=== PATIENT | female | born 1975 | race Caucasian/White ===

== ENCOUNTER 2024-01-14 11:06 | Outpatient (CLI) | payer MEDICAID, SELFPAY ==
[2024-01-14 11:53] LABS: Basophils # 0.1 10^3/uL (0.0-0.1); Basophils % 1.2 %; Eosinophils # 0.2 10^3/uL (0.0-0.8); Eosinophils % 4.6 %; Hematocrit 35.5 % (36-47); Lymphocytes % 23.1 %; Mean Corpuscular HGB Conc 32.4 g/dL (30-55); Mean Corpuscular Hemoglobin 29.1 pg (27-33); Mean Corpuscular Volume 89.9 fl (85-98); Mean Platelet Volume 10.1 fL (7.4-10.4); Monocytes # 0.3 10^3/uL (0.2-0.9); Monocytes % 6.6 %; Neutrophils # 2.65 10^3/uL (1.8-7.7); Neutrophils % 64.3 %; Nucleated Red Blood Cells % 0 %; Platelet Count 115 10^3/cmm (157-399); Red Blood Count 3.95 10^6/uL (3.85-5.65); Red Cell Distribution Width 15.3 % (12.1-15.1); White Blood Count 4.12 10^3/uL (3.29-11.43)
[2024-01-14 12:10] LABS: Alanine Aminotransferase 30 U/L (0-33); Albumin Level 4.3 g/dL (3.5-5.2); Alkaline Phosphatase 147 U/L (35-105); Aspartate Amino Transferase 47 U/L (0-32); Blood Urea Nitrogen 15 mg/dL (6-20); Carbon Dioxide 19 mmol/L (22-29); Chloride 106 mmol/L (98-107); Cholesterol 187 mg/dL (0-200); Globulin 3.3 g/dL (1.3-4.6); Glomerular Filtration Rate 89.3 mL/min (90-130); Glucose 97 mg/dL (65-115); HDL Cholesterol 72 mg/dL (60-100); LDL Cholesterol Calculated 80 mg/dL (50-129); LDL HDL Ratio 1.11 RATIO (0.00-3.22); Osmolality Calculated 287 mOsm/kg (285-295); Sodium 138 mmol/L (136-145); Total Bilirubin 1.2 mg/dL (0.15-1.2); Total Protein 7.6 g/dL (6.6-8.7); Triglycerides 176 mg/dL (0-150)
[2024-01-14 12:14] LABS: Creatinine Urine, Random 67 mg/dL (28-217); Estmated Average Glucose 111; Hemoglobin A1C 5.5 % (4.0-6.0); Microalbumin Random Urine 11 ug/dL (0-20)
[2024-01-14 12:33] LABS: Iron 131 ug/dL (37-145); Percent Saturation 35.5 % (20-50); Total Iron Binding Capacity 368 mcg/dl; Unsaturated Iron Binding 237 ug/dL (112-347)
[2024-01-14 12:52] LABS: Microalbum Creatinine Ratio Ur 164 mg/dL (0-20)
== END 2024-01-14 11:07 | disposition home or self-care (01) ==
PROVIDERS: Family Medicine
DX: Z01.89 Encounter for other specified special examinations (principal)
CPT/HCPCS: 36415; 80053; 80061; 82044; 83036; 83540; 83550; 85025

== ENCOUNTER 2024-02-01 15:57 | Outpatient (CLI) | payer MEDICAID, SELFPAY ==
[2024-02-01 16:55] LABS: Basophils % 0.8 %; Eosinophils # 0.1 10^3/uL (0.0-0.8); Eosinophils % 2.6 %; Hematocrit 31.2 % (36-47); Lymphocytes # 1.2 10^3/uL (0.8-4.8); Lymphocytes % 24.2 %; Mean Corpuscular Hemoglobin 29.5 pg (27-33); Mean Corpuscular Volume 89.4 fl (85-98); Mean Platelet Volume 10.3 fL (7.4-10.4); Monocytes # 0.5 10^3/uL (0.2-0.9); Monocytes % 9.4 %; Neutrophils # 3.08 10^3/uL (1.8-7.7); Neutrophils % 62.8 %; Nucleated Red Blood Cells % 0 %; Platelet Count 96 10^3/cmm (157-399); Red Blood Count 3.49 10^6/uL (3.85-5.65); Red Cell Distribution Width 15.6 % (12.1-15.1); White Blood Count 4.91 10^3/uL (3.29-11.43)
[2024-02-01 17:18] LABS: Estmated Average Glucose 111; Hemoglobin A1C 5.5 % (4.0-6.0)
[2024-02-01 17:32] LABS: Alanine Aminotransferase 38 U/L (0-33); Albumin Level 4.1 g/dL (3.5-5.2); Alkaline Phosphatase 167 U/L (35-105); Anion Gap 17.1 (5-19); Aspartate Amino Transferase 69 U/L (0-32); Blood Urea Nitrogen 16 mg/dL (6-20); Calcium 9.3 mg/dL (8.5-10.5); Carbon Dioxide 19 mmol/L (22-29); Chloride 106 mmol/L (98-107); Chol HDL Ratio 2.64 mg/dL (0.0-4.40); Cholesterol 182 mg/dL (0-200); Ferritin 58 ng/mL (15-150); Globulin 2.9 g/dL (1.3-4.6); Glomerular Filtration Rate 89.3 mL/min (90-130); Glucose 96 mg/dL (65-115); HDL Cholesterol 69 mg/dL (60-100); Iron 42 ug/dL (37-145); LDL Cholesterol Calculated 97 mg/dL (50-129); LDL HDL Ratio 1.41 RATIO (0.00-3.22); Osmolality Calculated 287 mOsm/kg (285-295); Percent Saturation 11.2 % (20-50); Potassium 4.1 mmol/L (3.5-5.1); Sodium 138 mmol/L (136-145); Total Bilirubin 0.7 mg/dL (0.15-1.2); Total Iron Binding Capacity 372 mcg/dl; Triglycerides 80 mg/dL (0-150); Unsaturated Iron Binding 330 ug/dL (112-347)
[2024-02-01 17:39] LABS: Folate Level 11.7 ng/mL (4.8-37.3)
[2024-02-01 17:41] LABS: Creatinine Urine, Random 81 mg/dL (28-217); Microalbumin Random Urine 7 ug/dL (0-20)
[2024-02-01 17:42] LABS: Microalbum Creatinine Ratio Ur 86 mg/dL (0-20)
[2024-02-01 19:22] LABS: Vitamin B12 694 pg/mL (232-1245)
== END 2024-02-01 15:58 | disposition home or self-care (01) ==
LOC: LAB 15:59
PROVIDERS: PCP Registered Nurse; Visit Provider Registered Nurse
DX: D50.9 Iron deficiency anemia, unspecified (principal); E78.5 Hyperlipidemia, unspecified; I10 Essential (primary) hypertension; E11.65 Type 2 diabetes mellitus with hyperglycemia
CPT/HCPCS: 36415; 80053; 80061; 82044; 82607; 82728; 82746; 83036; 83540; 83550; 85025

== ENCOUNTER 2024-02-13 19:19 | Emergency (ER) | payer MEDICAID, SELFPAY ==
[2024-02-13] VITALS (11 sets, daily range): BP systolic 110–159; BP diastolic 56–87; PULSE 97–115; RESP 18–24; TEMP 37.1; O2SAT 91–99; BMI 21.9
--- NOTE | 2024-02-13 19:37 | CTR_ITS ---
PROCEDURE INFORMATION: Exam: CT Abdomen And Pelvis With Contrast Exam date and time: 02/13/2024 8:15 PM Age: 48 years old Clinical indication: Abdominal pain; Generalized; Prior surgery; Surgery date: 6+ months; Surgery type: Csection, choley; Additional info: Abd pain TECHNIQUE: Imaging protocol: Computed tomography of the abdomen and pelvis with contrast. Radiation optimization: All CT scans at this facility use at least one of these dose optimization techniques: automated exposure control; mA and/or kV adjustment per patient size (includes targeted exams where dose is matched to clinical indication); or iterative reconstruction. Contrast material: OMNI 350; Contrast volume: 100 ml; Contrast route: INTRAVENOUS (IV); COMPARISON: No relevant prior studies available. RADIATION DOSE METRICS: Total DLP (mGy-cm): 377.73 FINDINGS: Liver: No mass. Gallbladder and biliary ducts: Cholecystectomy with intrahepatic and extrahepatic bile duct dilation. Pancreas: Pancreas is unremarkable. No main duct dilation. Spleen: Splenomegaly measuring up to 16.3 cm. Adrenal glands: No nodules. Kidneys and ureters: Punctate nonobstructing left renal calculus. No hydroureteronephrosis. No mass. Stomach and bowel: Large colonic stool burden suggesting constipation. No bowel obstruction. Appendix: Normal appendix. Intraperitoneal space: Unremarkable. No free air. No significant fluid collection. Vasculature: No aortic aneurysm. Lymph nodes: No enlarged lymph nodes. Urinary bladder: Unremarkable as visualized. Reproductive: Unremarkable as visualized. Bones/joints: No acute fracture. No aggressive osseous lesions. Soft tissues: Unremarkable. CT/CT abdomen pelvis w con* [id number] IMPRESSION: 1. Large colonic stool burden suggesting constipation. 2. Splenomegaly. 3. Punctate nonobstructing left renal calculus.
--- NOTE | 2024-02-13 19:39 | ED_ITS ---
HPI - Abdominal Pain 2 General: Chief Complaint: Abdominal Pain Stated Complaint: Abd Pain Time Seen by Provider: 02/13/24 19:28 Source: patient Mode of arrival: ambulatory Limitations: no limitations History of Present Illness: 40-year-old female has a history of cirr hosis she has had a cholecystectomy in the past. She states that she is supposed to have a hysterectomy last year but never did. She states she has had some vaginal bleeding last 2 days with lower abdominal pain states pain sharp in nature rates it a 5 out of 10 denies any heavy bleeding denies any fevers denies any vomiting or diarrhea. Associated Symptoms: Denies chills, diarrhea, dysuria, fever(s), nausea and vomiting Related Data Previous Rx's Medication Instructions Recorded metoclopramide HCl 10 mg tablet 10 mg PO Q6H PRN nausea and 02/13/24 (Reglan) vomiting #20 tabs polyethylene glycol 3350 17 gram 17 g PO DAILY PRN constipation #14 02/13/24 oral powder packet (Miralax) ea Allergies Allergy/AdvReac Type Severity Reaction Status Date / Time aspirin Allergy ADR-Headach Verified 02/13/24 19:27 e Penicillins Allergy ALGY-Hives Verified 02/13/24 19:27 Review of Systems 2 Const: Denies: fever(s), chills, body aches or change in appetite ENMT: Denies: throat pain or dental pain Card: Denies: chest pain Resp: Denies: dyspnea GI: Reports: abdominal pain; Denies: nausea, vomiting or diarrhea : Denies: dysuria Musc: Denies: neck pain or back pain Skin/Breast: Denies: rash Neuro: Denies: headache(s) Physical Exam 2 Const: COMMON NORMALS: no acute distress, patient oriented x3 and healthy appearing HENMT: COMMON NORMALS: normocephalic and atraumatic HEAD & SCALP: n ormocephalic and atraumatic Eye: COMMON NORMALS: conjunctivae normal CONJUNCTIVA: Yes conjunctivae normal Neck/C-Spine: COMMON NORMALS: full ROM and supple Chest: COMMONS NORMALS: normal inspection of the chest Resp: COMMON NORMALS: normal respiratory effort Cardio: COMMON NORMALS: regular rate, regular rhythm and No murmurs present (Cardio) RATE: regular rate RHYTHM: regular rhythm GI: COMMON NORMALS: Normal to inspection, nondistended, normoactive bowel sounds present, Soft to palpation and no masses PALPATION: Yes Soft to palpation OTHER: lower abd tenderness Extremity: COMMON NORMALS: normal to inspection and full ROM Neuro: COMMON NORMALS: patient oriented x3, moves all extremities and no focal motor deficits Psych: COMMON NORMALS: mental status grossly normal, Normal thought process present and cooperative THOUGHT PROCESS: Normal thought process present Skin: COMMON NORMALS: no rashes or lesions noted and no wounds GENERAL SKIN EXAM: no rashes or lesions noted Course 2 Vital Signs: Vital signs: Vital Signs Temperature 98.7 F 02/13/24 19:22 Pulse Rate 111 H 02/13/24 22:00 Respiratory Rate 20 H 02/13/24 21:46 Blood Pressure 119/65 02/13/24 22:00 Pulse Oximetry 95 02/13/24 22:00 Oxygen Delivery Me thod Room Air 02/13/24 22:00 MDM - Abdominal Pain Medical Decision Making Patient presents for abdominal pain her white count here is normal she did have some dehydration CT shows constipation abdominal exam at discharge benign she is stable for discharge she is follow-up with PCP and return if worsening will prescribe her MiraLAX and Reglan. Medical Records I reviewed the patient's medical records. Lab Data I reviewed the patient's lab results. 02/13/24 19:43 02/13/24 19:43 Labs/Radiology: Radiology Impressions Abdomen/Pelvis CT 02/13/24 19:37 IMPRESSION: 1. Large colonic stool burden suggesting constipation. 2. Splenomegaly. 3. Punctate nonobstructing left renal calculus. Laboratory Results WBC 8.63 10^3/uL (3.29-11.43) 02/13/24 19:43 RBC 4.18 10^6/uL (3.85-5.65) 02/13/24 19:43 Hgb 12.40 g/dL (11.27-16.99) 02/13/24 19:43 Hct 38.4 % (36-47) 02/13/24 19:43 MCV 91.9 fl (85-98) 02/13/24 19:43 MCH 29.7 pg (27-33) 02/13/24 19:43 MCHC 32.3 g/dL (30-55) 02/13/24 19:43 RDW 15.5 % (12.1-15.1) H 02/13/24 19:43 Plt Count 151 10^3/cmm (157-399) L 02/13/24 19:43 MPV 9.7 fL (7.4-10.4) 02/13/24 19:43 Neut % (Auto) 61.1 % 02/13/24 19:43 Lymph % (Auto) 29.7 % 02/13/24 19:43 [place] % (Auto) 5.2 % 02/13/24 19:43 Eos % (Auto) 2.7 % 02/13/24 19:43 Baso % (Auto) 1.0 % 02/13/24 19:43 Neut # (Auto) 5.27 10^3/uL (1.8-7.7) 02/13/24 19:43 Lymph # (Auto) 2.6 10^3/uL (0.8-4.8) 02/13/24 19:43 [place] # (Auto) 0.5 10^3/uL (0.2-0.9) 02/13/24 19:43 Eos # (Auto) 0.2 10^3/uL (0.0-0.8) 02/13/24 19:43 Baso # (Auto) 0.1 10^3/uL (0.0-0.1) 02/13/24 19:43 Nucleated RBC % (auto) 0 % 02/13/24 19:43 Nucleated RBCs # 0.0 /100WBC 02/13/24 19:43 Sodium 140 mmol/L (136-145) 02/13/24 19:43 Potassium 3.8 mmol/L (3.5-5.1) 02/13/24 19:43 Chloride 111 mmol/L (98-107) H 02/13/24 19:43 Carbon Dioxide 13 mmol/L (22-29) L 02/13/24 19:43 Anion Gap 19.8 (5-19) H 02/13/24 19:43 BUN 13 mg/dL (6-20) 02/13/24 19:43 Creatinine 1.0 mg/dL (0.5-0.9) H 02/13/24 19:43 GFR Calculation 59.2 mL/min (90-130) L 02/13/24 19:43 Glucose 103 mg/dL (65-115) 02/13/24 19:43 Calculated Osmolality 290 mOsm/kg (285-295) 02/13/24 19:43 Calcium 9.9 mg/dL (8.5-10.5) 02/13/24 19:43 Total Bilirubin 0.9 mg/dL (0.15-1.2) 02/13/24 19:43 AST 70 U/L (0-32) H 02/13/24 19:43 ALT 37 U/L (0-33) H 02/13/24 19:43 Alkaline Phosphatase 168 U/L (35-105) H 02/13/24 19:43 Total Protein 8.1 g/dL (6.6-8.7) 02/13/24 19:43 Albumin 4.4 g/dL (3.5-5.2) 02/13/24 19:43 Globulin 3.7 g/dL (1.3-4.6) 02/13/24 19:43 Lipase 61 U/L (13-60) H 02/13/24 19:43 Urine Color Yellow (Yellow) 02/13/24 20:15 Urine Appearance Clear (CLEAR) 02/13/24 20:15 Urine pH 6.0 (5-7) 02/13/24 20:15 Ur Specific [place] 1.005 (1.005-1.030) 02/13/24 20:15 Urine Protein 1+ (Negative) A 02/13/24 20:15 Urine Glucose (UA) Negative (Normal) 02/13/24 20:15 Urine Ketones Negative (Negative) 02/13/24 20:15 Urine Blood 3+ (Negative) A 02/13/24 20:15 Urine Nitrate Negative (Negative) 02/13/24 20:15 Urine Bilirubin Negative (Negative) 02/13/24 20:15 Urine Urobilinogen 0.2 mg/dL (Negative) 02/13/24 20:15 Ur Leukocyte Esterase Negative (Negative) 02/13/24 20:15 Urine RBC 21-50 /hpf (0-2) H 02/13/24 20:15 Urine WBC None /hpf (0-5) 02/13/24 20:15 Ur Squamous Epith Cells 0-4 /hpf (0-5) H 02/13/24 20:15 Amorphous Sediment Not Reportable 02/13/24 20:15 Urine Bacteria None /hpf (NONE) 02/13/24 20:15 All radiology interpretation(s) finalized by discharge Discharge Plan Discharge Patient Disposition: Home Clinical Impression: Abdominal pain, Constipation Condition: Stable Prescriptions: New Reglan 10 mg tablet 10 mg PO Q6H PRN (Reason: nausea and vomiting) Qty: 20 0RF Miralax 17 gram powder in packet 17 g PO DAILY PRN (Reason: constipation) Qty: 14 0RF Discharge Orders: Discharge ED (Routine); Ordered 02/13/24 Ordered By: Chata Demarco Referrals: Jose Mejía ENGINE INSPECTOR [Primary Care Provider] - 4-7 days Discharge Diet: Advance as tolerated Discharge Activity: Resume usual activity Patient Instructions: Constipation (ED), Abdominal Pain (ED) Coding Level of Care Code 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
[2024-02-13] MEDS: ondansetron 2 mg/ML SDV 2 mL 4 MG IVP (19:57)
[2024-02-13] MEDS: morphine 4 mg/mL SDV 1 mL IVP (19:57)
[2024-02-13] MEDS: sodium chloride 0.9% 1,000 ML 999 ML IV ×2 (19:58→20:32)
[2024-02-13 20:01] LABS: Basophils # 0.1 10^3/uL (0.0-0.1); Eosinophils # 0.2 10^3/uL (0.0-0.8); Eosinophils % 2.7 %; Hematocrit 38.4 % (36-47); Lymphocytes # 2.6 10^3/uL (0.8-4.8); Lymphocytes % 29.7 %; Mean Corpuscular HGB Conc 32.3 g/dL (30-55); Mean Corpuscular Hemoglobin 29.7 pg (27-33); Mean Corpuscular Volume 91.9 fl (85-98); Mean Platelet Volume 9.7 fL (7.4-10.4); Monocytes # 0.5 10^3/uL (0.2-0.9); Monocytes % 5.2 %; Neutrophils # 5.27 10^3/uL (1.8-7.7); Neutrophils % 61.1 %; Nucleated Red Blood Cells % 0 %; Platelet Count 151 10^3/cmm (157-399); Red Blood Count 4.18 10^6/uL (3.85-5.65); Red Cell Distribution Width 15.5 % (12.1-15.1); White Blood Count 8.63 10^3/uL (3.29-11.43)
[2024-02-13 20:18] LABS: Charge for UA Resulting for Rev
--- NOTE | 2024-02-13 20:19 | PC.NURSE ---
Patient states that she is on her menstrual cycle.
[2024-02-13 20:20] LABS: Alanine Aminotransferase 37 U/L (0-33); Albumin Level 4.4 g/dL (3.5-5.2); Alkaline Phosphatase 168 U/L (35-105); Anion Gap 19.8 (5-19); Aspartate Amino Transferase 70 U/L (0-32); Blood Urea Nitrogen 13 mg/dL (6-20); Calcium 9.9 mg/dL (8.5-10.5); Carbon Dioxide 13 mmol/L (22-29); Chloride 111 mmol/L (98-107); Creatinine Clr Calc Pharmacy 56.2957; Globulin 3.7 g/dL (1.3-4.6); Glomerular Filtration Rate 59.2 mL/min (90-130); Glucose 103 mg/dL (65-115); Lipase 61 U/L (13-60); Osmolality Calculated 290 mOsm/kg (285-295); Potassium 3.8 mmol/L (3.5-5.1); Sodium 140 mmol/L (136-145); Total Bilirubin 0.9 mg/dL (0.15-1.2); Total Protein 8.1 g/dL (6.6-8.7)
[2024-02-13 20:20] LABS: Bilirubin Urine Negative (Negative); Blood Urine 3+ (Negative); Glucose Urine UA Negative (Normal); Ketones Urine Negative (Negative); Leukocyte Esterase Urine Negative (Negative); Nitrate Urine Negative (Negative); Protein Urine 1+ (Negative); Specific Gravity, Urine 1.005 (1.005-1.030); Urine Appearance Clear (CLEAR); Urobilinogen Urine 0.2 mg/dL (Negative)
[2024-02-13] MEDS: iohexol 350 mg/mL 500 mL Btl (per mL) IV (20:30)
[2024-02-13] MEDS: HYDROmorphone 1 mg/mL INJ 1 mL IVP (20:33)
[2024-02-13 20:41] LABS: UA Manual Slide Review YES; Urine Color Yellow (Yellow)
[2024-02-13 20:49] LABS: RBC Urine 21-50 /hpf (0-2)
[2024-02-13 20:50] LABS: Add Urine Culture? Yes; Squamous Epithelial Cell Urine 0-4 /hpf (0-5)
[2024-02-13] MEDS: metoclopramide 5 mg/mL SDV 2 mL IVP (21:02)
[2024-02-13] MEDS: diphenhydrAMINE 50 mg/mL SDV 1mL IVP (21:03)
[2024-02-13] MEDS: lactulose oral liq 20 gm/30 mL UDC 30 GM PO (21:45)
== END 2024-02-13 22:31 | disposition home or self-care (01) ==
PROVIDERS: Emergency Provider Emergency Medicine; PCP Registered Nurse
DX: K59.00 Constipation, unspecified (principal); R10.30 Lower abdominal pain, unspecified
CPT/HCPCS: 36415; 74177; 80053; 81003; 81015; 83690; 85025; 87086; 96361; 96374; 96375; 99285; J1170; J1200; J2270; J2405; J2765; J7030

== ENCOUNTER 2024-02-15 09:45 | Emergency (ER) | payer MEDICAID, SELFPAY ==
[2024-02-15 09:56] VITALS: BP 143/87; PULSE 86; RESP 15; TEMP 36.6; O2SAT 99; BMI 25.6
--- NOTE | 2024-02-15 10:13 | ED_ITS ---
HPI - Abdominal Pain 2 General: Chief Complaint: Abdominal Pain Stated Complaint: upper right side stomach pain Time Seen by Provider: 02/15/24 10:05 Source: patient Mode of arrival: ambulatory Limitations: no limitations History of Present Illness: 48-year-old female history of cirrhosis along with chronic abdominal pain patient was seen here 2 days ago abdominal pain had normal labs and normal CT of her abdomen states she is continue to have pain over her liver that feels like her cirrhosis pain rates the pain a 6 out of 10 currently denies any fevers denies any worsening proving factors. Associated Symptoms: Reports nausea; Denies chills, dysuria, fever(s) and vomiting Related Data Previous Rx's Medication Instructions Recorded metoclopramide HCl 10 mg tablet 10 mg PO Q6H PRN nausea and 02/13/24 (Reglan) vomiting #20 tabs polyethylene glycol 3350 17 gram 17 g PO DAILY PRN constipation #14 02/13/24 oral powder packet (Miralax) ea Allergies Allergy/AdvReac Type Severity Reaction Status Date / Time aspirin Allergy ADR-Headach Verified 02/13/24 19:27 e Penicillins Allergy ALGY-Hives Verified 02/13/24 19:27 Review of Systems 2 Const: Denies: fever(s), chills, body aches or change in appetite ENMT: Denies: throat pain or dental pain Card: Denies: chest pain Resp: Denies: dyspnea GI: Reports: abdominal pain and nausea; Denies: vomiting : Denies: dysuria Musc: Denies: neck pain or back pain Skin/Breast: Denies: rash Neuro: Denies: headache(s) Physical Exam 2 Const: COMMON NORMALS: no acute distress, patient oriented x3 and healthy appearing HENMT: COMMON NORMALS: normocephalic and atraumatic HEAD & SCALP: n ormocephalic and atraumatic Eye: COMMON NORMALS: Equal, round and reactive pupils present and EOMs intact bilaterally PUPIL: Yes Equal, round and reactive pupils present Neck/C-Spine: COMMON NORMALS: full ROM and supple Chest: COMMONS NORMALS: normal inspection of the chest Resp: COMMON NORMALS: normal respiratory effort Cardio: COMMON NORMALS: regular rate, regular rhythm and No murmurs present (Cardio) RATE: regular rate RHYTHM: regular rhythm GI: COMMON NORMALS: Normal to inspection, nondistended, normoactive bowel sounds present, Soft to palpation, non-tender and no masses PALPATION: Yes Soft to palpation Extremity: COMMON NORMALS: normal to inspection and full ROM Neuro: COMMON NORMALS: patient oriented x3, moves all extremities and no focal motor deficits Psych: COMMON NORMALS: mental status grossly normal, Normal thought process present and cooperative THOUGHT PROCESS: Normal thought process present Skin: COMMON NORMALS: no rashes or lesions noted and no wounds GENERAL SKIN EXAM: no rashes or lesions noted Course 2 Vital Signs: Vital signs: Vital Signs Temperature 97.9 F 02/15/24 09:56 Pulse Rate 78 02/15/24 13:42 Respiratory Rate 17 02/15/24 10:37 Blood Pressure 141/82 02/15/24 13:42 Pulse Oximetry 98 02/15/24 13:42 Oxygen Delivery Me thod Room Air 02/15/24 09:56 MDM - Abdominal Pain Medical Decision Making Patient presents with abdominal pain has been chronic in nature she just had a CT scan that was negative blood work here is normal normal white count she is stable for discharge she is follow-up with PCP and return if worsening she understands agrees to plan Medical Records I reviewed the patient's medical records. Lab Data I reviewed the patient's lab results. 02/15/24 10:17 02/15/24 11:09 Labs/Radiology: Laboratory Results WBC 5.66 10^3/uL (3.29-11.43) 02/15/24 10:17 RBC 3.85 10^6/uL (3.85-5.65) 02/15/24 10:17 Hgb 11.20 g/dL (11.27-16.99) L 02/15/24 10:17 Hct 34.5 % (36-47) L 02/15/24 10:17 MCV 89.6 fl (85-98) 02/15/24 10:17 MCH 29.1 pg (27-33) 02/15/24 10:17 MCHC 32.5 g/dL (30-55) 02/15/24 10:17 RDW 15.7 % (12.1-15.1) H 02/15/24 10:17 Plt Count 150 10^3/cmm (157-399) L 02/15/24 10:17 MPV 10.3 fL (7.4-10.4) 02/15/24 10:17 Neut % (Auto) 58.9 % 02/15/24 10:17 Lymph % (Auto) 28.6 % 02/15/24 10:17 [place] % (Auto) 6.7 % 02/15/24 10:17 Eos % (Auto) 4.1 % 02/15/24 10:17 Baso % (Auto) 1.2 % 02/15/24 10:17 Neut # (Auto) 3.33 10^3/uL (1.8-7.7) 02/15/24 10:17 Lymph # (Auto) 1.6 10^3/uL (0.8-4.8) 02/15/24 10:17 [place] # (Auto) 0.4 10^3/uL (0.2-0.9) 02/15/24 10:17 Eos # (Auto) 0.2 10^3/uL (0.0-0.8) 02/15/24 10:17 Baso # (Auto) 0.1 10^3/uL (0.0-0.1) 02/15/24 10:17 Nucleated RBC % (auto) 0 % 02/15/24 10:17 Nucleated RBCs # 0.0 /100WBC 02/15/24 10:17 Sodium 146 mmol/L (136-145) H 02/15/24 11:09 Potassium 4.3 mmol/L (3.5-5.1) 02/15/24 11:09 Chloride 115 mmol/L (98-107) H 02/15/24 11:09 Carbon Dioxide 17 mmol/L (22-29) L 02/15/24 11:09 Anion Gap 18.3 (5-19) 02/15/24 11:09 BUN 14 mg/dL (6-20) 02/15/24 11:09 Creatinine 0.9 mg/dL (0.5-0.9) 02/15/24 11:09 GFR Calculation 66.8 mL/min (90-130) L 02/15/24 11:09 Glucose 105 mg/dL (65-115) 02/15/24 11:09 Calculated Osmolality 303 mOsm/kg (285-295) H 02/15/24 11:09 Calcium 8.9 mg/dL (8.5-10.5) 02/15/24 11:09 Total Bilirubin 0.7 mg/dL (0.15-1.2) 02/15/24 11:09 AST 62 U/L (0-32) H 02/15/24 11:09 ALT 32 U/L (0-33) 02/15/24 11:09 Alkaline Phosphatase 139 U/L (35-105) H 02/15/24 11:09 Total Protein 7.5 g/dL (6.6-8.7) 02/15/24 11:09 Albumin 4.1 g/dL (3.5-5.2) 02/15/24 11:09 Globulin 3.4 g/dL (1.3-4.6) 02/15/24 11:09 Lipase 41 U/L (13-60) 02/15/24 11:09 HCG, Qual Negative (Negative) 02/15/24 10:17 Urine Color Yellow (Yellow) 02/15/24 10:25 Urine Appearance Clear (CLEAR) 02/15/24 10:25 Urine pH 6.0 (5-7) 02/15/24 10:25 Ur Specific [place] 1.004 (1.005-1.030) L 02/15/24 10:25 Urine Protein Negative (Negative) 02/15/24 10:25 Urine Glucose (UA) Trace (Normal) H 02/15/24 10:25 Urine Ketones Negative (Negative) 02/15/24 10:25 Urine Blood 3+ (Negative) A 02/15/24 10:25 Urine Nitrate Negative (Negative) 02/15/24 10:25 Urine Bilirubin Negative (Negative) 02/15/24 10:25 Urine Urobilinogen 0.2 mg/dL (Negative) 02/15/24 10:25 Ur Leukocyte Esterase Trace (Negative) A 02/15/24 10:25 Urine RBC 5-10 /hpf (0-2) H 02/15/24 10:25 Urine WBC 5-10 /hpf (0-5) H 02/15/24 10:25 Ur Squamous Epith Cells None /hpf (0-5) 02/15/24 10:25 Amorphous Sediment Not Reportable 02/15/24 10:25 Urine Bacteria None /hpf (NONE) 02/15/24 10:25 Urine Mucus None /hpf 02/15/24 10:25 Urine Opiates Screen Positive ng/mL (Negative) H 02/15/24 10:25 Ur Barbiturates Screen Negative ng/mL (Negative) 02/15/24 10:25 Ur Phencyclidine Scrn Negative ng/mL (Negative) 02/15/24 10:25 Ur Amphetamines Screen Negative ng/mL (Negative) 02/15/24 10:25 U Benzodiazepines Scrn Negative ng/mL (Negative) 02/15/24 10:25 Urine Cocaine Screen Negative ng/mL (Negative) 02/15/24 10:25 U Marijuana (THC) Screen Positive ng/mL (Negative) H 02/15/24 10:25 Ethyl Alcohol Cancelled 02/15/24 10:17 No radiology studies performed this visit Discharge Plan Discharge Patient Disposition: Home Clinical Impression: Abdominal pain Condition: Stable Prescriptions: No Action Reglan 10 mg tablet 10 mg PO Q6H PRN (Reason: nausea and vomiting) Qty: 20 0RF Miralax 17 gram powder in packet 17 g PO DAILY PRN (Reason: constipation) Qty: 14 0RF Discharge Orders: Discharge ED (Routine); Ordered 02/15/24 Ordered By: Chata Demarco Referrals: Jose Mejía, MANAGER REGIONAL [Primary Care Provider] - 4-7 days Discharge Diet: Advance as tolerated Discharge Activity: Resume usual activity Patient Instructions: Abdominal Pain (ED) Coding Level of Care Code ED Childcare Administrator for Cameron Wood
[2024-02-15 10:27] LABS: Basophils # 0.1 10^3/uL (0.0-0.1); Basophils % 1.2 %; Eosinophils # 0.2 10^3/uL (0.0-0.8); Eosinophils % 4.1 %; Hematocrit 34.5 % (36-47); Lymphocytes # 1.6 10^3/uL (0.8-4.8); Lymphocytes % 28.6 %; Mean Corpuscular HGB Conc 32.5 g/dL (30-55); Mean Corpuscular Hemoglobin 29.1 pg (27-33); Mean Corpuscular Volume 89.6 fl (85-98); Mean Platelet Volume 10.3 fL (7.4-10.4); Monocytes # 0.4 10^3/uL (0.2-0.9); Monocytes % 6.7 %; Neutrophils # 3.33 10^3/uL (1.8-7.7); Neutrophils % 58.9 %; Nucleated Red Blood Cells % 0 %; Platelet Count 150 10^3/cmm (157-399); Red Blood Count 3.85 10^6/uL (3.85-5.65); Red Cell Distribution Width 15.7 % (12.1-15.1); White Blood Count 5.66 10^3/uL (3.29-11.43)
[2024-02-15] MEDS: ondansetron 2 mg/ML SDV 2 mL 4 MG IVP (10:36)
[2024-02-15 10:37] VITALS: RESP 17; O2SAT 95
[2024-02-15] MEDS: HYDROmorphone 1 mg/mL INJ 1 mL IVP (10:37)
[2024-02-15 10:42] LABS: HCG, Serum Qual Negative (Negative)
[2024-02-15] MEDS: diphenhydrAMINE 50 mg/mL SDV 1mL IVP (11:21)
[2024-02-15] MEDS: metoclopramide 5 mg/mL SDV 2 mL 10 MG IVP (11:22)
[2024-02-15 11:32] LABS: Charge for UA Resulting for Rev
[2024-02-15 11:37] LABS: Bilirubin Urine Negative (Negative); Blood Urine 3+ (Negative); Glucose Urine UA Trace (Normal); Ketones Urine Negative (Negative); Leukocyte Esterase Urine Trace (Negative); Nitrate Urine Negative (Negative); Protein Urine Negative (Negative); Specific Gravity, Urine 1.004 (1.005-1.030); Urine Appearance Clear (CLEAR); Urine Color Yellow (Yellow); Urobilinogen Urine 0.2 mg/dL (Negative)
[2024-02-15 11:44] LABS: Amphetamines Screen Urine Negative (Negative); Barbiturates Screen Urine Negative (Negative); Benzodiazepines Screen Urine Negative (Negative); Cocaine Screen Urine Negative (Negative); Opiate Screen Urine Positive (Negative); PCP Screen Urine Negative (Negative); THC Screen Urine Positive (Negative)
[2024-02-15 11:48] LABS: UA Manual Slide Review YES; UA Slide Review UA Slide Review Perf
[2024-02-15 11:50] LABS: Add Urine Culture? No
[2024-02-15 11:58] LABS: Alanine Aminotransferase 32 U/L (0-33); Albumin Level 4.1 g/dL (3.5-5.2); Alkaline Phosphatase 139 U/L (35-105); Anion Gap 18.3 (5-19); Aspartate Amino Transferase 62 U/L (0-32); Blood Urea Nitrogen 14 mg/dL (6-20); Calcium 8.9 mg/dL (8.5-10.5); Carbon Dioxide 17 mmol/L (22-29); Chloride 115 mmol/L (98-107); Globulin 3.4 g/dL (1.3-4.6); Glomerular Filtration Rate 66.8 mL/min (90-130); Glucose 105 mg/dL (65-115); Lipase 41 U/L (13-60); Osmolality Calculated 303 mOsm/kg (285-295); Potassium 4.3 mmol/L (3.5-5.1); Sodium 146 mmol/L (136-145); Total Bilirubin 0.7 mg/dL (0.15-1.2); Total Protein 7.5 g/dL (6.6-8.7)
[2024-02-15] MEDS: sodium chloride 0.9% 1,000 ML 999 ML IV (12:34)
[2024-02-15] MEDS: HYDROcodone-acetaminophen 7.5-325 mg Tablet 1 TAB PO (13:01)
[2024-02-15] MEDS: LORazepam 2 mg/mL INJ 1 mL 1 MG IVP (13:09)
[2024-02-15 13:42] VITALS: BP 141/82; PULSE 78; O2SAT 98
== END 2024-02-15 13:45 | disposition home or self-care (01) ==
PROVIDERS: Emergency Provider Emergency Medicine; PCP Registered Nurse
DX: R10.9 Unspecified abdominal pain (principal)
CPT/HCPCS: 36415; 80053; 80306; 81003; 81015; 83690; 84703; 85025; 96374; 96375; 99284; J1170; J1200; J2060; J2405; J2765; J7030

== ENCOUNTER 2024-04-18 00:06 | Inpatient (IN) | payer MEDICAID, SELFPAY ==
[2024-04-18] VITALS (40 sets, daily range): BP systolic 124–177; BP diastolic 80–141; PULSE 76–135; RESP 9–28; TEMP 36.8; O2SAT 93–99; BMI 27.4
--- NOTE | 2024-04-18 00:14 | XRR_ITS ---
PROCEDURE INFORMATION: Exam: XR Chest Exam date and time: 04/18/2024 12:41 AM Age: 48 years old Clinical indication: Other: Tachycardia TECHNIQUE: Imaging protocol: Radiologic exam of the chest. Views: 1 view. COMPARISON: CT abdomen pelvis w con* [id number] 02/13/2024 8:15 PM FINDINGS: Lungs: Unremarkable. No consolidation. Pleural spaces: Unremarkable. No pleural effusion. No pneumothorax. Heart/Mediastinum: Mild cardiomegaly. Bones/joints: Unremarkable. XR/XR chest 1V portable [id number] IMPRESSION: Mild cardiomegaly, no acute process.
--- NOTE | 2024-04-18 00:16 | W.ED.AMS ---
HPI - Altered Mental Status General: Chief Complaint: Altered Mental Status Stated Complaint: SEIZURE Time Seen by Provider: 04/18/24 00:10 Source: EMS Mode of arrival: EMS History of Present Illness: Patient brought in by EMS from home with complaints of using a bad batch of meth and now having side effects. Patient cannot sit still when answer questions, keeps fidgeting around to the point she almost crawls out of bed. Patient's heart rates about 135 beats a minute, respirations 28 times a minute O2 sats 97% on room air. Related Data Previous Rx's Medication Instructions Recorded metoclopramide HCl 10 mg tablet 10 mg PO Q6H PRN nausea and 02/13/24 (Reglan) vomiting #20 tabs polyethylene glycol 3350 17 gram 17 g PO DAILY PRN constipation #14 02/13/24 oral powder packet (Miralax) ea Allergies Allergy/AdvReac Type Severity Reaction Status Date / Time aspirin Allergy ADR-Headach Verified 04/18/24 00:14 e Penicillins Allergy ALGY-Hives Verified 04/18/24 00:14 Review of Systems General: Reports: ROS unobtainable due to medical condition [facility] Female Reproductive History: Date of last menstrual period: 04/18/24 Physical Exam Const: COMMON NORMALS: no acute distress, average body habitus, healthy appearing, alert and well nourished; limitations (Will not stay still for evaluation) HENMT: COMMON NORMALS: normocephalic, atraumatic, hearing grossly normal bilaterally, external ears normal, Normal external nose present and moist oral mucous membranes HEAD & SCALP: normocephalic and atraumatic NOSE: Normal external nose present EXTERNAL EAR: Yes external ears normal Neck/C-Spine: COMMON NORMALS: no JVD Chest: COMMONS NORMALS: normal inspection of the chest and normal palpation of entire chest wall Resp: COMMON NORMALS: normal respiratory effort, No retractions, No use of accessory muscles and clear to auscultation bilaterally AUSCULTATION: clear to auscultation bilaterally Cardio: COMMON NORMALS: no JVD, regular rhythm, S1 normal heart sound present, S2 normal heart sound present, No gallops present (Cardio), No clicks present (Cardio), No murmurs present (Cardio) and No rub (Cardio); negative for regular rate (Tachycardic) RATE: abnormal rate (Tachycardic) RHYTHM: regular rhythm HEART SOUNDS: S1 normal heart sound present and S2 normal heart sound present GI: COMMON NORMALS: Normal to inspection, nondistended, normoactive bowel sounds present, Soft to palpation, non-tender, No hepatosplenomegaly present and no masses PALPATION: Yes Soft to palpation and Yes No hepatosplenomegaly present Neuro: SENSORIUM/ORIENTATION: Yes alert Course Vital Signs: Vital signs: Vital Signs Temperature 98.2 F 04/18/24 00:07 Pulse Rate 77 04/18/24 03:30 Respiratory Rate 12 04/18/24 03:30 Blood Pressure 135/85 04/18/24 03:30 Pulse Oximetry 99 04/18/24 03:30 Oxygen Delivery Me thod Room Air 04/18/24 00:33 MDM - Altered Mental Status Medical Decision Making Upon arrival patient was highly altered and was twitching and spasming and would not communicate, extensive laboratory and imaging workup was obtained, no real reason was noted for her symptoms, patient was low in potassium at 3.2 magnesium 1.1 negative chest x-ray and head CT, urine drug screen is only positive for THC, was consulted who agreed to place her in the ICU. He wanted us to give her 1500 mg of Keppra in case she was having a seizure and an ABG on her. Medical Records I reviewed the patient's medical records. Lab Data I reviewed the patient's lab results. 04/18/24 01:31 04/18/24 01:31 Radiology Impressions Chest X-Ray 04/18/24 00:14 IMPRESSION: Mild cardiomegaly, no acute process. Head CT 04/18/24 01:43 IMPRESSION: No acute intracranial abnormality. Laboratory Results WBC 5.84 10^3/uL (3.29-11.43) 04/18/24 01:31 RBC 3.61 10^6/uL (3.85-5.65) L 04/18/24 01:31 Hgb 10.90 g/dL (11.27-16.99) L 04/18/24 01:31 Hct 33.5 % (36-47) L 04/18/24 01:31 MCV 92.8 fl (85-98) 04/18/24 01:31 MCH 30.2 pg (27-33) 04/18/24 01:31 MCHC 32.5 g/dL (30-55) 04/18/24 01: RDW 13.8 % (12.1-15.1) 04/18/24 01:31 Plt Count 115 10^3/cmm (157-399) L 04/18/24 01:31 MPV 9.7 fL (7.4-10.4) 04/18/24 01:31 Neut % (Auto) 67.6 % 04/18/24 01:31 Lymph % (Auto) 19.0 % 04/18/24 01:31 Rhea % (Auto) 11.1 % 04/18/24 01:31 Eos % (Auto) 0.9 % 04/18/24 01: Baso % (Auto) 0.9 % 04/18/24 01: Neut # (Auto) 3.95 10^3/uL (1.8-7.7) 04/18/24 01:31 Lymph # (Auto) 1.1 10^3/uL (0.8-4.8) 04/18/24 01:31 Rhea # (Auto) 0.7 10^3/uL (0.2-0.9) 04/18/24 01:31 Eos # (Auto) 0.1 10^3/uL (0.0-0.8) 04/18/24 01:31 Baso # (Auto) 0.1 10^3/uL (0.0-0.1) 04/18/24 01:31 Nucleated RBC % (auto) 0 % 04/18/24 01: Nucleated RBCs # 0.0 /100WBC 04/18/24 01:31 Sodium 139 mmol/L (136-145) 04/18/24 01:31 Potassium 3.2 mmol/L (3.5-5.1) L 04/18/24 01:31 Chloride 109 mmol/L (98-107) H 04/18/24 01:31 Carbon Dioxide 16 mmol/L (22-29) L 04/18/24 01:31 Anion Gap 17.2 (5-19) 04/18/24 01:31 BUN 16 mg/dL (6-20) 04/18/24 01:31 Creatinine 0.9 mg/dL (0.5-0.9) 04/18/24 01:31 GFR Calculation 66.8 mL/min (90-130) L 04/18/24 01:31 Glucose 134 mg/dL (65-115) H 04/18/24 01:31 Calculated Osmolality 291 mOsm/kg (285-295) 04/18/24 01:31 Lactic Acid 1.2 mmol/L (0.5-2.2) 04/18/24 03:26 Calcium 8.9 mg/dL (8.5-10.5) 04/18/24 01:31 Magnesium 1.1 mg/dL (1.7-2.3) L 04/18/24 03:26 Total Bilirubin 1.5 mg/dL (0.15-1.2) H 04/18/24 01:31 AST 54 U/L (0-32) H 04/18/24 01: ALT 42 U/L (0-33) H 04/18/24 01:31 Alkaline Phosphatase 100 U/L (35-105) 04/18/24 01:31 Troponin T Baseline < 6 ng/L (0-10) 04/18/24 01:31 Troponin T 120 Minute 7.01 ng/L (0-10) 04/18/24 03:26 Delta Troponin T 1.22921 ABS# (0-10) 04/18/24 03:26 C-Reactive Protein 3.0 mg/L (0.0-4.9) 04/18/24 03:26 Total Protein 6.3 g/dL (6.6-8.7) L 04/18/24 01:31 Albumin 4.2 g/dL (3.5-5.2) 04/18/24 01:31 Globulin 2.1 g/dL (1.3-4.6) 04/18/24 01:31 Procalcitonin 0.05 ng/mL (0-0.5) 04/18/24 03:26 Prolactin 15.79 ng/mL (4.8-23.3) 04/18/24 03:26 Urine Color Yellow (Yellow) 04/18/24 00:15 Urine Appearance Clear (CLEAR) 04/18/24 00:15 Urine pH 6.0 (5-7) 04/18/24 00:15 Ur Specific [place] 1.016 (1.005-1.030) 04/18/24 00:15 Urine Protein 2+ (Negative) A 04/18/24 00:15 Urine Glucose (UA) Negative (Normal) 04/18/24 00:15 Urine Ketones Negative (Negative) 04/18/24 00:15 Urine Blood 2+ (Negative) A 04/18/24 00:15 Urine Nitrate Negative (Negative) 04/18/24 00:15 Urine Bilirubin Negative (Negative) 04/18/24 00:15 Urine Urobilinogen 2.0 mg/dL (Negative) H 04/18/24 00:15 Ur Leukocyte Esterase Trace (Negative) A 04/18/24 00:15 Urine RBC 0-2 /hpf (0-2) 04/18/24 00:15 Urine WBC 0-5 /hpf (0-5) 04/18/24 00:15 Ur Squamous Epith Cells 0-5 /hpf (0-5) 04/18/24 00:15 Amorphous Sediment Not Reportable 04/18/24 00:15 Urine Bacteria 1+ /hpf (NONE) H 04/18/24 00:15 Hyaline Casts 2.46 /lpf 04/18/24 00:15 Salicylates < 0.3 mg/dL (3-10) L 04/18/24 01:31 Urine Opiates Screen Negative ng/mL (Negative) 04/18/24 00:15 Acetaminophen < 5.0 ug/mL (10-30) L 04/18/24 01:31 Ur Barbiturates Screen Negative ng/mL (Negative) 04/18/24 00:15 Ur Phencyclidine Scrn Negative ng/mL (Negative) 04/18/24 00:15 Ur Amphetamines Screen Negative ng/mL (Negative) 04/18/24 00:15 U Benzodiazepines Scrn Negative ng/mL (Negative) 04/18/24 00:15 Urine Cocaine Screen Negative ng/mL (Negative) 04/18/24 00:15 U Marijuana (THC) Screen Positive ng/mL (Negative) H 04/18/24 00:15 Ethyl Alcohol < 10 mg/dL (0-10) 04/18/24 01:31 All radiology interpretation(s) finalized by discharge Discharge Plan Discharge Patient Disposition: Admitted As Inpatient Clinical Impression: Altered mental status Qualifiers: Altered mental status type: unspecified Qualified Code(s): R41.82 - Altered mental status, unspecified Condition: Stable Coding Level of Care Code ED Brusher for Cameron Wood
[2024-04-18] MEDS: LORazepam 2 mg/mL INJ 1 mL IM (00:21)
[2024-04-18 00:47] LABS: Bilirubin Urine Negative (Negative); Blood Urine 2+ (Negative); Glucose Urine UA Negative (Normal); Ketones Urine Negative (Negative); Leukocyte Esterase Urine Trace (Negative); Nitrate Urine Negative (Negative); Protein Urine 2+ (Negative); Specific Gravity, Urine 1.016 (1.005-1.030); Urine Appearance Clear (CLEAR); Urine Color Yellow (Yellow)
[2024-04-18 00:52] LABS: Add Urine Microscopic? YES; Hyaline Casts Urine 2.46 /lpf; RBC Urine 0-2 /hpf (0-2); Squamous Epithelial Cell Urine 0-5 /hpf (0-5); WBC Urine 0-5 /hpf (0-5)
[2024-04-18 00:54] LABS: Amphetamines Screen Urine Negative (Negative); Barbiturates Screen Urine Negative (Negative); Benzodiazepines Screen Urine Negative (Negative); Cocaine Screen Urine Negative (Negative); Opiate Screen Urine Negative (Negative); PCP Screen Urine Negative (Negative); THC Screen Urine Positive (Negative)
[2024-04-18 00:59] LABS: Bacteria Urine 1+ /hpf; UA Slide Review UA Slide Review Perf
[2024-04-18 01:00] LABS: Add Urine Culture? No
--- NOTE | 2024-04-18 01:24 | ECG_ITS ---
[employer] Test Date: 2024-04-18 Pat Name: Aurora Acevedo Department: Room: Gender: Female Publicity Expert: : 1975 Requested By: Elías Fabian Order Number: [id number] Russ MD: Diana Robert M.D. Measurements Intervals [place] Rate: 89 P: 50 SD: 155 QRS: 16 QRSD: 93 T: 40 QT: 391 QTc: 478 Interpretive Statements SINUS RHYTHM POSSIBLE LEFT ATRIAL ENLARGEMENT [-0.1mV P-WAVE IN V1/V2] No previous ECG available for comparison Electronically Signed On 04-19-2024 21:58:16 CORN HUSKER MACHINE OPERATOR by Diana Robert M.D. [id number]
[2024-04-18 01:35] LABS: Basophils # 0.1 10^3/uL (0.0-0.1); Basophils % 0.9 %; Eosinophils # 0.1 10^3/uL (0.0-0.8); Eosinophils % 0.9 %; Hematocrit 33.5 % (36-47); Lymphocytes # 1.1 10^3/uL (0.8-4.8); Mean Corpuscular HGB Conc 32.5 g/dL (30-55); Mean Corpuscular Hemoglobin 30.2 pg (27-33); Mean Corpuscular Volume 92.8 fl (85-98); Mean Platelet Volume 9.7 fL (7.4-10.4); Monocytes # 0.7 10^3/uL (0.2-0.9); Monocytes % 11.1 %; Neutrophils # 3.95 10^3/uL (1.8-7.7); Neutrophils % 67.6 %; Nucleated Red Blood Cells % 0 %; Platelet Count 115 10^3/cmm (157-399); Red Blood Count 3.61 10^6/uL (3.85-5.65); Red Cell Distribution Width 13.8 % (12.1-15.1); White Blood Count 5.84 10^3/uL (3.29-11.43)
--- NOTE | 2024-04-18 01:43 | CTR_ITS ---
PROCEDURE INFORMATION: Exam: CT Head Without Contrast Exam date and time: 04/18/2024 1:49 AM Age: 48 years old Clinical indication: Speech disturbance; Unspecified; Additional info: Altered mental status TECHNIQUE: Imaging protocol: Computed tomography of the head without contrast. Radiation optimization: All CT scans at this facility use at least one of these dose optimization techniques: automated exposure control; mA and/or kV adjustment per patient size (includes targeted exams where dose is matched to clinical indication); or iterative reconstruction. COMPARISON: No relevant prior studies available. RADIATION DOSE METRICS: Total DLP (mGy-cm): 1091.14 FINDINGS: Brain: Normal. No hemorrhage, mass effect or midline shift. Cerebral ventricles: Ventricles are normal in size and position. Paranasal sinuses: Visualized sinuses are unremarkable. No fluid levels. Mastoid air cells: Visualized mastoid air cells are well aerated. Bones: Unremarkable. No acute fracture. Soft tissues: Unremarkable. CT/CT head wo con* [id number] IMPRESSION: No acute intracranial abnormality.
[2024-04-18 01:54] LABS: Troponin(5th) Baseline < 6 ng/L (0-10)
[2024-04-18 01:59] LABS: Alanine Aminotransferase 42 U/L (0-33); Albumin Level 4.2 g/dL (3.5-5.2); Alkaline Phosphatase 100 U/L (35-105); Aspartate Amino Transferase 54 U/L (0-32); Blood Urea Nitrogen 16 mg/dL (6-20); Calcium 8.9 mg/dL (8.5-10.5); Carbon Dioxide 16 mmol/L (22-29); Chloride 109 mmol/L (98-107); Creatinine Clr Calc Pharmacy 69.1196; Globulin 2.1 g/dL (1.3-4.6); Glomerular Filtration Rate 66.8 mL/min (90-130); Glucose 134 mg/dL (65-115); Osmolality Calculated 291 mOsm/kg (285-295); Sodium 139 mmol/L (136-145); Total Bilirubin 1.5 mg/dL (0.15-1.2); Total Protein 6.3 g/dL (6.6-8.7)
[2024-04-18 02:02] LABS: Acetaminophen < 5.0 ug/mL (10-30); Alcohol Level < 10 mg/dL (0-10); Salicylate < 0.3 mg/dL (3-10)
[2024-04-18 02:03] LABS: Anion Gap 17.2 (5-19); Potassium 3.2 mmol/L (3.5-5.1)
--- NOTE | 2024-04-18 02:14 | ECG_ITS ---
[employer] Test Date: 2024-04-18 Pat Name: Aurora Acevedo Department: Room: Gender: Female Medical Concierge: : 1975 Requested By: Elías Fabian Order Number: [id number] Reading MD: SHIVAM VICTOR Measurements Intervals [place] Rate: 78 P: 59 IN: 143 QRS: 29 QRSD: 94 T: 48 QT: 409 QTc: 469 Interpretive Statements SINUS RHYTHM POSSIBLE LEFT ATRIAL ENLARGEMENT [-0.1mV P-WAVE IN V1/V2] Compared to ECG 04/18/2024 01:24:42 No significant changes Electronically Signed On 04-20-2024 00:35:34 CLAMP JIG ASSEMBLER by SHIVAM VICTOR [id number]
[2024-04-18 03:52] LABS: Lactic Sepsis W/Reflex 1.2 mmol/L (0.5-2.2)
[2024-04-18 03:53] LABS: Troponin 5 2HR 7.01 ng/L (0-10); Troponin 5 2HR Delta 1.01001 ABS# (0-10)
[2024-04-18 04:03] LABS: Procalcitonin 0.05 ng/mL (0-0.5); Prolactin 15.79 ng/mL (4.8-23.3)
[2024-04-18 04:14] LABS: Magnesium 1.1 mg/dL (1.7-2.3)
--- NOTE | 2024-04-18 04:28 | P.HP_ITS ---
Providers/Chief Complaint 2 Primary Care Provider: Jose Mejía NP Chief Complaint: SEIZURE History of Present Illness Aurora Acevedo is a 48 year old female with history of depression, suicidal ideation, drug overdose presented with altered mental status. As per the ER doctor EMS was contacted because patient was confused and family was concerned if she overdosed on methamphetamine. In the ER she was very irritable and agitated with tachycardia tachypnea she had to be given Ativan. Hospital service was consulted after significant workup for her altered mental status. Lab work consistent with hypomagnesemia, normal anion gap acidosis I requested ammonia level, hepatitis panel, her drug screen is unremarkable other than THC. There is persistent hematuria, Casanova catheter placed no significant pyuria, patient is afebrile patient was given Keppra 1500 mg along Ativan in the ER, she has extremity flexion response to painful stimuli, does not have myoclonus on exam, at the time of my evaluation she is on room air, not tachycardic heart rate is around 90, blood pressure improved, she has multiple scratch macias and bruises on her extremities I have tried to get a hold of family, nobody answered, left a voicemail Review of Systems 2 General: Reports: ROS unobtainable due to mental status Medications/Allergies Home Medications Medication Instructions Recorded Confirmed Last Taken Type metoclopramide HCl 10 mg tablet 10 mg PO Q6H PRN nausea and 02/13/24 Unknown Rx (Reglan) vomiting #20 tabs polyethylene glycol 3350 17 gram 17 g PO DAILY PRN constipation #14 02/13/24 Unknown Rx oral powder packet (Miralax) ea Allergies Allergy/AdvReac Type Severity Reaction Status Date / Time aspirin Allergy ADR-Headach Verified 04/18/24 00:14 e Penicillins Allergy ALGY-Hives Verified 04/18/24 00:14 PFSH Acute 2 Female Reproductive History: Date of last menstrual period: 04/18/24 Vitals/I&O/Wt Last Vital Signs Temp 98.2 F 04/18/24 00:07 Pulse 77 04/18/24 03:30 Resp 12 04/18/24 03:30 BP 135/85 04/18/24 03:30 Pulse Ox 99 04/18/24 03:30 O2 Del Method Room Air 04/18/24 00:33 Weight last 48 hrs Weight 68.039 kg Physical Exam 2 Narrative: Patient is laying supine Snoring Hypertensive not tachycardic heart rate around 90s Sinus rhythm Currently on room air Saturating well To painful stimuli patient shows flexion response of upper extremities I do not see any myoclonus Her pupils are pinpoint and not reactive to light She is keeping her wrist and palm tight and flexed bilaterally S1, S2 sinus rhythm Abdomen nondistended Casanova catheter draining concentrated colored urine Data 04/18/24 01:31 04/18/24 01:31 A&P Assessment and plan (1) Altered mental status: Qualifiers: Altered mental status type: unspecified Qualified Code(s): R41.82 - Altered mental status, unspecified (2) Abnormal transaminases: (3) Increased ammonia level: Plan Altered mental status Metabolic encephalopathy Etiology unknown Considering abnormal transaminases I have requested hepatitis panel and ammonia level, ammonia level came back high, will request rifaximin and lactulose Casanova catheter placed, urine showing hematuria without significant signs of UTI She is afebrile She was given loading dose of Keppra, and Narcan, she did not respond significantly She was heavily sedated in the ER with Ativan CT head unremarkable, chest x-ray not showing any consolidation Please note recently patient was evaluated for abdominal pain, CT abdomen pelvis showed large colonic stool burden and splenomegaly with nonobstructing left renal calculus that would explain her persistent hematuria Left a voicemail to her family Advance diet once she is more awake and alert DVT prophylaxis added Keep her on CIWA protocol Review of records revealed patient has tendency for suicidal attempts with drug overdose, drug screen negative Monitor closely in the ICU, in case she starts vomiting all threshold will stay low to intubate her for airway protection Attestations 2 Medical Necessity Statement*: More than 2 midnights anticipated Diagnoses Altered mental status R41.82 Altered mental status type: unspecified Abnormal transaminases R74.8 Increased ammonia level R79.89
[2024-04-18] MEDS: levETIRAcetam 1,500 MG/100 ML PREMIX 400 MG IV (04:46)
[2024-04-18 05:03] LABS: ABG PCO2 29.2 mmHg (35-45); ABG PH Result 7.41 (7.35-7.45); Alveolar-Arterial Oxygen Gradi 1.3 mmHg (5-10); Arterial Blood Gas Hematocrit 32.2 % (37-47); Base Excess ABG -5.4 mmol/L (-2.0-2.0); Blood Gas Allen Test Pos; Blood Gas Sample Type Arterial; Carboxyhemoglobin 0.9 %THgb (0.4-20.1); HCO3 ABG 18.3 mmol/L (22-26); HGB O2 Sat 97.4 % (95-100); Ionized Calcium Level - ABG 1.2 mmol/L (1.1-1.4); Methemoglobin 0.4 % (0.4-1.5); Oxygen Saturation ABG 98.7; Potassium Level - ABG 3.3 mmol/L (3.5-5.0); Total Hemoglobin 10.5 g/dL (12-16)
[2024-04-18 05:04] LABS: Blood Gas Operator Identificat 600455; Blood Gas Sample Site Radial, left; PO2 FiO2 Ratio Arterial Blood 480
[2024-04-18 05:05] LABS: Ammonia 63 umol/L (11-51)
[2024-04-18] MEDS: magnesium sulfate premix 2 GM/50 ML PIGGYBACK IV (05:10)
[2024-04-18] MEDS: naloxone 0.4 mg/ml SDV IVP (05:38)
--- NOTE | 2024-04-18 06:06 | ECG_ITS ---
[employer] Test Date: 2024-04-18 Pat Name: Aurora Acevedo Department: Room: [facility] Gender: Female Chair Finisher: : 1975 Requested By: Elías Fabian Order Number: [id number] Reading MD: SHIVAM VICTOR Measurements Intervals [place] Rate: 86 P: 52 HI: 155 QRS: 13 QRSD: 94 T: 47 QT: 381 QTc: 458 Interpretive Statements SINUS RHYTHM POSSIBLE LEFT ATRIAL ENLARGEMENT [-0.1mV P-WAVE IN V1/V2] Compared to ECG 04/18/2024 02:41:27 No significant changes Electronically Signed On 04-20-2024 00:35:22 MODEL MAKER APPRENTICE by SHIVAM VICTOR [id number]
[2024-04-18 06:32] LABS: Glucose Point of Care 126 mg/dL (70-110)
[2024-04-18] MEDS: sodium bicarbonate 150 MEQ in dextrose 5% 1,000 ML 100 MEQ IV (06:35)
[2024-04-18 08:00] LABS: Troponin 5 6HR Delta 0.00001 ng/L (0-12)
--- NOTE | 2024-04-18 08:00 | PC.NURSE ---
CIWA : Pt not able to answer or respond to all questions, nurse exercised nurse judgment on majority of questions.
[2024-04-18 08:21] LABS: Hepatitis A Antibody IgM Non-Reactive (Nonreactive); Hepatitis B Core AB, Total Non-Reactive (Nonreactive); Hepatitis B Surface AB < 3.5 (11.5-1000); Hepatitis B Surface Antigen Non-Reactive (Nonreactive); Hepatitis C Virus Antibody Non-Reactive (Nonreactive)
--- NOTE | 2024-04-18 09:00 | US_ITS ---
WS: [id number] ULTRASOUND ABDOMEN LIMITED CLINICAL INFORMATION: hepatobiliary FINDINGS: Technically difficult study Liver Size: Cirrhotic Craniocaudal length: 15.9 cm. Echogenicity: Coarse Surface nodularity: Cirrhotic Mass (size and location): None. Bile ducts Intrahepatic ducts: Normal. Common bile duct diameter: 0.6 cm. Gallbladder Cholecystectomy Pancreas Normal as visualized. Right kidney: Normal. Hydronephrosis: None. Size: 8.6 cm x 4.9 cm x 4.6 cm. Abdominal aorta and IVC Visualized portions are normal. Ascites: None. US/US abdomen limited [id number] IMPRESSION: Technically difficult study 1. Cirrhotic liver. 2. Prior cholecystectomy. 3. No hydronephrosis in the RIGHT kidney.
[2024-04-18] MEDS: lactulose oral liq 20 gm/30 mL UDC 30 GM PR (09:08)
--- NOTE | 2024-04-18 09:22 | PC.PHAR ---
Pt unable to verify medications. Phoned [facility] and verified all medications with Prosper, who gave last fill dates and days supply.
[2024-04-18 09:37] LABS: LAB Peripheral Smear Sent for Review
[2024-04-18 11:41] LABS: Alanine Aminotransferase 37 U/L (0-33); Albumin Level 3.9 g/dL (3.5-5.2); Alkaline Phosphatase 98 U/L (35-105); Anion Gap 16.3 (5-19); Aspartate Amino Transferase 60 U/L (0-32); Blood Urea Nitrogen 12 mg/dL (6-20); Calcium 8.4 mg/dL (8.5-10.5); Carbon Dioxide 21 mmol/L (22-29); Chloride 108 mmol/L (98-107); Creatinine Clr Calc Pharmacy 92.7901; Glomerular Filtration Rate 106.7 mL/min (90-130); Glucose 137 mg/dL (65-115); Osmolality Calculated 296 mOsm/kg (285-295); Potassium 3.3 mmol/L (3.5-5.1); Sodium 142 mmol/L (136-145); Total Bilirubin 1.2 mg/dL (0.15-1.2); Total Protein 6.9 g/dL (6.6-8.7)
[2024-04-18 11:42] LABS: Magnesium 2.1 mg/dL (1.7-2.3)
--- NOTE | 2024-04-18 11:58 | CT_ITS ---
WS: [id number] CT ABDOMEN PELVIS TECHNIQUE: Contrast-enhanced CT of the abdomen and pelvis with coronal and sagittal reformatted image s. CLINICAL INFORMATION: abdo pain, encephalopathy COMPARISON: None. DLP: 446.[address] scans at [facility] use at least one of these dose optimization techniques: automated e xposure control; mA and/or kV adjustment per patient size (includes targeted exams where dose is matc hed to clinical indication); or iterative reconstruction. FINDINGS: Cirrhotic liver with splenomegaly and upper abdominal varices. Portal vein and splenic vein appear pa tent. Normal pancreas. Normal caliber abdominal aorta. Celiac and SMA are patent. Adrenal glands are normal. No hydronephrosis in either kidney. Diffuse dilatation of the colon extending to the rectum w ith air-fluid levels most compatible with adynamic ileus. Normal small bowel. Normal lumbar spine. An teverted uterus. Prior cholecystectomy. Casanova catheter in the bladder. Lung bases are well aerated. L EFT ovarian cyst measuring 2.9 x 2.5 cm Normal air-filled appendix CT/CT abdomen pelvis w con* [id number] IMPRESSION: 1. Cirrhotic liver with splenomegaly and evidence of portal venous hypertensio n. Varices in the upper abdomen. 2. Moderate diffuse distention of the colon extending to the rectum with a few air-fluid levels most compatible with adynamic ileus. Normal small bowel. 3. Casanova catheter in the bladder. 4. LEFT ovarian cyst measuring 2.9 x 2.5 cm 5. Prior cholecystectomy.
[2024-04-18] MEDS: iohexol 350 mg/mL 500 mL Btl (per mL) IV (13:01)
[2024-04-18] MEDS: lactulose oral liq 20 gm/30 mL UDC 30 GM PO ×2 (14:29→21:22)
--- NOTE | 2024-04-18 14:52 | CTR_ITS ---
PROCEDURE INFORMATION: Exam: CT Abdomen And Pelvis Without Contrast Exam date and time: 04/18/2024 3:54 PM Age: 48 years old Clinical indication: Abdominal pain; Prior surgery; Surgery date: 6+ months; Surgery type: Gb, ; Additional info: Rectal contrast TECHNIQUE: Imaging protocol: Computed tomography of the abdomen and pelvis without contrast. Radiation optimization: All CT scans at this facility use at least one of these dose optimization techniques: automated exposure control; mA and/or kV adjustment per patient size (includes targeted exams where dose is matched to clinical indication); or iterative reconstruction. Other contrast: Rectal, OMNI 350, 50; COMPARISON: CT abdomen pelvis w con* [id number] 04/18/2024 12:52 PM RADIATION DOSE METRICS: Total DLP (mGy-cm): 420.65 FINDINGS: Liver: Normal. No mass. Gallbladder and biliary ducts: Cholecystectomy. No ductal dilation. Pancreas: Normal. No ductal dilation. Spleen: Splenomegaly measuring 16 cm in length. Adrenal glands: Normal. No mass. Kidneys and ureters: Normal. No hydronephrosis. Stomach and bowel: Rectal tube in place with contrast noted throughout the colon. Several fluid-filled loops of small bowel noted which are not distended. Metallic clip noted within the stomach. Appendix: No evidence of appendicitis. Intraperitoneal space: Unremarkable. No free air. No significant fluid collection. Vasculature: Unremarkable. No abdominal aortic aneurysm. Lymph nodes: Unremarkable. No enlarged lymph nodes. Urinary bladder: Casanova catheter noted within a decompressed bladder. Reproductive: Unremarkable as visualized. Bones/joints: No acute fracture. Soft tissues: Unremarkable. CT/CT abdomen pelvis con [id number] IMPRESSION: 1. Rectal contrast extends throughout the colon, no obstruction. No perforation. 2. Splenomegaly.
--- NOTE | 2024-04-18 15:03 | PM.CONSULT ---
Providers/Reason For Consult Consulting Physician/Specialty*: Dr. Gates general surgery Reason for Consult*: Ileus Attending Physician: Sagar Sinclair Primary Care Provider: Jose Mejía NP History of Present Illness History of Present Illness Aurora Acevedo is a 48 year old female admitted with encephalopathy. Patient has a history of cirrhosis and is not well-controlled. Patient has also been seen for chronic abdominal pain in the past. She also has a history of drug use. Hospitalist consulted surgery to rule out [place]'s/bowel obstruction. Patient has been taking lactulose intermittently. She has been having bowel function. No vomiting. LFTs at baseline. UA relatively clean. Medications/Allergies Home Medications Medication Instructions Recorded Confirmed Last Taken Type metoclopramide HCl 10 mg tablet 10 mg PO Q6H PRN nausea and 02/13/24 04/18/24 Unknown Rx (Reglan) vomiting #20 tabs polyethylene glycol 3350 17 gram 17 g PO DAILY PRN constipation #14 02/13/24 04/18/24 Unknown Rx oral powder packet (Miralax) ea amlodipine 5 mg tablet 5 mg PO DAILY 04/18/24 04/18/24 Unknown History azelastine 137 mcg (0.1 %) nasal 2 spray intranasal BID 04/18/24 04/18/24 Unknown History spray budesonide-formoterol HFA 80 2 puff inhalation BID 04/18/24 04/18/24 Unknown History mcg-4.5 mcg/actuation aerosol inhaler (Symbicort) clindamycin phosphate 1 % topical 1 applic topical BID 04/18/24 04/18/24 Unknown History gel dapagliflozin propanediol 5 mg 5 mg PO DAILY 04/18/24 04/18/24 Unknown History tablet (Farxiga) ergocalciferol (vitamin D2) 1,250 1,250 mcg PO Q7D 04/18/24 04/18/24 Unknown History mcg (50,000 unit) capsule (Vitamin D2) ferrous sulfate 325 mg (65 mg 325 mg PO DAILY 04/18/24 04/18/24 Unknown History iron) tablet lactulose 10 gram/15 mL (15 mL) 30 ml PO BID 04/18/24 04/18/24 Unknown History oral solution loratadine 10 mg tablet (Claritin) 10 mg PO DAILY 04/18/24 04/18/24 Unknown History metformin 500 mg tablet,extended 500 mg PO DAILY 04/18/24 04/18/24 Unknown History release 24 hr omeprazole 20 mg capsule,delayed 20 mg PO DAILY 04/18/24 04/18/24 Unknown History release Allergies Allergy/AdvReac Type Severity Reaction Status Date / Time aspirin Allergy ADR-Headach Verified 04/18/24 00:14 e Penicillins Allergy ALGY-Hives Verified 04/18/24 00:14 Current Medications Generic Name Dose Route Start Last Admin Trade Name Kuldip PRN Reason Stop Dose Admin Folic Acid 1 mg 04/18/24 09:00 04/18/24 11:50 Folic Acid 1 Mg Tablet PO Not Given DAILY ALPHONSO Sodium Bicarbonate 150 meq/ 1,150 mls @ 100 mls/hr 04/18/24 05:32 04/18/24 06:35 Dextrose IV 100 mls/hr .[id number] ALPHONSO Administration Lactulose 30 gm 04/18/24 09:00 04/18/24 14:29 Lactulose Oral Liq 20 Gm/30 Ml Udc PO 30 gm TID ALPHONSO Administration Multivitamins Therapeutic 1 tab 04/18/24 09:00 04/18/24 11:51 Multivitamin Therapeutic Tablet PO Not Given DAILY ALPHONSO Rifaximin 600 mg 04/18/24 09:00 04/18/24 11:51 Rifaximin 200 Mg Tablet PO Not Given BID ALPHONSO PFSH Acute Female Reproductive History: Date of last menstrual period: 04/18/24 Vitals/I&O/Wt Last Vital Signs Temp 98.2 F 04/18/24 00:07 Pulse 115 H 04/18/24 09:25 Resp 16 04/18/24 09:25 BP 161/108 04/18/24 05:45 Pulse Ox 99 04/18/24 09:25 O2 Del Method Room Air 04/18/24 09:25 04/18/24 04/18/24 04/18/24 06:59 14:59 22:59 Intake Total 150 / 150 30 / 30 Balance 150 / 150 30 / 30 Weight last 48 hrs Weight 116 lb 13.52 oz Weight 116 lb 13.52 oz Weight 150 lb Physical Exam Narrative: Chest: Unlabored breathing room air. No lymphadenopathy. Heart: HR 115. Regular rhythm. Abdomen: Soft, nontender, nondistended. No masses or lymphadenopathy. Urinary Catheter Management: Casanova: Cath Placed During This Visit: yes Urinary Catheter Date of Insertion: 04/18/24 Urinary Catheter Time of Insertion: 05:41 Data 04/18/24 01:31 04/18/24 11:02 A&P Assessment and plan (1) Ileus: Plan 48-year-old female whom surgery got consulted to rule out [place]'s/bowel obstruction. Reviewed CT scan images and I agree with radiology read. No evidence of bowel obstruction. Findings most consistent with diffuse ileus. Clinical picture does not match [place]'s. No role for neostigmine. It is reasonable to obtain a CT scan with AR contrast to rule out a rectal or colonic obstruction. Patient should establish care with a cpr instructor. Coding Level of Care Code 49113 Diagnoses Ileus K56.7 Time Spent (min) 30
[2024-04-18] MEDS: morphine 4 mg/mL SDV 1 mL 2 MG IVP ×2 (15:05→19:20)
[2024-04-18] MEDS: lidocaine 1% 5 ML in potassium chloride premix 100 ML 52.5 ML IV (15:07)
[2024-04-18] MEDS: iohexol 350 mg/mL 500 mL Btl (per mL) PO (16:07)
[2024-04-18] MEDS: lanolin oint 7 gm 1 APPLIC TOPICAL (16:35)
--- NOTE | 2024-04-18 17:00 | PC.NURSE ---
Shift summary: Pt rested in bed through the shift. Offer to get out of be and walk in the afternoon was met with resistance. Pt complaining of abd off and on this afternoon. It kelle. worsened shortly after she tried eating evening meal. Her pupils were not consistent through the day very constricted or dilated up to a 6. She kept her body very tense, and her right arm curled into itself not wanting to move it and yelling out when it was moved with Bp cuff adjustments. She would at times keep her feet extended out so tightly her calves would be off the bed. SHe had a US of her liver, gallbladder area and 2 CTs of her abdomen, one without contract , one with rectal contrast. VSS . Bicarb gtt discontinued this evening. At beginning of shift she was lethargic, unable to anwer questions clearing or without falling back to sleep. At end of shift she was alert, answering questions, reasoning well and her speech was much clearer. She has had good urine output, 850 ml. She is menstruating at this time.
--- NOTE | 2024-04-18 17:01 | P.PN_ITS ---
Subjective 2 Subjective: She is sleeping, but later in the visit wakes up to voice. Appears anxious, tense. Denies any headache, denies any chest pain or pressure, is complaining of abdominal pain. Some pain in both upper extremities. Vitals/I&O/Wt Last Vital Signs Temp 98.2 F 04/18/24 00:07 Pulse 115 H 04/18/24 09:25 Resp 23 H 04/18/24 15:05 BP 161/108 04/18/24 05:45 Pulse Ox 96 04/18/24 15:05 O2 Del Method Room Air 04/18/24 09:25 04/18/24 04/18/24 04/18/24 06:59 14:59 22:59 Intake Total 150 / 150 30 / 30 Balance 150 / 150 30 / 30 Weight last 48 hrs Weight 53 kg Weight 53 kg Weight 68.039 kg Physical Exam 2 Const: GENERAL APPEARANCE: cooperative OTHER: Wakes up to voice. Anxious, tense. HENMT: COMMON NORMALS: oropharynx normal Neck/C-Spine: COMMON NORMALS: no JVD Resp: COMMON NORMALS: normal respiratory effort and clear to auscultation bilaterally AUSCULTATION: clear to auscultation bilaterally Cardio: COMMON NORMALS: no JVD, regular rhythm, S1 normal heart sound present, S2 normal heart sound present and No murmurs present (Cardio) RHYTHM: regular rhythm HEART SOUNDS: S1 normal heart sound present and S2 normal heart sound present GI: COMMON NORMALS: Normal to inspection, nondistended, normoactive bowel sounds present and Soft to palpation PALPATION: Yes Soft to palpation and Yes Tenderness to palpation present (GI) Extremity: COMMON NORMALS: no joint enlargement and no pedal edema Neuro: COMMON NORMALS: moves all extremities Skin: COMMON NORMALS: no rashes or lesions noted GENERAL SKIN EXAM: no rashes or lesions noted Urinary Catheter Management: Casanova: Cath Placed During This Visit: yes Urinary Catheter Date of Insertion: 04/18/24 Urinary Catheter Time of Insertion: 05:41 Data 04/18/24 01:31 04/18/24 11:02 A&P Assessment and plan (1) Altered mental status: Qualifiers: Altered mental status type: unspecified Qualified Code(s): R41.82 - Altered mental status, unspecified (2) Abnormal transaminases: (3) Increased ammonia level: Plan Altered mental status Metabolic encephalopathy With some mild asterixis. She wakes up, is anxious, tense. But is more responsive, does appear to answer questions appropriately, does not answer all questions. Denies headache, chest pain pressure, does have some abdominal pain. Some pain in both arms. Reviewed vitals, CBC, ABG, CMP, magnesium, repeat chemistry requested. Reviewed UA, UDS, tick panel requested. Prescription with her she has what he describes as stage IV cirrhosis. Per history obtained from her she does usually take her lactulose. Discussed ammonia level is elevated. She has not had any tick bites. There are a few medications that she takes including medications for her diabetes. She does appear to take Reglan as needed for intermittent vomiting. She smokes marijuana, her gets it at the dispensary from a known source. No alcohol intake, no other recreational drug use. Discussed elevation of T. bili, transaminitis, transaminitis is chronic. T. bili elevation is new. Obtained abdominal ultrasound, status post cholecystectomy. Noted liver cirrhosis, no other concerning findings. As she has been still having abdominal pain, with tachycardia, obtain CT abdomen pelvis. Noted colonic distention suggestive of ileus. She and her state that she has possibly had a colonoscopy but it has been a long time ago. Discussed with surgery, appreciate consultation regarding possible [place] syndrome. As per discussion requested CT with rectal contrast to exclude obstruction. Reviewed, no obstruction noted. Reviewed surgery consultation note, no indication for neostigmine, not [place] for surgical assessment, suspected ileus. Will downgrade diet for now to clear liquid as tolerating. Stop bicarbonate drip. Continue gentle IV hydration with LR. Monitor for risk of fluid overload with cirrhosis. Metabolic encephalopathy secondary to decompensated liver cirrhosis, possible medication toxicity, possibly from Reglan. Hold off any potential contributing medications. Continue lactulose. Also severe hypomagnesemia, recheck magnesium is doing better. Recheck in the morning. Hepatitis panel was negative. CT head unremarkable, chest x-ray not showing any consolidation Please note recently patient was evaluated for abdominal pain, CT abdomen pelvis showed large colonic stool burden and splenomegaly with nonobstructing left renal calculus that would explain her persistent hematuria DVT prophylaxis added Keep her on CIWA protocol Review of records revealed patient has tendency for suicidal attempts with drug overdose, drug screen negative Monitor closely in the ICU, in case she starts vomiting all threshold will stay low to intubate her for airway protection Attestations 2 Medical Necessity Statement*: Continue admission for assessment and management of acute encephalopathy, decompensated liver cirrhosis. and High MDM includes amount and/or complexity of data reviewed/ordered [ resulted lab(s)/test(s), ordered lab(s)/test(s), independent historian and other healthcare professional discussion] and described risk of complication, morbidity or mortality of management as documented Diagnoses Altered mental status R41.82 Altered mental status type: unspecified Abnormal transaminases R74.8 Increased ammonia level R79.89
[2024-04-18] MEDS: rifaximin 200 mg Tablet 600 MG PO (17:39)
--- NOTE | 2024-04-18 21:06 | PC.NURSE ---
Contacted Dr. Baird in reference to existing transfer orders for this patient. Dr. Baird confirmed that this patient can be transferred.
[2024-04-18] MEDS: HYDROmorphone 1 mg/mL INJ 1 mL 0.2 MG IVP (21:32)
[2024-04-19] VITALS (24 sets, daily range): BP systolic 129–178; BP diastolic 84–108; PULSE 87–115; RESP 8–19; TEMP 36.8–37.5; O2SAT 93–97; BMI 22.1
[2024-04-19] MEDS: morphine 4 mg/mL SDV 1 mL 2 MG IVP ×2 (00:06→11:27)
--- NOTE | 2024-04-19 03:42 | PC.NURSE ---
Report called to L[facility] on [facility].
[2024-04-19 08:13] LABS: Basophils # 0.1 10^3/uL (0.0-0.1); Eosinophils # 0.1 10^3/uL (0.0-0.8); Eosinophils % 1.7 %; Hematocrit 32.3 % (36-47); Lymphocytes # 1.2 10^3/uL (0.8-4.8); Lymphocytes % 16.3 %; Mean Corpuscular HGB Conc 32.2 g/dL (30-55); Mean Corpuscular Hemoglobin 29.7 pg (27-33); Mean Corpuscular Volume 92.3 fl (85-98); Mean Platelet Volume 9.9 fL (7.4-10.4); Monocytes # 0.7 10^3/uL (0.2-0.9); Monocytes % 9.2 %; Neutrophils # 5.04 10^3/uL (1.8-7.7); Neutrophils % 71.4 %; Nucleated Red Blood Cells % 0 %; Platelet Count 124 10^3/cmm (157-399); Red Cell Distribution Width 13.9 % (12.1-15.1); White Blood Count 7.06 10^3/uL (3.29-11.43)
[2024-04-19 08:40] LABS: Anion Gap 17.5 (5-19); Blood Urea Nitrogen 12 mg/dL (6-20); Calcium 8.4 mg/dL (8.5-10.5); Carbon Dioxide 20 mmol/L (22-29); Chloride 106 mmol/L (98-107); Creatinine Clr Calc Pharmacy 70.6162; Glomerular Filtration Rate 76.6 mL/min (90-130); Glucose 108 mg/dL (65-115); Magnesium 1.8 mg/dL (1.7-2.3); Osmolality Calculated 290 mOsm/kg (285-295); Potassium 3.5 mmol/L (3.5-5.1); Sodium 140 mmol/L (136-145)
[2024-04-19] MEDS: lactulose oral liq 20 gm/30 mL UDC 30 GM PO ×3 (09:37→21:56)
[2024-04-19] MEDS: rifaximin 200 mg Tablet 600 MG PO ×2 (09:39→17:30)
[2024-04-19] MEDS: multivitamin therapeutic Tablet 1 TAB PO (09:40)
[2024-04-19] MEDS: folic acid 1 mg Tablet PO (09:41)
[2024-04-19] MEDS: thiamine 100 mg Tablet PO (09:41)
--- NOTE | 2024-04-19 10:05 | PC.CHAP ---
Pastoral Care Encounter/Spiritual Assessment Type of Contact [] Declined allergist/md visit [] Patient/Family/Request visit [] Outpatient visit [] Follow-up visit [] Physician referral [] Code/Alert [x] Routine visit [] Staff referral [] Actively dying [] Patient sleeping [] Family support [] [] Out of room [] Palliative care [] [] Receiving care in room [] Pre-surgical visit [] Trauma [] Long length of stay [] ICU visit [] Other: Relational/Emotional Strength [x] Patient feels connected with others/family/visitors/staff [] Distress [] Loneliness/isolation [] Abandonment Spirituality of Patient [x] Person of Maria E [] Attends Taoist of their Maria E [x] Believes in Prayer [] Reads Bible or Gnosticist materials [] There are Spiritual issues to be addressed Elevator Service Mechanic Interventions [x] Prayer [x] Active listening [] Non-anxious presence [x] Spiritual/emotional support [] Crisis/trauma care [] Spiritual counseling [] Bereavement support [] Provided bereavement packet [] Provided Bible/devotional materials [] Provided toy/stuffed animal, coloring book to patient or family member [] Provided Communion [] Anointing/[place] [] Salvation [x] Completed spiritual assessment [] Other: Impact on Illness or Injury [] Angry [] Fearful [] Anxious [] Often cries [] Exhaustion [] Unable to work [] Unable to attend synagogue [] Unable to walk/stand [] Unable to read [] Unable to drive [] Unable to eat/drink [] Unable to sleep [] Unable to be with family [] Patient intubated [] Other: Summary Time spent with patient 5 min
[2024-04-19] MEDS: ondansetron 2 mg/ML SDV 2 mL 4 MG IVP (11:26)
--- NOTE | 2024-04-19 11:41 | P.PN_ITS ---
Subjective 2 Subjective: She is having abdominal pain. Also having some numbness in her right foot. Vitals/I&O/Wt Last Vital Signs Temp 99.5 F 04/19/24 11:00 Pulse 93 04/19/24 11:00 Resp 18 04/19/24 11:27 BP 178/97 04/19/24 11:00 Pulse Ox 96 04/19/24 11:00 O2 Del Method Room Air 04/19/24 11:00 04/18/24 04/19/24 04/19/24 22:59 06:59 14:59 Intake Total 1455 / 1485 Output Total 850 / 850 150 / 1000 Balance 605 / 635 -150 / 485 Weight last 48 hrs Weight 54.885 kg Weight 53 kg Weight 53 kg Weight 68.039 kg Physical Exam 2 Const: GENERAL APPEARANCE: cooperative OTHER: Wakes up to voice. Anxious, tense. HENMT: COMMON NORMALS: oropharynx normal Neck/C-Spine: COMMON NORMALS: no JVD Resp: COMMON NORMALS: normal respiratory effort and clear to auscultation bilaterally AUSCULTATION: clear to auscultation bilaterally Cardio: COMMON NORMALS: no JVD, regular rhythm, S1 normal heart sound present, S2 normal heart sound present and No murmurs present (Cardio) RHYTHM: regular rhythm HEART SOUNDS: S1 normal heart sound present and S2 normal heart sound present GI: COMMON NORMALS: Soft to palpation PALPATION: Yes Soft to palpation and Yes Tenderness to palpation present (GI) OTHER: Sluggish bowel sounds Extremity: COMMON NORMALS: no joint enlargement and no pedal edema Neuro: COMMON NORMALS: moves all extremities Skin: COMMON NORMALS: no rashes or lesions noted GENERAL SKIN EXAM: no rashes or lesions noted Urinary Catheter Management: Casanova: Cath Placed During This Visit: yes Reason for Continuing Indwelling Catheter: Other Urinary Catheter Date of Insertion: 04/18/24 Urinary Catheter Time of Insertion: 05:41 Data 04/19/24 07:43 04/19/24 07:43 A&P Assessment and plan (1) Altered mental status: Qualifiers: Altered mental status type: unspecified Qualified Code(s): R41.82 - Altered mental status, unspecified (2) Abnormal transaminases: (3) Increased ammonia level: Plan Altered mental status Metabolic encephalopathy: Continue to improve. Multifactorial encephalopathy. Replace additional magnesium. Continue lactulose, has had difficulty with bowel movements due to ileus. She is having abdominal pain. Discussed with her nursing staff limit opiates as possible. She is receiving IV morphine. Will discontinue. Requesting for her to ambulate with assistance, maintain fall precautions. She does report some numbness in the right foot, will ask PT for assessment, cane versus walker if needed. Acetaminophen, gentle massage, heating pad, ambulation for abdominal discomfort. Limit/avoid opiates as much as possible to avoid further worsening ileus. Reviewed vitals, CBC, BMP, magnesium. Discussed with nursing. Discussed with caseworker intake. T. bili has normalized. Will recheck CMP. Follow-up tick panel. She states has not missed lactulose for her cirrhosis at home. Discussed ammonia level is elevated. She has not had any tick bites. There are a few medications that she takes including medications for her diabetes. She does appear to take Reglan as needed for intermittent vomiting. She smokes marijuana, her gets it at the dispensary from a known source. No alcohol intake, no other recreational drug use. Ileus: Clear liquid diet as tolerating. Ambulate. Discussed with her nursing, avoid opiates if at all possible. Receiving IV morphine, stopped. Hypomagnesemia: Additional replacement requested. Repeat level. Peripheral neuropathy: Reports numbness in the right foot. Foot is perfused, warm, without any cyanosis, mottling. Warm to touch. Palpable strong DP pulse. She reports some history of neuropathy in her fingertips previously with history of alcohol use disorder. She no longer drinks. Continue to avoid alcohol. Will check B12. Fall precautions. Up with assistance. PT assessment to see if she needs cane or walker. Metabolic encephalopathy secondary to decompensated liver cirrhosis, possible medication toxicity, possibly from Reglan. Hold off any potential contributing medications. Continue lactulose. Also severe hypomagnesemia, recheck magnesium is doing better. Recheck in the morning. Hepatitis panel was negative. CT head unremarkable, chest x-ray not showing any consolidation Please note recently patient was evaluated for abdominal pain, CT abdomen pelvis showed large colonic stool burden and splenomegaly with nonobstructing left renal calculus that would explain her persistent hematuria DVT prophylaxis added Keep her on CIWA protocol Review of records revealed patient has tendency for suicidal attempts with drug overdose, drug screen negative Monitor closely in the ICU, in case she starts vomiting all threshold will stay low to intubate her for airway protection Attestations 2 Medical Necessity Statement*: Continue admission for assessment and management of decompensated liver cirrhosis in the setting of ileus, acute encephalopathy. and High MDM includes amount and/or complexity of data reviewed/ordered [ resulted lab(s)/test(s), ordered lab(s)/test(s) and other healthcare professional discussion] and described risk of complication, morbidity or mortality of management as documented Diagnoses Altered mental status R41.82 Altered mental status type: unspecified Abnormal transaminases R74.8 Increased ammonia level R79.89
[2024-04-19] MEDS: magnesium sulfate premix 2 GM/50 ML PIGGYBACK IV (12:16)
[2024-04-19 12:41] LABS: Lyme AB Screen <0.90 index
[2024-04-19 12:55] LABS: Vitamin B12 1444 pg/mL (232-1245)
[2024-04-19] MEDS: HYDROcodone-acetaminophen 5-325 mg Tablet 0.5 TAB PO (15:31)
--- NOTE | 2024-04-19 16:31 | PC.NURSE ---
pt care nurse notified of elevated BP
[2024-04-20] VITALS (8 sets, daily range): BP systolic 121–159; BP diastolic 71–88; PULSE 72–92; RESP 16–18; TEMP 36.5–37.1; O2SAT 95–99
[2024-04-20] MEDS: ondansetron 2 mg/ML SDV 2 mL 4 MG IVP ×2 (01:30→18:48)
[2024-04-20] MEDS: HYDROcodone-acetaminophen 5-325 mg Tablet 0.5 TAB PO (01:39)
[2024-04-20] MEDS: diphenhydrAMINE 25 mg Capsule PO ×3 (02:11→22:40)
[2024-04-20 05:24] LABS: Basophils # 0.1 10^3/uL (0.0-0.1); Basophils % 1.1 %; Eosinophils # 0.3 10^3/uL (0.0-0.8); Eosinophils % 4.7 %; Hematocrit 31.3 % (36-47); Lymphocytes # 1.5 10^3/uL (0.8-4.8); Lymphocytes % 20.4 %; Mean Corpuscular HGB Conc 32.9 g/dL (30-55); Mean Corpuscular Hemoglobin 30.6 pg (27-33); Mean Corpuscular Volume 92.9 fl (85-98); Monocytes # 0.7 10^3/uL (0.2-0.9); Monocytes % 9.1 %; Neutrophils # 4.65 10^3/uL (1.8-7.7); Neutrophils % 64.4 %; Nucleated Red Blood Cells % 0 %; Platelet Count 100 10^3/cmm (157-399); Red Blood Count 3.37 10^6/uL (3.85-5.65); Red Cell Distribution Width 13.5 % (12.1-15.1); White Blood Count 7.22 10^3/uL (3.29-11.43)
[2024-04-20 05:51] LABS: Alanine Aminotransferase 31 U/L (0-33); Albumin Level 3.5 g/dL (3.5-5.2); Alkaline Phosphatase 93 U/L (35-105); Anion Gap 14.3 (5-19); Aspartate Amino Transferase 49 U/L (0-32); Blood Urea Nitrogen 12 mg/dL (6-20); Carbon Dioxide 22 mmol/L (22-29); Chloride 104 mmol/L (98-107); Creatinine Clr Calc Pharmacy 82.6748; Globulin 2.9 g/dL (1.3-4.6); Glomerular Filtration Rate 89.3 mL/min (90-130); Glucose 92 mg/dL (65-115); Osmolality Calculated 283 mOsm/kg (285-295); Potassium 3.3 mmol/L (3.5-5.1); Sodium 137 mmol/L (136-145); Total Bilirubin 1.5 mg/dL (0.15-1.2); Total Protein 6.4 g/dL (6.6-8.7)
[2024-04-20] MEDS: acetaminophen 325 mg Tablet 650 MG PO (09:18)
[2024-04-20] MEDS: thiamine 100 mg Tablet PO (09:18)
[2024-04-20] MEDS: folic acid 1 mg Tablet PO (09:19)
[2024-04-20] MEDS: rifaximin 200 mg Tablet 600 MG PO ×2 (09:19→17:34)
[2024-04-20] MEDS: multivitamin therapeutic Tablet 1 TAB PO (09:19)
[2024-04-20] MEDS: lactulose oral liq 20 gm/30 mL UDC 30 GM PO ×3 (09:19→21:28)
--- NOTE | 2024-04-20 10:48 | P.PN_ITS ---
Subjective 2 Subjective: Still having abdominal pain. Some relief after having bowel movement today. Vitals/I&O/Wt Last Vital Signs Temp 98.8 F 04/20/24 07:30 Pulse 78 04/20/24 07:30 Resp 16 04/20/24 07:30 BP 121/76 04/20/24 07:30 Pulse Ox 95 04/20/24 07:30 O2 Del Method Room Air 04/20/24 07:30 04/19/24 04/20/24 04/20/24 22:59 06:59 14:59 Intake Total 500 / 790 350 / 1140 Output Total 400 / 400 Balance 100 / 390 350 / 740 Weight last 48 hrs Weight 58.06 kg Weight 54.885 kg Physical Exam 2 Const: COMMON NORMALS: alert GENERAL APPEARANCE: cooperative HENMT: COMMON NORMALS: oropharynx normal Neck/C-Spine: COMMON NORMALS: no JVD Resp: COMMON NORMALS: normal respiratory effort and clear to auscultation bilaterally AUSCULTATION: clear to auscultation bilaterally Cardio: COMMON NORMALS: no JVD, regular rhythm, S1 normal heart sound present, S2 normal heart sound present and No murmurs present (Cardio) RHYTHM: regular rhythm HEART SOUNDS: S1 normal heart sound present and S2 normal heart sound present GI: COMMON NORMALS: Soft to palpation PALPATION: Yes Soft to palpation and Yes Tenderness to palpation present (GI) Extremity: COMMON NORMALS: no joint enlargement and no pedal edema Neuro: COMMON NORMALS: moves all extremities SENSORIUM/ORIENTATION: Yes alert Skin: COMMON NORMALS: no rashes or lesions noted GENERAL SKIN EXAM: no rashes or lesions noted OTHER: Multiple small excoriations on her skin from intermittently scratching different areas. Urinary Catheter Management: Casanova: Cath Placed During This Visit: yes, but has since been removed by the nurse Reason for Continuing Indwelling Catheter: Decision to DC Catheter Urinary Catheter Date of Insertion: 04/18/24 Urinary Catheter Time of Insertion: 05:41 Date Urinary Catheter Removed: 04/19/24 Time Urinary Catheter Discontinued: 21:45 Data 04/20/24 05:15 04/20/24 05:15 A&P Assessment and plan (1) Altered mental status: Qualifiers: Altered mental status type: unspecified Qualified Code(s): R41.82 - Altered mental status, unspecified (2) Abnormal transaminases: (3) Increased ammonia level: Plan Ileus: Still having abdominal pain, had an episode of vomiting last night. Today he did have a bowel movement. Encouraged her to ambulate further. Clear liquids for now, if ambulating, no further vomiting, continues to improve, trial of soft diet for lunch. Bowel movement was loose. Requested C. difficile. Discussed with returned case inspector, possible discharge tomorrow if resolving ileus, tolerating trial of oral diet, no further complications. Hypokalemia: Potassium reviewed, 3.3, magnesium reviewed normal today. Replace potassium. Check chemistry. Hypomagnesemia: Repeat level. Peripheral neuropathy: B12 reviewed, not low as 1444. Reported numbness in the right foot. Foot is perfused, warm, without any cyanosis, mottling. Warm to touch. Palpable strong DP pulse. She reports some history of neuropathy in her fingertips previously with history of alcohol use disorder. She no longer drinks. Continue to avoid alcohol. Fall precautions. Up with assistance. PT assessment to see if she needs cane or walker. Itching: Has some mild to moderate intermittent/chronic diffuse pruritus reported due to her liver cirrhosis. Received a dose of Benadryl last night which helped her quite a bit, did not affect mental status. Discussed with the risk of mental status change with Benadryl, she understands, would like to have it as needed a few times a day. Monitor for any mental status changes. Altered mental status: Resolved. Metabolic encephalopathy: Resolved. Multifactorial encephalopathy. Possible dystonic reaction secondary to Reglan. Replace additional magnesium. Continue lactulose, has had difficulty with bowel movements due to ileus. Ileus possibly after passing a kidney stone. She is having abdominal pain. Check lipase. Discussed with her nursing staff limit opiates as possible. She is receiving IV morphine. Will discontinue. Requesting for her to ambulate with assistance, maintain fall precautions. She does report some numbness in the right foot, will ask PT for assessment, cane versus walker if needed. Acetaminophen, gentle massage, heating pad, ambulation for abdominal discomfort. Limit/avoid opiates as much as possible to avoid further worsening ileus. Reviewed vitals, CBC, BMP, magnesium. Discussed with nursing. Discussed with returned case inspector. T. bili has normalized. Will recheck CMP. Follow-up tick panel. She states has not missed lactulose for her cirrhosis at home. Discussed ammonia level is elevated. She has not had any tick bites. There are a few medications that she takes including medications for her diabetes. She does appear to take Reglan as needed for intermittent vomiting. She smokes marijuana, her gets it at the dispensary from a known source. No alcohol intake, no other recreational drug use. Metabolic encephalopathy secondary to decompensated liver cirrhosis, possible medication toxicity, possibly from Reglan. Hold off any potential contributing medications. Continue lactulose. Also severe hypomagnesemia, recheck magnesium is doing better. Hepatitis panel was negative. CT head unremarkable, chest x-ray not showing any consolidation Please note recently patient was evaluated for abdominal pain, CT abdomen pelvis showed large colonic stool burden and splenomegaly with nonobstructing left renal calculus that would explain her persistent hematuria DVT prophylaxis added Keep her on CIWA protocol Review of records revealed patient has tendency for suicidal attempts with drug overdose, drug screen negative Attestations 2 Medical Necessity Statement*: Continue admission for assessment and management of ileus. and High MDM includes amount and/or complexity of data reviewed/ordered [ resulted lab(s)/test(s), ordered lab(s)/test(s) and other healthcare professional discussion] as documented Diagnoses Altered mental status R41.82 Altered mental status type: unspecified Abnormal transaminases R74.8 Increased ammonia level R79.89
[2024-04-20] MEDS: potassium chloride ER 20 mEq Tablet 40 MEQ PO (11:45)
[2024-04-20 11:50] LABS: Lipase 20 U/L (13-60)
[2024-04-20 13:48] LABS: C.Diff PCR (Lab) NEGATIVE (Negative)
[2024-04-21 03:53] VITALS: BP 125/69; PULSE 83; RESP 19; TEMP 36.7; O2SAT 97
[2024-04-21 05:46] LABS: Basophils # 0.1 10^3/uL (0.0-0.1); Basophils % 1.4 %; Eosinophils # 0.3 10^3/uL (0.0-0.8); Eosinophils % 5.1 %; Hematocrit 31.1 % (36-47); Lymphocytes % 17.7 %; Mean Corpuscular HGB Conc 32.5 g/dL (30-55); Mean Corpuscular Hemoglobin 30.1 pg (27-33); Mean Corpuscular Volume 92.6 fl (85-98); Mean Platelet Volume 10.7 fL (7.4-10.4); Monocytes # 0.6 10^3/uL (0.2-0.9); Monocytes % 9.5 %; Neutrophils # 3.88 10^3/uL (1.8-7.7); Neutrophils % 66.1 %; Nucleated Red Blood Cells % 0 %; Platelet Count 104 10^3/cmm (157-399); Red Blood Count 3.36 10^6/uL (3.85-5.65); Red Cell Distribution Width 13.3 % (12.1-15.1); White Blood Count 5.87 10^3/uL (3.29-11.43)
[2024-04-21 05:53] VITALS: PULSE 80
[2024-04-21] MEDS: HYDROcodone-acetaminophen 5-325 mg Tablet 0.5 TAB PO (06:02)
[2024-04-21 06:07] LABS: Alanine Aminotransferase 28 U/L (0-33); Albumin Level 3.7 g/dL (3.5-5.2); Alkaline Phosphatase 107 U/L (35-105); Aspartate Amino Transferase 42 U/L (0-32); Blood Urea Nitrogen 9 mg/dL (6-20); Calcium 8.5 mg/dL (8.5-10.5); Carbon Dioxide 21 mmol/L (22-29); Chloride 103 mmol/L (98-107); Creatinine Clr Calc Pharmacy 81.1263; Globulin 2.7 g/dL (1.3-4.6); Glomerular Filtration Rate 89.3 mL/min (90-130); Glucose 109 mg/dL (65-115); Magnesium 1.6 mg/dL (1.7-2.3); Osmolality Calculated 273 mOsm/kg (285-295); Sodium 132 mmol/L (136-145); Total Protein 6.4 g/dL (6.6-8.7)
[2024-04-21 07:52] VITALS: BP 151/88; PULSE 77; RESP 16; TEMP 36.6; O2SAT 100
[2024-04-21] MEDS: lactulose oral liq 20 gm/30 mL UDC 30 GM PO (08:37)
[2024-04-21] MEDS: multivitamin therapeutic Tablet 1 TAB PO (08:38)
[2024-04-21] MEDS: thiamine 100 mg Tablet PO (08:38)
[2024-04-21] MEDS: folic acid 1 mg Tablet PO (08:38)
[2024-04-21] MEDS: rifaximin 200 mg Tablet 600 MG PO (08:38)
[2024-04-21 09:00] VITALS: PULSE 82; RESP 18; O2SAT 99
[2024-04-21 11:01] VITALS: BP 140/80; PULSE 84; O2SAT 98
--- NOTE | 2024-04-21 11:02 | PM.DCS ---
Discharge Providers Date of Admission: 04/18/24 05:23 Date of Discharge: April 21, 2024 Attending Provider at Admission: Jeancarlos Baird MD Attending Provider at Discharge: Sagar Sinclair Primary Care Provider: Jose Mejía NP Diagnoses at Discharge Discharge Diagnosis (1) Altered mental status: Status: Acute Qualifiers: Altered mental status type: unspecified Qualified Code(s): R41.82 - Altered mental status, unspecified (2) Abnormal transaminases: Status: Acute (3) Increased ammonia level: Status: Acute Reason for Visit Reason for Visit: SEIZURE Hospital Course Hospital Course Pleasant 48-year-old lady with liver cirrhosis, history of alcohol use disorder but currently abstinent, was brought in due to altered mental status, when she started to have some tensing of her arm muscles bilaterally, and then became tense all over her body, close unresponsive. There was some note about amphetamine initially, her arm patient and family stated that she never used any amphetamine, and that this was wrongly stated by EMS provider. On presentation found with hyperammonemia with liver cirrhosis decompensation. She has not missed her lactulose, however, later identified to also have colonic ileus and did not have bowel movements for several days. She initially received Keppra and Ativan in ER. Was noted to have mild transaminitis, decreased platelets, tick panel was sent, although she and her later reported were pretty sure she did not have any tick bites and these parameters would fit with history of cirrhosis. She remained afebrile. She was found to have hypomagnesemia for which she received multiple replacements, and potassium was supplemented as well. Her medications were initially held, and it is recommended she discontinue Reglan as per discussion with her due to concern for possible dystonic reaction as upon waking up she still had some mild muscular rigidity. She received lactulose enema, subsequently lactulose transition to oral once she was alert enough to tolerate oral diet. Rigidity has resolved. Ileus gradually resolved, she was seen by surgery, no obstruction was found, she was not found to have Mikala's. She is tolerating oral diet. She remains awake and alert with resolution of encephalopathy. She is having bowel movements. She has an appointment to follow-up with hepatology in July, but will call the clinic to see if she can get in sooner. She also requests for referral to gynecology to discuss hysterectomy. She is trying to establish with a primary care provider locally as it has been difficult for her to commute to [place]. Physical Exam Const: COMMON NORMALS: alert GENERAL APPEARANCE: cooperative HENMT: COMMON NORMALS: oropharynx normal Neck/C-Spine: COMMON NORMALS: no JVD Resp: COMMON NORMALS: normal respiratory effort and clear to auscultation bilaterally AUSCULTATION: clear to auscultation bilaterally Cardio: COMMON NORMALS: no JVD, regular rhythm, S1 normal heart sound present, S2 normal heart sound present and No murmurs present (Cardio) RHYTHM: regular rhythm HEART SOUNDS: S1 normal heart sound present and S2 normal heart sound present GI: COMMON NORMALS: Normal to inspection, nondistended, normoactive bowel sounds present and Soft to palpation PALPATION: Yes Soft to palpation and Yes Tenderness to palpation present (GI) Extremity: COMMON NORMALS: no joint enlargement and no pedal edema Neuro: COMMON NORMALS: moves all extremities SENSORIUM/ORIENTATION: Yes alert Skin: COMMON NORMALS: no rashes or lesions noted GENERAL SKIN EXAM: no rashes or lesions noted OTHER: Multiple small excoriations on her skin from intermittently scratching different areas. Urinary Catheter Management: Casanova: Cath Placed During This Visit: yes, but has since been removed by the nurse Reason for Continuing Indwelling Catheter: Decision to DC Catheter Urinary Catheter Date of Insertion: 04/18/24 Urinary Catheter Time of Insertion: 05:41 Date Urinary Catheter Removed: 04/19/24 Time Urinary Catheter Discontinued: 21:45 Discharge Data Studies Completed and Pending Completed Studies During Hospitalization Category Date Time Status CT abdomen pelvis w con* [id number] Routine Cat Scan 04/18/24 11:[address] abdomen pelvis wo con [id number] Routine Cat Scan 04/18/24 14:[address] head wo con* [id number] Stat Cat Scan 04/18/24 01:43 Completed XR chest 1V portable [id number] Stat Exams 04/18/24 00:14 Completed US abdomen limited [id number] Routine Ultrasound 04/18/24 09:00 Completed Pending at discharge Category Date Time Status Complete Blood Count w/Auto AM LABS Lab 04/22/24 04:00 Ordered Comprehensive Metabolic Panel AM LABS Lab 04/22/24 04:00 Ordered Magnesium AM LABS Lab 04/22/24 04:00 Ordered Tick Panel Routine Lab 04/18/24 11:02 Results Radiology Impressions Chest X-Ray 04/18/24 00:14 IMPRESSION: Mild cardiomegaly, no acute process. Head CT 04/18/24 01:43 IMPRESSION: No acute intracranial abnormality. Abdomen Ultrasound 04/18/24 09:00 IMPRESSION: Technically difficult study 1. Cirrhotic liver. 2. Prior cholecystectomy. 3. No hydronephrosis in the RIGHT kidney. Abdomen/Pelvis CT 04/18/24 14:52 IMPRESSION: 1. Rectal contrast extends throughout the colon, no obstruction. No perforation. 2. Splenomegaly. Laboratory Results WBC 5.87 10^3/uL (3.29-11.43) 04/21/24 05:35 RBC 3.36 10^6/uL (3.85-5.65) L 04/21/24 05:35 Hgb 10.10 g/dL (11.27-16.99) L 04/21/24 05:35 Hct 31.1 % (36-47) L 04/21/24 05:35 MCV 92.6 fl (85-98) 04/21/24 05:35 MCH 30.1 pg (27-33) 04/21/24 05:35 MCHC 32.5 g/dL (30-55) 04/21/24 05:35 RDW 13.3 % (12.1-15.1) 04/21/24 05:35 Plt Count 104 10^3/cmm (157-399) L 04/21/24 05:35 MPV 10.7 fL (7.4-10.4) H 04/21/24 05:35 Neut % (Auto) 66.1 % 04/21/24 05:35 Lymph % (Auto) 17.7 % 04/21/24 05:35 Kimball % (Auto) 9.5 % 04/21/24 05:35 Eos % (Auto) 5.1 % 04/21/24 05:35 Baso % (Auto) 1.4 % 04/21/24 05:35 Neut # (Auto) 3.88 10^3/uL (1.8-7.7) 04/21/24 05:35 Lymph # (Auto) 1.0 10^3/uL (0.8-4.8) 04/21/24 05:35 Kimball # (Auto) 0.6 10^3/uL (0.2-0.9) 04/21/24 05:35 Eos # (Auto) 0.3 10^3/uL (0.0-0.8) 04/21/24 05:35 Baso # (Auto) 0.1 10^3/uL (0.0-0.1) 04/21/24 05:35 Nucleated RBC % (auto) 0 % 04/21/24 05:35 Nucleated RBCs # 0.0 /100WBC 04/21/24 05:35 Peripher Smr Path Cons Sent for review 04/18/24 01:31 Specimen Type Arterial 04/18/24 04:58 Sample Site Radial, left 04/18/24 04:58 ABG pH 7.41 (7.35-7.45) 04/18/24 04:58 ABG pCO2 29.2 mmHg (35-45) L 04/18/24 04:58 ABG pO2 101.0 mmHg (80.0-100.0) H 04/18/24 04:58 ABG PO2/FiO2 Ratio 480 04/18/24 04:58 ABG HCO3 18.3 mmol/L (22-26) L 04/18/24 04:58 ABG O2 Saturation 98.7 04/18/24 04:58 ABG Base Excess -5.4 mmol/L (-2.0-2.0) L 04/18/24 04:58 Liban Test Pos 04/18/24 04:58 A-a O2 Gradient 1.3 mmHg (5-10) L 04/18/24 04:58 Hematocrit 32.2 % (37-47) L 04/18/24 04:58 Hgb O2 Saturation 97.4 % (95-100) 04/18/24 04:58 Carboxyhemoglobin 0.9 %THgb (0.4-20.1) 04/18/24 04:58 Methemoglobin 0.4 % (0.4-1.5) 04/18/24 04:58 Total Hemoglobin 10.5 g/dL (12-16) L 04/18/24 04:58 Sodium 143.0 mmol/L (131-143) 04/18/24 04:58 Potassium 3.3 mmol/L (3.5-5.0) L 04/18/24 04:58 Glucose 108.0 mg/dL (70-115) 04/18/24 04:58 Ionized Calcium 1.2 mmol/L (1.1-1.4) 04/18/24 04:58 O2 Delivery Device None 04/18/24 04:58 FiO2 21.0 % 04/18/24 04:58 Equipment [id number] ID [id number] 04/18/24 04:58 Sodium 132 mmol/L (136-145) L 04/21/24 05:35 Potassium 4.0 mmol/L (3.5-5.1) 04/21/24 05:35 Chloride 103 mmol/L (98-107) 04/21/24 05:35 Carbon Dioxide 21 mmol/L (22-29) L 04/21/24 05:35 Anion Gap 12.0 (5-19) 04/21/24 05:35 BUN 9 mg/dL (6-20) 04/21/24 05:35 Creatinine 0.7 mg/dL (0.5-0.9) 04/21/24 05:35 GFR Calculation 89.3 mL/min (90-130) L 04/21/24 05:35 Glucose 109 mg/dL (65-115) 04/21/24 05:35 POC Glucose 126 mg/dL (70-110) H 04/18/24 06:30 Calculated Osmolality 273 mOsm/kg (285-295) L 04/21/24 05:35 Lactic Acid 1.2 mmol/L (0.5-2.2) 04/18/24 03:26 Calcium 8.5 mg/dL (8.5-10.5) 04/21/24 05:35 Magnesium 1.6 mg/dL (1.7-2.3) L 04/21/24 05:35 Total Bilirubin 1.0 mg/dL (0.15-1.2) 04/21/24 05:35 AST 42 U/L (0-32) H 04/21/24 05:35 ALT 28 U/L (0-33) 04/21/24 05:35 Alkaline Phosphatase 107 U/L (35-105) H 04/21/24 05:35 Ammonia 63 umol/L (11-51) H 04/18/24 04:44 Troponin T Baseline < 6 ng/L (0-10) 04/18/24 01:31 Troponin T 120 Minute 7.01 ng/L (0-10) 04/18/24 03:26 Delta Troponin T 1.45020 ABS# (0-10) 04/18/24 03:26 Troponin T Hi Sens 6Hr 6.00 ng/L (0-10) 04/18/24 07:20 Troponin T Hi Sens 6Hr Delta 0.84207 ng/L (0-12) 04/18/24 07:20 C-Reactive Protein 3.0 mg/L (0.0-4.9) 04/18/24 03:26 Total Protein 6.4 g/dL (6.6-8.7) L 04/21/24 05:35 Albumin 3.7 g/dL (3.5-5.2) 04/21/24 05:35 Globulin 2.7 g/dL (1.3-4.6) 04/21/24 05:35 Lipase 20 U/L (13-60) 04/20/24 11:18 Vitamin B12 1444 pg/mL (232-1245) H 04/19/24 07:43 Procalcitonin 0.05 ng/mL (0-0.5) 04/18/24 03:26 Prolactin 15.79 ng/mL (4.8-23.3) 04/18/24 03:26 Urine Color Yellow (Yellow) 04/18/24 00:15 Urine Appearance Clear (CLEAR) 04/18/24 00:15 Urine pH 6.0 (5-7) 04/18/24 00:15 Ur Specific [place] 1.016 (1.005-1.030) 04/18/24 00:15 Urine Protein 2+ (Negative) A 04/18/24 00:15 Urine Glucose (UA) Negative (Normal) 04/18/24 00:15 Urine Ketones Negative (Negative) 04/18/24 00:15 Urine Blood 2+ (Negative) A 04/18/24 00:15 Urine Nitrate Negative (Negative) 04/18/24 00:15 Urine Bilirubin Negative (Negative) 04/18/24 00:15 Urine Urobilinogen 2.0 mg/dL (Negative) H 04/18/24 00:15 Ur Leukocyte Esterase Trace (Negative) A 04/18/24 00:15 Urine RBC 0-2 /hpf (0-2) 04/18/24 00:15 Urine WBC 0-5 /hpf (0-5) 04/18/24 00:15 Ur Squamous Epith Cells 0-5 /hpf (0-5) 04/18/24 00:15 Amorphous Sediment Not Reportable 04/18/24 00:15 Urine Bacteria 1+ /hpf (NONE) H 04/18/24 00:15 Hyaline Casts 2.46 /lpf 04/18/24 00:15 Salicylates < 0.3 mg/dL (3-10) L 04/18/24 01:31 Urine Opiates Screen Negative ng/mL (Negative) 04/18/24 00:15 Acetaminophen < 5.0 ug/mL (10-30) L 04/18/24 01:31 Ur Barbiturates Screen Negative ng/mL (Negative) 04/18/24 00:15 Ur Phencyclidine Scrn Negative ng/mL (Negative) 04/18/24 00:15 Ur Amphetamines Screen Negative ng/mL (Negative) 04/18/24 00:15 U Benzodiazepines Scrn Negative ng/mL (Negative) 04/18/24 00:15 Urine Cocaine Screen Negative ng/mL (Negative) 04/18/24 00:15 U Marijuana (THC) Screen Positive ng/mL (Negative) H 04/18/24 00:15 Ethyl Alcohol < 10 mg/dL (0-10) 04/18/24 01:31 Lyme Ab (Western Blot) <0.90 index 04/18/24 11:02 C. difficile (PCR) Negative (Negative) 04/20/24 12:53 Hepatitis A IgM Ab Non-reactive (Nonreactive) 04/18/24 07:20 Hep Bs Antigen Non-reactive (Nonreactive) 04/18/24 07:20 Hep Bs Antibody < 3.5 (11.5-1000) L 04/18/24 07:20 Hep B Core Total Ab Non-reactive (Nonreactive) 04/18/24 07:20 Hepatitis C Antibody Non-reactive (Nonreactive) 04/18/24 07:20 Vitals Last Vital Signs Temp 98 F 04/21/24 07:52 Pulse 84 04/21/24 11:01 Resp 18 04/21/24 09:00 BP 140/80 04/21/24 11:01 Pulse Ox 98 04/21/24 11:01 O2 Del Method Room Air 04/21/24 09:00 Discharge Plan Discharge Patient Disposition: Home Condition: Stable Prescriptions: New magnesium L-threonate 48 mg magnesium (667 mg) capsule 48 mg PO DAILY Qty: 90 0RF Continued amlodipine 5 mg Tablet 5 mg PO DAILY clindamycin phosphate 1 % Gel 1 applic TOPICAL BID ferrous sulfate 325 mg (65 mg iron) Tablet 325 mg PO DAILY omeprazole 20 mg Capsule,Delayed Release(Dr/Ec) 20 mg PO DAILY ergocalciferol (vitamin D2) [Vitamin D2] 1,250 mcg (50,000 unit) Capsule 1,250 mcg PO Q7D azelastine 137 mcg (0.1 %) [place],Non-Aerosol 2 spray INTRANASAL BID Rx Instructions: administer into each nostril metformin 500 mg Tablet Extended Release 24 Hr 500 mg PO DAILY loratadine [Claritin] 10 mg Tablet 10 mg PO DAILY budesonide-formoterol [Symbicort] 80-4.5 mcg/actuation Hfa Aerosol Inhaler 2 puff INHALATION BID lactulose 10 gram/15 mL (15 mL) Solution 30 ml PO BID dapagliflozin propanediol [Farxiga] 5 mg Tablet 5 mg PO DAILY vitamin B complex Tablet 1 tab PO DAILY diphenhydramine HCl 25 mg Tablet 25 mg PO PRN PRN (Reason: unknown) dchoodm-rzzufnqmksssl-xmqnljrz 250-250-65 mg Tablet 1 tab PO Q6H PRN (Reason: unknown) docusate sodium 100 mg Capsule 100 mg PO BID PRN (Reason: constipaion) loperamide 2 mg Tablet 2 mg PO PRN PRN (Reason: Diarrhea) Rx Instructions: administer after each loose stool until symptoms controlled; do not exceed 8 mg per 24 hrs polyethylene glycol 3350 [Miralax] 17 gram powder in packet 17 g PO DAILY PRN (Reason: constipation) Qty: 14 0RF Discontinued metoclopramide HCl [Reglan] 10 mg tablet 10 mg PO Q6H PRN (Reason: nausea and vomiting) Qty: 20 0RF Discharge Orders: Discharge Order (Routine); Ordered 04/21/24 Ordered By: Sagar Sinclair Referrals: Salbador Sy MD [Physician] - (sent referral We have notified your physician's clinic of the need for a follow-up appointment to be scheduled. If you have not heard from them within the next 2 business days, please call them directly. ) Maia De Oliveira, [employer] ENGINEER [Nurse Practitioner] - 05/15/24 1:15 pm (also needs referral with client technical professional) Discharge Diet: GI Soft Discharge Activity: Increase activity as tolerated Patient Instructions: Magnesium (By mouth), Cirrhosis of the Liver (DC), Potassium Content of Foods List (GEN), Altered Mental Status (ED), Ileus (DC), Opioid Safety Activity Restrictions/Additional Instructions: Continue lactulose, multiple doses a day until you reach 2-3 soft bowel movements in a day, each day. Hold off any further lactulose after that until the next day. Follow-up with your primary doctor for reassessment after decompensated liver cirrhosis. Please have your primary doctor refer you also to follow-up with hepatology. It is very important to keep ammonia level down to prevent further episodes of confusion. Additionally, continue magnesium supplementation as your magnesium was very low on presentation. Have your primary provider reassess your magnesium. Low magnesium may contribute to muscle cramping. Similarly you needed potassium supplementation during hospitalization, please include potassium rich foods in your diet. Have your primary doctor follow-up your potassium level. Please also discontinue metoclopramide (Reglan) as it may have caused a dystonic reaction leading to the muscles tightening and cramping. Seek medical attention in case of any worsening or new concerning symptoms. Discharge Attestations Time Spent in Discharge Care*: greater than 30 min Quality Metrics Clinical Quality Measures [ No reported AMI, CVA or VTE this stay] Coding Level of Care Code 90042 Diagnoses Altered mental status R41.82 Altered mental status type: unspecified Abnormal transaminases R74.8 Increased ammonia level R79.89
[2024-04-21 17:15] LABS: RMSF IGG NOT DETECTED; RMSF IGM NOT DETECTED
[2024-04-23 22:50] LABS: E. Chaffeensis AB IGG <1:64; E. Chaffeensis AB IGM <1:20
== END 2024-04-21 11:04 | disposition home or self-care (01) | DRG 432 ==
LOC: ER 04:29 → ICU 05:24 → MEDSURG 04-19 03:51
PROVIDERS: Admitting Provider Internal Medicine; Emergency Provider Emergency Medicine; PCP Registered Nurse; Visit Provider Internal Medicine
DX: K74.60 Unspecified cirrhosis of liver (principal); G92.8 Other toxic encephalopathy; G93.41 Metabolic encephalopathy; K56.7 Ileus, unspecified; R31.9 Hematuria, unspecified; E11.42 Type 2 diabetes mellitus with diabetic polyneuropathy; L29.9 Pruritus, unspecified; T45.0X5A Adverse effect of antiallergic and antiemetic drugs, initial encounter; Z79.84 Long term (current) use of oral hypoglycemic drugs
CPT/HCPCS: 36415; 36416; 51702; 70450; 71045; 74176; 74177; 76705; 80048; 80051; 80053; 80306; 80307; 80503; 81001; 82140; 82330; 82607; 82805; 82962; 83605; 83690; 83735; 84145; 84146; 84484; 85025; 86140; 86618; 86666; 86705; 86706; 86709; 86757; 86803; 87340; 87493; 93005; 96365; 96367; 96372; 96375; 97116; 97161; 99285; J1171; J1953; J2060; J2270; J2310; J2405; J3411; J3475; J3480; J7070

== ENCOUNTER 2024-05-03 14:57 | Inpatient (IN) | payer MEDICAID, SELFPAY ==
[2024-05-03] VITALS (16 sets, daily range): BP systolic 141–210; BP diastolic 88–138; PULSE 83–133; RESP 10–27; TEMP 36.7–37.1; O2SAT 97–100; BMI 21.0
--- NOTE | 2024-05-03 15:11 | XR_ITS ---
WS: [id number] Exam: XR chest 1V portable [id number] Date/Time of Exam: 05/03/2024 3:11 PM Reason For Exam: sob Exam: XR chest 1V portable [id number] Date/Time of Exam: 05/03/2024 3:11 PM Reason For Exam: sob Comparison 04/18/2024. Lungs are clear and fully expanded. Normal cardiomediastinal silhouette and regional bony elements. N o pleural effusion. Ovoid opaque density superimposes the RIGHT lung apex. Significance of this is un determined. XR/XR chest 1V portable [id number] IMPRESSION: 1. No acute cardiopulmonary finding.
--- NOTE | 2024-05-03 15:12 | ECG_ITS ---
[facility] Date: 2024-05-03 Pat Name: Aurora Acevedo Department: Room: 260 Gender: Female Manager Of Business: : 1975 Requested By: Tonya Bernabe Order Number: [id number] Solano MD: Yan Brown M.D. Measurements Intervals Mobile Rate: 120 P: 67 HI: 154 QRS: 5 QRSD: 89 T: 58 QT: 326 QTc: 462 Interpretive Statements SINUS TACHYCARDIA Compared to ECG 04/18/2024 06:06:30 Sinus rhythm no longer present Electronically Signed On 05-05-2024 10:28:51 RUBBER PROCESS HAND by Yan Brown M.D. [email or web address]
--- NOTE | 2024-05-03 15:25 | XR_ITS ---
WS: [id number] Exam: XR abdomen 1V* [id number] Date/Time of Exam: 05/03/2024 3:29 PM Reason For Exam: abd pain Comparison 05/21/2013. Marked constipation. No bowel obstruction or free air. No obvious organ enlargement. Surgical clips i n the RIGHT and LEFT upper abdomen. Bony structures are intact. XR/XR abdomen 1V* [id number] IMPRESSION: 1. Constipation. No acute abdominal process.
--- NOTE | 2024-05-03 15:27 | ED_ITS ---
HPI - Altered Mental Status 2 General: Chief Complaint: Altered Mental Status Stated Complaint: sob, abd pain, Time Seen by Provider: 05/03/24 15:23 History of Present Illness: 48-year-old female with a history of cir rhosis who presents emergency room with agitation altered mental status. A man in the room says that she has been taking her lactulose and even took other medications and has not had good bowel movement since she went back home. She was admitted recently with hepatic encephalopathy. Currently she is very agitated and does not answer questions appropriately. She is often yelling. No focal motor deficits. No slurred speech. No facial droop. She appears to just be encephalopathic. Related Data Home Medications Medication Instructions Recorded Confirmed amlodipine 5 mg tablet 5 mg PO DAILY 04/18/24 05/03/24 ytzauin-uvfburyggmevx-dsismrny 250 1 tab PO Q6H PRN unknown 04/18/24 05/03/24 mg-250 mg-65 mg tablet azelastine 137 mcg (0.1 %) nasal 2 spray intranasal BID 04/18/24 05/03/24 spray budesonide-formoterol HFA 80 2 puff inhalation BID 04/18/24 05/03/24 mcg-4.5 mcg/actuation aerosol inhaler (Symbicort) clindamycin phosphate 1 % topical 1 applic topical BID 04/18/24 05/03/24 gel dapagliflozin propanediol 5 mg 5 mg PO DAILY 04/18/24 05/03/24 tablet (Farxiga) diphenhydramine HCl 25 mg tablet 25 mg PO PRN PRN unknown 04/18/24 05/03/24 docusate sodium 100 mg capsule 100 mg PO BID PRN constipaion 04/18/24 05/03/24 ergocalciferol (vitamin D2) 1,250 1,250 mcg PO Q7D 04/18/24 05/03/24 mcg (50,000 unit) capsule (Vitamin D2) ferrous sulfate 325 mg (65 mg 325 mg PO DAILY 04/18/24 05/03/24 iron) tablet lactulose 10 gram/15 mL (15 mL) 30 ml PO BID 04/18/24 05/03/24 oral solution loperamide 2 mg tablet 2 mg PO PRN PRN Diarrhea 04/18/24 05/03/24 loratadine 10 mg tablet (Claritin) 10 mg PO DAILY 04/18/24 05/03/24 metformin 500 mg tablet,extended 500 mg PO DAILY 04/18/24 05/03/24 release 24 hr omeprazole 20 mg capsule,delayed 20 mg PO DAILY 04/18/24 05/03/24 release vitamin B complex 1 tab PO DAILY 04/18/24 05/03/24 Previous Rx's Medication Instructions Recorded polyethylene glycol 3350 17 gram 17 g PO DAILY PRN constipation #14 02/13/24 oral powder packet (Miralax) ea magnesium L-threonate 48 mg 48 mg PO DAILY #90 caps 04/21/24 magnesium (667 mg) capsule Allergies Allergy/AdvReac Type Severity Reaction Status Date / Time aspirin Allergy ADR-Headach Verified 05/03/24 15:23 e Penicillins Allergy ALGY-Hives Verified 05/03/24 15:23 Review of Systems 2 General: Reports: ROS unobtainable due to medical condition and ROS unobtainable due to mental status Physical Exam 2 Narrative: General: Alert. no acute distress Skin: Warm, dry Head: Normocephalic, atraumatic. Neck: Supple, trachea midline. Eye: Extraocular movements are intact. Ears, nose, mouth and throat: Oral mucosa moist. Cardiovascular: Regular rate and rhythm, Normal peripheral perfusion. Respiratory: Lungs are clear to auscultation, respirations are non-labored, breath sounds are equal, Symmetrical chest wall expansion. Gastrointestinal: Soft, Nontender, Non distended, Normal bowel sounds. Musculoskeletal: Normal ROM, no deformity. Neurological: Not Alert and oriented to person, place, time, and situation, No focal neurological deficit observed. Psychiatric: confused, agitated. Course 2 Vital Signs: Vital signs: Vital Signs Temperature 98.0 F 05/03/24 14:59 Pulse Rate 107 H 05/03/24 16:33 Respiratory Rate 16 05/03/24 16:33 Blood Pressure 163/98 05/03/24 16:33 Pulse Oximetry 100 05/03/24 16:33 Oxygen Delivery Me thod Room Air 05/03/24 16:33 MDM - Altered Mental Status Medical Decision Making Medical decision making: Differential diagnosis including but not limited to and based on the above HPI, review of systems and physical exam: In this patient with altered mental status: Stroke. Hypoglycemia. Metabolic encephalopathy. Infections such as pneumonia, urinary tract infection, Covid-19, Influenza. Electrolyte abnormalities such as hypernatremia. Renal failure / uremia. Hepatic encephalopathy. Hypoxemia. Hypercapnic respiratory failure. Psychosis. Drug or alcohol intoxication. Medication overdose. Orders placed to evaluate differential diagnosis based on the above differential, HPI and physical exam EKG: Time 1312. Rate 120. Sinus tachycardia, No ST-T changes, no ectopy, normal MA & QRS intervals, This was reviewed and interpreted by myself the ER physician at 1515. Lab Review: Laboratory results were reviewed and interpreted by myself the emergency room physician. No leukocytosis. No anemia. No renal failure. Mild elevation in her bilirubin. Ammonia is elevated at around 60. This was what she was at previously and apparently she improved with treatment with lactulose and admission about 10 days ago. chest x-ray: No acute process. No obvious infiltrates. No pneumothorax. No cardiomegaly. This was reviewed and interpreted by myself the emergency room physician Abdomen x-ray: Constipation. Nonspecific bowel gas pattern. No evidence of free air or obstruction. This was reviewed and interpreted by myself the emergency room physician. I also reviewed the radiology report. I reviewed the patient's medical record. Reexamination: Patient remains fairly agitated. She has been given some Haldol. We are ordering Ativan at this time. Consultation: I spoke with Dr. Merrill who is on-call for the hospitalist service and who agrees to admission to the ICU. Assessment and plan: Hepatic encephalopathy Constipation ?IM Haldol, IM Ativan, patient did not tolerate p.o. lactulose so rectal has been ordered -I discussed the patient with the hospitalist on-call who is admitting the patient. - Discussed findings and plan with patient. Answered any questions. - All laboratory values were reviewed and interpreted personally by myself, the ER physician - All imaging was reviewed and interpreted personally by myself, the ER physician. - Evaluation and treatment of this problem were appropriate in the emergency setting Lab Data 05/03/24 15:21 05/03/24 15:21 Radiology Impressions Chest X-Ray 05/03/24 15:11 IMPRESSION: 1. No acute cardiopulmonary finding. Abdomen X-Ray 05/03/24 15:25 IMPRESSION: 1. Constipation. No acute abdominal process. Laboratory Results WBC 5.89 10^3/uL (3.29-11.43) 05/03/24 15:21 RBC 3.94 10^6/uL (3.85-5.65) 05/03/24 15:21 Hgb 11.80 g/dL (11.27-16.99) 05/03/24 15:21 Hct 36.2 % (36-47) 05/03/24 15:21 MCV 91.9 fl (85-98) 05/03/24 15:21 MCH 29.9 pg (27-33) 05/03/24 15:21 MCHC 32.6 g/dL (30-55) 05/03/24 15:21 RDW 12.7 % (12.1-15.1) 05/03/24 15:21 Plt Count 92 10^3/cmm (157-399) L 05/03/24 15:21 MPV 10.3 fL (7.4-10.4) 05/03/24 15:21 Neut % (Auto) 74.2 % 05/03/24 15:21 Lymph % (Auto) 16.6 % 05/03/24 15:21 [place] % (Auto) 6.1 % 05/03/24 15:21 Eos % (Auto) 1.7 % 05/03/24 15:21 Baso % (Auto) 1.2 % 05/03/24 15: Neut # (Auto) 4.37 10^3/uL (1.8-7.7) 05/03/24 15:21 Lymph # (Auto) 1.0 10^3/uL (0.8-4.8) 05/03/24 15:21 [place] # (Auto) 0.4 10^3/uL (0.2-0.9) 05/03/24 15:21 Eos # (Auto) 0.1 10^3/uL (0.0-0.8) 05/03/24 15:21 Baso # (Auto) 0.1 10^3/uL (0.0-0.1) 05/03/24 15:21 Nucleated RBC % (auto) 0 % 05/03/24 15:21 Nucleated RBCs # 0.0 /100WBC 05/03/24 15:21 Sodium 138 mmol/L (136-145) 05/03/24 15:21 Potassium 3.7 mmol/L (3.5-5.1) 05/03/24 15:21 Chloride 105 mmol/L (98-107) 05/03/24 15:21 Carbon Dioxide 20 mmol/L (22-29) L 05/03/24 15:21 Anion Gap 16.7 (5-19) 05/03/24 15:21 BUN 9 mg/dL (6-20) 05/03/24 15:21 Creatinine 0.6 mg/dL (0.5-0.9) 05/03/24 15:21 GFR Calculation 106.7 mL/min (90-130) 05/03/24 15:21 Glucose 264 mg/dL (65-115) H 05/03/24 15:21 Calculated Osmolality 294 mOsm/kg (285-295) 05/03/24 15:21 Calcium 9.3 mg/dL (8.5-10.5) 05/03/24 15:21 Total Bilirubin 1.3 mg/dL (0.15-1.2) H 05/03/24 15:21 AST 58 U/L (0-32) H 05/03/24 15:21 ALT 36 U/L (0-33) H 05/03/24 15:21 Alkaline Phosphatase 142 U/L (35-105) H 05/03/24 15:21 Ammonia 59 umol/L (11-51) H 05/03/24 15:28 NT-Pro-B Natriuret Pep 64 pg/mL (0-125) 05/03/24 15:21 Total Protein 7.7 g/dL (6.6-8.7) 05/03/24 15:21 Albumin 4.0 g/dL (3.5-5.2) 05/03/24 15:21 Globulin 3.7 g/dL (1.3-4.6) 05/03/24 15:21 Lipase 29 U/L (13-60) 05/03/24 15:21 All radiology interpretation(s) finalized by discharge Discharge Plan Discharge Condition: Stable Prescriptions: No Action amlodipine 5 mg Tablet 5 mg PO DAILY clindamycin phosphate 1 % Gel 1 applic TOPICAL BID ferrous sulfate 325 mg (65 mg iron) Tablet 325 mg PO DAILY omeprazole 20 mg Capsule,Delayed Release(Dr/Ec) 20 mg PO DAILY ergocalciferol (vitamin D2) [Vitamin D2] 1,250 mcg (50,000 unit) Capsule 1,250 mcg PO Q7D azelastine 137 mcg (0.1 %) [place],Non-Aerosol 2 spray INTRANASAL BID Rx Instructions: administer into each nostril metformin 500 mg Tablet Extended Release 24 Hr 500 mg PO DAILY loratadine [Claritin] 10 mg Tablet 10 mg PO DAILY budesonide-formoterol [Symbicort] 80-4.5 mcg/actuation Hfa Aerosol Inhaler 2 puff INHALATION BID lactulose 10 gram/15 mL (15 mL) Solution 30 ml PO BID dapagliflozin propanediol [Farxiga] 5 mg Tablet 5 mg PO DAILY vitamin B complex Tablet 1 tab PO DAILY diphenhydramine HCl 25 mg Tablet 25 mg PO PRN PRN (Reason: unknown) nfpeldc-kgmiwdloxhohv-sjjvfrzg 250-250-65 mg Tablet 1 tab PO Q6H PRN (Reason: unknown) docusate sodium 100 mg Capsule 100 mg PO BID PRN (Reason: constipaion) loperamide 2 mg Tablet 2 mg PO PRN PRN (Reason: Diarrhea) Rx Instructions: administer after each loose stool until symptoms controlled; do not exceed 8 mg per 24 hrs magnesium L-threonate 48 mg magnesium (667 mg) capsule 48 mg PO DAILY Qty: 90 0RF polyethylene glycol 3350 [Miralax] 17 gram powder in packet 17 g PO DAILY PRN (Reason: constipation) Qty: 14 0RF Referrals: Jose Mejía, [employer] [Primary Care Provider] - Patient Instructions: Altered Mental Status (ED) Coding Level of Care Code ED Rn Progressive Care for [facility]
[2024-05-03 15:29] LABS: Basophils # 0.1 10^3/uL (0.0-0.1); Basophils % 1.2 %; Eosinophils # 0.1 10^3/uL (0.0-0.8); Eosinophils % 1.7 %; Hematocrit 36.2 % (36-47); Lymphocytes % 16.6 %; Mean Corpuscular HGB Conc 32.6 g/dL (30-55); Mean Corpuscular Hemoglobin 29.9 pg (27-33); Mean Corpuscular Volume 91.9 fl (85-98); Mean Platelet Volume 10.3 fL (7.4-10.4); Monocytes # 0.4 10^3/uL (0.2-0.9); Monocytes % 6.1 %; Neutrophils # 4.37 10^3/uL (1.8-7.7); Neutrophils % 74.2 %; Nucleated Red Blood Cells % 0 %; Platelet Count 92 10^3/cmm (157-399); Red Blood Count 3.94 10^6/uL (3.85-5.65); Red Cell Distribution Width 12.7 % (12.1-15.1); White Blood Count 5.89 10^3/uL (3.29-11.43)
--- NOTE | 2024-05-03 15:49 | PC.PHAR ---
patients was in the room, she wasn't able to verify anything he said that everything is the same from when she was in ICU 2 weeks ago
[2024-05-03 15:53] LABS: Ammonia 59 umol/L (11-51)
[2024-05-03] MEDS: lactulose oral liq 20 gm/30 mL UDC 30 GM PO (15:56)
[2024-05-03 15:58] LABS: Alanine Aminotransferase 36 U/L (0-33); Alkaline Phosphatase 142 U/L (35-105); Blood Urea Nitrogen 9 mg/dL (6-20); Calcium 9.3 mg/dL (8.5-10.5); Carbon Dioxide 20 mmol/L (22-29); Chloride 105 mmol/L (98-107); Globulin 3.7 g/dL (1.3-4.6); Glomerular Filtration Rate 106.7 mL/min (90-130); Glucose 264 mg/dL (65-115); Lipase 29 U/L (13-60); NT Pro B Type Natriuretic Pept 64 pg/mL (0-125); Osmolality Calculated 294 mOsm/kg (285-295); Sodium 138 mmol/L (136-145); Total Bilirubin 1.3 mg/dL (0.15-1.2); Total Protein 7.7 g/dL (6.6-8.7)
[2024-05-03 16:03] LABS: Anion Gap 16.7 (5-19); Aspartate Amino Transferase 58 U/L (0-32); Potassium 3.7 mmol/L (3.5-5.1)
[2024-05-03] MEDS: haloperidol inj 5 mg/mL INJ 1 mL 10 MG IM (16:30)
[2024-05-03] MEDS: LORazepam 2 mg/mL INJ 1 mL IM (17:12)
--- NOTE | 2024-05-03 17:28 | P.HP_ITS ---
Providers/Chief Complaint 2 Admitting Physician: Natasha Merrill MD Primary Care Provider: Jose Mejía NP Chief Complaint: sob, abd pain, History of Present Illness Aurora Acevedo is a 48 year old female with past medical history of depression, liver cirrhosis, was brought in by for altered mental status. As per the she was recently admitted on 04/18 for similar complaints and was discharged home on 04/21. She did not have a bowel movement since 1 week even though she was taking lactulose 70 ml 3 times a day. Also she has been compliant with her lactulose. As per the discharge summary she was discharged on 30 mL p.o. lactulose twice daily. Today he found her to be more altered, agitated and hence brought to ER. He states that she never had an history of drug overdose and last time she was here was for similar reason. 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 There is no history of fever, cough, chest pain, dizziness, nausea/vomiting, diarrhea or urinary complaints. In the ER her ammonia level was found to be 59, rest of the labs were acceptable Review of Systems 2 General: Reports: ROS unobtainable due to mental status Medications/Allergies Home Medications Medication Instructions Recorded Confirmed Last Taken Type polyethylene glycol 3350 17 gram 17 g PO DAILY PRN constipation #14 02/13/24 05/03/24 Unknown Rx oral powder packet (Miralax) ea amlodipine 5 mg tablet 5 mg PO DAILY 04/18/24 05/03/24 Unknown History wgtlzrr-vicyoqyshuuoe-kgozqjxw 250 1 tab PO Q6H PRN unknown 04/18/24 05/03/24 Unknown History mg-250 mg-65 mg tablet azelastine 137 mcg (0.1 %) nasal 2 spray intranasal BID 04/18/24 05/03/24 Unknown History spray budesonide-formoterol HFA 80 2 puff inhalation BID 04/18/24 05/03/24 Unknown History mcg-4.5 mcg/actuation aerosol inhaler (Symbicort) clindamycin phosphate 1 % topical 1 applic topical BID 04/18/24 05/03/24 Unknown History gel dapagliflozin propanediol 5 mg 5 mg PO DAILY 04/18/24 05/03/24 Unknown History tablet (Farxiga) diphenhydramine HCl 25 mg tablet 25 mg PO PRN PRN unknown 04/18/24 05/03/24 Unknown History docusate sodium 100 mg capsule 100 mg PO BID PRN constipaion 04/18/24 05/03/24 Unknown History ergocalciferol (vitamin D2) 1,250 1,250 mcg PO Q7D 04/18/24 05/03/24 Unknown History mcg (50,000 unit) capsule (Vitamin D2) ferrous sulfate 325 mg (65 mg 325 mg PO DAILY 04/18/24 05/03/24 Unknown History iron) tablet lactulose 10 gram/15 mL (15 mL) 30 ml PO BID 04/18/24 05/03/24 Unknown History oral solution loperamide 2 mg tablet 2 mg PO PRN PRN Diarrhea 04/18/24 05/03/24 Unknown History loratadine 10 mg tablet (Claritin) 10 mg PO DAILY 04/18/24 05/03/24 Unknown History metformin 500 mg tablet,extended 500 mg PO DAILY 04/18/24 05/03/24 Unknown History release 24 hr omeprazole 20 mg capsule,delayed 20 mg PO DAILY 04/18/24 05/03/24 Unknown History release vitamin B complex 1 tab PO DAILY 04/18/24 05/03/24 Unknown History magnesium L-threonate 48 mg 48 mg PO DAILY #90 caps 04/21/24 05/03/24 Unknown Rx magnesium (667 mg) capsule Allergies Allergy/AdvReac Type Severity Reaction Status Date / Time aspirin Allergy ADR-Headach Verified 05/03/24 15:23 e Penicillins Allergy ALGY-Hives Verified 05/03/24 15:23 Vitals/I&O/Wt Last Vital Signs Temp 98.0 F 05/03/24 14:59 Pulse 107 H 05/03/24 16:33 Resp 16 05/03/24 16:33 BP 163/98 05/03/24 16:33 Pulse Ox 100 05/03/24 16:33 O2 Del Method Room Air 05/03/24 16:33 Weight last 48 hrs Weight 52.163 kg Physical Exam 2 Narrative: She is awake but agitated and not comprehensive Chest clear to auscultation bilaterally Cardiovascular normal heart sounds Abdomen soft nontender nondistended normal bowel sounds Extremities no edema noted bilateral lower extremity Data 05/03/24 15:21 05/03/24 15:21 A&P Assessment and plan (1) Hepatic encephalopathy: (2) Altered mental status: Qualifiers: Altered mental status type: unspecified Qualified Code(s): R41.82 - Altered mental status, unspecified (3) Constipation: (4) Increased ammonia level: Plan Aurora Acevedo is a 48 year old female with past medical history of depression, liver cirrhosis, was brought in by for altered mental status, found to have been constipated since 1 week and ammonia 59 likely secondary to hepatic encephalopathy Hepatic encephalopathy- Admit to ICU Will do enema x 1 IV Ativan 2 mg every 4 hours as needed for agitation Will keep n.p.o. for now We will do p.o. lactulose 45 mL every 2 hours, until defecation achieved and then every 6 hours adjusted to 2-3 stools per day po miralax 17g daily po colace 100mg bid Will resume [employer] ST[employer]ER medications once more alert and awake. DVT prophylaxis with subcutaneous heparin GI prophylaxis with IV Pepcid 20 mg twice daily CODE STATUS discussed with , she is full code for now. Attestations 2 Medical Necessity Statement*: She needs continued hospitalization not crossing 2 midnights for management of hepatic encephalopathy and constipation with adjustment of lactulose dosing and laxatives Time Spent in Patient Care: 40 minutes Coding Level of Care Code Acute Code for [facility] Diagnoses Hepatic encephalopathy K76.82 Altered mental status R41.82 Altered mental status type: unspecified Constipation K59.00 Increased ammonia level R79.89 Time Spent (min) 40
[2024-05-03] MEDS: enoxaparin 40 mg/0.4 mL Syringe SUBCUT (18:52)
[2024-05-03] MEDS: famotidine 20 mg/2 mL INJ IVP (18:52)
[2024-05-03] MEDS: LORazepam 2 mg/mL INJ 1 mL IVP (20:08)
[2024-05-04] VITALS (37 sets, daily range): BP systolic 128–179; BP diastolic 78–114; PULSE 75–132; RESP 7–31; TEMP 36.6–36.8; O2SAT 95–100
[2024-05-04 04:53] LABS: Basophils # 0.1 10^3/uL (0.0-0.1); Basophils % 1.5 %; Eosinophils # 0.4 10^3/uL (0.0-0.8); Eosinophils % 7.4 %; Lymphocytes # 1.1 10^3/uL (0.8-4.8); Lymphocytes % 19.7 %; Mean Corpuscular Hemoglobin 29.6 pg (27-33); Mean Corpuscular Volume 98.5 fl (85-98); Mean Platelet Volume 10.3 fL (7.4-10.4); Monocytes # 0.6 10^3/uL (0.2-0.9); Monocytes % 11.3 %; Neutrophils # 3.23 10^3/uL (1.8-7.7); Neutrophils % 59.9 %; Nucleated Red Blood Cells % 0 %; Platelet Count 98 10^3/cmm (157-399); Red Blood Count 4.06 10^6/uL (3.85-5.65); Red Cell Distribution Width 12.7 % (12.1-15.1); White Blood Count 5.39 10^3/uL (3.29-11.43)
[2024-05-04] MEDS: famotidine 20 mg/2 mL INJ IVP ×2 (05:18→16:59)
[2024-05-04 08:01] LABS: Alanine Aminotransferase 35 U/L (0-33); Alkaline Phosphatase 112 U/L (35-105); Anion Gap 18.4 (5-19); Aspartate Amino Transferase 63 U/L (0-32); Blood Urea Nitrogen 12 mg/dL (6-20); Calcium 9.1 mg/dL (8.5-10.5); Carbon Dioxide 20 mmol/L (22-29); Chloride 111 mmol/L (98-107); Creatinine Clr Calc Pharmacy 90.5418; Glomerular Filtration Rate 106.7 mL/min (90-130); Glucose 133 mg/dL (65-115); Magnesium 1.9 mg/dL (1.7-2.3); Osmolality Calculated 304 mOsm/kg (285-295); Potassium 3.4 mmol/L (3.5-5.1); Sodium 146 mmol/L (136-145); Total Bilirubin 1.3 mg/dL (0.15-1.2)
[2024-05-04] MEDS: Fleet Enema 133 mL Enema PR (10:09)
[2024-05-04] MEDS: blistex lip oint 7 gm Tube 1 APPLIC TOPICAL (10:46)
--- NOTE | 2024-05-04 13:09 | PC.NURSE ---
BP 178/109, Dr. Merrill approved starting home linsinopril
[2024-05-04] MEDS: amlodipine 5 mg Tablet PO (13:23)
--- NOTE | 2024-05-04 14:41 | P.PN_ITS ---
Subjective 2 Subjective: Seen her at bedside this morning. No acute overnight events noted. As per the bedside nurse she had a very small bowel movement but is more alert and awake this morning and able to answer questions appropriately. Medications: Reviewed: Yes Vitals/I&O/Wt Last Vital Signs Temp 98.2 F 05/04/24 04:00 Pulse 122 H 05/04/24 13:00 Resp 19 H 05/04/24 13:00 BP 162/108 05/04/24 13:00 Pulse Ox 95 05/04/24 13:00 O2 Del Method Room Air 05/04/24 07:45 Weight last 48 hrs Weight 49.895 kg Weight 52.163 kg Physical Exam 2 Narrative: She is awake and alert, oriented x 2 Chest clear to auscultation bilaterally Cardiovascular normal heart sounds Abdomen soft nontender nondistended normal bowel sounds Extremities no edema noted bilateral lower extremity Data 05/04/24 03:42 05/04/24 07:18 A&P Assessment and plan (1) Hepatic encephalopathy: (2) Altered mental status: Qualifiers: Altered mental status type: unspecified Qualified Code(s): R41.82 - Altered mental status, unspecified (3) Constipation: (4) Increased ammonia level: Plan Aurora Acevedo is a 48 year old female with past medical history of depression, liver cirrhosis, was brought in by for altered mental status, found to have been constipated since 1 week and ammonia 59 likely secondary to hepatic encephalopathy Hepatic encephalopathy- Admit to ICU Will do enema x 1 IV Ativan 2 mg every 4 hours as needed for agitation Will keep n.p.o. for now We will do p.o. lactulose 45 mL every 2 hours, until defecation achieved and then every 6 hours adjusted to 2-3 stools per day po miralax 17g daily po colace 100mg bid Will resume [employer] medications once more alert and awake. DVT prophylaxis with subcutaneous heparin GI prophylaxis with IV Pepcid 20 mg twice daily CODE STATUS discussed with , she is full code for now. 05/04/24 Received Fleet enema this morning. Did not had any bowel movement but she has been more alert and awake since morning. Spoke to her at bedside, explained and counseled about plan of care. Will continue p.o. lactulose, Colace and MiraLAX Transferred to medical surgical floor for further management. Attestations 2 Medical Necessity Statement*: She needs continued hospitalization not crossing 2 midnights for management of hepatic encephalopathy and constipation with adjustment of lactulose dosing and laxatives Time Spent in Patient Care: 15 minutes Coding Level of Care Code Acute Code for [facility] Diagnoses Hepatic encephalopathy K76.82 Altered mental status R41.82 Altered mental status type: unspecified Constipation K59.00 Increased ammonia level R79.89 Time Spent (min) 15
--- NOTE | 2024-05-04 15:17 | ECG_ITS ---
[facility] Test Date: 2024-05-04 Pat Name: Aurora Acevedo Department: Room: ICU11 Gender: Female Loss Mitigation Specialist: : 1975 Requested By: Natasha Merrill Order Number: [id number] Russ MD: Yan Brown M.D. Measurements Intervals Patrick Rate: 128 P: 61 OR: 140 QRS: 21 QRSD: 89 T: 52 QT: 323 QTc: 472 Interpretive Statements SINUS TACHYCARDIA MODERATE ST DEPRESSION [0.05+ mV ST DEPRESSION] Compared to ECG 05/03/2024 15:12:46 ST (T wave) deviation now present Electronically Signed On 05-05-2024 10:34:27 [facility] by Yan Brown M.D. [id number]
--- NOTE | 2024-05-04 15:23 | PC.NURSE ---
HR 130s sinus, Dr. Merrill gave order per MAR
[2024-05-04] MEDS: labetalol 200 mg Tablet 100 MG PO (15:33)
[2024-05-04] MEDS: rifaximin 200 mg Tablet 600 MG PO (16:59)
[2024-05-04] MEDS: enoxaparin 40 mg/0.4 mL Syringe SUBCUT (16:59)
[2024-05-04] MEDS: docusate sodium 100 mg Capsule PO (17:00)
--- NOTE | 2024-05-04 17:19 | PC.NURSE ---
no void this shift, bladder scan showed 270 ml, Dr. Merrill advised to encourage po fluids
--- NOTE | 2024-05-04 17:47 | PC.NURSE ---
Addendum entered by Kirsten Brandon LPN 05/04/24 18:08: This nurse assumed care of pt at 1800. Original Note: This nurse took report from CULLEN Echeverria in ICU at 1747.
[2024-05-05] VITALS (10 sets, daily range): BP systolic 131–157; BP diastolic 72–91; PULSE 66–95; RESP 16–18; TEMP 36.7–36.9; O2SAT 92–98
[2024-05-05 05:42] LABS: Anion Gap 16.3 (5-19); Blood Urea Nitrogen 18 mg/dL (6-20); Carbon Dioxide 23 mmol/L (22-29); Chloride 106 mmol/L (98-107); Creatinine Clr Calc Pharmacy 77.6073; Glomerular Filtration Rate 89.3 mL/min (90-130); Glucose 137 mg/dL (65-115); Osmolality Calculated 298 mOsm/kg (285-295); Potassium 3.3 mmol/L (3.5-5.1); Sodium 142 mmol/L (136-145)
[2024-05-05] MEDS: famotidine 20 mg/2 mL INJ IVP ×2 (06:13→18:38)
[2024-05-05] MEDS: labetalol 200 mg Tablet 100 MG PO ×2 (09:38→18:36)
[2024-05-05] MEDS: amlodipine 5 mg Tablet PO (09:38)
[2024-05-05] MEDS: polyethylene glycol 3350 Pkt 17 gm PO (09:38)
[2024-05-05] MEDS: potassium chloride ER 20 mEq Tablet 40 MEQ PO ×2 (09:38→12:45)
[2024-05-05] MEDS: metformin XR 500 MG Tablet PO (09:38)
[2024-05-05] MEDS: docusate sodium 100 mg Capsule PO ×2 (09:38→18:36)
[2024-05-05] MEDS: rifaximin 200 mg Tablet 600 MG PO ×2 (09:39→18:37)
[2024-05-05] MEDS: saline nasal spray 44mL Btl 1 SPRAY NASAL (12:40)
[2024-05-05] MEDS: lactulose oral liq 20 gm/30 mL UDC 30 GM PO ×2 (12:42→19:44)
[2024-05-05] MEDS: diphenhydrAMINE 50 mg Capsule PO (12:57)
--- NOTE | 2024-05-05 13:24 | P.PN_ITS ---
Subjective 2 Subjective: No acute overnight events noted. Seen her at bedside this morning, she looks more alert and awake and was able to provide history. She is still worried about her bowel movement and urination. Medications: Reviewed: Yes Vitals/I&O/Wt Last Vital Signs Temp 98.1 F 05/05/24 12:00 Pulse 84 05/05/24 12:00 Resp 16 05/05/24 12:00 BP 151/90 05/05/24 12:00 Pulse Ox 95 05/05/24 12:00 O2 Del Method Room Air 05/05/24 12:00 05/04/24 05/05/24 05/05/24 22:59 06:59 14:59 Intake Total 200 / 200 480 / 480 Output Total 400 / 400 Balance -200 / -200 480 / 480 Weight last 48 hrs Weight 49.895 kg Weight 49.895 kg Weight 52.163 kg Physical Exam 2 Narrative: She is awake and alert, oriented x 3 Chest clear to auscultation bilaterally Cardiovascular normal heart sounds Abdomen soft nontender nondistended normal bowel sounds Extremities no edema noted bilateral lower extremity Data 05/04/24 03:42 05/05/24 04:09 A&P Assessment and plan (1) Hepatic encephalopathy: (2) Altered mental status: Qualifiers: Altered mental status type: unspecified Qualified Code(s): R41.82 - Altered mental status, unspecified (3) Constipation: (4) Increased ammonia level: Plan Aurora Acevedo is a 48 year old female with past medical history of depression, liver cirrhosis, was brought in by for altered mental status, found to have been constipated since 1 week and ammonia 59 likely secondary to hepatic encephalopathy Hepatic encephalopathy- Admit to ICU Will do enema x 1 IV Ativan 2 mg every 4 hours as needed for agitation Will keep n.p.o. for now We will do p.o. 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 DVT prophylaxis with subcutaneous heparin GI prophylaxis with IV Pepcid 20 mg twice daily CODE STATUS discussed with , she is full code for now. 05/04/24 Received Fleet enema this morning. Did not had any bowel movement but she has been more alert and awake since morning. Spoke to her at bedside, explained and counseled about plan of care. Will continue p.o. lactulose, Colace and MiraLAX Transferred to medical surgical floor for further management. 05/05/24 She had a bowel movement yesterday. She has been more alert and awake since this morning. Had some issues with urinary retention, likely secondary to decreased p.o. intake for the last 2 days. Recommended and encouraged to increase p.o. fluid intake, will start diet Continue to monitor for today Anticipating discharge in a.m. Attestations 2 Medical Necessity Statement*: Anticipating discharge in a.m. Time Spent in Patient Care: 15 minutes Coding Level of Care Code Acute Code for [facility] Fwd Diagnoses Hepatic encephalopathy K76.82 Altered mental status R41.82 Altered mental status type: unspecified Constipation K59.00 Increased ammonia level R79.89 Time Spent (min) 15
[2024-05-05] MEDS: enoxaparin 40 mg/0.4 mL Syringe SUBCUT (18:36)
[2024-05-05] MEDS: oxyCODONE-APAP 5-325 mg Tablet 1 TAB PO (19:38)
[2024-05-06] VITALS (14 sets, daily range): BP systolic 126–158; BP diastolic 76–89; PULSE 69–92; RESP 14–18; TEMP 36.4–37.1; O2SAT 95–99
[2024-05-06] MEDS: HYDROmorphone 1 mg/mL INJ 1 mL 0.4 MG IVP (01:31)
[2024-05-06 04:30] LABS: Anion Gap 16.4 (5-19); Blood Urea Nitrogen 19 mg/dL (6-20); Calcium 10.2 mg/dL (8.5-10.5); Carbon Dioxide 21 mmol/L (22-29); Chloride 109 mmol/L (98-107); Creatinine Clr Calc Pharmacy 54.3251; Glomerular Filtration Rate 59.2 mL/min (90-130); Glucose 185 mg/dL (65-115); Osmolality Calculated 301 mOsm/kg (285-295); Potassium 4.4 mmol/L (3.5-5.1); Sodium 142 mmol/L (136-145)
[2024-05-06] MEDS: ketorolac 30 mg/mL INJ 15 MG IVP (05:13)
[2024-05-06] MEDS: famotidine 20 mg/2 mL INJ IVP ×2 (05:14→17:29)
[2024-05-06] MEDS: docusate sodium 100 mg Capsule PO ×2 (08:25→17:29)
[2024-05-06] MEDS: amlodipine 5 mg Tablet PO (08:25)
[2024-05-06] MEDS: labetalol 200 mg Tablet 100 MG PO ×2 (08:25→17:29)
[2024-05-06] MEDS: polyethylene glycol 3350 Pkt 17 gm PO (08:25)
[2024-05-06] MEDS: metformin XR 500 MG Tablet PO (08:25)
[2024-05-06] MEDS: rifaximin 200 mg Tablet 600 MG PO (08:25)
[2024-05-06] MEDS: lactulose oral liq 20 gm/30 mL UDC 30 GM PO ×3 (08:29→23:09)
[2024-05-06] MEDS: HYDROmorphone 1 mg/mL INJ 1 mL 0.3 MG IVP (10:19)
--- NOTE | 2024-05-06 10:43 | P.PN_ITS ---
Subjective 2 Subjective: Seen her at bedside this morning. Complaining of severe diffuse abdominal pain, 10/10 in intensity, crampy, no nausea/vomiting and was able to eat small amount of breakfast. She had similar pain yesterday and was given Percocet with relief. She still continues to complain of constipation Medications: Reviewed: Yes Vitals/I&O/Wt Last Vital Signs Temp 98.8 F 05/06/24 07:43 Pulse 69 05/06/24 09:11 Resp 18 05/06/24 10:19 BP 158/89 05/06/24 07:43 Pulse Ox 97 05/06/24 10:19 O2 Del Method Room Air 05/06/24 09:11 05/05/24 05/06/24 05/06/24 22:59 06:59 14:59 Intake Total 240 / 720 480 / 1200 240 / 240 Output Total 300 / 300 400 / 700 Balance -60 / 420 80 / 500 240 / 240 Weight last 48 hrs Weight 50.122 kg Weight 49.895 kg Physical Exam 2 Narrative: She is awake and alert, oriented x 3 Chest clear to auscultation bilaterally Cardiovascular normal heart sounds Abdomen firm, distended diffusely, generalized tenderness, resonant percussion, decreased bowel sounds Extremities no edema noted bilateral lower extremity Data 05/04/24 03:42 05/06/24 03:48 A&P Assessment and plan (1) Hepatic encephalopathy: (2) Altered mental status: Qualifiers: Altered mental status type: unspecified Qualified Code(s): R41.82 - Altered mental status, unspecified (3) Constipation: (4) Increased ammonia level: Plan Aurora Acevedo is a 48 year old female with past medical history of depression, liver cirrhosis, was brought in by for altered mental status, found to have been constipated since 1 week and ammonia 59 likely secondary to hepatic encephalopathy Hepatic encephalopathy- Admit to ICU Will do enema x 1 IV Ativan 2 mg every 4 hours as needed for agitation Will keep n.p.o. for now We will do p.o. 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 DVT prophylaxis with subcutaneous heparin GI prophylaxis with IV Pepcid 20 mg twice daily CODE STATUS discussed with , she is full code for now. 05/04/24 Received Fleet enema this morning. Did not had any bowel movement but she has been more alert and awake since morning. Spoke to her at bedside, explained and counseled about plan of care. Will continue p.o. lactulose, Colace and MiraLAX Transferred to medical surgical floor for further management. 05/05/24 She had a bowel movement yesterday. She has been more alert and awake since this morning. Had some issues with urinary retention, likely secondary to decreased p.o. intake for the last 2 days. Recommended and encouraged to increase p.o. fluid intake, will start diet Continue to monitor for today Anticipating discharge in a.m. 05/06/24 Hepatic encephalopathy resolved. Abdominal pain likely secondary to gaseous distention. Will rule out small bowel obstruction Was started on p.o. rifaximin twice daily 2 days ago, will hold for now Check USG abdomen pelvis stat IV Dilaudid 0.3 mg x 1 dose now If small bowel obstruction ruled out, will do simethicone for gaseous distention. Continue p.o. lactulose senna and MiraLAX. Will monitor for now. Attestations 2 Medical Necessity Statement*: She needs continued hospitalization for management of abdominal pain and distention with USG abdomen, laxatives and pain medication Time Spent in Patient Care: 20 minutes Coding Level of Care Code Acute Code for Chg Fwd Diagnoses Hepatic encephalopathy K76.82 Altered mental status R41.82 Altered mental status type: unspecified Constipation K59.00 Increased ammonia level R79.89 Time Spent (min) 20
--- NOTE | 2024-05-06 10:59 | CTR_ITS ---
PROCEDURE INFORMATION: Exam: CT Abdomen And Pelvis Without And With Contrast Exam date and time: 05/06/2024 11:28 AM Age: 48 years old Clinical indication: Abdominal pain; Periumbilical; Additional info: Rule out sbo TECHNIQUE: Imaging protocol: Computed tomography of the abdomen and pelvis without and with contrast. Axial, coronal and sagittal reformatted images were created and reviewed. Radiation optimization: All CT scans at this facility use at least one of these dose optimization techniques: automated exposure control; mA and/or kV adjustment per patient size (includes targeted exams where dose is matched to clinical indication); or iterative reconstruction. Contrast material: OMNIPAQUE 350; Contrast volume: 100 ml; Contrast route: INTRAVENOUS (IV); COMPARISON: CT abdomen pelvis wo con [id number] 04/18/2024 3:54 PM RADIATION DOSE METRICS: Total DLP (mGy-cm): 893.8 FINDINGS: Liver: Unremarkable. Gallbladder and biliary ducts: Status post cholecystectomy. Mild central biliary ductal dilatation, likely postsurgical. Pancreas: Mild, diffuse pancreatic atrophy. Spleen: Mild splenomegaly. Adrenal glands: Normal. No mass. Kidneys and ureters: Nonobstructing left renal calculus. No hydronephrosis. Stomach and bowel: Large amount of gas and stool in the colon. No definite bowel wall thickening. No obstruction. No pneumatosis. Appendix: Normal. Intraperitoneal space: No free fluid. No organized fluid collection. No free air. Vasculature: Unremarkable. No aneurysm. Lymph nodes: No pathologically enlarged lymph nodes. Urinary bladder: Unremarkable as visualized. Reproductive: Unremarkable. Bones/joints: No acute osseous abnormality. Soft tissues: Unremarkable. CT/CT abdomen pelvis wo/w [id number] IMPRESSION: 1. Large amount of gas and stool in the colon. No obstruction. 2. Additional findings, as above.
[2024-05-06] MEDS: alum-mag-hydroxide-sime 30 mL UDC 15 ML PO ×2 (11:11→17:30)
[2024-05-06] MEDS: iohexol 350 mg/mL 500 mL Btl (per mL) IV (11:38)
[2024-05-06] MEDS: magnesium citrate Btl 296 mL PO (13:39)
[2024-05-06] MEDS: enoxaparin 40 mg/0.4 mL Syringe SUBCUT (17:29)
[2024-05-06] MEDS: LORazepam 2 mg/mL INJ 1 mL IVP (23:37)
[2024-05-07] VITALS (8 sets, daily range): BP systolic 129–137; BP diastolic 63–84; PULSE 84–99; RESP 14–18; TEMP 36.7–36.8; O2SAT 97–100
[2024-05-07 04:58] LABS: Basophils # 0.1 10^3/uL (0.0-0.1); Basophils % 1.5 %; Eosinophils # 0.4 10^3/uL (0.0-0.8); Eosinophils % 9.9 %; Hematocrit 31.1 % (36-47); Lymphocytes # 0.9 10^3/uL (0.8-4.8); Lymphocytes % 23.2 %; Mean Corpuscular HGB Conc 30.5 g/dL (30-55); Mean Corpuscular Hemoglobin 29.6 pg (27-33); Mean Corpuscular Volume 96.9 fl (85-98); Mean Platelet Volume 10.1 fL (7.4-10.4); Monocytes # 0.3 10^3/uL (0.2-0.9); Monocytes % 8.1 %; Neutrophils # 2.31 10^3/uL (1.8-7.7); Neutrophils % 57.1 %; Nucleated Red Blood Cells % 0 %; Platelet Count 76 10^3/cmm (157-399); Red Blood Count 3.21 10^6/uL (3.85-5.65); Red Cell Distribution Width 12.9 % (12.1-15.1); White Blood Count 4.05 10^3/uL (3.29-11.43)
[2024-05-07 05:14] LABS: Anion Gap 14.4 (5-19); Blood Urea Nitrogen 18 mg/dL (6-20); Carbon Dioxide 22 mmol/L (22-29); Chloride 105 mmol/L (98-107); Creatinine Clr Calc Pharmacy 60.4708; Glomerular Filtration Rate 66.8 mL/min (90-130); Glucose 113 mg/dL (65-115); Osmolality Calculated 287 mOsm/kg (285-295); Potassium 4.4 mmol/L (3.5-5.1); Sodium 137 mmol/L (136-145)
[2024-05-07] MEDS: famotidine 20 mg/2 mL INJ IVP ×2 (06:30→18:09)
[2024-05-07] MEDS: polyethylene glycol 3350 Pkt 17 gm PO (08:28)
[2024-05-07] MEDS: metformin XR 500 MG Tablet PO (08:28)
[2024-05-07] MEDS: amlodipine 5 mg Tablet PO (08:28)
[2024-05-07] MEDS: docusate sodium 100 mg Capsule PO ×2 (08:29→18:05)
[2024-05-07] MEDS: labetalol 200 mg Tablet 100 MG PO ×2 (08:29→18:05)
[2024-05-07] MEDS: LORazepam 2 mg/mL INJ 1 mL IVP ×2 (08:34→15:35)
[2024-05-07] MEDS: mineral oil ENEMA 133 mL PR (11:39)
[2024-05-07] MEDS: peg /e-lyte soln 4,000 mL Btl 1500 ML PO (11:40)
--- NOTE | 2024-05-07 14:06 | P.PN_ITS ---
Subjective 2 Subjective: No acute overnight events noted. Seen her at bedside this morning, still complained of constipation and having a very small bowel movement yesterday after magnesium citrate. Medications: Reviewed: Yes Vitals/I&O/Wt Last Vital Signs Temp 98.0 F 05/07/24 12:10 Pulse 84 05/07/24 12:10 Resp 16 05/07/24 12:10 BP 136/81 05/07/24 12:10 Pulse Ox 100 05/07/24 12:10 O2 Del Method Room Air 05/07/24 12:10 05/06/24 05/07/24 05/07/24 22:59 06:59 14:59 Intake Total 120 / 480 620 / 1100 120 / 120 Output Total 500 / 500 Balance 120 / 480 120 / 600 120 / 120 Weight last 48 hrs Weight 50.576 kg Weight 50.122 kg Physical Exam 2 Narrative: She is awake and alert, oriented x 3 Chest clear to auscultation bilaterally Cardiovascular normal heart sounds Abdomen firm, distended diffusely, generalized tenderness, resonant percussion, decreased bowel sounds, findings improved as compared to yesterday Extremities no edema noted bilateral lower extremity Data 05/07/24 04:43 05/07/24 04:43 A&P Assessment and plan (1) Hepatic encephalopathy: (2) Altered mental status: Qualifiers: Altered mental status type: unspecified Qualified Code(s): R41.82 - Altered mental status, unspecified (3) Constipation: (4) Increased ammonia level: Plan Aurora Acevedo is a 48 year old female with past medical history of depression, liver cirrhosis, was brought in by for altered mental status, found to have been constipated since 1 week and ammonia 59 likely secondary to hepatic encephalopathy Hepatic encephalopathy- Admit to ICU Will do enema x 1 IV Ativan 2 mg every 4 hours as needed for agitation Will keep n.p.o. for now We will do p.o. 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 DVT prophylaxis with subcutaneous heparin GI prophylaxis with IV Pepcid 20 mg twice daily CODE STATUS discussed with , she is full code for now. 05/04/24 Received Fleet enema this morning. Did not had any bowel movement but she has been more alert and awake since morning. Spoke to her at bedside, explained and counseled about plan of care. Will continue p.o. lactulose, Colace and MiraLAX Transferred to medical surgical floor for further management. 05/05/24 She had a bowel movement yesterday. She has been more alert and awake since this morning. Had some issues with urinary retention, likely secondary to decreased p.o. intake for the last 2 days. Recommended and encouraged to increase p.o. fluid intake, will start diet Continue to monitor for today Anticipating discharge in a.m. 05/06/24 Hepatic encephalopathy resolved. Abdominal pain likely secondary to gaseous distention. Will rule out small bowel obstruction Was started on p.o. rifaximin twice daily 2 days ago, will hold for now Check USG abdomen pelvis stat IV Dilaudid 0.3 mg x 1 dose now If small bowel obstruction ruled out, will do simethicone for gaseous distention. Continue p.o. lactulose senna and MiraLAX. Will monitor for now. 05/07/24 Abdominal pain very slightly better as compared to yesterday. CT abdomen pelvis with contrast was negative for small bowel obstruction or any acute pathology, showed a lot of gas and stools. Will do GoLytely 1.5 L and Fleet enema today. Monitor for bowel movement and abdominal exam. Attestations 2 Medical Necessity Statement*: She needs continued hospitalization for management of abdominal pain and distention with , laxatives and pain medication Time Spent in Patient Care: 15 minutes Coding Level of Care Code Acute Code for [facility] Fwd Diagnoses Hepatic encephalopathy K76.82 Altered mental status R41.82 Altered mental status type: unspecified Constipation K59.00 Increased ammonia level R79.89 Time Spent (min) 15
[2024-05-07] MEDS: pneumococcal (23 valent) SDV 0.5 mL IM (15:22)
[2024-05-07] MEDS: alum-mag-hydroxide-sime 30 mL UDC 15 ML PO (15:26)
[2024-05-07] MEDS: enoxaparin 40 mg/0.4 mL Syringe SUBCUT (18:05)
[2024-05-08] VITALS (7 sets, daily range): BP systolic 142–156; BP diastolic 83–98; PULSE 88–107; RESP 16–20; TEMP 36.4–36.7; O2SAT 97–100
--- NOTE | 2024-05-08 00:05 | PC.NURSE ---
at shift change pt awake, alert to self, and confused. Pt. talking fast and moving fast. Pt behaviour similar to manic behavior. pt gait also unsteady, pt able to catch and right self. this nurse escorted pt back to room and spoke slowly to pt about staying in her own room, safety due to pt having difficulty walking without occasionally weaving. pt apologizing and jumps from one topic to another. close monitoring of pt at this time.
[2024-05-08] MEDS: lactulose oral liq 20 gm/30 mL UDC 30 GM PO (02:54)
--- NOTE | 2024-05-08 03:24 | PC.NURSE ---
pt had to be redirected back to her room 6 times in the last hour, pt turned call light on while nurse in the room with pt, when asked what she needed pt stated Oh I am just changing the channel, they want to watch something else when asked who they are pt looked around in room then stated I guess I am just hearing it .
[2024-05-08] MEDS: famotidine 20 mg/2 mL INJ IVP (05:31)
[2024-05-08 06:44] LABS: Anion Gap 16.4 (5-19); Blood Urea Nitrogen 13 mg/dL (6-20); Calcium 10.5 mg/dL (8.5-10.5); Carbon Dioxide 21 mmol/L (22-29); Chloride 107 mmol/L (98-107); Creatinine Clr Calc Pharmacy 68.2762; Glomerular Filtration Rate 76.6 mL/min (90-130); Glucose 146 mg/dL (65-115); Osmolality Calculated 293 mOsm/kg (285-295); Potassium 4.4 mmol/L (3.5-5.1); Sodium 140 mmol/L (136-145)
[2024-05-08] MEDS: amlodipine 5 mg Tablet PO (08:47)
[2024-05-08] MEDS: metformin XR 500 MG Tablet PO (08:47)
[2024-05-08] MEDS: polyethylene glycol 3350 Pkt 17 gm PO (08:47)
[2024-05-08] MEDS: docusate sodium 100 mg Capsule PO (08:47)
[2024-05-08] MEDS: hyDRALAzine 25 mg Tablet PO (08:51)
--- NOTE | 2024-05-08 11:14 | PM.DCS ---
Discharge Providers Date of Admission: 05/03/24 17:02 Date of Discharge: May 08, 2024 Attending Provider at Admission: Natasha Merrill MD Attending Provider at Discharge: Natasha Merrill MD Primary Care Provider: Jose Mejía NP Diagnoses at Discharge Discharge Diagnosis (1) Hepatic encephalopathy: Status: Acute (2) Altered mental status: Status: Acute Qualifiers: Altered mental status type: unspecified Qualified Code(s): R41.82 - Altered mental status, unspecified (3) Constipation: Status: Acute (4) Increased ammonia level: Status: Acute Reason for Visit Reason for Visit: sob, abd pain, Brief History: Aurora Acevedo is a 48 year old female with past medical history of depression, liver cirrhosis, was brought in by for altered mental status. As per the she was recently admitted on 04/18 for similar complaints and was discharged home on 04/21. She did not have a bowel movement since 1 week even though she was taking lactulose 70 ml 3 times a day. Also she has been compliant with her lactulose. As per the discharge summary she was discharged on 30 mL p.o. lactulose twice daily. Today he found her to be more altered, agitated and hence brought to ER. He states that she never had an history of drug overdose and last time she was here was for similar reason. 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 There is no history of fever, cough, chest pain, dizziness, nausea/vomiting, diarrhea or urinary complaints. In the ER her ammonia level was found to be 59, rest of the labs were acceptable Hospital Course Hospital Course Assessment and plan (1) Hepatic encephalopathy: (2) Altered mental status: Qualifiers: Altered mental status type: unspecified Qualified Code(s): R41.82 - Altered mental status, unspecified (3) Constipation: (4) Increased ammonia level: Plan Aurora Acevedo is a 48 year old female with past medical history of depression, liver cirrhosis, was brought in by for altered mental status, found to have been constipated since 1 week and ammonia 59 likely secondary to hepatic encephalopathy Hepatic encephalopathy- Admit to ICU Will do enema x 1 IV Ativan 2 mg every 4 hours as needed for agitation Will keep n.p.o. for now We will do p.o. 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 DVT prophylaxis with subcutaneous heparin GI prophylaxis with IV Pepcid 20 mg twice daily CODE STATUS discussed with , she is full code for now. 05/04/24 Received Fleet enema this morning. Did not had any bowel movement but she has been more alert and awake since morning. Spoke to her at bedside, explained and counseled about plan of care. Will continue p.o. lactulose, Colace and MiraLAX Transferred to medical surgical floor for further management. 05/05/24 She had a bowel movement yesterday. She has been more alert and awake since this morning. Had some issues with urinary retention, likely secondary to decreased p.o. intake for the last 2 days. Recommended and encouraged to increase p.o. fluid intake, will start diet Continue to monitor for today Anticipating discharge in a.m. 05/06/24 Hepatic encephalopathy resolved. Abdominal pain likely secondary to gaseous distention. Will rule out small bowel obstruction Was started on p.o. rifaximin twice daily 2 days ago, will hold for now Check USG abdomen pelvis stat IV Dilaudid 0.3 mg x 1 dose now If small bowel obstruction ruled out, will do simethicone for gaseous distention. Continue p.o. lactulose senna and MiraLAX. Will monitor for now. 05/07/24 Abdominal pain very slightly better as compared to yesterday. CT abdomen pelvis with contrast was negative for small bowel obstruction or any acute pathology, showed a lot of gas and stools. Will do GoLytely 1.5 L and Fleet enema today. Monitor for bowel movement and abdominal exam. 05/08/24 She is doing better, abdominal pain reduced, was able to have bowel movement. She is alert and awake, hemodynamically stable. Will discharge her home to be followed up by PCP as outpatient. Physical Exam Narrative: She is awake and alert, oriented x 3 Chest clear to auscultation bilaterally Cardiovascular normal heart sounds Abdomen firm, distended diffusely, generalized tenderness, resonant percussion, decreased bowel sounds, findings improved as compared to yesterday Extremities no edema noted bilateral lower extremity Discharge Data Studies Completed and Pending Completed Studies During Hospitalization Category Date Time Status CT abdomen pelvis wo/w [id number] Stat Cat Scan 05/06/24 10:59 Completed XR abdomen 1V* [id number] Stat Exams 05/03/24 15:25 Completed XR chest 1V portable [id number] Stat Exams 05/03/24 15:11 Completed Radiology Impressions Chest X-Ray 05/03/24 15:11 IMPRESSION: 1. No acute cardiopulmonary finding. Abdomen X-Ray 05/03/24 15:25 IMPRESSION: 1. Constipation. No acute abdominal process. Abdomen/Pelvis CT 05/06/24 10:59 IMPRESSION: 1. Large amount of gas and stool in the colon. No obstruction. 2. Additional findings, as above. Laboratory Results WBC 4.05 10^3/uL (3.29-11.43) 05/07/24 04:43 RBC 3.21 10^6/uL (3.85-5.65) L 05/07/24 04:43 Hgb 9.50 g/dL (11.27-16.99) L 05/07/24 04:43 Hct 31.1 % (36-47) L 05/07/24 04:43 MCV 96.9 fl (85-98) 05/07/24 04:43 MCH 29.6 pg (27-33) 05/07/24 04:43 MCHC 30.5 g/dL (30-55) 05/07/24 04:43 RDW 12.9 % (12.1-15.1) 05/07/24 04:43 Plt Count 76 10^3/cmm (157-399) L 05/07/24 04:43 MPV 10.1 fL (7.4-10.4) 05/07/24 04:43 Neut % (Auto) 57.1 % 05/07/24 04:43 Lymph % (Auto) 23.2 % 05/07/24 04:43 Stevens % (Auto) 8.1 % 05/07/24 04:43 Eos % (Auto) 9.9 % 05/07/24 04:43 Baso % (Auto) 1.5 % 05/07/24 04:43 Neut # (Auto) 2.31 10^3/uL (1.8-7.7) 05/07/24 04:43 Lymph # (Auto) 0.9 10^3/uL (0.8-4.8) 05/07/24 04:43 Stevens # (Auto) 0.3 10^3/uL (0.2-0.9) 05/07/24 04:43 Eos # (Auto) 0.4 10^3/uL (0.0-0.8) 05/07/24 04:43 Baso # (Auto) 0.1 10^3/uL (0.0-0.1) 05/07/24 04:43 Nucleated RBC % (auto) 0 % 05/07/24 04:43 Nucleated RBCs # 0.0 /100WBC 05/07/24 04:43 Sodium 140 mmol/L (136-145) 05/08/24 06:03 Potassium 4.4 mmol/L (3.5-5.1) 05/08/24 06:03 Chloride 107 mmol/L (98-107) 05/08/24 06:03 Carbon Dioxide 21 mmol/L (22-29) L 05/08/24 06:03 Anion Gap 16.4 (5-19) 05/08/24 06:03 BUN 13 mg/dL (6-20) 05/08/24 06:03 Creatinine 0.8 mg/dL (0.5-0.9) 05/08/24 06:03 GFR Calculation 76.6 mL/min (90-130) L 05/08/24 06:03 Glucose 146 mg/dL (65-115) H 05/08/24 06:03 Calculated Osmolality 293 mOsm/kg (285-295) 05/08/24 06:03 Calcium 10.5 mg/dL (8.5-10.5) 05/08/24 06:03 Magnesium 1.9 mg/dL (1.7-2.3) 05/04/24 07:18 Total Bilirubin 1.3 mg/dL (0.15-1.2) H 05/04/24 07:18 AST 63 U/L (0-32) H 05/04/24 07:18 ALT 35 U/L (0-33) H 05/04/24 07:18 Alkaline Phosphatase 112 U/L (35-105) H 05/04/24 07:18 Ammonia 59 umol/L (11-51) H 05/03/24 15:28 NT-Pro-B Natriuret Pep 64 pg/mL (0-125) 05/03/24 15:21 Total Protein 7.0 g/dL (6.6-8.7) 05/04/24 07:18 Albumin 4.0 g/dL (3.5-5.2) 05/04/24 07:18 Globulin 3.0 g/dL (1.3-4.6) 05/04/24 07:18 Lipase 29 U/L (13-60) 05/03/24 15:21 Vitals Last Vital Signs Temp 98.1 F 05/08/24 07:41 Pulse 107 H 05/08/24 10:39 Resp 16 05/08/24 10:39 BP 156/88 05/08/24 07:41 Pulse Ox 100 05/08/24 10:39 O2 Del Method Room Air 05/08/24 10:39 Discharge Plan Discharge Patient Disposition: Home Condition: Stable Prescriptions: New polyethylene glycol 3350 17 gram Powder In Packet 17 g PO DAILY 30 Days Qty: 400 0RF hydralazine 25 mg Tablet 25 mg PO BID 15 Days Qty: 30 0RF docusate sodium 100 mg Capsule 100 mg PO BID 30 Days Qty: 60 0RF alum-mag hydroxide-simeth [Mag-Al Plus] 200-200-20 mg/5 mL Suspension 15 ml PO Q4H PRN (Reason: Indigestion) 7 Days Qty: 100 0RF lactulose 20 gram/30 mL Solution 60 g PO BID 30 Days Qty: 5400 0RF magnesium hydroxide [Milk of Magnesia] 400 mg/5 mL suspension 10 ml PO DAILY PRN (Reason: constipation) Qty: 355 0RF oxycodone-acetaminophen [Percocet] 5-325 mg tablet 1 tab PO BID PRN (Reason: pain) Qty: 10 0RF Continued amlodipine 5 mg Tablet 5 mg PO DAILY clindamycin phosphate 1 % Gel 1 applic TOPICAL BID ferrous sulfate 325 mg (65 mg iron) Tablet 325 mg PO DAILY omeprazole 20 mg Capsule,Delayed Release(Dr/Ec) 20 mg PO DAILY ergocalciferol (vitamin D2) [Vitamin D2] 1,250 mcg (50,000 unit) Capsule 1,250 mcg PO Q7D azelastine 137 mcg (0.1 %) Ada,Non-Aerosol 2 spray INTRANASAL BID Rx Instructions: administer into each nostril metformin 500 mg Tablet Extended Release 24 Hr 500 mg PO DAILY loratadine [Claritin] 10 mg Tablet 10 mg PO DAILY budesonide-formoterol [Symbicort] 80-4.5 mcg/actuation Hfa Aerosol Inhaler 2 puff INHALATION BID dapagliflozin propanediol [Farxiga] 5 mg Tablet 5 mg PO DAILY vitamin B complex Tablet 1 tab PO DAILY diphenhydramine HCl 25 mg Tablet 25 mg PO PRN PRN (Reason: unknown) [id number]-[id number] 250-250-65 mg Tablet 1 tab PO Q6H PRN (Reason: unknown) loperamide 2 mg Tablet 2 mg PO PRN PRN (Reason: Diarrhea) Rx Instructions: administer after each loose stool until symptoms controlled; do not exceed 8 mg per 24 hrs magnesium L-threonate 48 mg magnesium (667 mg) capsule 48 mg PO DAILY Qty: 90 0RF Discontinued lactulose 10 gram/15 mL (15 mL) Solution 30 ml PO BID docusate sodium 100 mg Capsule 100 mg PO BID PRN (Reason: constipaion) polyethylene glycol 3350 [Miralax] 17 gram powder in packet 17 g PO DAILY PRN (Reason: constipation) Qty: 14 0RF Discharge Orders: Discharge Order (Routine); Ordered 05/08/24 Ordered By: Natasha Merrill Referrals: Jose Mejía NP [Primary Care Provider] - Discharge Diet: Diabetic Discharge Activity: Increase activity as tolerated Patient Instructions: Altered Mental Status (ED), Opioid Safety Discharge Attestations Time Spent in Discharge Care*: less than 30 min Quality Metrics Clinical Quality Measures [ No reported AMI, CVA or VTE this stay] Coding Level of Care Code Acute Code for Chg Fwd Diagnoses Hepatic encephalopathy K76.82 Altered mental status R41.82 Altered mental status type: unspecified Constipation K59.00 Increased ammonia level R79.89 Time Spent (min) 25
== END 2024-05-08 12:40 | disposition home or self-care (01) | DRG 443 ==
LOC: ER 16:03 → MEDSURG 17:03 → ICU 18:04 → MEDSURG 05-04 18:02
PROVIDERS: Emergency Medicine; Admitting Provider Internal Medicine; Emergency Provider Emergency Medicine; PCP Registered Nurse; Visit Provider Internal Medicine
DX: K76.82 Hepatic encephalopathy (principal); K74.60 Unspecified cirrhosis of liver; Z79.82 Long term (current) use of aspirin; Z79.84 Long term (current) use of oral hypoglycemic drugs; Z88.6 Allergy status to analgesic agent; Z88.0 Allergy status to penicillin; K59.00 Constipation, unspecified; F32.A Depression, unspecified
CPT/HCPCS: 36415; 71045; 74018; 74178; 80048; 80053; 82140; 83690; 83735; 83880; 85025; 90471; 90732; 93005; 94664; 96372; 99285; J1171; J1630; J1650; J1885; J2060; J3490; Q0163

== ENCOUNTER 2024-05-16 10:16 | Outpatient (CLI) | payer MEDICAID, SELFPAY ==
--- NOTE | 2024-05-16 10:18 | XR_ITS ---
WS: [id number] XR KUB [id number] REASON FOR EXAM: constipation FINDINGS: No free air or retroperitoneal air. Significant volume of retained stool in the right, transverse, and left colon. No significant retaine d fecal material in the rectal vault. No significant small bowel distention. XR/XR KUB [id number] IMPRESSION: Significant volume of stool retention as above.
[2024-05-16 11:09] LABS: Basophils % 0.8 %; Eosinophils # 0.4 10^3/uL (0.0-0.8); Eosinophils % 7.3 %; Hematocrit 32.6 % (36-47); Lymphocytes % 21.7 %; Mean Corpuscular HGB Conc 32.2 g/dL (30-55); Mean Corpuscular Hemoglobin 29.4 pg (27-33); Mean Corpuscular Volume 91.3 fl (85-98); Mean Platelet Volume 9.8 fL (7.4-10.4); Monocytes # 0.4 10^3/uL (0.2-0.9); Monocytes % 8.3 %; Neutrophils # 2.96 10^3/uL (1.8-7.7); Neutrophils % 61.7 %; Nucleated Red Blood Cells % 0 %; Platelet Count 107 10^3/cmm (157-399); Red Blood Count 3.57 10^6/uL (3.85-5.65)
[2024-05-16 11:42] LABS: Alanine Aminotransferase 26 U/L (0-33); Albumin Level 4.1 g/dL (3.5-5.2); Alkaline Phosphatase 136 U/L (35-105); Anion Gap 14.9 (5-19); Aspartate Amino Transferase 43 U/L (0-32); Blood Urea Nitrogen 10 mg/dL (6-20); Calcium 9.3 mg/dL (8.5-10.5); Carbon Dioxide 23 mmol/L (22-29); Chloride 105 mmol/L (98-107); Globulin 2.9 g/dL (1.3-4.6); Glomerular Filtration Rate 106.7 mL/min (90-130); Glucose 86 mg/dL (65-115); Lipase 17 U/L (13-60); Magnesium 1.8 mg/dL (1.7-2.3); Osmolality Calculated 286 mOsm/kg (285-295); Potassium 3.9 mmol/L (3.5-5.1); Sodium 139 mmol/L (136-145); Total Bilirubin 0.9 mg/dL (0.15-1.2)
== END 2024-05-16 10:17 | disposition home or self-care (01) ==
LOC: LAB 10:17
DX: K59.00 Constipation, unspecified (principal); K70.30 Alcoholic cirrhosis of liver without ascites
CPT/HCPCS: 36415; 74018; 80053; 83690; 83735; 85025

== ENCOUNTER 2024-05-30 10:21 | Outpatient (CLI) | payer MEDICAID, SELFPAY ==
--- NOTE | 2024-05-30 10:28 | XRR_ITS ---
PROCEDURE INFORMATION: Exam: XR Left Hand Exam date and time: 05/30/2024 10:57 AM Age: 48 years old Clinical indication: Pain; Hand; Left; Additional info: Thumb pain TECHNIQUE: Imaging protocol: Radiologic exam of the left hand. Views: 3 or more views. COMPARISON: No relevant prior studies available. FINDINGS: Bones/joints: No acute fracture. No dislocation. Soft tissues: The soft tissues are unremarkable. XR/XR hand LT min 3V* [id number] IMPRESSION: No acute fracture or dislocation.
[2024-05-30 11:15] LABS: Estmated Average Glucose 103; Hemoglobin A1C 5.2 % (4.0-6.0)
[2024-05-30 11:20] LABS: Ammonia 86 umol/L (11-51)
[2024-05-30 11:21] LABS: INR 1.17 (0.8-1.2)
== END 2024-05-30 10:22 | disposition home or self-care (01) ==
LOC: LAB 10:22
DX: M79.643 Pain in unspecified hand (principal); K70.30 Alcoholic cirrhosis of liver without ascites
CPT/HCPCS: 36415; 73130; 82140; 83036; 85610

== ENCOUNTER → 2024-06-04 16:10 | Outpatient (BNVA) | payer MEDICAID, SELFPAY | PROVIDERS: Visit Provider Nurse Practitioner Women's Health | DX: Z12.4 Encounter for screening for malignant neoplasm of cervix (principal); N92.6 Irregular menstruation, unspecified | CPT/HCPCS: 87624 ==

== ENCOUNTER 2024-06-16 17:56 | Inpatient (IN) | payer MEDICAID, SELFPAY ==
[2024-06-16] VITALS (21 sets, daily range): BP systolic 173–210; BP diastolic 104–137; PULSE 60–87; RESP 14–20; TEMP 35.8; O2SAT 98–100
--- NOTE | 2024-06-16 17:59 | XRR_ITS ---
PROCEDURE INFORMATION: Exam: XR Chest Exam date and time: 06/16/2024 6:13 PM Age: 48 years old Clinical indication: Device placement; Ett placement (vent status); Patient HX: AMS; Ett/og placement TECHNIQUE: Imaging protocol: Radiologic exam of the chest. Views: 1 view. COMPARISON: CR XR chest 1V portable [id number] 05/03/2024 3:17 PM FINDINGS: Tubes, catheters and devices: Endotracheal tube overlies the trachea with the tip 5.0 cm above the katerina in satisfactory position. Esophageal catheter in the stomach Lungs: Unremarkable. No consolidation. Pleural spaces: Unremarkable. No pleural effusion. No pneumothorax. Heart/Mediastinum: Unremarkable. No cardiomegaly. Bones/joints: Unremarkable. XR/XR chest 1V portable [id number] IMPRESSION: 1. Endotracheal tube 5 cm above the katerina. 2. No acute process in the chest
--- NOTE | 2024-06-16 18:00 | ECG_ITS ---
[facility] Date: 2024-[facility]-16 Pat Name: Aurora Acevedo Department: Room: Gender: Female Member Of [employer]: : 1975 Requested By: Tonya Bernabe Order Number: [id number] Russ MD: Diana Robert M.D. Measurements Intervals [place] Rate: 62 P: 74 OK: 163 QRS: 56 QRSD: 93 T: 70 QT: 447 QTc: 454 Interpretive Statements SINUS RHYTHM POSSIBLE LEFT ATRIAL ENLARGEMENT [-0.1mV P-WAVE IN V1/V2] Compared to ECG 05/04/2024 15:17:13 Sinus tachycardia no longer present ST (T wave) deviation no longer present Electronically Signed On 06-16-2024 21:27:30 SECURITY BUSINESS ANALYST by Diana Robret M.D. [email or web address]
[2024-06-16 18:03] LABS: ABG PCO2 50.6 mmHg (35-45); ABG PH Result 7.28 (7.35-7.45); Alveolar-Arterial Oxygen Gradi 43.7 mmHg (5-10); Arterial Blood Gas Hematocrit 42.7 % (37-47); Base Excess ABG -3.4 mmol/L (-2.0-2.0); Blood Gas Allen Test Pos; Blood Gas Operator Identificat WALCI; Blood Gas Sample Site Brachial, right; Blood Gas Sample Type Arterial; Carboxyhemoglobin 0.8 %THgb (0.4-20.1); HCO3 ABG 23.9 mmol/L (22-26); HGB O2 Sat 98.5 % (95-100); Ionized Calcium Level - ABG 1.3 mmol/L (1.1-1.4); Methemoglobin 0.9 % (0.4-1.5); Oxygen Device VENT; Oxygen Saturation ABG > 99.1; PO2 FiO2 Ratio Arterial Blood 313; Potassium Level - ABG 3.7 mmol/L (3.5-5.0); Total Hemoglobin 13.9 g/dL (12-16)
[2024-06-16 18:17] LABS: Basophils # 0.1 10^3/uL (0.0-0.1); Basophils % 1.1 %; Eosinophils # 0.2 10^3/uL (0.0-0.8); Eosinophils % 4.1 %; Hematocrit 42.2 % (36-47); Lymphocytes # 1.1 10^3/uL (0.8-4.8); Mean Corpuscular HGB Conc 32.2 g/dL (30-55); Mean Corpuscular Volume 86.8 fl (85-98); Mean Platelet Volume 9.8 fL (7.4-10.4); Monocytes # 0.4 10^3/uL (0.2-0.9); Monocytes % 7.6 %; Neutrophils # 3.72 10^3/uL (1.8-7.7); Neutrophils % 66.8 %; Nucleated Red Blood Cells % 0 %; Platelet Count 152 10^3/cmm (157-399); Red Blood Count 4.86 10^6/uL (3.85-5.65); Red Cell Distribution Width 12.7 % (12.1-15.1); White Blood Count 5.56 10^3/uL (3.29-11.43)
--- NOTE | 2024-06-16 18:20 | CTR_ITS ---
PROCEDURE INFORMATION: Exam: CT Head Without Contrast Exam date and time: 06/16/2024 7:11 PM Age: 48 years old Clinical indication: Altered mental status/memory loss; Patient HX: EMS arrival for AMS. Required intubation on route to er. ; Additional info: Encephalopathy, altered mental status TECHNIQUE: Imaging protocol: Computed tomography of the head without contrast. Radiation optimization: All CT scans at this facility use at least one of these dose optimization techniques: automated exposure control; mA and/or kV adjustment per patient size (includes targeted exams where dose is matched to clinical indication); or iterative reconstruction. COMPARISON: CT head wo con* [id number] 04/18/2024 1:49 AM RADIATION DOSE METRICS: Total DLP (mGy-cm): 1034.54 FINDINGS: Brain: Normal. No hemorrhage, mass effect or midline shift. Cerebral ventricles: Ventricles are normal in size and position. Paranasal sinuses: Visualized sinuses are unremarkable. No fluid levels. Mastoid air cells: Visualized mastoid air cells are well aerated. Bones: Unremarkable. No acute fracture. Soft tissues: Unremarkable. CT/CT head wo con* [id number] IMPRESSION: No acute intracranial abnormality.
--- NOTE | 2024-06-16 18:25 | PC.RESP ---
pt arrived intubated by ems. 7.0 ett, 21 @ lip. tube tamer changed once placed on ventilator
--- NOTE | 2024-06-16 18:27 | ED_ITS ---
HPI - Altered Mental Status 2 General: Chief Complaint: Altered Mental Status Stated Complaint: ams Time Seen by Provider: 06/16/24 17:57 History of Present Illness: 48-year-old female with a history of cir rhosis and hypertension who presents the emergency room by ambulance intubated. Apparently she went from unresponsive to agitated and her lungs sounded coarse so she was intubated. EMS reports that family said that she has not been drinking any alcohol and not doing any drugs. No other information obtained at this time. Related Data Home Medications Medication Instructions Recorded Confirmed ahkqxdq-azxymwuczuxxa-bbqgesuv 250 1 tab PO Q6H PRN unknown 04/18/24 06/04/24 mg-250 mg-65 mg tablet azelastine 137 mcg (0.1 %) nasal 2 spray intranasal BID 04/18/24 06/04/24 spray budesonide-formoterol HFA 80 2 puff inhalation BID 04/18/24 06/04/24 mcg-4.5 mcg/actuation aerosol inhaler (Symbicort) clindamycin phosphate 1 % topical 1 applic topical BID 04/18/24 06/04/24 gel dapagliflozin propanediol 5 mg 5 mg PO DAILY 04/18/24 06/04/24 tablet (Farxiga) ergocalciferol (vitamin D2) 1,250 1,250 mcg PO Q7D 04/18/24 06/04/24 mcg (50,000 unit) capsule (Vitamin D2) loratadine 10 mg tablet (Claritin) 10 mg PO DAILY 04/18/24 06/04/24 omeprazole 20 mg capsule,delayed 20 mg PO DAILY 04/18/24 06/04/24 release vitamin B complex 1 tab PO DAILY 04/18/24 06/04/24 clindamycin phosphate 1 % topical 1 applic topical DAILY 05/15/24 06/04/24 solution Previous Rx's Medication Instructions Recorded magnesium L-threonate 48 mg 48 mg PO DAILY #90 caps 04/21/24 magnesium (667 mg) capsule magnesium hydroxide 400 mg/5 mL 10 ml PO DAILY PRN constipation 05/08/24 oral suspension (Milk of Magnesia) #355 mL hydroxyzine HCl 25 mg tablet 25 mg PO BID PRN itching #60 tabs 05/15/24 albuterol sulfate 90 mcg/actuation 2 puff inhalation Q6H PRN 05/29/24 aerosol inhaler shortness of breath or wheezing #6.7 grams lactulose 20 gram/30 mL oral 45 ml PO QID constipation #5,400 mL 05/29/24 solution nadolol 80 mg tablet 80 mg PO DAILY #30 tabs 05/29/24 Allergies Allergy/AdvReac Type Severity Reaction Status Date / Time aspirin Allergy ADR-Headach Verified 06/04/24 11:03 e Penicillins Allergy ALGY-Hives Verified 06/04/24 11:03 Review of Systems 2 General: Reports: ROS unobtainable due to endotracheal tube PFSH ED 2 PFSH: Medical History Hypertension Hospital discharge follow-up Alcoholic cirrhosis Family History Mother Hypertension Denies family history of Colon cancer Ovarian cancer Diabetes Heart disease Breast cancer Uterine cancer Thyroid disease Stroke Social History Smoking and tobacco/nicotine status: current every day tobacco/nicotine user Physical Exam 2 Narrative: General: unresponsive, intubated. Skin: Warm, dry Head: Normocephalic, atraumatic. Neck: Supple, trachea midline. Eye: pupils pinpoint, sluggish, equal Ears, nose, mouth and throat: ETT in place. Cardiovascular: Regular rate and rhythm, Normal peripheral perfusion. Respiratory: coarse, mechanically ventilated, breath sounds are equal, Symmetrical chest wall expansion. Gastrointestinal: Soft, Non distended, Normal bowel sounds. Musculoskeletal: no deformity. Neurological: unable to assess. Psychiatric: unable to assess Course 2 Vital Signs: Vital signs: Vital Signs Temperature 96.4 F L 06/16/24 17:58 Pulse Rate 79 06/16/24 19:40 Respiratory Rate 20 H 06/16/24 19:40 Blood Pressure 173/106 06/16/24 19:40 Pulse Oximetry 98 06/16/24 19:40 Oxygen Delivery Me thod Mechanical Ventil ation 06/16/24 19:40 Fraction of Inspir ed Oxygen 45 06/16/24 19:00 MDM - Altered Mental Status Medical Decision Making Medical decision making: Differential diagnosis including but not limited to and based on the above HPI, review of systems and physical exam: In this patient with altered mental status: Stroke. Hypoglycemia. Metabolic encephalopathy. Infections such as pneumonia, urinary tract infection, Covid-19, Influenza. Electrolyte abnormalities such as hypernatremia. Renal failure / uremia. Hepatic encephalopathy. Hypoxemia. Hypercapnic respiratory failure. Psychosis. Drug or alcohol intoxication. Medication overdose. Orders placed to evaluate differential diagnosis based on the above differential, HPI and physical exam Chest x-ray: ET tube in place. A little bit high so advanced 1.5 cm. NG tube in place. No infiltrate. No pneumothorax. This was reviewed and interpreted by myself the emergency room physician. I also reviewed the radiology report. CT head: No acute intracranial process. no intracranial hemorrhage, no evidence of infarct. no evidence of acute fracture.This was reviewed and interpreted by myself the ER physician. EKG: Time 1822. Rate 62. Normal sinus rhythm, No ST-T changes, no ectopy, normal CT & QRS intervals, This was reviewed and interpreted by myself the ER physician at 1825. Lab Review: Laboratory results were reviewed and interpreted by myself the emergency room physician. No leukocytosis. No anemia. No renal failure. Platelets are little low at 152. Liver enzymes are slightly elevated. Troponin is negative. Ammonia is elevated at 100. Urinalysis shows significant urinary tract infection. Flu, COVID and RSV are negative. I reviewed the patient's medical record. Reexamination: Patient is stable on a vent. Blood pressure is coming down with propofol. Consultation: I spoke with Dr. Baird who is on-call for the hospitalist service who agrees to admission. Assessment and plan: Hepatic encephalopathy Urinary tract infection Respiratory failure Hypertension ?Propofol for sedation. Lactulose and NG tube. IV cefepime for urinary tract infection. -I discussed the patient with the hospitalist on-call who is admitting the patient. - Discussed findings and plan with patient. Answered any questions. - All laboratory values were reviewed and interpreted personally by myself, the ER physician - All imaging was reviewed and interpreted personally by myself, the ER physician. - Evaluation and treatment of this problem were appropriate in the emergency setting Critical care -I spent a total of >35 minutes of critical care time managing the patient, independent of any other practitioner. -The time involved in the performance of separately reportable procedures was not counted towards critical care time. Lab Data 06/16/24 18:06 06/16/24 18:06 Laboratory Results WBC 5.56 10^3/uL (3.29-11.43) 06/16/24 18:06 RBC 4.86 10^6/uL (3.85-5.65) 06/16/24 18:06 Hgb 13.60 g/dL (11.27-16.99) 06/16/24 18:06 Hct 42.2 % (36-47) 06/16/24 18:06 MCV 86.8 fl (85-98) 06/16/24 18:06 MCH 28.0 pg (27-33) 06/16/24 18:06 MCHC 32.2 g/dL (30-55) 06/16/24 18:06 RDW 12.7 % (12.1-15.1) 06/16/24 18:06 Plt Count 152 10^3/cmm (157-399) L 06/16/24 18:06 MPV 9.8 fL (7.4-10.4) 06/16/24 18:06 Neut % (Auto) 66.8 % 06/16/24 18:06 Lymph % (Auto) 20.0 % 06/16/24 18:06 [place] % (Auto) 7.6 % 06/16/24 18:06 Eos % (Auto) 4.1 % 06/16/24 18:06 Baso % (Auto) 1.1 % 06/16/24 18:06 Neut # (Auto) 3.72 10^3/uL (1.8-7.7) 06/16/24 18:06 Lymph # (Auto) 1.1 10^3/uL (0.8-4.8) 06/16/24 18:06 [place] # (Auto) 0.4 10^3/uL (0.2-0.9) 06/16/24 18:06 Eos # (Auto) 0.2 10^3/uL (0.0-0.8) 06/16/24 18:06 Baso # (Auto) 0.1 10^3/uL (0.0-0.1) 06/16/24 18:06 Nucleated RBC % (auto) 0 % 06/16/24 18:06 Nucleated RBCs # 0.0 /100WBC 06/16/24 18:06 PT 14.20 SECONDS (12.1-14.9) 06/16/24 18:06 INR 1.02 (0.8-1.2) 06/16/24 18:06 APTT 35.6 SECONDS (23.9-36.7) 06/16/24 18:06 Specimen Type Arterial 06/16/24 17:52 Sample Site Brachial, right 06/16/24 17:52 ABG pH 7.28 (7.35-7.45) L 06/16/24 17:52 ABG pCO2 50.6 mmHg (35-45) H 06/16/24 17:52 ABG pO2 313.0 mmHg (80.0-100.0) H 06/16/24 17:52 ABG PO2/FiO2 Ratio 313 06/16/24 17:52 ABG HCO3 23.9 mmol/L (22-26) 06/16/24 17:52 ABG O2 Saturation > 99.1 06/16/24 17:52 ABG Base Excess -3.4 mmol/L (-2.0-2.0) L 06/16/24 17:52 [place] Test Pos 06/16/24 17:52 A-a O2 Gradient 43.7 mmHg (5-10) H 06/16/24 17:52 Hematocrit 42.7 % (37-47) 06/16/24 17:52 Hgb O2 Saturation 98.5 % (95-100) 06/16/24 17:52 Carboxyhemoglobin 0.8 %THgb (0.4-20.1) 06/16/24 17:52 Methemoglobin 0.9 % (0.4-1.5) 06/16/24 17:52 Total Hemoglobin 13.9 g/dL (12-16) 06/16/24 17:52 Sodium 147.0 mmol/L (131-143) H 06/16/24 17:52 Potassium 3.7 mmol/L (3.5-5.0) 06/16/24 17:52 Glucose 121.0 mg/dL (70-115) H 06/16/24 17:52 Ionized Calcium 1.3 mmol/L (1.1-1.4) 06/16/24 17:52 O2 Delivery Device Vent 06/16/24 17:52 FiO2 100.0 % 06/16/24 17:52 Tidal Volume 0.30 06/16/24 17:52 Underwater Hunter Trapper ID [place] 06/16/24 17:52 Sodium 141 mmol/L (136-145) 06/16/24 18:06 Potassium 3.8 mmol/L (3.5-5.1) 06/16/24 18:06 Chloride 106 mmol/L (98-107) 06/16/24 18:06 Carbon Dioxide 22 mmol/L (22-29) 06/16/24 18:06 Anion Gap 16.8 (5-19) 06/16/24 18:06 BUN 17 mg/dL (6-20) 06/16/24 18:06 Creatinine 0.6 mg/dL (0.5-0.9) 06/16/24 18:06 GFR Calculation 106.7 mL/min (90-130) 06/16/24 18:06 Glucose 119 mg/dL (65-115) H 06/16/24 18:06 Calculated Osmolality 295 mOsm/kg (285-295) 06/16/24 18:06 Lactic Acid 1.5 mmol/L (0.5-2.2) 06/16/24 18:06 Calcium 10.1 mg/dL (8.5-10.5) 06/16/24 18:06 Total Bilirubin 1.2 mg/dL (0.15-1.2) 06/16/24 18:06 AST 58 U/L (0-32) H 06/16/24 18:06 ALT 35 U/L (0-33) H 06/16/24 18:06 Alkaline Phosphatase 125 U/L (35-105) H 06/16/24 18:06 Ammonia 100 umol/L (11-51) H 06/16/24 18:06 Troponin T Baseline < 6 ng/L (0-10) 06/16/24 18:06 NT-Pro-B Natriuret Pep 282 pg/mL (0-125) H 06/16/24 18:06 Total Protein 8.4 g/dL (6.6-8.7) 06/16/24 18:06 Albumin 4.7 g/dL (3.5-5.2) 06/16/24 18:06 Globulin 3.7 g/dL (1.3-4.6) 06/16/24 18:06 Procalcitonin 0.07 ng/mL (0-0.5) 06/16/24 18:06 Urine Color Yellow (Yellow) 06/16/24 18:30 Urine Appearance Cloudy (CLEAR) A 06/16/24 18:30 Urine pH 6.5 (5-7) 06/16/24 18:30 Ur Specific [place] 1.011 (1.005-1.030) 06/16/24 18:30 Urine Protein 2+ (Negative) A 06/16/24 18: Urine Glucose (UA) 2+ (Normal) H 06/16/24 18:30 Urine Ketones Trace (Negative) 06/16/24 18:30 Urine Blood Non-haemolysed trace (Negative) 06/16/24 18: Urine Nitrate Negative (Negative) 06/16/24 18: Urine Bilirubin Negative (Negative) 06/16/24 18: Urine Urobilinogen 1.0 mg/dL (Negative) 06/16/24 18:30 Ur Leukocyte Esterase 1+ (Negative) A 06/16/24 18:30 Urine RBC 3-5 /hpf (0-2) 06/16/24 18:30 Urine WBC >100 /hpf (0-5) H 06/16/24 18:30 Ur Squamous Epith Cells 0-5 /hpf (0-5) 06/16/24 18: Amorphous Sediment Not Reportable 06/16/24 18:30 Urine Bacteria Exceeds /hpf (NONE) 06/16/24 18:30 Hyaline Casts 2.05 /lpf 06/16/24 18:30 Salicylates < 0.3 mg/dL (3-10) L 06/16/24 18:06 Urine Opiates Screen Negative ng/mL (Negative) 06/16/24 18:30 Acetaminophen < 5.0 ug/mL (10-30) L 06/16/24 18:06 Ur Barbiturates Screen Negative ng/mL (Negative) 06/16/24 18:30 Ur Phencyclidine Scrn Negative ng/mL (Negative) 06/16/24 18:30 Ur Amphetamines Screen Negative ng/mL (Negative) 06/16/24 18:30 U Benzodiazepines Scrn Negative ng/mL (Negative) 06/16/24 18:30 Urine Cocaine Screen Negative ng/mL (Negative) 06/16/24 18:30 U Marijuana (THC) Screen Positive ng/mL (Negative) H 06/16/24 18:30 Ethyl Alcohol < 10 mg/dL (0-10) 06/16/24 18:06 Coronavirus (PCR) Negative (Negative) 06/16/24 18:30 Influenza A (PCR) Negative (Negative) 06/16/24 18:30 Influenza Type B (PCR) Negative (Negative) 06/16/24 18:30 RSV (PCR) Negative (Negative) 06/16/24 18:30 All radiology interpretation(s) finalized by discharge Discharge Plan Discharge Patient Disposition: Admitted As Inpatient Clinical Impression: Hepatic encephalopathy, Cirrhosis, Urinary tract infection, Respiratory failure Condition: Stable Coding Level of Care Code ED Medical Photographer for Cameron [employer]
[2024-06-16] MEDS: propofol 1,000 MG/100 ML INJ 1.44 MG IV (18:30)
[2024-06-16 18:31] LABS: INR 1.02 (0.8-1.2)
[2024-06-16 18:32] LABS: Partial Thromboplastin Time 35.6 SECONDS (23.9-36.7)
[2024-06-16 18:36] LABS: Troponin(5th) Baseline < 6 ng/L (0-10)
[2024-06-16 18:37] LABS: Ammonia 100 umol/L (11-51); Lactic Sepsis W/Reflex 1.5 mmol/L (0.5-2.2)
[2024-06-16 18:48] LABS: Bilirubin Urine Negative (Negative); Blood Urine Non-haemolysed trace (Negative); Glucose Urine UA 2+ (Normal); Ketones Urine Trace (Negative); Leukocyte Esterase Urine 1+ (Negative); Nitrate Urine Negative (Negative); Protein Urine 2+ (Negative); Specific Gravity, Urine 1.011 (1.005-1.030); Urine Appearance Cloudy (CLEAR); Urine Color Yellow (Yellow); pH Urine 6.5 (5-7)
[2024-06-16 18:53] LABS: Bacteria Urine EXCEEDS /hpf; Hyaline Casts Urine 2.05 /lpf; Squamous Epithelial Cell Urine 0-5 /hpf (0-5); WBC Urine >100 /hpf (0-5)
[2024-06-16 18:55] LABS: Amphetamines Screen Urine Negative (Negative); Barbiturates Screen Urine Negative (Negative); Benzodiazepines Screen Urine Negative (Negative); Cocaine Screen Urine Negative (Negative); Opiate Screen Urine Negative (Negative); PCP Screen Urine Negative (Negative); THC Screen Urine Positive (Negative)
[2024-06-16 18:55] LABS: NT Pro B Type Natriuretic Pept 282 pg/mL (0-125); Procalcitonin 0.07 ng/mL (0-0.5)
--- NOTE | 2024-06-16 18:59 | PC.RESP ---
ett advanced from 21cm @ lip to 23cm@ lip per verbal order from dr. nick
[2024-06-16 19:06] LABS: Alanine Aminotransferase 35 U/L (0-33); Albumin Level 4.7 g/dL (3.5-5.2); Alkaline Phosphatase 125 U/L (35-105); Anion Gap 16.8 (5-19); Aspartate Amino Transferase 58 U/L (0-32); Blood Urea Nitrogen 17 mg/dL (6-20); Calcium 10.1 mg/dL (8.5-10.5); Carbon Dioxide 22 mmol/L (22-29); Chloride 106 mmol/L (98-107); Creatinine Clr Calc Pharmacy 89.2284; Globulin 3.7 g/dL (1.3-4.6); Glomerular Filtration Rate 106.7 mL/min (90-130); Glucose 119 mg/dL (65-115); Osmolality Calculated 295 mOsm/kg (285-295); Potassium 3.8 mmol/L (3.5-5.1); Sodium 141 mmol/L (136-145); Total Bilirubin 1.2 mg/dL (0.15-1.2); Total Protein 8.4 g/dL (6.6-8.7)
[2024-06-16 19:10] LABS: Acetaminophen < 5.0 ug/mL (10-30); Alcohol Level < 10 mg/dL (0-10); Salicylate < 0.3 mg/dL (3-10)
--- NOTE | 2024-06-16 19:22 | P.HP_ITS ---
Providers/Chief Complaint 2 Primary Care Provider: Maia De Oliveira NP Chief Complaint: ams History of Present Illness Aurora Acevedo is a 48 year old female with history of alcohol induced liver cirrhosis, severe constipation, called 911 today because she was very confused, EMS intubated her on initial evaluation, as per the who is at the bedside patient has had no bowel movement since last 3 weeks. She has been taking lactulose and stool softeners without much success. Patient is not drinking alcohol as per the . No recent fever, chest pain. Chest pain is stating that patient has had multiple episode of emesis few days ago. At the time of my evaluation patient is trying to bite the endotracheal tube, hypertensive, CBC unremarkable, thrombocytopenia, BMP unremarkable, abnormal transaminases noted ammonia level is 100, she has been given rectal lactulose UA is showing UTI Drug screen positive for marijuana Head CT unremarkable Review of Systems 2 General: Reports: ROS unobtainable due to medical condition Medications/Allergies Home Medications Medication Instructions Recorded Confirmed Last Taken Type ggetovi-riornydlvzfiv-necvosgj 250 1 tab PO Q6H PRN unknown 04/18/24 06/04/24 Unknown History mg-250 mg-65 mg tablet azelastine 137 mcg (0.1 %) nasal 2 spray intranasal BID 04/18/24 06/04/24 Unknown History spray budesonide-formoterol HFA 80 2 puff inhalation BID 04/18/24 06/04/24 Unknown History mcg-4.5 mcg/actuation aerosol inhaler (Symbicort) clindamycin phosphate 1 % topical 1 applic topical BID 04/18/24 06/04/24 Unknown History gel dapagliflozin propanediol 5 mg 5 mg PO DAILY 04/18/24 06/04/24 Unknown History tablet (Farxiga) ergocalciferol (vitamin D2) 1,250 1,250 mcg PO Q7D 04/18/24 06/04/24 Unknown History mcg (50,000 unit) capsule (Vitamin D2) loratadine 10 mg tablet (Claritin) 10 mg PO DAILY 04/18/24 06/04/24 Unknown History omeprazole 20 mg capsule,delayed 20 mg PO DAILY 04/18/24 06/04/24 Unknown History release vitamin B complex 1 tab PO DAILY 04/18/24 06/04/24 Unknown History magnesium L-threonate 48 mg 48 mg PO DAILY #90 caps 04/21/24 06/04/24 Unknown Rx magnesium (667 mg) capsule magnesium hydroxide 400 mg/5 mL 10 ml PO DAILY PRN constipation 05/08/24 06/04/24 Unknown Rx oral suspension (Milk of Magnesia) #355 mL clindamycin phosphate 1 % topical 1 applic topical DAILY 05/15/24 06/04/24 Unknown History solution hydroxyzine HCl 25 mg tablet 25 mg PO BID PRN itching #60 tabs 05/15/24 06/04/24 Unknown Rx albuterol sulfate 90 mcg/actuation 2 puff inhalation Q6H PRN 05/29/24 06/04/24 Unknown Rx aerosol inhaler shortness of breath or wheezing #6.7 grams lactulose 20 gram/30 mL oral 45 ml PO QID constipation #5,400 mL 05/29/24 06/04/24 Unknown Rx solution nadolol 80 mg tablet 80 mg PO DAILY #30 tabs 05/29/24 06/04/24 Unknown Rx Allergies Allergy/AdvReac Type Severity Reaction Status Date / Time aspirin Allergy ADR-Headach Verified 06/04/24 11:03 e Penicillins Allergy ALGY-Hives Verified 06/04/24 11:03 PFSH Acute 2 PFSH: Medical History Hypertension Hospital discharge follow-up Alcoholic cirrhosis Family History Mother Hypertension Denies family history of Colon cancer Ovarian cancer Diabetes Heart disease Breast cancer Uterine cancer Thyroid disease Stroke Social History Smoking and tobacco/nicotine status: current every day tobacco/nicotine user Vitals/I&O/Wt Last Vital Signs Temp 96.4 F L 06/16/24 17:58 Pulse 87 06/16/24 18:50 Resp 14 06/16/24 19:00 BP 191/131 06/16/24 18:50 Pulse Ox 99 06/16/24 18:50 FiO2 45 06/16/24 19:00 06/16/24 06/16/24 06/16/24 06:59 14:59 22:59 Intake Total 0.697 / 0.697 Balance 0.697 / 0.697 Weight last 48 hrs Weight 48.081 kg Physical Exam 2 Narrative: Patient is intubated and sedated Currently on propofol Hypertensive Abdomen nondistended patient is trying to bite the tube Multiple scratches and laceration all over extremities Neuroexam limited Abdomen nondistended FiO2 25% PEEP [address] S1, S2 Bilateral assisted breath sounds Urinary Catheter Management: Casanova: Cath Placed During This Visit: yes Urinary Catheter Date of Insertion: 06/16/24 Urinary Catheter Time of Insertion: 18:30 Data 06/16/24 18:06 06/16/24 18:06 Micro: Microbiology 06/16/24 18:33 Gram Stain - Final Sputum - Endotracheal Tube Aspirate 06/16/24 18:08 Blood Culture - Preliminary Blood SPECIMEN COLLECTED 06/16/24 18:06 Blood Culture - Preliminary Blood SPECIMEN COLLECTED A&P Assessment and plan (1) Alcoholic cirrhosis: (2) Abnormal transaminases: (3) Hypertension: (4) Cirrhosis: (5) Ileus: (6) Urinary tract infection: (7) Respiratory failure: (8) Hepatic encephalopathy: (9) Airway compromise: Plan Respiratory failure require mechanical ventilation Patient was intubated for airway protection She was intubated at the field by the EMS We can start weaning trial in the morning and wean off propofol This is secondary to hepatic encephalopathy CT head unremarkable Hepatic encephalopathy with UTI Continue patient on ceftriaxone Hepatic encephalopathy related to constipation Ileus? NG tube in place draining bile Will give rectal lactulose and rifaximin Patient has positive marijuana on drug screen N.p.o. NG tube in place Casanova catheter in place Weaning trial in the morning Hypertensive: Currently on propofol monitor closely for now Accu-Cheks every 4 hours, patient is diabetic Attestations 2 Medical Necessity Statement*: More than 2 midnights anticipated for management evaluation of hepatic encephalopathy Coding Level of Care Code Critical Care >/= 30 minutes Critical care time (in minutes): 45 The high probability of a clinically significant, sudden or life threatening deterioration, as referenced in this documentation, required my full and direct attention, intervention and personal management. The critical care time shown is in addition to time spent performing any reported separately billable procedures and includes the following: [x] Data and vital sign review and interpretation [x ] Patient assessment, examination and intervention [x] Medication orders and management [x] Patient/Family updates as able [x] Care Coordination and Documentation. Diagnoses Alcoholic cirrhosis K70.30 Abnormal transaminases R74.8 Hypertension I10 Cirrhosis K74.60 Ileus K56.7 Urinary tract infection N39.0 Respiratory failure J96.90 Hepatic encephalopathy K76.82 Airway compromise J98.8
[2024-06-16] MEDS: cefepime 2,000 mg SDV 2000 MG IVP (19:36)
[2024-06-16 19:39] LABS: Covid PCR NEGATIVE (Negative); Influenza A NEGATIVE (Negative); Influenza B NEGATIVE (Negative); Respiratory Syncytial Virus Ce NEGATIVE (Negative)
[2024-06-16 20:43] LABS: Troponin 5 2HR Delta 0.00001 ABS# (0-10)
--- NOTE | 2024-06-16 21:31 | PC.NURSE ---
Patient received from ER on 70 of propofol.
[2024-06-16] MEDS: propofol 1,000 MG/100 ML INJ 21.64 MG IV (23:01)
[2024-06-16 23:16] LABS: Glucose Point of Care 121 mg/dL (70-110)
[2024-06-16] MEDS: heparin 5,000 unit/mL INJ 1 mL 5000 UNIT SUBCUT (23:24)
[2024-06-16] MEDS: lactulose oral liq 20 gm/30 mL UDC 200 GM PR (23:28)
[2024-06-16] MEDS: dextrose 5%-sod chloride 0.9% 1,000 ML 30 ML IV (23:29)
[2024-06-17] VITALS (136 sets, daily range): BP systolic 91–189; BP diastolic 59–110; PULSE 66–111; RESP 14; TEMP 36.8–37.4; O2SAT 93–100
--- NOTE | 2024-06-17 00:10 | ECG_ITS ---
[employer] Test Date: 2024-06-17 Pat Name: Aurora Acevedo Department: Room: [facility] Gender: Female Sample Examiner: : 1975 Requested By: Tonya Bernabe Order Number: [id number] Solano MD: Diana Robert M.D. Measurements Intervals [place] Rate: 85 P: 86 PA: 175 QRS: 42 QRSD: 92 T: 65 QT: 401 QTc: 478 Interpretive Statements SINUS RHYTHM POSSIBLE LEFT ATRIAL ENLARGEMENT [-0.1mV P-WAVE IN V1/V2] Compared to ECG 06/16/2024 18:22:48 No significant changes Electronically Signed On 06-17-2024 13:34:28 DOCUMENTATION LIAISON by Diana Robert M.D. [email or web address]
[2024-06-17 00:52] LABS: Basophils # 0.1 10^3/uL (0.0-0.1); Basophils % 0.7 %; Eosinophils # 0.1 10^3/uL (0.0-0.8); Eosinophils % 1.3 %; Hematocrit 42.5 % (36-47); Lymphocytes # 1.5 10^3/uL (0.8-4.8); Lymphocytes % 20.4 %; Mean Corpuscular HGB Conc 33.2 g/dL (30-55); Mean Corpuscular Hemoglobin 28.7 pg (27-33); Mean Corpuscular Volume 86.4 fl (85-98); Monocytes # 0.5 10^3/uL (0.2-0.9); Monocytes % 7.1 %; Neutrophils # 5.26 10^3/uL (1.8-7.7); Neutrophils % 70.2 %; Nucleated Red Blood Cells % 0 %; Platelet Count 150 10^3/cmm (157-399); Red Blood Count 4.92 10^6/uL (3.85-5.65); Red Cell Distribution Width 12.7 % (12.1-15.1); White Blood Count 7.49 10^3/uL (3.29-11.43)
[2024-06-17 01:00] LABS: Troponin 5 6HR Delta 0.00001 ng/L (0-12)
[2024-06-17 01:14] LABS: Alanine Aminotransferase 32 U/L (0-33); Albumin Level 4.4 g/dL (3.5-5.2); Alkaline Phosphatase 123 U/L (35-105); Aspartate Amino Transferase 54 U/L (0-32); Blood Urea Nitrogen 18 mg/dL (6-20); Calcium 9.9 mg/dL (8.5-10.5); Carbon Dioxide 22 mmol/L (22-29); Chloride 95 mmol/L (98-107); Globulin 3.2 g/dL (1.3-4.6); Glomerular Filtration Rate 106.7 mL/min (90-130); Glucose 125 mg/dL (65-115); Magnesium 1.9 mg/dL (1.7-2.3); Osmolality Calculated 295 mOsm/kg (285-295); Phosphorus 2.2 mg/dL (2.5-4.5); Sodium 141 mmol/L (136-145); Total Bilirubin 1.3 mg/dL (0.15-1.2); Total Protein 7.6 g/dL (6.6-8.7)
[2024-06-17] MEDS: propofol 1,000 MG/100 ML INJ 23.08 MG IV ×3 (02:47→10:44)
[2024-06-17 04:04] LABS: ABG PCO2 32.2 mmHg (35-45); ABG PH Result 7.45 (7.35-7.45); Base Excess ABG -0.7 mmol/L (-2.0-2.0); Blood Gas Allen Test Pos; Blood Gas Sample Site Brachial, left; Blood Gas Sample Type Arterial; HCO3 ABG 22.5 mmol/L (22-26); Oxygen Device VENT; PO2 FiO2 Ratio Arterial Blood 306
[2024-06-17] MEDS: hyDRALAzine 20 mg/mL INJ 1 mL 5 MG IVP (04:16)
[2024-06-17 05:13] LABS: Glucose Point of Care 140 mg/dL (70-110)
[2024-06-17 05:50] LABS: Glucose Point of Care 127 mg/dL (70-110)
[2024-06-17] MEDS: lactulose oral liq 20 gm/30 mL UDC 200 GM PR ×2 (06:36→13:33)
[2024-06-17] MEDS: nicardipine 20 MG/200 ML PREMIX 50 MG IV ×4 (08:09→20:44)
--- NOTE | 2024-06-17 08:44 | PC.PHAR ---
Pt is intubated and unable to verify medications. Med rec completed with current med list, last fill dates and days supply with [facility].
[2024-06-17] MEDS: cefTRIAXone 2,000 MG in sodium chloride 0.9% (plus) 50 ML 100 MG IV (08:45)
[2024-06-17] MEDS: rifaximin 200 mg Tablet 600 MG PO (08:57)
[2024-06-17] MEDS: pantoprazole 40 mg SDV IVP ×2 (08:57→17:01)
[2024-06-17] MEDS: heparin 5,000 unit/mL INJ 1 mL 5000 UNIT SUBCUT ×2 (08:59→20:32)
[2024-06-17 10:04] LABS: Glucose Point of Care 147 mg/dL (70-110)
[2024-06-17] MEDS: propofol 1,000 MG/100 ML INJ 17.31 MG IV (15:46)
--- NOTE | 2024-06-17 20:37 | P.PN_ITS ---
Subjective 2 Subjective: She is intubated, sedated, does not appear in distress. Vitals/I&O/Wt Last Vital Signs Temp 99.2 F 06/17/24 16:00 Pulse 103 H 06/17/24 20:15 Resp 14 06/17/24 20:21 BP 121/74 06/17/24 20:15 Pulse Ox 96 06/17/24 20:21 O2 Del Method Mechanical Ventilation 06/17/24 10:36 FiO2 45 06/17/24 20:21 06/17/24 06/17/24 06/17/24 06:59 14:59 22:59 Intake Total 202.916 / 237.244 393.939 / 393.939 365.441 / 759.380 Output Total 450 / 450 600 / 600 Balance -247.084 / -212.756 393.939 / 393.939 -234.559 / 159.380 Weight last 48 hrs Weight 52 kg Weight 52 kg Weight 48.081 kg Physical Exam 2 Const: GENERAL APPEARANCE: patient mechanically ventilated HENMT: COMMON NORMALS: oropharynx normal Neck/C-Spine: COMMON NORMALS: no JVD Resp: COMMON NORMALS: normal respiratory effort and clear to auscultation bilaterally AUSCULTATION: clear to auscultation bilaterally Cardio: COMMON NORMALS: no JVD, regular rhythm, S1 normal heart sound present, S2 normal heart sound present and No murmurs present (Cardio) RHYTHM: regular rhythm HEART SOUNDS: S1 normal heart sound present and S2 normal heart sound present GI: COMMON NORMALS: Normal to inspection, nondistended, normoactive bowel sounds present, Soft to palpation and non-tender PALPATION: Yes Soft to palpation Extremity: COMMON NORMALS: no joint enlargement and no pedal edema Skin: COMMON NORMALS: no rashes or lesions noted GENERAL SKIN EXAM: no rashes or lesions noted Urinary Catheter Management: Casanova: Cath Placed During This Visit: yes Reason for Continuing Indwelling Catheter: Accurate Measurement of Urinary Output in Critically Ill Patients Urinary Catheter Date of Insertion: 06/16/24 Urinary Catheter Time of Insertion: 18:30 Data 06/17/24 00:36 06/17/24 00:36 Micro: Microbiology 06/16/24 18:08 Blood Culture - Preliminary Blood NEGATIVE TO DATE 06/16/24 18:06 Blood Culture - Preliminary Blood Escherichia coli 06/16/24 18:33 Gram Stain - Final Sputum - Endotracheal Tube Aspirate A&P Assessment and plan (1) Alcoholic cirrhosis: (2) Abnormal transaminases: (3) Hypertension: (4) Cirrhosis: (5) Ileus: (6) Urinary tract infection: (7) Respiratory failure: (8) Hepatic encephalopathy: (9) Airway compromise: Plan Respiratory failure require mechanical ventilation With severe hepatic encephalopathy. Has received lactulose enemas, has had 2 bowel movement so far. Resume lactulose via OG. Target at least 3 daily bowel movements. Reassess ammonia. Wean down sedation, reassess mental status, breathing trial in the morning. Hepatic encephalopathy with UTI Continue patient on ceftriaxone Hepatic encephalopathy related to constipation CT head unremarkable Question of ileus mentioned initially, but bowel sounds appear present, has had 2 bowel movements. Trial of lactulose by OG. NG tube in place draining bile Continue rifaximin Patient has positive marijuana on drug screen N.p.o. Casanova catheter in place Weaning trial in the morning Hypertensive: Improved. Currently on propofol monitor closely for now Accu-Cheks every 4 hours, patient is diabetic Attestations 2 Medical Necessity Statement*: Continue management of severe hepatic encephalopathy with respiratory failure. Coding Level of Care Code Critical Care >/= 30 minutes Critical care time (in minutes): 35 The high probability of a clinically significant, sudden or life threatening deterioration, as referenced in this documentation, required my full and direct attention, intervention and personal management. The critical care time shown is in addition to time spent performing any reported separately billable procedures and includes the following: [x] Data and vital sign review and interpretation [x ] Patient assessment, examination and intervention [x] Medication orders and management [x] Patient/Family updates as able [x] Care Coordination and Documentation. Diagnoses Alcoholic cirrhosis K70.30 Abnormal transaminases R74.8 Hypertension I10 Cirrhosis K74.60 Ileus K56.7 Urinary tract infection N39.0 Respiratory failure J96.90 Hepatic encephalopathy K76.82 Airway compromise J98.8
--- NOTE | 2024-06-17 20:44 | XRR_ITS ---
PROCEDURE INFORMATION: Exam: XR Abdomen Exam date and time: 06/17/2024 9:23 PM Age: 48 years old Clinical indication: Bloating; Patient HX: Abd distention. Patient intubated. ; Additional info: Assess for any obstruction TECHNIQUE: Imaging protocol: Radiologic exam of the abdomen. Views: 2 Views. Upright and supine views. COMPARISON: CR XR KUB [id number] 05/16/2024 10:29 AM FINDINGS: Tubes, catheters and devices: Endotracheal tube tip in place 3.7 cm above the katerina. Enteric tube tip below diaphragm over the gastric bubble. Gastrointestinal tract: Normal. No bowel dilation. Intraperitoneal space: Normal. No free air. Bones/joints: Unremarkable for age. XR/XR acute abdomen series [id number] IMPRESSION: 1. Endotracheal tube tip in place 3.7 cm above the katerina. 2. Enteric tube tip below diaphragm over the gastric bubble.
[2024-06-17 20:54] LABS: Glucose Point of Care 178 mg/dL (70-110)
[2024-06-17] MEDS: propofol 1,000 MG/100 ML INJ 15.87 MG IV (21:58)
[2024-06-17] MEDS: lactulose oral liq 20 gm/30 mL UDC 30 GM OG-TUBE (21:59)
[2024-06-18] VITALS (101 sets, daily range): BP systolic 75–154; BP diastolic 49–114; PULSE 64–112; RESP 14–21; TEMP 36.6–36.9; O2SAT 88–100
[2024-06-18 01:58] LABS: Glucose Point of Care 149 mg/dL (70-110)
[2024-06-18] MEDS: lactulose oral liq 20 gm/30 mL UDC 30 GM OG-TUBE ×3 (02:43→15:10)
[2024-06-18] MEDS: nicardipine 20 MG/200 ML PREMIX 30 MG IV (02:57)
[2024-06-18] MEDS: fentaNYL 1,000 MCG/100 ML BAG 2.5 MCG IV (04:01)
--- NOTE | 2024-06-18 04:09 | PC.NURSE ---
This nurse observed what appeared to be seizure-like activity in the patient. On examination, pupils appeared to be unequal and one was non-reactive. Feet pointed inward, hands gripped in a decorticate type of posture. This nurse called Dr. Baird and reported the noted symptoms. This nurse received orders to stop propofol cold turkey and start a fentanyl drip in its place.
[2024-06-18 04:17] LABS: Basophils # 0.2 10^3/uL (0.0-0.1); Basophils % 0.6 %; Eosinophils # 0.1 10^3/uL (0.0-0.8); Eosinophils % 0.3 %; Hematocrit 49.1 % (36-47); Lymphocytes # 1.5 10^3/uL (0.8-4.8); Lymphocytes % 5.7 %; Mean Corpuscular HGB Conc 32.2 g/dL (30-55); Mean Corpuscular Hemoglobin 28.4 pg (27-33); Mean Corpuscular Volume 88.3 fl (85-98); Mean Platelet Volume 9.8 fL (7.4-10.4); Monocytes # 2.8 10^3/uL (0.2-0.9); Monocytes % 10.7 %; Neutrophils # 21.75 10^3/uL (1.8-7.7); Neutrophils % 81.6 %; Nucleated Red Blood Cells % 0 %; Platelet Count 237 10^3/cmm (157-399); Red Blood Count 5.56 10^6/uL (3.85-5.65); Red Cell Distribution Width 13.3 % (12.1-15.1)
[2024-06-18 04:34] LABS: Alanine Aminotransferase 34 U/L (0-33); Albumin Level 4.4 g/dL (3.5-5.2); Alkaline Phosphatase 148 U/L (35-105); Aspartate Amino Transferase 51 U/L (0-32); Blood Urea Nitrogen 21 mg/dL (6-20); Calcium 10.7 mg/dL (8.5-10.5); Carbon Dioxide 18 mmol/L (22-29); Chloride 116 mmol/L (98-107); Creatinine Clr Calc Pharmacy 27.6198; Globulin 4.3 g/dL (1.3-4.6); Glomerular Filtration Rate 26.6 mL/min (90-130); Glucose 170 mg/dL (65-115); Osmolality Calculated 321 mOsm/kg (285-295); Total Bilirubin 1.5 mg/dL (0.15-1.2); Total Protein 8.7 g/dL (6.6-8.7)
[2024-06-18 04:35] LABS: Ammonia 49 umol/L (11-51)
[2024-06-18] MEDS: LORazepam 2 mg/mL INJ 1 mL IVP (04:49)
--- NOTE | 2024-06-18 04:59 | W.PM.EVENTAC ---
Event Note Event Note: Patient is showing posturing, rigidity, urine color has turned green, concern for propofol syndrome Propofol has been turned off right away Checking triglyceride, lactic acid, potassium Added bicarb drip Patient given 1 dose of Ativan Sedative changed to fentanyl
[2024-06-18 05:20] LABS: White Blood Count 26.63 10^3/uL (3.29-11.43)
[2024-06-18] MEDS: sodium bicarbonate 150 MEQ in dextrose 5% 1,000 ML 75 MEQ IV (05:21)
[2024-06-18] MEDS: sodium bicarbonate 8.4% 1 mEq/mL 50mL Syr 150 MEQ (05:23)
[2024-06-18 05:33] LABS: Sodium 152 mmol/L (136-145)
[2024-06-18 05:50] LABS: Creatine Phosphokinase 134 U/L (26-192); Triglycerides 127 mg/dL (0-150)
[2024-06-18 06:31] LABS: Lactate (Lactic Acid level) 2.8 mmol/L (0.5-2.2)
[2024-06-18] MEDS: pantoprazole 40 mg SDV IVP ×2 (08:16→17:45)
[2024-06-18] MEDS: rifaximin 200 mg Tablet 600 MG PO ×2 (08:16→18:23)
[2024-06-18] MEDS: heparin 5,000 unit/mL INJ 1 mL 5000 UNIT SUBCUT (08:17)
[2024-06-18] MEDS: cefTRIAXone 2,000 MG in sodium chloride 0.9% (plus) 50 ML 100 MG IV (08:19)
[2024-06-18] MEDS: LORazepam 2 mg/mL INJ 1 mL 4 MG IVP (10:23)
[2024-06-18] MEDS: midazolam hcl 100 MG/100 ML BAG IV (10:23)
--- NOTE | 2024-06-18 10:34 | CT_ITS ---
WS: [id number] CT HEAD NONCONTRAST HISTORY: ams, possible seizure TECHNIQUE: Contiguous axial imaging performed through the brain. Bone and soft tissue windows. Sagitt al and coronal reformats reviewed. All CT scans at [facility] use at least one of these dose optimization techniques: automated exposure control; mA and/or kV adjustment per patient size (includ es targeted exams where dose is matched to clinical indication); or iterative reconstruction. DLP: 947.84 mGy.cm COMPARISON: 06/16/2024 No acute intracranial hemorrhage, midline shift or mass effect. Mild atrophy and mild low-attenuation in the white matter from small vessel disease. No new area of s ulcal effacement or edema. Ventricles: Normal size with no hydrocephalus. No inferior displacement of the cerebellar tonsils. Paranasal sinuses: As visualized are clear. Mastoid air cells: Well pneumatized. Calvarium and scalp: Skull is intact with no soft tissue edema or swelling. CT/CT head wo con* [id number] IMPRESSION: 1. No acute intracranial hemorrhage or edema. 2. Mild cerebral atrophy and small vessel disease. No change since 06/16/2024.
--- NOTE | 2024-06-18 10:36 | CT_ITS ---
WS: [id number] CT CHEST, ABDOMEN AND PELVIS NONCONTRAST HISTORY: intubated, lucero, liver dysfunction TECHNIQUE: Contiguous 5 mm axial imaging performed through the chest, abdomen and pelvis without IV c ontrast, oral contrast has no been provided. Coronal and sagittal reformats chest. Coronal and sagitt al reformats through the abdomen and pelvis. All CT scans at [facility] use at least one of t hese dose optimization techniques: automated exposure control; mA and/or kV adjustment per patient si ze (includes targeted exams where dose is matched to clinical indication); or iterative reconstructio n. CONTRAST: None DLP: 486.90 mGy.cm COMPARISON: 05/06/[address]: Lungs are well-aerated. No pneumonia. Normal vasculature. No pericardial or pleural effusio ns. Heart is normal size. Normal size aorta and pulmonary artery. No mediastinal or hilar adenopathy on this unenhanced exam. Endotracheal tube terminates just above the katerina. There is also a nasogastric tube which terminates at the katerina. Abdomen CT: Liver is top normal size. Diffuse hepatic steatosis. Prior cholecystectomy. Common bile d uct is dilated to 1.5 cm. No obstructing radiopaque stone is identified. Similar dilatation of the co mmon bile duct on several of the recent CT evaluations. Common bile duct dilatation does not appear to be acute. Normal size spleen. As visualized the pancre as is negative. The pancreatic head is poorly visualized. No adrenal mass. No renal obstruction. Nono bstructing calcification mid LEFT kidney. Normal abdominal aorta. Radiopaque foreign body noted withi n the stomach. This foreign body has been present on prior CT exams. Linear radiopaque foreign body m easuring 2.1 cm in length has been present since 02/13/2024. Stomach is not distended. Mild fluid distention of small bowel and colon. No obstructive pattern. Pelvic CT: Anteverted uterus. Casanova catheter in a nondistended bladder. High density material and flu id in the rectum may be related to a suppository or treatment for constipation. CT/[place] [id number] IMPRESSION: 1. Nasogastric tube is been retracted and terminates near the katerina. Nasogast kevin tube needs to be readjusted before further usage. 2. Endotracheal tube in good position. 3. No pneumonia. 4. Hepatic steatosis. 5. No renal obstruction. 6. No adenopathy or ascites. 7. Diffuse fluid distention through the small bowel and colon without an obstr uctive pattern. Probably an ileus. 8. Linear foreign body measuring 2.1 cm in length within the stomach has been present since 02/13/2024. Uncertain etiology. 9. Dilated common bile duct status post cholecystectomy, long-term stability.
--- NOTE | 2024-06-18 10:55 | PHA.VACGOAL ---
Vancomycin Goal - Goal Vancomycin Goal:: 15-20 mg/L Vancomycin Indication:: Other - Therapy Day of therpy:: Day []of [] . Actual body weight (kg): 114 lb - Data Labs: WBC 26.63 10^3/uL (3.29-11.43) H 06/18/24 03:55 RBC 5.56 10^6/uL (3.85-5.65) 06/18/24 03:55 Hgb 15.80 g/dL (11.27-16.99) 06/18/24 03:55 Hct 49.1 % (36-47) H 06/18/24 03:55 MCV 88.3 fl (85-98) 06/18/24 03:55 MCH 28.4 pg (27-33) 06/18/24 03:55 MCHC 32.2 g/dL (30-55) 06/18/24 03:55 RDW 13.3 % (12.1-15.1) 06/18/24 03:55 Sodium 152 mmol/L (136-145) H 06/18/24 03:55 Potassium 4.0 mmol/L (3.5-5.1) 06/18/24 03:55 Chloride 116 mmol/L (98-107) H 06/18/24 03:55 Carbon Dioxide 18 mmol/L (22-29) L 06/18/24 03:55 Anion Gap 22.0 (5-19) H 06/18/24 03:55 BUN 21 mg/dL (6-20) H 06/18/24 03:55 Creatinine 2.0 mg/dL (0.5-0.9) H 06/18/24 03:55 GFR Calculation 26.6 mL/min (90-130) L 06/18/24 03:55 Treatment plan:: new consult Regimen:: 1500 MG LOADING DOSE 750 MG Q24H MONITOR DAILY
[2024-06-18 10:57] LABS: ABG PCO2 37.6 mmHg (35-45); Alveolar-Arterial Oxygen Gradi 19.8 mmHg (5-10); Arterial Blood Gas Hematocrit 40.9 % (37-47); Base Excess ABG -1.4 mmol/L (-2.0-2.0); Blood Gas Operator Identificat GD; Blood Gas Sample Site Brachial, left; Blood Gas Sample Type Arterial; Carboxyhemoglobin 0.7 %THgb (0.4-20.1); HCO3 ABG 23.1 mmol/L (22-26); HGB O2 Sat 97.3 % (95-100); Ionized Calcium Level - ABG 1.3 mmol/L (1.1-1.4); Methemoglobin 1.2 % (0.4-1.5); Oxygen Device VENT; Oxygen Saturation ABG 99.2; PO2 FiO2 Ratio Arterial Blood 273; Total Hemoglobin 13.3 g/dL (12-16)
[2024-06-18] MEDS: levETIRAcetam 1,000 MG/100 ML PREMIX 400 MG IV ×2 (12:06→22:08)
[2024-06-18] MEDS: vancomycin 1,500 MG/300 ML PIGGYBACK 200 MG IV (12:06)
[2024-06-18] MEDS: meropenem 1,000 mg SDV 1000 MG IVP ×2 (12:07→22:22)
[2024-06-18] MEDS: dextrose 5%-sod chloride 0.45% 1,000 ML 75 ML IV (12:07)
[2024-06-18 12:48] LABS: Prolactin 25.48 ng/mL (4.8-23.3)
[2024-06-18] MEDS: fentaNYL 1,000 MCG/100 ML BAG 7.5 MCG IV ×2 (12:55→23:37)
--- NOTE | 2024-06-18 14:30 | XR_ITS ---
WS: [id number] PORTABLE CHEST HISTORY: NG re position COMPARISON: 06/17/2024, CT 06/18/2024 Nasogastric tube has been repositioned and response to the findings on the chest CT report of 5. Tip now terminates in the stomach. Reidentified is the foreign body in the stomach that has been previously described. Endotracheal tube in good position. Lungs are clear and well expanded. No pleural effusion or pneumothorax. Cardiac size: Normal. Mediastinum/Aorta: Normal mediastinum. No osseous abnormality seen. Prior cholecystectomy. XR/XR chest 1V portable [id number] IMPRESSION: 1. Reposition nasogastric tube in good position. Tip is now within the expecte d location of the stomach. 2. Endotracheal tube in good position.
[2024-06-18] MEDS: ipratropium-albuterol 3 mL Neb INHALATION ×2 (14:58→20:55)
[2024-06-18] MEDS: dexmedeTOMIDine 0.9 % NaCL 400 MCG/100 ML PREMIX IV (15:05)
--- NOTE | 2024-06-18 15:10 | PC.NURSE ---
Repositioned NG tube after CT. Xray confirmed placement.
--- NOTE | 2024-06-18 16:11 | PM.PN ---
Subjective Subjective: Hospital course, labs appreciated. Seen with at bedside. Overnight there was a concern for seizure-like activity with possible posturing. Found to have green urine after which propofol was discontinued. Examination patient is currently on fentanyl at 75 with bicarb drip running at 75 cc/h. Mechanical ventilator settings appreciated to be at FiO2 45%, tidal volume of 400 with PEEP of 5. Vitals/I&O/Wt Last Vital Signs Temp 98.5 F 06/18/24 08:00 Pulse 100 06/18/24 14:50 Resp 21 H 06/18/24 15:08 BP 108/67 06/18/24 14:30 Pulse Ox 94 06/18/24 15:08 O2 Del Method Mechanical Ventilation 06/18/24 14:50 FiO2 35 06/18/24 15:08 06/18/24 06/18/24 06/18/24 06:59 14:59 22:59 Intake Total 346.867 / 2062.278 619.367 / 619.367 300.645 / 920.012 Output Total 600 / 1700 Balance -253.133 / 362.278 619.367 / 619.367 300.645 / 920.012 Weight last 48 hrs Weight 51.71 kg Weight 52 kg Weight 52 kg Weight 48.081 kg Physical Exam Narrative: General: Intubated, sedated, no posturing or response to painful stimulus. Does have stacking on mechanical ventilator. HEENT: PERRLA, pupils bilaterally equal and reactive Chest: Bilateral bronchial breath sounds all over lung jones with occasional rhonchi CVS: S1-S2 regular, no murmurs, no tachycardia, no gallops, no rubs Abdomen: Soft, nontender, no organomegaly, bowel sounds present Neuro: Intubated, sedated, pupils bilaterally fixed, pinpoint Urinary Catheter Management: Casanova: Cath Placed During This Visit: yes Reason for Continuing Indwelling Catheter: Accurate Measurement of Urinary Output in Critically Ill Patients Urinary Catheter Date of Insertion: 06/16/24 Urinary Catheter Time of Insertion: 18:30 Data 06/18/24 03:55 06/18/24 03:55 Micro: Microbiology 06/18/24 11:47 Blood Culture - Preliminary Blood SPECIMEN COLLECTED 06/18/24 11:45 Blood Culture - Preliminary Blood SPECIMEN COLLECTED 06/16/24 18:33 Gram Stain - Final Sputum - Endotracheal Tube Aspirate Sputum Culture - Preliminary 06/16/24 22:15 Urine Culture - Preliminary Urine Catheterized 06/16/24 18:08 Blood Culture - Preliminary Blood NEGATIVE TO DATE 06/16/24 18:06 Blood Culture - Preliminary Blood Escherichia coli A&P Assessment and plan (1) Hepatic encephalopathy: (2) Respiratory failure: (3) E coli bacteremia: (4) Airway compromise: (5) Acute kidney injury: (6) Transaminitis: (7) Leukocytosis: (8) Witnessed seizure-like activity: (9) Hyperbilirubinemia: (10) Hypertension: (11) Urinary tract infection: (12) Ileus: (13) Alcoholic cirrhosis: Plan Respiratory failure most likely in setting of hepatic encephalopathy. Cannot rule out in setting of seizure disorder. As per nursing staff patient overnight had witnessed seizure-like activity with concerns of possible posturing. Oxygen supplementation keeping saturation over 90%. Check ABG. Concerns for possible propofol syndrome. Patient having green urine with acute kidney injury. Though CPK levels within normal limits, no metabolic acidosis, fever. Hold off on propofol. Continue with fentanyl. Start on Versed. Patient is sedated. Can add Precedex. Ativan as needed for seizure-like activity. Check CT chest without contrast. Pulmicort twice daily, DuoNeb every 6 hour. Patient on minimal ventilator setting. Hold off on steroids for now. Follow-up sputum culture. Seizure-like activity: No past history of seizure disorder. With concerns of possible posturing. CT head appreciated on admission for not show overall prolonged hypoxia prior to intubation. Repeat CT head, request EEG, check prolactin. Will consult neurology. If mentations remain poor will plan for possible lumbar puncture. MRI cannot be done as patient is mechanically ventilated. Versed and Ativan as above. Load with Keppra 1 g followed by Keppra every 12 hourly. Will plan for Keppra levels for the next 48 hours. E. coli bacteremia/leukocytosis: Unknown cause. Patient did have E. coli bacteremia on admission though was on treatment. Repeat blood culture, check MRSA swab, repeat urinalysis. For now we will broaden the coverage to IV meropenem and vancomycin. If MRSA swab is negative can discontinue vancomycin. Check C. difficile. Will plan for IV antibiotics for at least 2 weeks after negative blood cultures for E. coli bacteremia. Follow-up sensitivities. Acute kidney injury: Medical reconciliation done for nephrotoxic drugs. Check urine lites, urine creatinine, urine eosinophils. Monitor urine output. Start on D5 half NS at 75 cc/h. Hold off on bicarb drip for now. Patient developing hypernatremia. No concerns for metabolic acidosis for now. Getting ABG as above. Monitor electrolytes. Transaminitis with hyperbilirubinemia: Slight worsening. History of alcohol liver cirrhosis. Hepatitis panel negative recently. Monitor daily. CT abdomen pelvis without contrast to rule out obstructive nephropathy, gallbladder pathology. Patient's care discussed in detail with at bedside. Anesthesia: Fentanyl, Versed. If needed Precedex. Hold off on propofol. Glycemic control: Every 4 hour. Hypoglycemia protocol. No history of diabetes. Nutrition: N.p.o. CODE STATUS: Full code PUD prophylaxis: Protonix DVT prophylaxis: Heparin 5000 every 12 hourly. Discharge planning: Home with caregiver with home health versus SNF depending on clinical development going forward. Continue with care at ICU. This documentation was created by [employer] butter grader software. Every effort was made to ensure accuracy of butter grader. Any obvious errors or omissions should be clarified with the author of the document. Attestations Medical Necessity Statement*: Requires further hospitalization for management of respiratory failure in setting of hepatic encephalopathy, seizure-like activity, leukocytosis with E. coli bacteremia in setting of UTI, developing acute kidney injury with worsening transaminitis with concerns for propofol syndrome Critical Care Time: The high probability of a clinically significant, sudden or life threatening deterioration of the patient's [cardiac, pulmonary, neurological, renal] system(s) required my full and direct attention, intervention and personal management. The critical care time is as shown. This time is in addition to time spent performing any reported procedures but includes the following: [x] Data and vital sign review and interpretation [x] Patient assessment, examination and intervention [x] Documentation [x] Medication orders and management Critical Care Time (min): 80 Coding Level of Care Code Critical Care >/= 30 minutes Critical care time (in minutes): 80 The high probability of a clinically significant, sudden or life threatening deterioration, as referenced in this documentation, required my full and direct attention, intervention and personal management. The critical care time shown is in addition to time spent performing any reported separately billable procedures and includes the following: [x] Data and vital sign review and interpretation [x] Patient assessment, examination and intervention [x] Medication orders and management [x] Patient/Family updates as able [x] Care Coordination and Documentation. Other Coding Information This patient has a high probability of clinically significant, sudden or life threatening deterioration of the patient's (neurological/pulmonary/cardiac/renal/ID/endocrine) systems required my full, direct attention, the highest level of physician preparedness for urgent intervention and personal management. I managed/supervised life or organ supporting interventions that required frequent physician assessment. I devoted my full attention in the ICU to the direct care of this patient for the period of time indicated above. Time I spent with family or surrogate(s) is included only if the patient was incapable of providing necessary information or participating in decision making. This time includes the following services provided: Telemetry review Mechanical Ventilation Hemodynamic interpretation, assessment and management Review and interpretation of CXR Review and interpretation of lab values Review and interpretation of microbiologic data and culture results Review of medications and administration Review and interpretation of Nutrition requirements and management Discussion of management with other consultants and services Clinical update to family members Diagnoses Hepatic encephalopathy K76.82 Respiratory failure J96.90 E coli bacteremia R78.81; B96.20 Airway compromise J98.8 Acute kidney injury N17.9 Transaminitis R74.01 Leukocytosis D72.829 Witnessed seizure-like activity R56.9 Hyperbilirubinemia E80.6 Hypertension I10 Urinary tract infection N39.0 Ileus K56.7 Alcoholic cirrhosis K70.30
[2024-06-18 16:33] LABS: Blood Urea Nitrogen 23 mg/dL (6-20); Carbon Dioxide 21 mmol/L (22-29); Chloride 116 mmol/L (98-107); Creatinine Clr Calc Pharmacy 30.6187; Glucose 121 mg/dL (65-115); Osmolality Calculated 317 mOsm/kg (285-295); Sodium 151 mmol/L (136-145)
[2024-06-18 16:51] LABS: Adenovirus Not Detected (NOT DETECT); Chlamydia Pneumoniae Not Detected (NOT DETECT); Coronavirus 229E,HKU1,NL63,OC4 Not Detected (NOT DETECT); Human Metapneumovirus Not Detected (NOT DETECT); Human Rhinovirus/Enterovirus Not Detected (NOT DETECT); Influenza A Not Detected (NOT DETECT); Influenza A H1 Not Detected (NOT DETECT); Influenza A H1-2009 Not Detected (NOT DETECT); Influenza A H3 Not Detected (NOT DETECT); Influenza B Not Detected (NOT DETECT); Mycoplasma Pneumoniae Not Detected (NOT DETECT); Parainfluenza Virus Type 1 Not Detected (NOT DETECT); Parainfluenza Virus Type 2 Not Detected (NOT DETECT); Parainfluenza Virus Type 3 Not Detected (NOT DETECT); Parainfluenza Virus Type 4 Not Detected (NOT DETECT); Respiratory Syncytial Virus A Not Detected (NOT DETECT); Respiratory Syncytial Virus B Not Detected (NOT DETECT); SARS-COV-2 Not Detected (NOT DETECT)
[2024-06-18] MEDS: potassium chloride premix 100 ML 25 MEQ IV ×2 (17:09→20:59)
[2024-06-18] MEDS: norepinephrine 4 MG/250 ML BAG 7.5 MG IV (17:47)
[2024-06-18 17:50] LABS: C.Diff PCR (Lab) NEGATIVE (Negative)
[2024-06-18 18:05] LABS: Glucose Point of Care 89 mg/dL (70-110)
[2024-06-18 18:28] LABS: MRSA PCR OZH (swab) NOT DETECTED (Not Detecte)
[2024-06-18 18:30] LABS: Bilirubin Urine Negative (Negative); Blood Urine Negative (Negative); Glucose Urine UA Negative (Normal); Ketones Urine Trace (Negative); Leukocyte Esterase Urine Negative (Negative); Nitrate Urine Negative (Negative); Protein Urine Trace (Negative); Urine Appearance Clear (CLEAR); Urine Color Yellow (Yellow); pH Urine 5.5 (5-7)
[2024-06-18 18:35] LABS: Add Urine Microscopic? YES; Bacteria Urine None Seen /hpf; Hyaline Casts Urine 21.08 /lpf; Squamous Epithelial Cell Urine 0-5 /hpf (0-5); WBC Urine 0-5 /hpf (0-5)
[2024-06-18 18:41] LABS: Specific Gravity, Urine 1.031 (1.005-1.030); UA Slide Review UA Slide Review Perf
[2024-06-18 18:43] LABS: Add Urine Culture? No; Potassium, Radom Urine 67 mmol/L; Urine Creatinine 133 mg/dL (28-217); Urine Random Sodium 60 mmol/L
[2024-06-18 19:03] LABS: Eosinophil Urine No Eosinophils Seen
[2024-06-18 19:08] LABS: Urine Random Chloride < 10 mmol/L
[2024-06-18] MEDS: dextrose 5%-sod chloride 0.45% 1,000 ML 125 ML IV (21:56)
[2024-06-19] VITALS (99 sets, daily range): BP systolic 92–155; BP diastolic 60–103; PULSE 55–100; RESP 14–22; TEMP 36.7–37.1; O2SAT 92–100
[2024-06-19] MEDS: midazolam hcl 100 MG/100 ML BAG 6 MG IV (00:05)
[2024-06-19] MEDS: norepinephrine 4 MG/250 ML BAG 30 MG IV ×2 (00:45→08:54)
[2024-06-19] MEDS: ipratropium-albuterol 3 mL Neb INHALATION ×4 (02:30→20:34)
[2024-06-19 04:54] LABS: Basophils # 0.2 10^3/uL (0.0-0.1); Basophils % 1.6 %; Eosinophils # 0.8 10^3/uL (0.0-0.8); Eosinophils % 6.5 %; Hematocrit 45.6 % (36-47); Lymphocytes # 2.8 10^3/uL (0.8-4.8); Lymphocytes % 24.5 %; Mean Corpuscular HGB Conc 28.3 g/dL (30-55); Mean Corpuscular Hemoglobin 28.5 pg (27-33); Mean Corpuscular Volume 100.9 fl (85-98); Mean Platelet Volume 11.1 fL (7.4-10.4); Monocytes # 1.1 10^3/uL (0.2-0.9); Monocytes % 9.4 %; Neutrophils # 6.69 10^3/uL (1.8-7.7); Neutrophils % 57.7 %; Nucleated Red Blood Cells % 0 %; Platelet Count 162 10^3/cmm (157-399); Red Blood Count 4.52 10^6/uL (3.85-5.65); Red Cell Distribution Width 13.9 % (12.1-15.1); White Blood Count 11.61 10^3/uL (3.29-11.43)
[2024-06-19 05:22] LABS: ABG PCO2 36.9 mmHg (35-45); ABG PH Result 7.35 (7.35-7.45); Alveolar-Arterial Oxygen Gradi 15.8 mmHg (5-10); Arterial Blood Gas Hematocrit 36.8 % (37-47); Base Excess ABG -4.5 mmol/L (-2.0-2.0); Blood Gas Operator Identificat SAM; Blood Gas Sample Site Brachial, right; Blood Gas Sample Type Arterial; Carboxyhemoglobin 1.6 %THgb (0.4-20.1); HCO3 ABG 20.5 mmol/L (22-26); HGB O2 Sat 94.5 % (95-100); Ionized Calcium Level - ABG 1.2 mmol/L (1.1-1.4); Methemoglobin 0.8 % (0.4-1.5); Oxygen Device VENT; Oxygen Saturation ABG 96.8; PO2 ABG 85.4 mmHg (80.0-100.0); PO2 FiO2 Ratio Arterial Blood 244; Potassium Level - ABG 3.2 mmol/L (3.5-5.0)
[2024-06-19] MEDS: chlorhexidine gluconate 4% Btl 118 mL 1 APPLIC TOPICAL (05:31)
--- NOTE | 2024-06-19 06:00 | XRR_ITS ---
PROCEDURE INFORMATION: Exam: XR Chest Exam date and time: 06/19/2024 7:14 AM Age: 48 years old Clinical indication: Device placement; Ett placement (vent status); Additional info: Intubated TECHNIQUE: Imaging protocol: Radiologic exam of the chest. Views: 1 view. COMPARISON: CR XR chest 1V portable [id number] 06/18/2024 2:36 PM FINDINGS: Tubes, catheters and devices: There is an ET tube unchanged 4-5 cm above the katerina in satisfactory position. There is an NG tube positioned within the gastric fundus unchanged. Lungs: Unremarkable. No consolidation. Pleural spaces: Unremarkable. No pleural effusion. No pneumothorax. Heart/Mediastinum: Unremarkable. No cardiomegaly. Bones/joints: No acute bony abnormalities detected. XR/XR chest 1V portable [id number] IMPRESSION: ET and NG tubes unchanged in satisfactory position.
[2024-06-19] MEDS: dextrose 5%-sod chloride 0.45% 1,000 ML 125 ML IV ×2 (06:34→14:14)
--- NOTE | 2024-06-19 08:15 | P.CONIM_ITS ---
Providers/Reason For Consult 2 Consulting Physician/Specialty*: Walt Encarnacion MD neurology and epilepsy Reason for Consult*: Posturing episodes assess for seizures Attending Physician: Dagoberto Rebollar MD Primary Care Provider: Maia De Oliveira NP History of Present Illness History of Present Illness Aurora Acevedo is a 48 year old female with a reported history of alcohol induced liver cirrhosis, severe constipation.according to the records the patient's called 911 on 06/17/2024 because she was very confused, EMS intubated her on initial evaluation, as per the the patient was reported to not experience any bowel movements for the past 3 weeks. The patient was reported to have taken lactulose and stool softeners without much success. Patient was reported not to be drinking alcohol as per the . No recent fever, chest pain. The patient was reported to have experienced multiple episode of emesis a few days prior to admission. CBC unremarkabl except for thrombocytopenia, BMP unremarkable, abnormal transaminases noted ammonia level is 100. The patient was given rectal lactulose. On 06/18/2024 the patient was reported to have posturing when stimulated or with turning of the patient per nurses report. As a result noncontrast head CT was performed on 06/18/2023 and reported to revealed no acute findings. Since there was concerns for possible seizures neurology consult was obtained. Drug allergies: Aspirin which resulted in headaches Penicillins which resulted in hives Home medications: Albuterol sulfate 90 mcg per accusation 2 puffs every 6 hours as needed for shortness of breath Azelastine 2 sprays intranasally twice a day Symbicort 2 puffs twice daily Farxiga 5 mg p.o. daily Vitamin D 2 50,000 international units p.o. every week Hydroxyzine 25 mg p.o. twice daily as needed for itch Lactulose 20 g per 30 mL oral solution 45 mg p.o. 4 times daily for constipation Claritin 10 mg p.o. daily Magnesium 48 mg p.o. daily Nadolol 80 mg p.o. daily Omeprazole 20 mg p.o. daily Vitamin B complex 1 p.o. daily Past medical history: Alcoholic cirrhosis: Abnormal transaminases: Hypertension: Cirrhosis: Ileus: Urinary tract infection: Respiratory failure: Hepatic encephalopathy Habits: Patient reported to smoke Family history: Remarkable for mother with hypertension Review of Systems 2 General: Reports: ROS unobtainable due to endotracheal tube and ROS unobtainable due to medical condition Medications/Allergies Home Medications Medication Instructions Recorded Confirmed Last Taken Type yyegsrc-hyrrskfsrctxz-lgmperwm 250 1 tab PO Q6H PRN unknown 04/18/24 06/17/24 Unknown History mg-250 mg-65 mg tablet (Excedrin Extra Strength) azelastine 137 mcg (0.1 %) nasal 2 spray intranasal BID 04/18/24 06/17/24 Unknown History spray budesonide-formoterol HFA 80 2 puff inhalation BID 04/18/24 06/17/24 Unknown History mcg-4.5 mcg/actuation aerosol inhaler (Symbicort) clindamycin phosphate 1 % topical 1 applic topical BID 04/18/24 06/17/24 Unknown History gel dapagliflozin propanediol 5 mg 5 mg PO DAILY 04/18/24 06/17/24 Unknown History tablet (Farxiga) ergocalciferol (vitamin D2) 1,250 1,250 mcg PO Q7D 04/18/24 06/17/24 Unknown History mcg (50,000 unit) capsule (Vitamin D2) loratadine 10 mg tablet (Claritin) 10 mg PO DAILY 04/18/24 06/17/24 Unknown History omeprazole 20 mg capsule,delayed 20 mg PO DAILY 04/18/24 06/17/24 Unknown History release vitamin B complex 1 tab PO DAILY 04/18/24 06/17/24 Unknown History magnesium L-threonate 48 mg 48 mg PO DAILY #90 caps 04/21/24 06/17/24 Unknown Rx magnesium (667 mg) capsule magnesium hydroxide 400 mg/5 mL 10 ml PO DAILY PRN constipation 05/08/24 06/17/24 Unknown Rx oral suspension (Milk of Magnesia) #355 mL clindamycin phosphate 1 % topical 1 applic topical DAILY 05/15/24 06/17/24 Unknown History solution hydroxyzine HCl 25 mg tablet 25 mg PO BID PRN itching #60 tabs 05/15/24 06/17/24 Unknown Rx albuterol sulfate 90 mcg/actuation 2 puff inhalation Q6H PRN 05/29/24 06/17/24 Unknown Rx aerosol inhaler shortness of breath or wheezing #6.7 grams lactulose 20 gram/30 mL oral 45 ml PO QID constipation #5,400 mL 05/29/24 06/17/24 Unknown Rx solution nadolol 80 mg tablet 80 mg PO DAILY #30 tabs 05/29/24 06/17/24 Unknown Rx Allergies Allergy/AdvReac Type Severity Reaction Status Date / Time aspirin Allergy ADR-Headach Verified 06/04/24 11:03 e Penicillins Allergy ALGY-Hives Verified 06/04/24 11:03 Current Medications Generic Name Dose Route Start Last Admin Trade Name Freq PRN Reason Stop Dose Admin Albuterol/Ipratropium 3 ml 06/18/24 15:00 06/19/24 07:44 Ipratropium-Albuterol 3 Ml Neb INHALATION 3 ml Q6H.RESP ALPHONSO Administration Chlorhexidine Gluconate 1 applic 06/19/24 04:31 06/19/24 05:31 Chlorhexidine Gluconate 4% Btl 118 Ml TOPICAL 1 applic DAILY PRN Administration For vented patient Fentanyl 1,000 mcg in 100 mls @ 0 mls/hr 06/18/24 04:00 06/19/24 04:23 Sublimaze IV 50 mcg/hr .Q0M ALPHONSO 5 mls/hr Titration Protocol Per Protocol Midazolam HCl 100 mg in 100 mls @ 0 mls/hr 06/18/24 10:00 06/19/24 04:23 Versed IV 3 mg/hr .Q0M ALPHONSO 3 mls/hr Titration Protocol Per Protocol Dextrose/Sodium Chloride 1,000 mls @ 125 mls/hr 06/18/24 10:45 06/19/24 06:34 Dextrose 5%-Sod Chloride 0.45% IV 125 mls/hr .Q8H ALPHONSO Administration Levetiracetam 1,000 mg in 100 mls @ 400 mls/hr 06/18/24 22:00 06/18/24 22:23 Keppra IV Infused Q12H ALPHONSO Infusion Dexmedetomidine/Sodium Chloride 400 mcg in 100 mls @ 0 mls/hr 06/18/24 14:45 06/19/24 04:23 Precedex IV 0.1 mcg/kg/hr .Q0M ALPHONSO 1.29 mls/hr Titration Protocol Per Protocol Norepinephrine Bitartrate 4 mg in 250 mls @ 0 mls/hr 06/18/24 17:45 06/19/24 00:45 Levophed IV 8 mcg/min .Q0M ALPHONSO 30 mls/hr Administration Protocol Per Protocol Meropenem 1,000 mg 06/18/24 11:00 06/18/24 22:22 Meropenem 1,000 Mg Sdv IVP 1,000 mg Q12H ALPHONSO Administration Protocol Pantoprazole Sodium 40 mg 06/17/24 09:00 06/18/24 17:45 Pantoprazole 40 Mg Sdv IVP 40 mg BID ALPHONSO Administration Rifaximin 600 mg 06/17/24 09:00 06/18/24 18:23 Rifaximin 200 Mg Tablet PO 600 mg BID ALPHONSO Administration PFSH Acute 2 PFSH: Medical History Hypertension Hospital discharge follow-up Alcoholic cirrhosis Family History Mother Hypertension Denies family history of Colon cancer Ovarian cancer Diabetes Heart disease Breast cancer Uterine cancer Thyroid disease Stroke Social History Smoking and tobacco/nicotine status: current every day tobacco/nicotine user Vitals/I&O/Wt Last Vital Signs Temp 98.5 F 06/18/24 08:00 Pulse 60 06/19/24 07:45 Resp 22 H 06/19/24 07:47 BP 131/78 06/19/24 07:00 Pulse Ox 95 06/19/24 07:47 O2 Del Method Mechanical Ventilation 06/19/24 07:45 FiO2 35 06/19/24 07:47 06/18/24 06/19/24 06/19/24 22:59 06:59 14:59 Intake Total 1653.291 / 2272.658 1378.594 / 3651.252 Output Total 200 / 200 1000 / 1200 Balance 1453.291 / 2072.658 378.594 / 2451.252 Weight last 48 hrs Weight 114 lb Weight 114 lb Physical Exam 2 Narrative: Blood pressure 131/78 heart rate 60 respiration 22 temperature 98.5 ?F O2 saturation 95% on mechanical ventilation The patient is sedated and intubated. Pupils 3 mm round reactive light and accommodation. There was no obvious facial weakness. Throat could not be assessed secondary to endotracheal tube. Motor testing revealed some tremors in the upper extremities during passive range of motion and extension of the patient's hand fingers and wrist. Tremors noted in both upper extremities. No posturing episodes were observed during this neurological evaluation. Deep tendon reflex revealed plantar responses bilaterally. There was no clonus. Sensory examination revealed no movement to painful stimuli on her nailbeds of the fingers or toes bilaterally. Throat: Patient has endotracheal tube. Lungs revealed no obvious wheezing. Heart regular rhythm and rate. Extremities were negative for cyanosis. Urinary Catheter Management: Casanova: Cath Placed During This Visit: yes Reason for Continuing Indwelling Catheter: Accurate Measurement of Urinary Output in Critically Ill Patients Urinary Catheter Date of Insertion: 06/16/24 Urinary Catheter Time of Insertion: 18:30 Data 06/19/24 04:05 06/19/24 07:52 Micro: Microbiology 06/18/24 14:05 Bacterial Antigens - Final Urine Kidney 06/18/24 11:47 Blood Culture - Preliminary Blood SPECIMEN COLLECTED 06/18/24 11:45 Blood Culture - Preliminary Blood SPECIMEN COLLECTED 06/16/24 18:33 Gram Stain - Final Sputum - Endotracheal Tube Aspirate Sputum Culture - Preliminary 06/16/24 22:15 Urine Culture - Preliminary Urine Catheterized A&P Assessment and plan (1) Hepatic encephalopathy: Impression: 1. Hepatic encephalopathy 2. Episodic posturing episodes witnessed by nurse and concerns for possible seizures 3. History of alcohol cirrhosis with elevated ammonia level Plan: 1. Agree with obtaining bedside EEG to assess for subclinical seizure activity 2. Recommend starting thiamine 100 mg IV every 12 hours 3. Recommend obtaining lab for TSH, free T3 and free T4 if not recently performed (2) Witnessed seizure-like activity: Consult Attestations 2 Medical Necessity Statement: The patient was evaluated by neurology for altered mental status and reported posturing episodes to assess for subclinical seizure activity Coding Level of Care Code 29647 Diagnoses Hepatic encephalopathy K76.82 Witnessed seizure-like activity R56.9
[2024-06-19 08:22] LABS: Alanine Aminotransferase 20 U/L (0-33); Albumin Level 2.8 g/dL (3.5-5.2); Alkaline Phosphatase 79 U/L (35-105); Anion Gap 14.8 (5-19); Aspartate Amino Transferase 30 U/L (0-32); Blood Urea Nitrogen 13 mg/dL (6-20); Calcium 6.7 mg/dL (8.5-10.5); Carbon Dioxide 16 mmol/L (22-29); Chloride 109 mmol/L (98-107); Creatine Phosphokinase 61 U/L (26-192); Creatinine Clr Calc Pharmacy 78.7337; Globulin 2.4 g/dL (1.3-4.6); Glomerular Filtration Rate 89.3 mL/min (90-130); Magnesium 1.3 mg/dL (1.7-2.3); Sodium 137 mmol/L (136-145); Total Bilirubin 0.7 mg/dL (0.15-1.2); Total Protein 5.2 g/dL (6.6-8.7)
[2024-06-19 08:30] LABS: Osmolality Calculated 336 mOsm/kg (285-295)
[2024-06-19 08:40] LABS: Glucose 1039 mg/dL (65-115); Potassium 2.8 mmol/L (3.5-5.1)
--- NOTE | 2024-06-19 08:47 | XR_ITS ---
WS: [id number] CHEST XRAY TECHNIQUE: Portable chest. CLINICAL INFORMATION: post PICC insertion COMPARISON: None. FINDINGS: RIGHT PICC line in good position distal SVC. No pneumothorax. Endotracheal tube with tip above the katerina. Enteric tube with tip below the diaphragm. XR/XR chest 1V portable [id number] IMPRESSION: RIGHT PICC line tip in the distal SVC. No pneumothorax.
[2024-06-19 09:57] LABS: Alanine Aminotransferase 25 U/L (0-33); Albumin Level 3.4 g/dL (3.5-5.2); Alkaline Phosphatase 98 U/L (35-105); Anion Gap 12.8 (5-19); Aspartate Amino Transferase 38 U/L (0-32); Blood Urea Nitrogen 15 mg/dL (6-20); Calcium 8.3 mg/dL (8.5-10.5); Carbon Dioxide 22 mmol/L (22-29); Chloride 118 mmol/L (98-107); Globulin 2.9 g/dL (1.3-4.6); Glomerular Filtration Rate 76.6 mL/min (90-130); Glucose 150 mg/dL (65-115); Magnesium 1.6 mg/dL (1.7-2.3); Osmolality Calculated 312 mOsm/kg (285-295); Potassium 3.8 mmol/L (3.5-5.1); Sodium 149 mmol/L (136-145); Total Bilirubin 0.9 mg/dL (0.15-1.2); Total Protein 6.3 g/dL (6.6-8.7)
--- NOTE | 2024-06-19 10:02 | PICC.NOTE ---
Triple lumen PICC placed to right basilic vein. Referred to vascular access nurse for PICC placement due to use of vasopressors and multiple IV gtts. Pt intubated and sedated. Risks and benefits discussed and informed consent obtained from pt spouse, En, via phone. Right arm assessed with right basilic vein measuring 3.9 mm, straight, and apparent best choice for placement. Using sterile technique and MST, right baslic vein accessed x 1 stick. Mid-arm circumference measured 10 cm from right AC 20 cm. Trimmed cath 36 cm with 1 cm external length noted. CXR shows tip to appear to be in distal SVC. Awaiting radiologist to read. Line secured with stat-lock. Insertion site covered with Secureport IV and TSM. Report given to bedside nurse, CULLEN Carvalho.
[2024-06-19] MEDS: pantoprazole 40 mg SDV IVP ×2 (10:04→17:23)
[2024-06-19] MEDS: rifaximin 200 mg Tablet 600 MG PO ×2 (10:08→17:22)
[2024-06-19] MEDS: LORazepam 2 mg/mL INJ 1 mL IVP ×2 (10:15→20:03)
[2024-06-19] MEDS: levETIRAcetam 1,000 MG/100 ML PREMIX 400 MG IV (10:18)
[2024-06-19] MEDS: VANCOMYCIN ADD-Vantage 750 MG in 0.9% NaCl ADD-Vantage 250 ML 250 MG IV (10:23)
[2024-06-19] MEDS: meropenem 1,000 mg SDV 1000 MG IVP ×2 (10:29→18:01)
[2024-06-19] MEDS: lidocaine 1% 5 ML in potassium chloride premix 100 ML 26.25 ML IV (10:44)
[2024-06-19] MEDS: lactulose oral liq 20 gm/30 mL UDC PO ×2 (10:46→22:22)
[2024-06-19] MEDS: magnesium sulfate premix 2 GM/50 ML PIGGYBACK IV (10:50)
[2024-06-19] MEDS: LORazepam 2 mg/mL INJ 1 mL 4 MG IVP (11:25)
[2024-06-19 11:26] LABS: Glucose Point of Care 127 mg/dL (70-110)
[2024-06-19 11:26] LABS: Glucose Point of Care 163 mg/dL (70-110)
[2024-06-19 11:27] LABS: Glucose Point of Care 140 mg/dL (70-110)
[2024-06-19 11:45] LABS: Glucose Point of Care 170 mg/dL (70-110)
[2024-06-19 11:45] LABS: Glucose Point of Care 180 mg/dL (70-110)
[2024-06-19 11:45] LABS: Glucose Point of Care 173 mg/dL (70-110)
[2024-06-19 12:15] LABS: Glucose Point of Care 101 mg/dL (70-110)
--- NOTE | 2024-06-19 14:06 | PM.ACPR ---
Documented by User: Maribel Tatum 06/19/24 14:09 EEG Routine Details of Procedure EEG 64476- coma or sleep only: 62660 (portable EEG per Dr Walt Encarnacion) Documented by User: Walt Encarnacion MD 06/20/24 20:53 EEG Routine Details of Procedure Details/Comments: EEG TEMPLATE: This is a 19 channel routine video surface EEG recording utilizing the [employer] software with surface and EKG electrodes. The procedure was performed utilizing the international 10-20 system. Patient name: Aurora Acevedo Date of : 1975 Patient age [age] years old Identification number: [id number] Referring Physician: Dagoberto Rebollar MD EEG#: EEG Start time: 14: 33: 40 EEG End time: 14:54:25 Duration of study: 20 minutes Date of study: 06/19/2024 Reason for study: Involuntary movements and tremors assess for subclinical seizure activity and a rare evaluate for status epilepsy Skull defects: None Condition of recording: The patient was reported to be sedated on the ventilator although sedation was discontinued prior to the EEG study Cooperation: Patient on mechanical ventilator Activation procedures: Tactile stimulation Medications: IV fentanyl, IV Versed, IV Keppra, IV Ativan Background activity: Background activity during the recording consisted of 4 to 5 Hz generalized theta slowing associated with generalized delta slowing. Interictal activity: None Ictal activity: None Impression: This is a abnormal 20-minute portable surface EEG recording secondary to generalized 4 to 5 Hz theta slowing associated with generalized delta slowing seen throughout the recording. Note: No subclinical seizure activity was seen. Clinical correlation: The generalized slowing of the background rhythm is consistent with a diffuse encephalopathic process, nonspecific with regards to etiology. Physician name/Signature: Walt Encarnacion MD golf tournament consultant/Signature: Maribel Chapman EEG T.
--- NOTE | 2024-06-19 14:18 | P.PN_ITS ---
Subjective 2 Subjective: Overnight her sedation was likely weaned down. In morning she was on fentanyl 75, Versed of 3, Precedex 0.1. Patient has been on Levophed of 3. Urine output is improving. She was found to have jittery movements of right arm. She was given 2 of Ativan after which she continued to have the jittery movements. Henceforth her Versed was increased and she was given 4 mg of IV Ativan. Have remained afebrile. Urine output of around 1200 cc in last 24 hours. Hemodynamically stable. Currently on ventilator setting of 35% FiO2, tidal volume of 400, PEEP of 5. Vitals/I&O/Wt Last Vital Signs Temp 98.7 F 06/19/24 11:21 Pulse 87 06/19/24 14:00 Resp 16 06/19/24 13:19 BP 114/68 06/19/24 13:45 Pulse Ox 100 06/19/24 13:45 O2 Del Method Mechanical Ventilation 06/19/24 13:17 FiO2 30 06/19/24 13:19 06/18/24 06/19/24 06/19/24 22:59 06:59 14:59 Intake Total 1653.291 / 2272.658 1378.594 / 3651.252 1784.683 / 1784.683 Output Total 200 / 200 1000 / 1200 300 / 300 Balance 1453.291 / 2072.658 378.594 / 2451.252 1484.683 / 1484.683 Weight last 48 hrs Weight 51.71 kg Weight 51.71 kg Physical Exam 2 Narrative: General: Intubated, sedated, no posturing or response to painful stimulus. Does have stacking on mechanical ventilator. Found to have jittery movements of right arm HEENT: PERRLA, pupils bilaterally equal and reactive Chest: Bilateral bronchial breath sounds all over lung jones with occasional rhonchi CVS: S1-S2 regular, no murmurs, no tachycardia, no gallops, no rubs Abdomen: Soft, nontender, no organomegaly, bowel sounds present Neuro: Intubated, sedated, pupils bilaterally reactive today. Urinary Catheter Management: Casanova: Cath Placed During This Visit: yes Reason for Continuing Indwelling Catheter: Accurate Measurement of Urinary Output in Critically Ill Patients Urinary Catheter Date of Insertion: 06/16/24 Urinary Catheter Time of Insertion: 18:30 Data 06/19/24 04:05 06/19/24 09:31 Micro: Microbiology 06/18/24 11:47 Blood Culture - Preliminary Blood NEGATIVE TO DATE 06/18/24 11:45 Blood Culture - Preliminary Blood NEGATIVE TO DATE 06/16/24 18:33 Gram Stain - Final Sputum - Endotracheal Tube Aspirate Sputum Culture - Final 06/16/24 22:15 Urine Culture - Final Urine Catheterized 06/16/24 18:06 Blood Culture - Preliminary Blood Escherichia coli 06/18/24 14:05 Bacterial Antigens - Final Urine Kidney A&P Assessment and plan (1) Hepatic encephalopathy: (2) Respiratory failure: (3) E coli bacteremia: (4) Airway compromise: (5) Acute kidney injury: (6) Transaminitis: (7) Leukocytosis: (8) Witnessed seizure-like activity: (9) Hyperbilirubinemia: (10) Hypertension: (11) Urinary tract infection: (12) Ileus: (13) Alcoholic cirrhosis: Plan Respiratory failure most likely in setting of hepatic encephalopathy. Cannot rule out in setting of seizure disorder. As per nursing staff patient overnight had witnessed seizure-like activity with concerns of possible posturing. Oxygen supplementation keeping saturation over 90%. Appreciate ABG. Currently on minimal ventilator settings. Plan to keep intubated given concerns for seizures. Concerns for possible propofol syndrome. Patient having green urine with acute kidney injury. Though CPK levels within normal limits, no metabolic acidosis, fever. Continue with Versed, fentanyl, Precedex. Wean Versed accordingly. Ativan as needed for possible seizure-like activity. Appreciate CT chest without contrast. No concerns for pneumonia. Pulmicort twice daily, DuoNeb every 6 hour. Patient on minimal ventilator setting. Hold off on steroids for now. Follow-up sputum culture. Septic shock: Source: UTI End organ damage: Acute infectious encephalopathy, acute kidney injury, seizure- like activity, respiratory failure Lactic acid Elevated. Patient did received full IV fluid bolus. Continue with D5 NS at 125 cc/h. Monitor blood pressures. Keep mean artery pressure 65 mmHg. Wean Levophed accordingly. Follow-up blood culture, urine culture, MRSA swab. De-escalate antibiotics as per culture results. Seizure-like activity: No past history of seizure disorder. With concerns of possible posturing. Appreciate neurology recommendations. Plan for EEG today. Prolactin elevated. Appreciate repeat CT head. Keppra to be changed to 500 mg every 6 hour as per neurology recommendations. Further treatment as per EEG results. Ativan as needed. E. coli bacteremia/leukocytosis: Unknown cause. Patient did have E. coli bacteremia on admission though was on treatment. MRSA swab negative, follow-up repeat blood cultures. Appreciate repeat urinalysis. Continue with IV meropenem for now. Hold off on vancomycin. C. difficile negative. Leukocytosis resolving today. Will plan for IV antibiotics for at least 2 weeks after negative blood cultures for E. coli bacteremia. Follow-up sensitivities. Acute kidney injury: Medical reconciliation done for nephrotoxic drugs. Improving. Creatinine down to 0.8. Appreciate urine lites, urine creatinine, urine eosinophils. Monitor urine output. Increasing. Continue with D5 half NS at 125 cc/h. Repeat BMP in afternoon. Monitor electrolytes. Hypernatremia: Resolving. Continue to monitor. Start on free water flush 250 cc every 6 hour. IV fluid as above. Repeat BMP in afternoon. Transaminitis with hyperbilirubinemia: Resolved. History of alcohol liver cirrhosis. Hepatitis panel negative recently. Monitor daily. CT abdomen pelvis without contrast to rule out obstructive nephropathy, gallbladder pathology. Patient's care discussed in detail with at bedside. Anesthesia: Fentanyl, Versed. Precedex. Hold off on propofol. Glycemic control: Every 4 hour. Hypoglycemia protocol. No history of diabetes. Nutrition: N.p.o. CODE STATUS: Full code PUD prophylaxis: Protonix DVT prophylaxis: Heparin 5000 every 12 hourly. Discharge planning: Home with caregiver with home health versus SNF depending on clinical development going forward. Continue with care at ICU. This documentation was created by [employer] rotary rock drilling machine operator software. Every effort was made to ensure accuracy of rotary rock drilling machine operator. Any obvious errors or omissions should be clarified with the author of the document. Attestations 2 Medical Necessity Statement*: Requires further hospitalization for management of septic shock with respiratory failure in setting of hepatic encephalopathy, seizure-like activity, E. coli bacteremia in setting of UTI, hypernatremia, acute kidney injury as patient is ventilator dependent Critical Care Time: The high probability of a clinically significant, sudden or life threatening deterioration of the patient's [ cardiac, renal, neurological, GI, pulmonary] s ystem(s) required my full and direct attention, intervention and personal management. The critical care time is as shown. This time is in addition to time spent performing any reported procedures but includes the following: [x] Data and vital sign review and interpretation [x] Patient assessment, examination and intervention [x] Documentation [x] Medication orders and management Critical Care Time (min): 90 Coding Level of Care Code Critical Care >/= 30 minutes Critical care time (in minutes): 90 The high probability of a clinically significant, sudden or life threatening deterioration, as referenced in this documentation, required my full and direct attention, intervention and personal management. The critical care time shown is in addition to time spent performing any reported separately billable procedures and includes the following: [x] Data and vital sign review and interpretation [x ] Patient assessment, examination and intervention [x] Medication orders and management [x] Patient/Family updates as able [x] Care Coordination and Documentation. Other Coding Information This patient has a high probability of clinically significant, sudden or life threatening deterioration of the patient's (neurological/pulmonary/cardiac/renal/ID/endocrine) systems required my full, direct attention, the highest level of physician preparedness for urgent intervention and personal management. I managed/supervised life or organ supporting interventions that required frequent physician assessment. I devoted my full attention in the ICU to the direct care of this patient for the period of time indicated above. Time I spent with family or surrogate(s) is included only if the patient was incapable of providing necessary information or participating in decision making. This time includes the following services provided: Telemetry review Mechanical Ventilation Hemodynamic interpretation, assessment and management Review and interpretation of CXR Review and interpretation of lab values Review and interpretation of microbiologic data and culture results Review of medications and administration Review and interpretation of Nutrition requirements and management Discussion of management with other consultants and services Clinical update to family members Diagnoses Hepatic encephalopathy K76.82 Respiratory failure J96.90 E coli bacteremia R78.81; B96.20 Airway compromise J98.8 Acute kidney injury N17.9 Transaminitis R74.01 Leukocytosis D72.829 Witnessed seizure-like activity R56.9 Hyperbilirubinemia E80.6 Hypertension I10 Urinary tract infection N39.0 Ileus K56.7 Alcoholic cirrhosis K70.30
[2024-06-19] MEDS: levETIRAcetam 500 MG/100 ML PREMIX 400 MG IV ×2 (15:17→19:50)
--- NOTE | 2024-06-19 15:17 | USCV_ITS ---
Aurora Acevedo Age: 48 Gender: F : 1975 Exam Date: 06/19/2024 20:10 Ordering Phys: Dagoberto Rebollar MD Technologist: JAMARI [place]am [place] [facility] [place]: ETOH cirrhosis, shock, confusion. Patient is unresponsive, on ventilator in ICU-3 BP: 105 / 68 HR: 95 Rhythm: Sinus Technical Quality: Adequate MEASUREMENTS (Male / Female) Normal Values 2D ECHO LV Diastolic Diameter PLAX 3.6 cm 4.2 - 5.9 / 3.9 - 5.3 cm IVS Diastolic Thickness 1.7 cm 0.6 - 1.0 / 0.6 - 0.9 cm IVS Systolic Thickness 2.4 cm LVPW Diastolic Thickness 2.0 cm 0.6 - 1.0 / 0.6 - 0.9 cm LVPW Systolic Thickness 1.9 cm LVOT Diameter 1.5 cm LV Ejection Fraction 2D Teich 60.1 % LV Ejection Fraction MOD 4C 53.5 % LV Ejection Fraction MOD 2C 72.1 % LV Ejection Fraction 2C AL 73.9 % LA Diameter 2.9 cm Aorta at Sinotubular Diameter 2.9 cm IVC Diameter 1.9 cm M-MODE LA Ao Ratio MM 1.3 AV Cusp Separation MM 1.8 cm DOPPLER AV Peak Velocity 133.0 cm/s LVOT Peak Velocity 113.0 cm/s AV Area Cont Eq vti 1.4 cm squared AV Area Cont Eq pk 1.6 cm squared MV Peak Velocity 126.0 cm/s MV Area PHT 7.2 cm squared Mitral E to A Ratio 0.8 TV Peak E Velocity 84.0 cm/s PV Peak Velocity 113.0 cm/s FINDINGS Left Ventricle Normal LV size and ejection fraction of 60%. Moderate calcific left trickle hypertrophy.no regional wall motion abnormalities. Grade I/IV diastolic dysfunction (abnormal relaxation filling pattern), normal to mildly elevated filling pressures. Right Ventricle The right ventricle is normal in size and function. Right Atrium The right atrium is normal in size. 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 Aortic Valve No gross abnormalities noted . Tricuspid Valve no gross abnormalities noted Pulmonic Valve Pulmonic valve not well visualized. Pericardium No pericardial mass. Aorta Normal aortic annulus size. IVC Normal inferior vena cava. CONCLUSIONS Normal LV size and ejection fraction of 60%. Moderate calcific left trickle hypertrophy.no regional wall motion abnormalities. Grade I/IV diastolic dysfunction (abnormal relaxation filling pattern), normal to mildly elevated filling pressures. 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 Trace mitral valve regurgitation. There is no pericardial effusion. There are no intracardiac masses. No similar previous studies are available for comparison Dr Diana Robert MD FACC (Electronically Signed) Final Date: 19 June 2024 20:51 S
[2024-06-19] MEDS: fentaNYL 1,000 MCG/100 ML BAG 5 MCG IV (15:24)
[2024-06-19 16:42] LABS: Anion Gap 8.9 (5-19); Blood Urea Nitrogen 14 mg/dL (6-20); Calcium 8.2 mg/dL (8.5-10.5); Carbon Dioxide 20 mmol/L (22-29); Chloride 123 mmol/L (98-107); Creatinine Clr Calc Pharmacy 78.7337; Glomerular Filtration Rate 89.3 mL/min (90-130); Glucose 69 mg/dL (65-115); Osmolality Calculated 305 mOsm/kg (285-295); Potassium 3.9 mmol/L (3.5-5.1); Sodium 148 mmol/L (136-145)
[2024-06-19] MEDS: dexmedeTOMIDine 0.9 % NaCL 400 MCG/100 ML PREMIX IV (17:26)
[2024-06-19 17:41] LABS: Glucose Point of Care 81 mg/dL (70-110)
[2024-06-19] MEDS: midazolam hcl 100 MG/100 ML BAG IV (20:07)
[2024-06-19 22:19] LABS: Glucose Point of Care 107 mg/dL (70-110)
[2024-06-19 23:19] LABS: Campylobacter Group NOT DETECTED (NOT DETECTED); Norovirus GI/GII NOT DETECTED (NOT DETECTED); Rotavirus A NOT DETECTED (NOT DETECTED); Shiga Toxin 1 NOT DETECTED (NOT DETECTED); Shigella Species NOT DETECTED (NOT DETECTED); Vibrio Group NOT DETECTED (NOT DETECTED); Yersinia Enterocolotica NOT DETECTED (NOT DETECTED)
[2024-06-20] VITALS (86 sets, daily range): BP systolic 110–190; BP diastolic 69–112; PULSE 64–137; RESP 16–23; TEMP 37.7–38.3; O2SAT 95–100
[2024-06-20] MEDS: dextrose 5%-sod chloride 0.45% 1,000 ML 125 ML IV (00:21)
[2024-06-20 01:27] LABS: Glucose Point of Care 104 mg/dL (70-110)
[2024-06-20] MEDS: ipratropium-albuterol 3 mL Neb INHALATION ×4 (02:13→20:48)
[2024-06-20] MEDS: meropenem 1,000 mg SDV 1000 MG IVP ×3 (02:28→18:04)
[2024-06-20] MEDS: levETIRAcetam 500 MG/100 ML PREMIX 400 MG IV ×2 (02:30→08:24)
[2024-06-20] MEDS: LORazepam 2 mg/mL INJ 1 mL IVP (03:02)
[2024-06-20] MEDS: hyDRALAzine 20 mg/mL INJ 1 mL 10 MG IVP ×2 (03:19→16:30)
[2024-06-20] MEDS: LORazepam 2 mg/mL INJ 1 mL 4 MG IVP (04:00)
[2024-06-20 04:18] LABS: Glucose Point of Care 111 mg/dL (70-110)
[2024-06-20 04:59] LABS: ABG PCO2 29.3 mmHg (35-45); ABG PH Result 7.41 (7.35-7.45); Alveolar-Arterial Oxygen Gradi 10.7 mmHg (5-10); Arterial Blood Gas Hematocrit 32.1 % (37-47); Base Excess ABG -5.3 mmol/L (-2.0-2.0); Blood Gas Allen Test Pos; Blood Gas Operator Identificat SAM; Blood Gas Sample Site Radial, right; Blood Gas Sample Type Arterial; HCO3 ABG 18.4 mmol/L (22-26); HGB O2 Sat 96.4 % (95-100); Ionized Calcium Level - ABG 1.2 mmol/L (1.1-1.4); Methemoglobin 1.1 % (0.4-1.5); Oxygen Device VENT; Oxygen Saturation ABG 98.4; PO2 ABG 96.7 mmHg (80.0-100.0); PO2 FiO2 Ratio Arterial Blood 322; Potassium Level - ABG 3.7 mmol/L (3.5-5.0); Total Hemoglobin 10.5 g/dL (12-16)
[2024-06-20 05:12] LABS: Basophils # 0.1 10^3/uL (0.0-0.1); Basophils % 1.3 %; Eosinophils # 0.4 10^3/uL (0.0-0.8); Eosinophils % 7.9 %; Hematocrit 32.4 % (36-47); Lymphocytes # 1.6 10^3/uL (0.8-4.8); Lymphocytes % 29.8 %; Mean Corpuscular HGB Conc 31.2 g/dL (30-55); Mean Corpuscular Hemoglobin 27.9 pg (27-33); Mean Corpuscular Volume 89.5 fl (85-98); Mean Platelet Volume 10.1 fL (7.4-10.4); Monocytes # 0.5 10^3/uL (0.2-0.9); Neutrophils % 51.6 %; Nucleated Red Blood Cells % 0 %; Platelet Count 98 10^3/cmm (157-399); Red Blood Count 3.62 10^6/uL (3.85-5.65); Red Cell Distribution Width 14.1 % (12.1-15.1); White Blood Count 5.43 10^3/uL (3.29-11.43)
[2024-06-20 05:36] LABS: Alanine Aminotransferase 25 U/L (0-33); Alkaline Phosphatase 93 U/L (35-105); Aspartate Amino Transferase 43 U/L (0-32); Blood Urea Nitrogen 13 mg/dL (6-20); Calcium 8.2 mg/dL (8.5-10.5); Carbon Dioxide 18 mmol/L (22-29); Chloride 115 mmol/L (98-107); Creatinine Clr Calc Pharmacy 78.7337; Globulin 2.6 g/dL (1.3-4.6); Glomerular Filtration Rate 89.3 mL/min (90-130); Glucose 128 mg/dL (65-115); Osmolality Calculated 298 mOsm/kg (285-295); Sodium 143 mmol/L (136-145); Total Bilirubin 0.8 mg/dL (0.15-1.2); Total Protein 5.6 g/dL (6.6-8.7)
[2024-06-20 05:41] LABS: Magnesium 1.7 mg/dL (1.7-2.3)
--- NOTE | 2024-06-20 06:00 | XRR_ITS ---
PROCEDURE INFORMATION: Exam: XR Chest Exam date and time: 06/20/2024 5:48 AM Age: 48 years old Clinical indication: Other: Intubated TECHNIQUE: Imaging protocol: Radiologic exam of the chest. Views: 1 view. COMPARISON: CR XR chest 1V portable [id number] 06/19/2024 9:16 AM FINDINGS: Lungs: Unremarkable. No consolidation. Pleural spaces: Unremarkable. No pleural effusion. No pneumothorax. Heart/Mediastinum: Unremarkable. No cardiomegaly. Bones/joints: Unremarkable. Other findings: Stable life-support lines. XR/XR chest 1V portable [id number] IMPRESSION: No acute findings.
[2024-06-20 06:04] LABS: Free T4 Free Thyroxine 1.01 ng/dL (0.82-1.77); T3 Free 3.8 PG/ML (2.0-4.4); Thyroid Stimulating Hormone 1.75 uIU/mL (0.27-4.20)
[2024-06-20 06:32] LABS: Glucose Point of Care 98 mg/dL (70-110)
[2024-06-20] MEDS: pantoprazole 40 mg SDV IVP ×2 (08:28→17:01)
[2024-06-20] MEDS: rifaximin 200 mg Tablet 600 MG PO ×2 (08:31→18:05)
[2024-06-20] MEDS: FUROsemide 10 mg/mL SDV 4mL 40 MG IVP (10:20)
[2024-06-20] MEDS: magnesium sulfate premix 1 GM/100 ML PIGGYBACK IV (10:20)
[2024-06-20] MEDS: lacosamide 100 MG in sodium chloride 0.9% 50 ML 120 MG IV (10:23)
[2024-06-20] MEDS: lactulose oral liq 20 gm/30 mL UDC PO ×2 (10:33→21:52)
[2024-06-20 10:34] LABS: Appearance CSF CLEAR (CLEAR); Color CSF COLORLESS (COLORLESS); Cyto Order Verification No Order; Pathology Referral Yes
[2024-06-20 10:38] LABS: CSF Mononuclear # 0.004 10^3/uL (50-90); Mononuclear WBC CSF % 100 % (50-90); Polynuclear WBC CSF % 0 % (0-10); Red Blood Cell CSF 0 10^3/uL (0-0); White Blood Cell CSF 4 /uL (0-5)
[2024-06-20] MEDS: fentaNYL 1,000 MCG/100 ML BAG 5 MCG IV (10:41)
[2024-06-20 10:52] LABS: Glucose CSF 69 mg/dL (40-70); Total Protein CSF 59 mg/dL (15-45)
[2024-06-20 11:11] LABS: CSF Specific Gravity 1.006
--- NOTE | 2024-06-20 11:17 | P.PCN_ITS ---
Documented by User: Maribel Tatum 06/20/24 11:20 Procedure/Consent Procedure Narrative: Overnight her sedation was likely weaned down. In morning she was on fentanyl 75, Versed of 3, Precedex 0.1 EEG Routine Details of Procedure Details/Comments: Seizure-like activity: No past history of seizure disorder. With concerns of possible posturing. Appreciate neurology recommendations. Plan for EEG today. Prolactin elevated. Appreciate repeat CT head. Keppra to be changed to 500 mg every 6 hour as per neurology recommendations. Further treatment as per EEG results. Ativan as needed. EEG [id number]- coma or sleep only: [id number] Documented by User: Walt Encarnacion MD 06/20/24 20:59 EEG Routine Details of Procedure Details/Comments: Seizure-like activity: No past history of seizure disorder. With concerns of possible posturing. Appreciate neurology recommendations. Plan for EEG today. Prolactin elevated. Appreciate repeat CT head. Keppra to be changed to 500 mg every 6 hour as per neurology recommendations. Further treatment as per EEG results. Ativan as needed. EEG TEMPLATE: This is a 19 channel routine video surface EEG recording utilizing the [email or web address] software with surface and EKG electrodes. The procedure was performed utilizing the international 10-20 system. Patient name: Aurora Acevedo Date of : 1975 Patient age [age] years old Identification number: [id number] Referring Physician: Dagoberto Rebollar MD EEG#: EEG Start time: 12:42:03 EEG End time: 14:45:05 Duration of study: 123 minutes Date of study: 06/20/2024 Reason for study: Involuntary tremors and decreased level consciousness and reported flutters. Portable EEG recording was performed to assess for subclinical status epilepticus and to assist in determining if anticonvulsant medications can be withdrawn on patient with history of hepatic encephalopathy, liver cirrhosis intubated with decreased level consciousness Skull defects: None Condition of recording: The patient was reported to be sedated but sedation was weaned during the recording Cooperation: Patient sedated Activation procedures: Tactile stimulation Medications: IV fentanyl, IV Versed, IV Ativan, IV Keppra, IV Vimpat Background activity: Background activity during the recording consisted of 4 to 5 Hz generalized low voltage theta slowing associated with generalized delta slowing. Interictal activity: None Ictal activity: None Impression: This is an annormal 123-minute portable surface EEG recording secondary to generalized 4 to 5 Hz theta slowing associated with generalized delta slowing seen throughout the recording. Note: No subclinical seizure activity was seen or observed during this 120-minute portable surface EEG recording. Clinical correlation: The generalized slowing of the background rhythm is consistent with a diffuse encephalopathic process nonspecific with regards to etiology but less likely related to hepatic encephalopathy. Physician name/Signature: Walt Encarnacion MD cutting machine tender helper/Signature: Maribel Jenkins
[2024-06-20] MEDS: dextrose 5%-sod chloride 0.45% 1,000 ML 50 ML IV (13:02)
--- NOTE | 2024-06-20 14:44 | PM.PN ---
Subjective Subjective: At around 3 AM it seems patient had tremors of the right side of her body for which Versed was increased to 6, she was given 4 of IV Ativan. Today morning patient is fairly sedated. When seen earlier in the morning on fentanyl 75, Versed of 6, Precedex. Ventilator setting of FiO2 of 30% with tidal volume 400 PEEP of 5. ABG appreciated. Ventilator seen again during the day with sedation off for EEG patient was able to open her eyes and seem to be recognizing her caregiver at bedside. Drowsy. Not following directions. Has been tachycardic with heart rate going up to 120s with elevated blood pressure, Tmax 100.8 Fahrenheit earlier today morning. Vitals/I&O/Wt Last Vital Signs Temp 100 F H 06/20/24 14:13 Pulse 126 H 06/20/24 14:00 Resp 23 H 06/20/24 13:15 BP 162/100 06/20/24 14:00 Pulse Ox 99 06/20/24 14:00 O2 Del Method Mechanical Ventilation 06/20/24 13:14 FiO2 30 06/20/24 13:15 06/19/24 06/20/24 06/20/24 22:59 06:59 14:59 Intake Total 1290.305 / 3179.988 1315.635 / 4495.623 1109.317 / 1109.317 Output Total 750 / 1050 Balance 1290.305 / 2879.988 565.635 / 3445.623 1109.317 / 1109.317 Weight last 48 hrs Weight 51.71 kg Weight 51.71 kg Physical Exam Narrative: General: Intubated, sedated, no posturing or response to painful stimulus. Does have stacking on mechanical ventilator but decreasing than yesterday. HEENT: PERRLA, pupils bilaterally equal and reactive Chest: Bilateral bronchial breath sounds all over lung jones with occasional rhonchi CVS: S1-S2 regular, no murmurs, no tachycardia, no gallops, no rubs Abdomen: Soft, nontender, no organomegaly, bowel sounds present Neuro: Intubated, sedated, pupils bilaterally reactive today. Urinary Catheter Management: Casanova: Cath Placed During This Visit: yes Reason for Continuing Indwelling Catheter: Accurate Measurement of Urinary Output in Critically Ill Patients Urinary Catheter Date of Insertion: 01/04/25 Urinary Catheter Time of Insertion: 18:30 Data 06/20/24 04:17 06/20/24 04:17 Micro: Microbiology 06/20/24 09:39 Gram Stain - Final Cerebrospinal Fluid 06/18/24 11:47 Blood Culture - Preliminary Blood NEGATIVE TO DATE 06/18/24 11:45 Blood Culture - Preliminary Blood NEGATIVE TO DATE 06/16/24 18:33 Gram Stain - Final Sputum - Endotracheal Tube Aspirate Sputum Culture - Final 06/16/24 22:15 Urine Culture - Final Urine Catheterized A&P Assessment and plan (1) Hepatic encephalopathy: (2) Respiratory failure: (3) E coli bacteremia: (4) Airway compromise: (5) Acute kidney injury: (6) Transaminitis: (7) Leukocytosis: (8) Witnessed seizure-like activity: (9) Hyperbilirubinemia: (10) Hypertension: (11) Urinary tract infection: (12) Ileus: (13) Alcoholic cirrhosis: Plan Tremors/seizure-like activity: No past history of seizure disorder. With concerns of possible posturing. Appreciate neurology recommendations. EEG done on 06/19 negative for seizure-like activity. Overnight patient again had tremors for which she was given IV Ativan. Care discussed in detail with neurology. Had a repeat EEG on and off sedation with no concerns for seizures. Sedation plan for EEG today. Prolactin elevated. Possible tremors or seizure-like activity could be in setting of adverse reaction to propofol and fentanyl in setting of liver dysfunction with concerns for serotonin like syndrome. Discontinue fentanyl. Discontinue Keppra and Vimpat. Will check Keppra levels 2. As seizures have been ruled out can plan to extubate in next 24 hours once patient wakes up appropriately. Plan for lumbar puncture. Will follow-up CSF studies. Respiratory failure most likely in setting of hepatic encephalopathy: Cannot rule out in setting of seizure like activity. As per nursing staff patient overnight had witnessed seizure-like activity with concerns of possible posturing. Oxygen supplementation keeping saturation over 90%. Appreciate ABG. Currently on minimal ventilator settings. Plan to keep intubated for next 24 hours while sedation is weaned off. Concerns for possible propofol syndrome versus adverse reaction to propofol and fentanyl in setting of liver dysfunction. Patient having green urine with acute kidney injury. Though CPK levels within normal limits, no metabolic acidosis, fever. Discontinue fentanyl. For now keep patient off sedation. Once patient gets awake again following direction, will plan to transition to Versed and Precedex. Plan to extubate once patient is able to follow directions within appropriate RSBI. Ativan as needed for possible seizure-like activity. Appreciate CT chest without contrast. No concerns for pneumonia. With possible of extubation in the next 24 hours we will plan for IV Lasix 40 mg one-time. Pulmicort twice daily, DuoNeb every 6 hour. Patient on minimal ventilator setting. Hold off on steroids for now. Follow-up sputum culture. Septic shock: Source: UTI End organ damage: Acute infectious encephalopathy, acute kidney injury, seizure-like activity, respiratory failure Lactic acid Elevated. Patient did received full IV fluid bolus. Decrease D5 NS at 50 cc/h. Monitor blood pressures. Keep mean artery pressure 65 mmHg. Levophed has been weaned off. Follow-up blood culture, urine culture, MRSA swab. De-escalate antibiotics as per culture results. E. coli bacteremia/leukocytosis: Unknown cause. Patient did have E. coli bacteremia on admission though was on treatment. MRSA swab negative, follow-up repeat blood cultures so far negative. Appreciate repeat urinalysis. Continue with IV meropenem for now. Hold off on vancomycin as MRSA swab negative. C. difficile negative. Leukocytosis resolved. Will plan for IV antibiotics for at least 2 weeks after negative blood cultures for E. coli bacteremia. Follow-up sensitivities. Patient had febrile episode overnight. Antibiotics to be continued as above. Check respiratory viral panel. Fevers could be noninfectious in nature. Cannot rule out possible serotonin like syndrome specially with tachycardia, elevated blood pressures, tremor-like activity now when seizures have been ruled out with repeated EEG. Lumbar puncture as above. Acute kidney injury: Resolved. Medical reconciliation done for nephrotoxic drugs. Appreciate urine lites, urine creatinine, urine eosinophils. Urine output improved after Lasix. Continue with free water flushes. Changed to every 8 hours. Change D5 half NS at 50 cc/h Repeat BMP in afternoon. Monitor electrolytes. Hypernatremia: Resolved. Change free water flush 250 cc every 8 hour. IV fluid as above. Repeat BMP in afternoon. Hypertension: Blood pressure is elevated today. IV metoprolol 5 mg one-time further every 4 hours as needed for heart rate of more than 100 bpm. IV hydralazine 10 mg every 4 hours as needed for systolic of more than 160 mmHg. Transaminitis with hyperbilirubinemia: Resolved. History of alcohol liver cirrhosis. Hepatitis panel negative recently. Monitor daily. CT abdomen pelvis without contrast to rule out obstructive nephropathy, gallbladder pathology. Patient's care discussed in detail with at bedside. Anesthesia: Versed. Precedex. Hold off on propofol and fentanyl. Glycemic control: Every 4 hour. Hypoglycemia protocol. No history of diabetes. Nutrition: N.p.o. CODE STATUS: Full code PUD prophylaxis: Protonix DVT prophylaxis: Heparin 5000 every 12 hourly. Discharge planning: Home with caregiver with home health versus SNF depending on clinical development going forward. Continue with care at ICU. This documentation was created by [employer] die repairer forging software. Every effort was made to ensure accuracy of die repairer forging. Any obvious errors or omissions should be clarified with the author of the document. Attestations Medical Necessity Statement*: Requires further hospitalization for management of respiratory failure in setting of encephalopathy with concerns for hepatic encephalopathy, tremors in setting of possible serotonin syndrome as seizure disorder is ruled out, E. coli bacteremia Critical Care Time: The high probability of a clinically significant, sudden or life threatening deterioration of the patient's [cardiac, renal, pulmonary, neurological] system(s) required my full and direct attention, intervention and personal management. The critical care time is as shown. This time is in addition to time spent performing any reported procedures but includes the following: [x] Data and vital sign review and interpretation [x] Patient assessment, examination and intervention [x] Documentation [x] Medication orders and management Critical Care Time (min): 90 Coding Level of Care Code Critical Care >/= 30 minutes Critical care time (in minutes): 80 The high probability of a clinically significant, sudden or life threatening deterioration, as referenced in this documentation, required my full and direct attention, intervention and personal management. The critical care time shown is in addition to time spent performing any reported separately billable procedures and includes the following: [x] Data and vital sign review and interpretation [x] Patient assessment, examination and intervention [x] Medication orders and management [x] Patient/Family updates as able [x] Care Coordination and Documentation. Other Coding Information This patient has a high probability of clinically significant, sudden or life threatening deterioration of the patient's (neurological/pulmonary/cardiac/renal/ID/endocrine) systems required my full, direct attention, the highest level of physician preparedness for urgent intervention and personal management. I managed/supervised life or organ supporting interventions that required frequent physician assessment. I devoted my full attention in the ICU to the direct care of this patient for the period of time indicated above. Time I spent with family or surrogate(s) is included only if the patient was incapable of providing necessary information or participating in decision making. This time includes the following services provided: Telemetry review Mechanical Ventilation Hemodynamic interpretation, assessment and management Review and interpretation of CXR Review and interpretation of lab values Review and interpretation of microbiologic data and culture results Review of medications and administration Review and interpretation of Nutrition requirements and management Discussion of management with other consultants and services Clinical update to family members Diagnoses Hepatic encephalopathy K76.82 Respiratory failure J96.90 E coli bacteremia R78.81; B96.20 Airway compromise J98.8 Acute kidney injury N17.9 Transaminitis R74.01 Leukocytosis D72.829 Witnessed seizure-like activity R56.9 Hyperbilirubinemia E80.6 Hypertension I10 Urinary tract infection N39.0 Ileus K56.7 Alcoholic cirrhosis K70.30
[2024-06-20 15:09] LABS: Glucose Point of Care 104 mg/dL (70-110)
[2024-06-20 15:11] LABS: Adenovirus Not Detected (NOT DETECT); Chlamydia Pneumoniae Not Detected (NOT DETECT); Coronavirus 229E,HKU1,NL63,OC4 Not Detected (NOT DETECT); Human Metapneumovirus Not Detected (NOT DETECT); Human Rhinovirus/Enterovirus Not Detected (NOT DETECT); Influenza A Not Detected (NOT DETECT); Influenza A H1 Not Detected (NOT DETECT); Influenza A H1-2009 Not Detected (NOT DETECT); Influenza A H3 Not Detected (NOT DETECT); Influenza B Not Detected (NOT DETECT); Mycoplasma Pneumoniae Not Detected (NOT DETECT); Parainfluenza Virus Type 1 Not Detected (NOT DETECT); Parainfluenza Virus Type 2 Not Detected (NOT DETECT); Parainfluenza Virus Type 3 Not Detected (NOT DETECT); Parainfluenza Virus Type 4 Not Detected (NOT DETECT); Respiratory Syncytial Virus A Not Detected (NOT DETECT); Respiratory Syncytial Virus B Not Detected (NOT DETECT); SARS-COV-2 Not Detected (NOT DETECT)
[2024-06-20] MEDS: metoprolol tartrate 1 mg/1 mL SDV 5 mL 5 MG IVP (15:13)
--- NOTE | 2024-06-20 15:17 | FL_ITS ---
WS: [id number] LUMBAR PUNCTURE CLINICAL INFORMATION: seizure like activity, septic shock TECHNIQUE: The patient was positioned prone and respiratory therapist was present for airway manageme nt. Informed consent: Consent was obtained by attending physician from family prior to procedure. Timeout : A timeout was performed to confirm correct patient, procedure, and site. Patient was prepped and draped in the usual sterile fashion. Lidocaine 1% was used for local anesthes ia. Utilizing fluoroscopic guidance, a 3.5 inch 22-gauge spinal needle was advanced into the subarach noid space at L3-L4 via right oblique sublaminar approach. Free flow of clear CSF was obtained. 13 cc of clear CSF was collected and sent the lab for further analysis. FLUOROSCOPIC TIME: 0min [id number] # of spot films: 1 FL/FL guided lumbarpunc dx* [id number] IMPRESSION: Fluoroscopically guided lumbar puncture. No immediate complications
[2024-06-20 16:19] LABS: Anion Gap 15.7 (5-19); Blood Urea Nitrogen 12 mg/dL (6-20); Calcium 8.5 mg/dL (8.5-10.5); Carbon Dioxide 19 mmol/L (22-29); Chloride 110 mmol/L (98-107); Creatinine Clr Calc Pharmacy 78.7337; Glomerular Filtration Rate 89.3 mL/min (90-130); Glucose 119 mg/dL (65-115); Osmolality Calculated 293 mOsm/kg (285-295); Potassium 3.7 mmol/L (3.5-5.1); Sodium 141 mmol/L (136-145)
[2024-06-20] MEDS: labetalol 5 mg/mL SDV 20mL 10 MG IVP (16:54)
[2024-06-20] MEDS: acetaminophen 500 mg Tablet PO (16:59)
--- NOTE | 2024-06-20 20:37 | P.PN_ITS ---
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 The patient was reported to have taken lactulose and stool softeners without much success. Patient was reported not to be drinking alcohol as per the . No recent fever, chest pain. The patient was reported to have experienced multiple episode of emesis a few days prior to admission. CBC unremarkabl except for thrombocytopenia, BMP unremarkable, abnormal transaminases noted ammonia level is 100. The patient was given rectal lactulose. On 06/18/2024 the patient was reported to have posturing when stimulated or with turning of the patient per nurses report. As a result noncontrast head CT was performed on 06/18/2023 and reported to revealed no acute findings. Since there was concerns for possible seizures neurology consult was obtained. On 06/19/2024 the patient underwent bedside EEG study which revealed generalized slowing. The patient was recorded for 20 minutes. No seizure activity was seen. Finding was consistent with a diffuse encephalopathic process. On 06/20/2024 I was contacted by the attending physician who informed me patient was witnessed to have some fluttering and involuntary movements and therefore repeat EEG was requested by the hospitalist. Bedside EEG was repeated while the patient was being weaned off sedation and the patient was recorded for approximately 2 hours of sedation. The EEG recording revealed generalized 4 to 6 Hz theta slowing associated with some generalized delta slowing. No subclinical seizure activity or subclinical status epilepticus was observed. The generalized slowing of the background rhythm was consistent with diffuse encephalopathic process. I recommended discontinuing IV Keppra, IV Vimpat, and fentanyl IV since fentanyl can be associated with tremors and seizures. The hospitalist stated that he will plan to attempt weaning the patient off of the ventilator over the next 24 hours. I also had a long discussion with the patient's who was at bedside regarding the patient's history. The patient's informed me that the patient had been experiencing constipation with no bowel movements for greater than 2 months. The also stated the patient has a history of alcoholic cirrhosis and history of alcohol use. But no alcohol in 8 months. Drug allergies: Aspirin which resulted in headaches Penicillins which resulted in hives Home medications: Albuterol sulfate 90 mcg per accusation 2 puffs every 6 hours as needed for shortness of breath Azelastine 2 sprays intranasally twice a day Symbicort 2 puffs twice daily Farxiga 5 mg p.o. daily Vitamin D 2 50,000 international units p.o. every week Hydroxyzine 25 mg p.o. twice daily as needed for itch Lactulose 20 g per 30 mL oral solution 45 mg p.o. 4 times daily for constipation Claritin 10 mg p.o. daily Magnesium 48 mg p.o. daily Nadolol 80 mg p.o. daily Omeprazole 20 mg p.o. daily Vitamin B complex 1 p.o. daily Past medical history: Alcoholic cirrhosis: Abnormal transaminases: Hypertension: Cirrhosis: Ileus: Urinary tract infection: Respiratory failure: Hepatic encephalopathy Habits: Patient reported to smoke Family history: Remarkable for mother with hypertension Review of Systems General: Reports: ROS unobt ainable due to end otracheal tube and ROS unobtainable due to medical con dition Vitals/I&O/Wt Last Vital Signs Temp 99.9 F H 06/20/24 19:12 Pulse 107 H 06/20/24 17:00 Resp 19 H 06/20/24 17:26 BP 155/77 06/20/24 17:00 Pulse Ox 97 06/20/24 17:26 O2 Del Method Mechanical Ventilation 06/20/24 13:14 FiO2 30 06/20/24 19:14 06/20/24 06/20/24 06/20/24 06:59 14:59 22:59 Intake Total 1315.635 / 4495.623 1109.317 / 1109.317 311.890 / 1421.207 Output Total 750 / 1050 2300 / 2300 Balance 565.635 / 3445.623 1109.317 / 1109.317 -1988.110 / -878.793 Weight last 48 hrs Weight 114 lb Weight 114 lb Physical Exam 2 Narrative: Blood pressure 155/77 heart rate 107 respirations 19 temperature 99.9 ?F O2 saturation 97% on mechanical ventilator The patient is sedated and intubated. Pupils 3 mm round reactive light and accommodation. There was no obvious facial weakness. Throat could not be assessed secondary to endotracheal tube. Motor testing revealed some intermittent tremors in the upper extremities during passive range of motion and extension of the patient's hand fingers and wrist and a few minutes following discontinuation of IV sedation with Versed and fentanyl. Tremors noted in both upper extremities. The tremors later resolved. No posturing episodes were observed during this neurological evaluation. Deep tendon reflex revealed plantar responses bilaterally. There was no clonus. Sensory examination revealed no movement to painful stimuli on her nailbeds of the fingers or toes bilaterally. Throat: Patient has endotracheal tube. Lungs revealed no obvious wheezing. Heart regular rhythm and rate. Extremities were negative for cyanosis. Urinary Catheter Management: Casanova: Cath Placed During This Visit: yes Reason for Continuing Indwelling Catheter: Accurate Measurement of Urinary Output in Critically Ill Patients Urinary Catheter Date of Insertion: 06/16/24 Urinary Catheter Time of Insertion: 18:30 Data 06/20/24 04:17 06/20/24 15:28 Micro: Microbiology 06/20/24 09:39 Gram Stain - Final Cerebrospinal Fluid A&P Assessment and plan (1) Hepatic encephalopathy: Impression: 1. Hepatic encephalopathy 2. Episodic posturing episodes witnessed by nurse and concerns for possible seizures, portable bedside EEG recordings x 2 were negative for any seizure activity but consistent with metabolic encephalopathy 3. History of alcohol cirrhosis with elevated ammonia level Plan: 1. Continue thiamine 100 mg IV every 12 hours 2. Agree with discontinuing IV Keppra, IV Vimpat 3. Recommend discontinuing fentanyl since this medication can be associated with tremors as well as seizures 4. Agree with attempting to wean patient off of Versed head and mechanical ventilation/intubation Attestations 2 Medical Necessity Statement*: The patient was evaluated by neurology for metabolic encephalopathy and to assess for subclinical status epilepticus Coding Level of Care Code 33979 Diagnoses Hepatic encephalopathy K76.82
[2024-06-20 21:07] LABS: Glucose Point of Care 128 mg/dL (70-110)
[2024-06-21] VITALS (60 sets, daily range): BP systolic 91–184; BP diastolic 24–118; PULSE 69–129; RESP 13–26; TEMP 36.7–37.6; O2SAT 91–100
--- NOTE | 2024-06-21 00:04 | PC.NURSE ---
Addendum entered by Martha Velasquez RN 06/21/24 00:06: Witnessed waste with CULLEN Brito. Original Note: Wasted Meds: Fentanyl 100ml and Versed 33ml removed from pt room and wasted w/ CULLEN Thomas.
[2024-06-21] MEDS: meropenem 1,000 mg SDV 1000 MG IVP ×3 (02:28→20:02)
[2024-06-21] MEDS: ipratropium-albuterol 3 mL Neb INHALATION ×4 (02:28→19:46)
[2024-06-21 02:37] LABS: Glucose Point of Care 125 mg/dL (70-110)
[2024-06-21] MEDS: dexmedeTOMIDine 0.9 % NaCL 400 MCG/100 ML PREMIX 7.76 MCG IV (04:47)
[2024-06-21 05:24] LABS: Basophils % 0.9 %; Eosinophils # 0.3 10^3/uL (0.0-0.8); Hematocrit 29.6 % (36-47); Lymphocytes # 1.1 10^3/uL (0.8-4.8); Lymphocytes % 24.8 %; Mean Corpuscular HGB Conc 31.4 g/dL (30-55); Mean Corpuscular Hemoglobin 28.4 pg (27-33); Mean Corpuscular Volume 90.5 fl (85-98); Mean Platelet Volume 10.3 fL (7.4-10.4); Monocytes # 0.5 10^3/uL (0.2-0.9); Monocytes % 10.6 %; Neutrophils % 57.2 %; Nucleated Red Blood Cells % 0 %; Platelet Count 92 10^3/cmm (157-399); Red Blood Count 3.27 10^6/uL (3.85-5.65); White Blood Count 4.36 10^3/uL (3.29-11.43)
[2024-06-21 05:54] LABS: Magnesium 1.6 mg/dL (1.7-2.3)
[2024-06-21 05:56] LABS: Alanine Aminotransferase 20 U/L (0-33); Albumin Level 2.9 g/dL (3.5-5.2); Alkaline Phosphatase 98 U/L (35-105); Anion Gap 12.6 (5-19); Aspartate Amino Transferase 37 U/L (0-32); Blood Urea Nitrogen 13 mg/dL (6-20); Calcium 8.5 mg/dL (8.5-10.5); Carbon Dioxide 20 mmol/L (22-29); Chloride 113 mmol/L (98-107); Globulin 2.6 g/dL (1.3-4.6); Glomerular Filtration Rate 106.7 mL/min (90-130); Glucose 138 mg/dL (65-115); Osmolality Calculated 296 mOsm/kg (285-295); Potassium 3.6 mmol/L (3.5-5.1); Sodium 142 mmol/L (136-145); Total Protein 5.5 g/dL (6.6-8.7)
--- NOTE | 2024-06-21 06:00 | XRR_ITS ---
PROCEDURE INFORMATION: Exam: XR Chest Exam date and time: 06/21/2024 5:36 AM Age: 48 years old Clinical indication: Shortness of breath; Additional info: Intubated/follow up TECHNIQUE: Imaging protocol: Radiologic exam of the chest. Views: 1 view. COMPARISON: CR (CHEST, ) 06/20/2024 5:48 AM FINDINGS: Tubes, catheters and devices: Stable right-sided PICC line. ETT 3.5 cm from the katerina. Enteric tube is stable in appearance Lungs: No focal consolidation. Pleural spaces: Unremarkable. No pleural effusion. No pneumothorax. Heart/Mediastinum: Unremarkable. No cardiomegaly. Bones/joints: No acute osseous abnormality. Organs: Status post cholecystectomy. XR/XR chest 1V portable [id number] IMPRESSION: Stable cardiopulmonary exam.
[2024-06-21 06:19] LABS: Alveolar-Arterial Oxygen Gradi 10.1 mmHg (5-10); Arterial Blood Gas Hematocrit 44.5 % (37-47); Base Excess ABG -3.3 mmol/L (-2.0-2.0); Blood Gas Allen Test Pos; Blood Gas Operator Identificat SAM; Blood Gas Sample Site Radial, right; Blood Gas Sample Type Arterial; HCO3 ABG 20.8 mmol/L (22-26); HGB O2 Sat 95.8 % (95-100); Ionized Calcium Level - ABG 1.3 mmol/L (1.1-1.4); Oxygen Device VENT; Oxygen Saturation ABG 97.8; PO2 FiO2 Ratio Arterial Blood 313; Potassium Level - ABG 3.4 mmol/L (3.5-5.0); Total Hemoglobin 14.5 g/dL (12-16)
[2024-06-21 07:51] LABS: Glucose Point of Care 148 mg/dL (70-110)
[2024-06-21 08:55] LABS: Glucose Point of Care 143 mg/dL (70-110)
[2024-06-21] MEDS: rifaximin 200 mg Tablet 600 MG PO ×2 (08:59→17:36)
[2024-06-21] MEDS: magnesium sulfate premix 1 GM/100 ML PIGGYBACK IV (08:59)
[2024-06-21] MEDS: pantoprazole 40 mg SDV IVP ×2 (09:00→17:36)
[2024-06-21] MEDS: dextrose 5%-sod chloride 0.45% 1,000 ML 50 ML IV (09:10)
--- NOTE | 2024-06-21 11:12 | PC.NURSE ---
Patient was successfully extubated at 1026. No complications occurred. Bed side swallow assessment was performed.
[2024-06-21] MEDS: lactulose oral liq 20 gm/30 mL UDC PO (11:40)
--- NOTE | 2024-06-21 12:43 | PC.NUTR ---
Pt NPO x 5 days If EN medically appropriate, recommend Jevity 1.5 beginning @ 20mls/hr, increasing as tolerated, 10 mls Q8H while monitoring electrolytes if concern for refeeding syndrome with FWF 120mls Q4H or per MD discretion, until goal rate of 40mls/hr reached.
--- NOTE | 2024-06-21 15:19 | PC.NURSE ---
Patient's blood sugar was 97 at 15:10 today. Documented on wrong person.
--- NOTE | 2024-06-21 17:09 | P.PN_ITS ---
Subjective 2 Subjective: No acute events overnight. Today morning when seen patient was on minimal sedation. Working well with pressure support. Eventually she was extubated to 2 L of oxygen supplementation. Postextubation she had episodes of anxiety and confusion. Seems fairly weak. Appropriate urine output. Vitals/I&O/Wt Last Vital Signs Temp 99.0 F 06/22/24 11:00 Pulse 107 H 06/22/24 16:00 Resp 21 H 06/22/24 16:00 BP 168/91 06/22/24 16:00 Pulse Ox 98 06/22/24 16:00 O2 Del Method Room Air 06/22/24 16:00 O2 Flow Rate 2 06/22/24 02:31 FiO2 30 06/21/24 10:00 06/22/24 06/22/24 06/22/24 06:59 14:59 22:59 Intake Total 1016.043 / 1318.583 Output Total 1200 / 4250 650 / 650 Balance -183.957 / -2931.417 -650 / -650 Weight last 48 hrs Weight 52.889 kg Weight 53.388 kg Physical Exam 2 Narrative: General: Postextubation in mild distress because of anxiety, AO x 1 to 2, anxious HEENT: PERRLA, pupils bilaterally equal and reactive Chest: Bilateral bronchial breath sounds all over lung jones with occasional rhonchi CVS: S1-S2 regular, no murmurs, no tachycardia, no gallops, no rubs Abdomen: Soft, nontender, no organomegaly, bowel sounds present Neuro: No focal deficit, AOx3, power 3/5 all limbs. Urinary Catheter Management: Casanova: Cath Placed During This Visit: yes, but has since been removed by the nurse Reason for Continuing Indwelling Catheter: Accurate Measurement of Urinary Output in Critically Ill Patients Urinary Catheter Date of Insertion: 06/16/24 Urinary Catheter Time of Insertion: 18:30 Date Urinary Catheter Removed: 06/22/24 Time Urinary Catheter Discontinued: 13:40 Data 06/22/24 03:04 06/22/24 03:04 Micro: Microbiology 06/16/24 18:06 Blood Culture - Final Blood Escherichia coli 06/20/24 09:39 Gram Stain - Final Cerebrospinal Fluid CSF Culture - Preliminary 06/16/24 18:08 Blood Culture - Final Blood NO GROWTH AFTER 5 DAYS A&P Assessment and plan (1) Hepatic encephalopathy: (2) Respiratory failure: (3) E coli bacteremia: (4) Airway compromise: (5) Acute kidney injury: (6) Transaminitis: (7) Leukocytosis: (8) Witnessed seizure-like activity: (9) Hyperbilirubinemia: (10) Hypertension: (11) Urinary tract infection: (12) Ileus: (13) Alcoholic cirrhosis: Plan Tremors/seizure-like activity: No past history of seizure disorder. With concerns of possible posturing. Appreciate neurology recommendations. EEG done on 06/19 and on 06/20 negative for seizure-like activity. Possible tremors or seizure-like activity could be in setting of adverse reaction to propofol and fentanyl in setting of liver dysfunction with concerns for serotonin like syndrome. Antiseizure medications discontinued. Respiratory failure most likely in setting of hepatic encephalopathy: Cannot rule out in setting of seizure like activity. As per nursing staff patient overnight had witnessed seizure-like activity with concerns of possible posturing. Oxygen supplementation keeping saturation over 90%. Appreciate ABG. Currently on minimal ventilator settings. Extubated 06/21. Oxygen supplementation keeping saturation over 90%. Wean accordingly. Continue with Pulmicort, DuoNeb every 6 hour Follow-up sputum culture. Physical therapy. Advance diet as per speech evaluation. Out of bed to chair. For now keep her n.p.o. given she is extubated today. Continue with aggressive pulmonary toilet with I-S. For hepatic encephalopathy continue with rifaximin mean. Change lactulose to as needed as patient is having sufficient bowel movements. Will monitor ammonia levels. Septic shock: Resolved. Source: UTI End organ damage: Acute infectious encephalopathy, acute kidney injury, seizure- like activity, respiratory failure Discontinue IV fluids as oral intake is increasing. E. coli bacteremia/leukocytosis: Unknown cause. Patient did have E. coli bacteremia on admission though was on treatment. MRSA swab negative, follow-up repeat blood cultures so far negative. Appreciate repeat urinalysis. Continue with IV meropenem for now. Will plan to finish overall 14-day course from first negative blood cultures. Last day of treatment would be on 07/02. Follow-up sensitivities. Continues to have occasional episodes of fever. Leukocytosis resolved. Repeat respiratory viral panel negative. Could be in setting of atelectasis. Continue to monitor. Appreciate lumbar puncture negative for concerns for meningitis. Meningitis bio fire panel negative. No concerns for bacterial meningitis on CSF studies though it was done while patient was on IV antibiotics. Cultures so far negative. Acute kidney injury: Resolved. Medical reconciliation done for nephrotoxic drugs. Appreciate urine lites, urine creatinine, urine eosinophils. Hypernatremia is improved. Hold off on free water flushes. Continue D5 half NS at 100 cc/h. Repeat BMP in afternoon. Monitor electrolytes. Hypernatremia: Resolved. Hypertension: Blood pressure is elevated today. Goal blood pressure less than 140/90 mmHg. Having occasional episodes of tachycardia. IV metoprolol 5 mg every 6 hour as needed for heart rate of more than 110 bpm. Continue with IV hydralazine 10 mg every 4 hours as needed for systolic of more than 160 mmHg. Transaminitis with hyperbilirubinemia: Resolved. History of alcohol liver cirrhosis. Hepatitis panel negative recently. Monitor daily. CT abdomen pelvis without contrast to rule out obstructive nephropathy, gallbladder pathology. Patient's care discussed in detail with at bedside. Analgesia: Tylenol as needed. Gabapentin 100 mg p.o. 3 times daily. If needed will add Coleman. Glycemic control: Hypoglycemia protocol. No history of diabetes. Nutrition: Advance as per speech evaluation. CODE STATUS: Full code PUD prophylaxis: Protonix DVT prophylaxis: Heparin 5000 every 12 hourly. Discharge planning: Home with caregiver with home health versus SNF depending clinical improvement and physical therapy evaluation. This documentation was created by [employer] manager data warehousing software. Every effort was made to ensure accuracy of manager data warehousing. Any obvious errors or omissions should be clarified with the author of the document. Attestations 2 Medical Necessity Statement*: Requires further hospitalization for postextubation care in a patient with respiratory failure with concerns for seizure-like activity most likely in setting of serotonin syndrome, hepatic encephalopathy, resolving HU and hypernatremia while safe discharge planning is sought Critical Care Time: The high probability of a clinically significant, sudden or life threatening deterioration of the patient's [pulmonary, renal, neurology] system(s) required my full and direct attention, intervention and personal management. The critical care time is as shown. This time is in addition to time spent performing any reported procedures but includes the following: [x] Data and vital sign review and interpretation [x] Patient assessment, examination and intervention [x] Documentation [x] Medication orders and management Critical Care Time (min): 90 Coding Level of Care Code Critical Care >/= 30 minutes Critical care time (in minutes): 90 The high probability of a clinically significant, sudden or life threatening deterioration, as referenced in this documentation, required my full and direct attention, intervention and personal management. The critical care time shown is in addition to time spent performing any reported separately billable procedures and includes the following: [x] Data and vital sign review and interpretation [x ] Patient assessment, examination and intervention [x] Medication orders and management [x] Patient/Family updates as able [x] Care Coordination and Documentation. Other Coding Information This patient has a high probability of clinically significant, sudden or life threatening deterioration of the patient's (neurological/pulmonary/cardiac/renal/ID/endocrine) systems required my full, direct attention, the highest level of physician preparedness for urgent intervention and personal management. I managed/supervised life or organ supporting interventions that required frequent physician assessment. I devoted my full attention in the ICU to the direct care of this patient for the period of time indicated above. Time I spent with family or surrogate(s) is included only if the patient was incapable of providing necessary information or participating in decision making. This time includes the following services provided: Telemetry review Mechanical Ventilation Hemodynamic interpretation, assessment and management Review and interpretation of CXR Review and interpretation of lab values Review and interpretation of microbiologic data and culture results Review of medications and administration Review and interpretation of Nutrition requirements and management Discussion of management with other consultants and services Clinical update to family members Diagnoses Hepatic encephalopathy K76.82 Respiratory failure J96.90 E coli bacteremia R78.81; B96.20 Airway compromise J98.8 Acute kidney injury N17.9 Transaminitis R74.01 Leukocytosis D72.829 Witnessed seizure-like activity R56.9 Hyperbilirubinemia E80.6 Hypertension I10 Urinary tract infection N39.0 Ileus K56.7 Alcoholic cirrhosis K70.30
--- NOTE | 2024-06-21 17:18 | PC.SLP ---
Attempted to see this px for INSTRUMENT STERILIZER evaluation. Patient did successfully drink 2 sips of regular water with no s/s of aspiration. Patient then stated she was in too much pain and was too sad to eat/drink. Patient is requesting pain meds and to see her . She was agitated and not wanting evaluation at this time.
[2024-06-21] MEDS: morphine 4 mg/mL SDV 1 mL 1 MG IVP (17:36)
[2024-06-21] MEDS: hyDRALAzine 20 mg/mL INJ 1 mL 10 MG IVP (17:55)
[2024-06-21 18:04] LABS: Glucose Point of Care 102 mg/dL (70-110)
[2024-06-21 21:32] LABS: Glucose Point of Care 112 mg/dL (70-110)
[2024-06-21] MEDS: dexmedeTOMIDine 0.9 % NaCL 400 MCG/100 ML PREMIX IV (22:23)
[2024-06-22] VITALS (45 sets, daily range): BP systolic 131–186; BP diastolic 63–118; PULSE 73–121; RESP 17–26; TEMP 37.1–37.7; O2SAT 90–100
[2024-06-22] MEDS: ipratropium-albuterol 3 mL Neb INHALATION ×3 (02:31→13:17)
[2024-06-22] MEDS: meropenem 1,000 mg SDV 1000 MG IVP ×3 (03:06→20:41)
[2024-06-22 03:21] LABS: Glucose Point of Care 115 mg/dL (70-110)
[2024-06-22 03:32] LABS: Basophils % 0.6 %; Eosinophils # 0.2 10^3/uL (0.0-0.8); Eosinophils % 7.3 %; Hematocrit 28.7 % (36-47); Lymphocytes # 0.9 10^3/uL (0.8-4.8); Lymphocytes % 25.7 %; Mean Corpuscular HGB Conc 32.4 g/dL (30-55); Mean Corpuscular Hemoglobin 28.6 pg (27-33); Mean Corpuscular Volume 88.3 fl (85-98); Mean Platelet Volume 10.1 fL (7.4-10.4); Monocytes # 0.2 10^3/uL (0.2-0.9); Monocytes % 6.9 %; Neutrophils # 1.96 10^3/uL (1.8-7.7); Neutrophils % 59.2 %; Nucleated Red Blood Cells % 0 %; Platelet Count 76 10^3/cmm (157-399); Red Blood Count 3.25 10^6/uL (3.85-5.65); Red Cell Distribution Width 13.4 % (12.1-15.1); White Blood Count 3.31 10^3/uL (3.29-11.43)
[2024-06-22 03:49] LABS: Magnesium 1.6 mg/dL (1.7-2.3)
[2024-06-22 03:50] LABS: Alanine Aminotransferase 21 U/L (0-33); Albumin Level 3.3 g/dL (3.5-5.2); Alkaline Phosphatase 97 U/L (35-105); Anion Gap 14.4 (5-19); Aspartate Amino Transferase 34 U/L (0-32); Blood Urea Nitrogen 11 mg/dL (6-20); Calcium 8.8 mg/dL (8.5-10.5); Carbon Dioxide 20 mmol/L (22-29); Chloride 112 mmol/L (98-107); Globulin 2.5 g/dL (1.3-4.6); Glomerular Filtration Rate 106.7 mL/min (90-130); Glucose 124 mg/dL (65-115); Osmolality Calculated 297 mOsm/kg (285-295); Potassium 3.4 mmol/L (3.5-5.1); Sodium 143 mmol/L (136-145); Total Protein 5.8 g/dL (6.6-8.7)
[2024-06-22 05:51] LABS: Glucose Point of Care 107 mg/dL (70-110)
[2024-06-22] MEDS: dextrose 5%-sod chloride 0.45% 1,000 ML 50 ML IV (06:23)
[2024-06-22] MEDS: lanolin oint 7 gm 1 APPLIC TOPICAL (06:26)
[2024-06-22] MEDS: pantoprazole 40 mg SDV IVP ×2 (08:39→17:11)
[2024-06-22] MEDS: hyDRALAzine 20 mg/mL INJ 1 mL 10 MG IVP ×3 (08:50→22:33)
[2024-06-22] MEDS: rifaximin 200 mg Tablet 600 MG PO ×2 (09:23→19:04)
[2024-06-22] MEDS: metoprolol tartrate 1 mg/1 mL SDV 5 mL 5 MG IVP ×2 (10:13→17:11)
[2024-06-22] MEDS: acetaminophen 500 mg Tablet PO (10:14)
[2024-06-22 11:09] LABS: Glucose Point of Care 121 mg/dL (70-110)
[2024-06-22 11:24] LABS: Levetiracetam Immunoassy 39.6 mcg/mL (6.0-46.0)
[2024-06-22] MEDS: magnesium sulfate premix 1 GM/100 ML PIGGYBACK IV (11:48)
[2024-06-22] MEDS: gabapentin 100 mg Capsule PO ×2 (15:13→20:36)
[2024-06-22 15:23] LABS: Glucose Point of Care 83 mg/dL (70-110)
--- NOTE | 2024-06-22 16:56 | P.PN_ITS ---
Subjective 2 Subjective: No acute vents overnight. Patient continues to do better. She yesterday morning seen sitting up in chair. Worked well with physical therapy. More awake and alert. Complaining of occasional anxiety. Denies any nausea, ting, headache. Appropriate urine output. Vitals/I&O/Wt Last Vital Signs Temp 99.0 F 06/22/24 11:00 Pulse 107 H 06/22/24 16:00 Resp 21 H 06/22/24 16:00 BP 168/91 06/22/24 16:00 Pulse Ox 98 06/22/24 16:00 O2 Del Method Room Air 06/22/24 16:00 O2 Flow Rate 2 06/22/24 02:31 FiO2 30 06/21/24 10:00 06/22/24 06/22/24 06/22/24 06:59 14:59 22:59 Intake Total 1016.043 / 1318.583 Output Total 1200 / 4250 650 / 650 Balance -183.957 / -2931.417 -650 / -650 Weight last 48 hrs Weight 52.889 kg Weight 53.388 kg Physical Exam 2 Narrative: General: No acute distress, AO x 3, anxious HEENT: PERRLA, pupils bilaterally equal and reactive Chest: Bilateral bronchial breath sounds all over lung jones with occasional rhonchi CVS: S1-S2 regular, no murmurs, no tachycardia, no gallops, no rubs Abdomen: Soft, nontender, no organomegaly, bowel sounds present Neuro: No focal deficit, AOx3, power 3/5 all limbs. Urinary Catheter Management: Casanova: Cath Placed During This Visit: yes, but has since been removed by the nurse Reason for Continuing Indwelling Catheter: Accurate Measurement of Urinary Output in Critically Ill Patients Urinary Catheter Date of Insertion: 06/16/24 Urinary Catheter Time of Insertion: 18:30 Date Urinary Catheter Removed: 06/22/24 Time Urinary Catheter Discontinued: 13:40 Data 06/22/24 03:04 06/22/24 03:04 Micro: Microbiology 06/16/24 18:06 Blood Culture - Final Blood Escherichia coli 06/20/24 09:39 Gram Stain - Final Cerebrospinal Fluid CSF Culture - Preliminary 06/16/24 18:08 Blood Culture - Final Blood NO GROWTH AFTER 5 DAYS A&P Assessment and plan (1) Hepatic encephalopathy: (2) Respiratory failure: (3) E coli bacteremia: (4) Airway compromise: (5) Acute kidney injury: (6) Transaminitis: (7) Leukocytosis: (8) Witnessed seizure-like activity: (9) Hyperbilirubinemia: (10) Hypertension: (11) Urinary tract infection: (12) Ileus: (13) Alcoholic cirrhosis: Plan Tremors/seizure-like activity: No past history of seizure disorder. With concerns of possible posturing. Appreciate neurology recommendations. EEG done on 06/19 and on 06/20 negative for seizure-like activity. Possible tremors or seizure-like activity could be in setting of adverse reaction to propofol and fentanyl in setting of liver dysfunction with concerns for serotonin like syndrome. Antiseizure medications discontinued. Respiratory failure most likely in setting of hepatic encephalopathy: Cannot rule out in setting of seizure like activity. As per nursing staff patient overnight had witnessed seizure-like activity with concerns of possible posturing. Oxygen supplementation keeping saturation over 90%. Appreciate ABG. Currently on minimal ventilator settings. Extubated 06/21. Oxygen supplementation keeping saturation over 90%. Wean accordingly. Discontinue Pulmicort and make DuoNeb as needed. Follow-up sputum culture. Physical therapy. Advance diet as per speech evaluation. Out of bed to chair. Continue with aggressive pulmonary toilet with I-S. For hepatic encephalopathy continue with rifaximin mean. Change lactulose to as needed as patient is having sufficient bowel movements. Will monitor ammonia levels. Septic shock: Resolved. Source: UTI End organ damage: Acute infectious encephalopathy, acute kidney injury, seizure- like activity, respiratory failure Discontinue IV fluids as oral intake is increasing. E. coli bacteremia/leukocytosis: Unknown cause. Patient did have E. coli bacteremia on admission though was on treatment. MRSA swab negative, follow-up repeat blood cultures so far negative. Appreciate repeat urinalysis. Continue with IV meropenem for now. Will plan to finish overall 14-day course from first negative blood cultures. Last day of treatment would be on 07/02. Appreciate sensitivities. Can plan to transition over to oral Levaquin in next 24 to 48 hours if renal function remains stable. Continues to have occasional episodes of fever. Leukocytosis resolved. Repeat respiratory viral panel negative. Could be in setting of atelectasis. Continue to monitor. Appreciate lumbar puncture negative for concerns for meningitis. Meningitis bio fire panel negative. No concerns for bacterial meningitis on CSF studies though it was done while patient was on IV antibiotics. Cultures so far negative. Acute kidney injury: Resolved. Medical reconciliation done for nephrotoxic drugs. Appreciate urine lites, urine creatinine, urine eosinophils. Urine output improved after Lasix. Continue with free water flushes. Changed to every 8 hours. Change D5 half NS at 50 cc/h Repeat BMP in afternoon. Monitor electrolytes. Hypernatremia: Resolved. Change free water flush 250 cc every 8 hour. IV fluid as above. Repeat BMP in afternoon. Hypertension: Blood pressure is elevated today. Goal blood pressure less than 140/90 mmHg. Patient is able to take orally now. Start on metoprolol 25 mg twice daily. If blood pressures remain elevated will plan to add amlodipine versus losartan. Xanax 0.5 3 times daily as needed for anxiety. IV hydralazine 10 mg every 4 hours as needed for systolic of more than 160 mmHg. Transaminitis with hyperbilirubinemia: Resolved. History of alcohol liver cirrhosis. Hepatitis panel negative recently. Monitor daily. CT abdomen pelvis without contrast to rule out obstructive nephropathy, gallbladder pathology. Patient's care discussed in detail with at bedside. Analgesia: Tylenol as needed. Gabapentin 100 mg p.o. 3 times daily. If needed will add [place]. Glycemic control: Hypoglycemia protocol. No history of diabetes. Nutrition: Advance as per speech evaluation. CODE STATUS: Full code PUD prophylaxis: Protonix DVT prophylaxis: Heparin 5000 every 12 hourly. Discharge planning: Home with caregiver with home health versus SNF depending clinical improvement and physical therapy evaluation. Transfer to [facility] floor. This documentation was created by [employer] electrical electronics engineer software. Every effort was made to ensure accuracy of electrical electronics engineer. Any obvious errors or omissions should be clarified with the author of the document. Attestations 2 Medical Necessity Statement*: Requires further hospitalization for management of tremor/seizure-like activity in setting of possible serotonin syndrome, respiratory failure postextubation as safe discharge plan is sought Diagnoses Hepatic encephalopathy K76.82 Respiratory failure J96.90 E coli bacteremia R78.81; B96.20 Airway compromise J98.8 Acute kidney injury N17.9 Transaminitis R74.01 Leukocytosis D72.829 Witnessed seizure-like activity R56.9 Hyperbilirubinemia E80.6 Hypertension I10 Urinary tract infection N39.0 Ileus K56.7 Alcoholic cirrhosis K70.30
[2024-06-22] MEDS: heparin 5,000 unit/mL INJ 1 mL 5000 UNIT SUBCUT (18:54)
[2024-06-22] MEDS: metoprolol tartrate 25 mg Tablet PO (20:35)
[2024-06-22 22:07] LABS: Glucose Point of Care 138 mg/dL (70-110)
[2024-06-22] MEDS: ALPRAZolam 0.5 mg Tablet PO (23:21)
[2024-06-23] VITALS (9 sets, daily range): BP systolic 121–162; BP diastolic 62–95; PULSE 74–92; RESP 16–19; TEMP 36.7–37; O2SAT 94–99
[2024-06-23 02:07] LABS: Glucose Point of Care 167 mg/dL (70-110)
[2024-06-23 05:03] LABS: Basophils # 0.1 10^3/uL (0.0-0.1); Basophils % 0.7 %; Eosinophils # 0.5 10^3/uL (0.0-0.8); Eosinophils % 7.1 %; Hematocrit 34.8 % (36-47); Lymphocytes # 1.5 10^3/uL (0.8-4.8); Lymphocytes % 21.1 %; Mean Corpuscular HGB Conc 31.6 g/dL (30-55); Mean Corpuscular Hemoglobin 27.7 pg (27-33); Mean Corpuscular Volume 87.7 fl (85-98); Mean Platelet Volume 10.1 fL (7.4-10.4); Monocytes # 0.6 10^3/uL (0.2-0.9); Monocytes % 8.7 %; Neutrophils # 4.43 10^3/uL (1.8-7.7); Nucleated Red Blood Cells % 0 %; Platelet Count 129 10^3/cmm (157-399); Red Blood Count 3.97 10^6/uL (3.85-5.65); Red Cell Distribution Width 13.6 % (12.1-15.1); White Blood Count 7.15 10^3/uL (3.29-11.43)
[2024-06-23 05:18] LABS: Alanine Aminotransferase 25 U/L (0-33); Albumin Level 3.5 g/dL (3.5-5.2); Alkaline Phosphatase 109 U/L (35-105); Anion Gap 13.4 (5-19); Aspartate Amino Transferase 39 U/L (0-32); Blood Urea Nitrogen 10 mg/dL (6-20); Calcium 9.5 mg/dL (8.5-10.5); Carbon Dioxide 18 mmol/L (22-29); Chloride 109 mmol/L (98-107); Creatinine Clr Calc Pharmacy 98.2272; Globulin 3.4 g/dL (1.3-4.6); Glomerular Filtration Rate 106.7 mL/min (90-130); Glucose 113 mg/dL (65-115); Osmolality Calculated 284 mOsm/kg (285-295); Potassium 3.4 mmol/L (3.5-5.1); Sodium 137 mmol/L (136-145); Total Bilirubin 0.9 mg/dL (0.15-1.2); Total Protein 6.9 g/dL (6.6-8.7)
[2024-06-23] MEDS: heparin 5,000 unit/mL INJ 1 mL 5000 UNIT SUBCUT ×2 (05:39→17:23)
[2024-06-23] MEDS: meropenem 1,000 mg SDV 1000 MG IVP ×3 (05:39→21:10)
[2024-06-23 06:52] LABS: Glucose Point of Care 125 mg/dL (70-110)
[2024-06-23 07:29] LABS: Glucose Point of Care 190 mg/dL (70-110)
[2024-06-23] MEDS: dextrose 5%-sod chloride 0.45% 1,000 ML 50 ML IV (09:38)
[2024-06-23] MEDS: pantoprazole 40 mg SDV IVP ×2 (09:38→17:22)
[2024-06-23] MEDS: rifaximin 200 mg Tablet 600 MG PO ×2 (09:38→17:22)
[2024-06-23] MEDS: gabapentin 100 mg Capsule PO ×3 (09:38→21:10)
[2024-06-23] MEDS: metoprolol tartrate 25 mg Tablet PO ×2 (09:38→21:11)
[2024-06-23 09:51] LABS: Glucose Point of Care 211 mg/dL (70-110)
--- NOTE | 2024-06-23 14:34 | PM.PN ---
Subjective Subjective: No acute events overnight. Has remained hemodynamically stable and afebrile. Today morning states she is slightly concerned that she has not had a bowel movement today and usually she supposed to have lactulose 4 times a day given her stage IV liver dysfunction. Blood pressure slightly elevated. Otherwise denies any new complaints. Walking around in the room with and without walker. Vitals/I&O/Wt Last Vital Signs Temp 98.6 F 06/23/24 12:10 Pulse 74 06/23/24 12:10 Resp 18 06/23/24 10:00 BP 150/88 06/23/24 12:10 Pulse Ox 98 06/23/24 12:10 O2 Del Method Room Air 06/23/24 12:10 O2 Flow Rate 2 06/22/24 02:31 FiO2 30 06/21/24 10:00 06/22/24 06/23/24 06/23/24 22:59 06:59 14:59 Intake Total 766.667 / 766.667 843.333 / 843.333 Output Total 500 / 1150 Balance 266.667 / -383.333 843.333 / 843.333 Weight last 48 hrs Weight 60.509 kg Weight 52.889 kg Physical Exam Narrative: General: No acute distress, AO x 3 plan for the day: HEENT: PERRLA, pupils bilaterally equal and reactive Chest: Bilateral bronchial breath sounds all over lung jones with occasional rhonchi CVS: S1-S2 regular, no murmurs, no tachycardia, no gallops, no rubs Abdomen: Soft, nontender, no organomegaly, bowel sounds present Neuro: No focal deficit, AOx3, power 3/5 all limbs. Urinary Catheter Management: Casanova: Cath Placed During This Visit: yes, but has since been removed by the nurse Reason for Continuing Indwelling Catheter: Accurate Measurement of Urinary Output in Critically Ill Patients Urinary Catheter Date of Insertion: 06/16/24 Urinary Catheter Time of Insertion: 18:30 Date Urinary Catheter Removed: 06/22/24 Time Urinary Catheter Discontinued: 13:40 Data 06/23/24 04:38 06/23/24 04:38 Micro: Microbiology 06/20/24 09:39 Gram Stain - Final Cerebrospinal Fluid CSF Culture - Final 06/18/24 11:47 Blood Culture - Final Blood NO GROWTH AFTER 5 DAYS 06/18/24 11:45 Blood Culture - Final Blood NO GROWTH AFTER 5 DAYS 06/16/24 18:06 Blood Culture - Final Blood Escherichia coli A&P Assessment and plan (1) Hepatic encephalopathy: (2) Respiratory failure: (3) E coli bacteremia: (4) Airway compromise: (5) Acute kidney injury: (6) Transaminitis: (7) Leukocytosis: (8) Witnessed seizure-like activity: (9) Hyperbilirubinemia: (10) Hypertension: (11) Urinary tract infection: (12) Ileus: (13) Alcoholic cirrhosis: Plan Tremors/seizure-like activity: No past history of seizure disorder. With concerns of possible posturing. Appreciate neurology recommendations. EEG done on 06/19 and on 06/20 negative for seizure-like activity. Possible tremors or seizure-like activity could be in setting of adverse reaction to propofol and fentanyl in setting of liver dysfunction with concerns for serotonin like syndrome. Antiseizure medications discontinued. Respiratory failure most likely in setting of hepatic encephalopathy: Cannot rule out in setting of seizure like activity. As per nursing staff patient overnight had witnessed seizure-like activity with concerns of possible posturing. Oxygen supplementation keeping saturation over 90%. Appreciate ABG. Currently on minimal ventilator settings. Extubated 06/21. Oxygen supplementation keeping saturation over 90%. Wean accordingly. Continue with Pulmicort, DuoNeb every 6 hour Follow-up sputum culture. Physical therapy. Advance diet as per speech evaluation. Out of bed to chair. For now keep her n.p.o. given she is extubated today. Continue with aggressive pulmonary toilet with I-S. For hepatic encephalopathy continue with rifaximin mean. Change lactulose to as needed as patient is having sufficient bowel movements. Will monitor ammonia levels. Septic shock: Resolved. Source: UTI End organ damage: Acute infectious encephalopathy, acute kidney injury, seizure-like activity, respiratory failure Discontinue IV fluids as oral intake is increasing. E. coli bacteremia/leukocytosis: Unknown cause. Patient did have E. coli bacteremia on admission though was on treatment. MRSA swab negative, follow-up repeat blood cultures so far negative. Appreciate repeat urinalysis. Continue with IV meropenem for now. Will plan to finish overall 14-day course from first negative blood cultures. Last day of treatment would be on 07/02. Follow-up sensitivities. Continues to have occasional episodes of fever. Leukocytosis resolved. Repeat respiratory viral panel negative. Could be in setting of atelectasis. Continue to monitor. Appreciate lumbar puncture negative for concerns for meningitis. Meningitis bio fire panel negative. No concerns for bacterial meningitis on CSF studies though it was done while patient was on IV antibiotics. Cultures so far negative. Acute kidney injury: Resolved. Medical reconciliation done for nephrotoxic drugs. Appreciate urine lites, urine creatinine, urine eosinophils. Hypernatremia is improved. Hold off on free water flushes. Continue D5 half NS at 100 cc/h. Repeat BMP in afternoon. Monitor electrolytes. Hypernatremia: Resolved. Hypertension: Blood pressure is elevated today. Goal blood pressure less than 140/90 mmHg. Having occasional episodes of tachycardia. IV metoprolol 5 mg every 6 hour as needed for heart rate of more than 110 bpm. Continue with IV hydralazine 10 mg every 4 hours as needed for systolic of more than 160 mmHg. Transaminitis with hyperbilirubinemia: Resolved. History of alcohol liver cirrhosis. Hepatitis panel negative recently. Monitor daily. CT abdomen pelvis without contrast to rule out obstructive nephropathy, gallbladder pathology. Patient's care discussed in detail with at bedside. Analgesia: Tylenol as needed. Gabapentin 100 mg p.o. 3 times daily. If needed will add [place]. Glycemic control: Hypoglycemia protocol. No history of diabetes. Nutrition: Advance as per speech evaluation. CODE STATUS: Full code PUD prophylaxis: Protonix DVT prophylaxis: Heparin 5000 every 12 hourly. Discharge planning: Home with caregiver with home health versus SNF depending clinical improvement and physical therapy evaluation. Plan for the day: Restart lactulose 20 mg twice daily. Will increase the dose making sure patient has at least 2 bowel movements a day. Discontinue IV fluids. Patient eating well. Monitor BMP daily. Repeat blood culture from 105 so far negative. Will continue treatment for E. coli bacteremia until 06/30 which will be 14 days from first negative blood culture. Most likely can transition to oral Levaquin on discharge to complete the course. For now we will continue with IV meropenem. Goal blood pressure less than 140/90 mmHg. Continue with metoprolol 25 mg twice daily. Patient takes nadolol 80 mg daily at home. Currently not on nadolol as medication not available on formulary. Add amlodipine 5 mg oral daily. Uptitrate as per goal blood pressures. Continue with physical therapy. This documentation was created by [employer] electric[employer] marine software. Every effort was made to ensure accuracy of electrician marine. Any obvious errors or omissions should be clarified with the author of the document. Attestations Medical Necessity Statement*: Requires further hospitalization for management of altered mental status in setting of hepatic encephalopathy while safe discharge planning is sought in a patient whose hospitalization was complicated by respiratory failure with concerns for tremors due to serotonin syndrome, HU Diagnoses Hepatic encephalopathy K76.82 Respiratory failure J96.90 E coli bacteremia R78.81; B96.20 Airway compromise J98.8 Acute kidney injury N17.9 Transaminitis R74.01 Leukocytosis D72.829 Witnessed seizure-like activity R56.9 Hyperbilirubinemia E80.6 Hypertension I10 Urinary tract infection N39.0 Ileus K56.7 Alcoholic cirrhosis K70.30
[2024-06-23] MEDS: amlodipine 5 mg Tablet PO (14:58)
[2024-06-23 16:45] LABS: Glucose Point of Care 90 mg/dL (70-110)
[2024-06-23] MEDS: lactulose oral liq 20 gm/30 mL UDC PO (17:22)
[2024-06-23] MEDS: trazodone 50 mg Tablet 25 MG PO (21:10)
[2024-06-23 21:46] LABS: Glucose Point of Care 173 mg/dL (70-110)
[2024-06-23] MEDS: cetylpyridinium Lozenge 1 EACH MUCOUS MEM (22:53)
[2024-06-24] VITALS (9 sets, daily range): BP systolic 132–174; BP diastolic 69–114; PULSE 76–93; RESP 16–19; TEMP 36.8–37; O2SAT 96–99
[2024-06-24] MEDS: cetylpyridinium Lozenge 1 EACH MUCOUS MEM (01:44)
[2024-06-24 02:06] LABS: Glucose Point of Care 130 mg/dL (70-110)
--- NOTE | 2024-06-24 04:58 | PC.NURSE ---
patient piic line dressing was soiled with standing blood from insertion. dressing changed with line dressing kit, [place] and redressed. patient tolerated well
[2024-06-24 05:49] LABS: Alanine Aminotransferase 36 U/L (0-33); Albumin Level 3.5 g/dL (3.5-5.2); Alkaline Phosphatase 123 U/L (35-105); Anion Gap 12.4 (5-19); Aspartate Amino Transferase 53 U/L (0-32); Blood Urea Nitrogen 11 mg/dL (6-20); Calcium 9.2 mg/dL (8.5-10.5); Carbon Dioxide 20 mmol/L (22-29); Chloride 109 mmol/L (98-107); Creatinine Clr Calc Pharmacy 84.1947; Globulin 3.1 g/dL (1.3-4.6); Glomerular Filtration Rate 89.3 mL/min (90-130); Glucose 121 mg/dL (65-115); Osmolality Calculated 287 mOsm/kg (285-295); Potassium 3.4 mmol/L (3.5-5.1); Sodium 138 mmol/L (136-145); Total Bilirubin 0.7 mg/dL (0.15-1.2); Total Protein 6.6 g/dL (6.6-8.7)
[2024-06-24 05:53] LABS: Magnesium 1.8 mg/dL (1.7-2.3)
[2024-06-24 06:23] LABS: Glucose Point of Care 121 mg/dL (70-110)
--- NOTE | 2024-06-24 07:20 | PC.NURSE ---
500am Meropenem and Heparin pulled from pyxus, but not scanned/saved in AUG. Pt states that she did in fact receive both medications from [facility].
[2024-06-24] MEDS: amlodipine 5 mg Tablet PO (09:25)
[2024-06-24] MEDS: ALPRAZolam 0.5 mg Tablet PO ×2 (09:25→20:55)
[2024-06-24] MEDS: lactulose oral liq 20 gm/30 mL UDC PO ×4 (09:25→20:55)
[2024-06-24] MEDS: pantoprazole 40 mg SDV IVP ×2 (09:25→17:43)
[2024-06-24] MEDS: gabapentin 100 mg Capsule PO ×3 (09:25→20:55)
[2024-06-24] MEDS: rifaximin 200 mg Tablet 600 MG PO (09:25)
[2024-06-24] MEDS: metoprolol tartrate 25 mg Tablet PO ×2 (09:31→20:56)
[2024-06-24 11:38] LABS: Glucose Point of Care 164 mg/dL (70-110)
[2024-06-24] MEDS: meropenem 1,000 mg SDV 1000 MG IVP (12:46)
--- NOTE | 2024-06-24 13:38 | PM.PN ---
Subjective Subjective: No acute events overnight. States she is feeling a lot better. Denies any nausea, vomiting, headache. States she still has not had a bowel movement. Admitted for hepatic encephalopathy. Denies any nausea or vomiting. Appetite is good. Vitals/I&O/Wt Last Vital Signs Temp 98.2 F 06/24/24 11:56 Pulse 76 06/24/24 11:56 Resp 16 06/24/24 09:50 BP 174/102 06/24/24 11:56 Pulse Ox 99 06/24/24 11:56 O2 Del Method Room Air 06/24/24 09:50 O2 Flow Rate 2 06/22/24 02:31 FiO2 30 06/21/24 10:00 06/23/24 06/24/24 06/24/24 22:59 06:59 14:59 Intake Total 788.333 / 1631.666 400 / 2031.666 720 / 720 Balance 788.333 / 1631.666 400 / 2031.666 720 / 720 Weight last 48 hrs Weight 60.509 kg Weight 60.509 kg Physical Exam Narrative: General: No acute distress, AO x 3 HEENT: PERRLA, pupils bilaterally equal and reactive Chest: Bilateral bronchial breath sounds all over lung jones with occasional rhonchi CVS: S1-S2 regular, no murmurs, no tachycardia, no gallops, no rubs Abdomen: Soft, nontender, no organomegaly, bowel sounds present Neuro: No focal deficit, AOx3, power 3/5 all limbs. Urinary Catheter Management: Casanova: Cath Placed During This Visit: yes, but has since been removed by the nurse Reason for Continuing Indwelling Catheter: Accurate Measurement of Urinary Output in Critically Ill Patients Urinary Catheter Date of Insertion: 06/16/24 Urinary Catheter Time of Insertion: 18:30 Date Urinary Catheter Removed: 06/22/24 Time Urinary Catheter Discontinued: 13:40 Data 06/23/24 04:38 06/24/24 04:40 Micro: Microbiology 06/20/24 09:39 Gram Stain - Final Cerebrospinal Fluid CSF Culture - Final 06/18/24 11:47 Blood Culture - Final Blood NO GROWTH AFTER 5 DAYS 06/18/24 11:45 Blood Culture - Final Blood NO GROWTH AFTER 5 DAYS A&P Assessment and plan (1) Hepatic encephalopathy: (2) Respiratory failure: (3) E coli bacteremia: (4) Airway compromise: (5) Acute kidney injury: (6) Transaminitis: (7) Leukocytosis: (8) Witnessed seizure-like activity: (9) Hyperbilirubinemia: (10) Hypertension: (11) Urinary tract infection: (12) Ileus: (13) Alcoholic cirrhosis: Plan Tremors/seizure-like activity: No past history of seizure disorder. With concerns of possible posturing. Appreciate neurology recommendations. EEG done on 06/19 and on 06/20 negative for seizure-like activity. Possible tremors or seizure-like activity could be in setting of adverse reaction to propofol and fentanyl in setting of liver dysfunction with concerns for serotonin like syndrome. Antiseizure medications discontinued. Respiratory failure most likely in setting of hepatic encephalopathy: Cannot rule out in setting of seizure like activity. As per nursing staff patient overnight had witnessed seizure-like activity with concerns of possible posturing. Oxygen supplementation keeping saturation over 90%. Appreciate ABG. Currently on minimal ventilator settings. Extubated 06/21. Oxygen supplementation keeping saturation over 90%. Wean accordingly. Continue with Pulmicort, DuoNeb every 6 hour Follow-up sputum culture. Physical therapy. Advance diet as per speech evaluation. Out of bed to chair. For now keep her n.p.o. given she is extubated today. Continue with aggressive pulmonary toilet with I-S. For hepatic encephalopathy continue with rifaximin mean. Change lactulose to as needed as patient is having sufficient bowel movements. Will monitor ammonia levels. Septic shock: Resolved. Source: UTI End organ damage: Acute infectious encephalopathy, acute kidney injury, seizure-like activity, respiratory failure Discontinue IV fluids as oral intake is increasing. E. coli bacteremia/leukocytosis: Unknown cause. Patient did have E. coli bacteremia on admission though was on treatment. MRSA swab negative, follow-up repeat blood cultures so far negative. Appreciate repeat urinalysis. Continue with IV meropenem for now. Will plan to finish overall 14-day course from first negative blood cultures. Last day of treatment would be on 07/02. Follow-up sensitivities. Continues to have occasional episodes of fever. Leukocytosis resolved. Repeat respiratory viral panel negative. Could be in setting of atelectasis. Continue to monitor. Appreciate lumbar puncture negative for concerns for meningitis. Meningitis bio fire panel negative. No concerns for bacterial meningitis on CSF studies though it was done while patient was on IV antibiotics. Cultures so far negative. Acute kidney injury: Resolved. Medical reconciliation done for nephrotoxic drugs. Appreciate urine lites, urine creatinine, urine eosinophils. Hypernatremia is improved. Hold off on free water flushes. Continue D5 half NS at 100 cc/h. Repeat BMP in afternoon. Monitor electrolytes. Hypernatremia: Resolved. Hypertension: Blood pressure is elevated today. Goal blood pressure less than 140/90 mmHg. Having occasional episodes of tachycardia. IV metoprolol 5 mg every 6 hour as needed for heart rate of more than 110 bpm. Continue with IV hydralazine 10 mg every 4 hours as needed for systolic of more than 160 mmHg. Transaminitis with hyperbilirubinemia: Resolved. History of alcohol liver cirrhosis. Hepatitis panel negative recently. Monitor daily. CT abdomen pelvis without contrast to rule out obstructive nephropathy, gallbladder pathology. Patient's care discussed in detail with at bedside. Analgesia: Tylenol as needed. Gabapentin 100 mg p.o. 3 times daily. If needed will add [place]. Glycemic control: Hypoglycemia protocol. No history of diabetes. Nutrition: Advance as per speech evaluation. CODE STATUS: Full code PUD prophylaxis: Protonix DVT prophylaxis: Heparin 5000 every 12 hourly. Plan for the day: Patient have not had a bowel movement over last 24 hours. Increase lactulose to 20 mg 4 times daily. Continue with rifaximin mean. Mentation has remained stable. Increase diet as per speech evaluation. Continue to monitor BMP daily. Continue with IV meropenem in setting of E. coli bacteremia. Last dose on 06/30. Blood pressure slightly elevated. Goal blood pressure less than 140/90 mmHg. Continue with metoprolol 25 mg twice daily. Add amlodipine 5 mg. Patient takes nadolol 80 mg at home. Nodalol not present on formulary. Replace potassium 40 mg orally. Discharge plan: Most likely can discharge back home with home health within next 24 hours if remains hemodynamically stable and afebrile. This documentation was created by [employer] mortgage underwriter software. Every effort was made to ensure accuracy of mortgage underwriter. Any obvious errors or omissions should be clarified with the author of the document. Attestations Medical Necessity Statement*: Requires further hospitalization for management of recovering sepsis in setting of E. coli bacteremia, respiratory failure postextubation patient was initially admitted for hepatic encephalopathy while safe discharge planning is sought Diagnoses Hepatic encephalopathy K76.82 Respiratory failure J96.90 E coli bacteremia R78.81; B96.20 Airway compromise J98.8 Acute kidney injury N17.9 Transaminitis R74.01 Leukocytosis D72.829 Witnessed seizure-like activity R56.9 Hyperbilirubinemia E80.6 Hypertension I10 Urinary tract infection N39.0 Ileus K56.7 Alcoholic cirrhosis K70.30
[2024-06-24] MEDS: levoFLOXacin 750 mg Tablet PO (14:17)
[2024-06-24] MEDS: potassium chloride ER 20 mEq Tablet 40 MEQ PO (14:17)
[2024-06-24 16:21] LABS: Glucose Point of Care 102 mg/dL (70-110)
--- NOTE | 2024-06-24 16:39 | PC.NURSE ---
This nurse called inpatient pharmacy to have them stock med surg pyxus with Rifaximin. Jayden says there are only 2 left in the whole hospital. Pt requires 3. Non-admit 1800 dose due to med being out of stock.
[2024-06-24] MEDS: heparin 5,000 unit/mL INJ 1 mL 5000 UNIT SUBCUT (17:42)
[2024-06-24] MEDS: hyDRALAzine 20 mg/mL INJ 1 mL 10 MG IVP (17:46)
[2024-06-24] MEDS: RIFAXIMIN 550 MG 1 EACH PO (18:16)
[2024-06-24 21:47] LABS: Glucose Point of Care 155 mg/dL (70-110)
[2024-06-25] VITALS: BP 156/86; PULSE 80; RESP 19; TEMP 36.9; O2SAT 97
[2024-06-25 02:09] LABS: Glucose Point of Care 139 mg/dL (70-110)
[2024-06-25 04:00] VITALS: BP 139/77; PULSE 83; RESP 15; TEMP 36.8; O2SAT 97
[2024-06-25 04:48] LABS: Alanine Aminotransferase 47 U/L (0-33); Albumin Level 3.4 g/dL (3.5-5.2); Alkaline Phosphatase 142 U/L (35-105); Anion Gap 13.4 (5-19); Aspartate Amino Transferase 69 U/L (0-32); Blood Urea Nitrogen 10 mg/dL (6-20); Calcium 9.1 mg/dL (8.5-10.5); Carbon Dioxide 19 mmol/L (22-29); Chloride 109 mmol/L (98-107); Creatinine Clr Calc Pharmacy 84.4479; Globulin 2.8 g/dL (1.3-4.6); Glomerular Filtration Rate 89.3 mL/min (90-130); Glucose 160 mg/dL (65-115); Osmolality Calculated 286 mOsm/kg (285-295); Potassium 4.4 mmol/L (3.5-5.1); Sodium 137 mmol/L (136-145); Total Bilirubin 0.6 mg/dL (0.15-1.2); Total Protein 6.2 g/dL (6.6-8.7)
[2024-06-25 04:50] LABS: Magnesium 1.7 mg/dL (1.7-2.3)
[2024-06-25 04:59] VITALS: PULSE 77
[2024-06-25] MEDS: heparin 5,000 unit/mL INJ 1 mL 5000 UNIT SUBCUT (05:06)
[2024-06-25] MEDS: levoFLOXacin 750 mg Tablet PO (05:06)
[2024-06-25 06:27] LABS: Glucose Point of Care 135 mg/dL (70-110)
[2024-06-25 07:11] VITALS: BP 167/82; PULSE 84; RESP 16; TEMP 36.8; O2SAT 97
[2024-06-25] MEDS: RIFAXIMIN 550 MG 1 EACH PO (08:02)
[2024-06-25] MEDS: gabapentin 100 mg Capsule PO (08:02)
[2024-06-25] MEDS: pantoprazole 40 mg SDV IVP (08:02)
[2024-06-25] MEDS: amlodipine 5 mg Tablet PO (08:03)
[2024-06-25] MEDS: metoprolol tartrate 25 mg Tablet PO (08:03)
[2024-06-25] MEDS: lactulose oral liq 20 gm/30 mL UDC PO ×2 (08:03→12:13)
[2024-06-25] MEDS: ALPRAZolam 0.5 mg Tablet PO (08:03)
[2024-06-25 10:46] LABS: Glucose Point of Care 240 mg/dL (70-110)
--- NOTE | 2024-06-25 10:59 | PM.DCS ---
Discharge Providers Date of Admission: 06/16/24 19:30 Date of Discharge: June 25, 2024 Attending Provider at Admission: Jeancarlos Baird MD Attending Provider at Discharge: Madi Yepez DO Primary Care Provider: Maia De Oliveira NP Diagnoses at Discharge Discharge Diagnosis (1) Hepatic encephalopathy: Status: Acute (2) Respiratory failure: Status: Acute (3) E coli bacteremia: Status: Acute (4) Airway compromise: Status: Acute (5) Acute kidney injury: Status: Acute (6) Transaminitis: Status: Acute (7) Leukocytosis: Status: Acute (8) Witnessed seizure-like activity: Status: Acute Permanent problem details: Seizures ruled out with spot EEG's done twice on and off sedation. 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 (9) Hyperbilirubinemia: Status: Acute (10) Hypertension: Status: Acute (11) Urinary tract infection: Status: Acute (12) Ileus: Status: Acute (13) Alcoholic cirrhosis: Status: Acute Reason for Visit Reason for Visit: ams Brief History: Patient presented in acute hepatic encephalopathy with a ammonia level of 100. Hospital Course Hospital Course Patient was found in acute hepatic encephalopathy and with a UTI and sepsis from E. coli. Patient was intubated due to this hepatic encephalopathy. Patient was extubated 06/21/2024. Second blood cultures were negative. She was converted from IV antibiotics to Levaquin for a total of a 2-week course. Patient had difficulty controlling blood pressure and Norvasc was added. Patient had seizure-like activity while intubated. A consult with neurology was placed. Bedside EEGs were negative x 2. No antiseizure medications were were continued. Concern with fentanyl associated with tremors and this was discontinued no further episodes since extubated. Patient's last drink was a year and a half ago. She will be following up with a liver specialist in [place]. I advised to consider liver transplant as she is now clean. She I did explain that quitting smoking would be to her advantage for said liver transplant. In the meantime rifaximin was added for hepatic encephalopathy. And she was returned to her home dose of lactulose 45 g 4 times daily. Physical Exam Narrative: Patient appears older than stated age of 48 she does look with chronically ill. Neuro alert and oriented to person place time and situation heart regular normal S1-S2. Lungs clear to auscultation without wheezes rales or rhonchi. Abdomen soft mild tenderness normal bowel sounds no hepatosplenomegaly. Extremities no clubbing cyanosis or edema. Urinary Catheter Management: Casanova: Cath Placed During This Visit: yes, but has since been removed by the nurse Reason for Continuing Indwelling Catheter: Accurate Measurement of Urinary Output in Critically Ill Patients Urinary Catheter Date of Insertion: 06/16/24 Urinary Catheter Time of Insertion: 18:30 Date Urinary Catheter Removed: 06/22/24 Time Urinary Catheter Discontinued: 13:40 Discharge Data Studies Completed and Pending Completed Studies During Hospitalization Category Date Time Status CT chest abdomen pelvis [[place] [address]/05423 Cat Scan 06/18/24 10:36 Completed ] Routine CT head wo con* [id number] Routine Cat Scan 06/18/24 10:[address] head wo con* [id number] Stat Cat Scan 06/16/24 18:20 Completed CXRP [XR chest 1V portable [id number]] Routine Exams 06/19/24 08:47 Completed FL guided lumbarpunc dx* [id number] Routine Exams 06/20/24 15:17 Completed XR acute abdomen series [id number] Routine Exams 06/17/24 20:44 Completed XR chest 1V portable [id number] QAM Exams 06/19/24 06:00 Completed XR chest 1V portable [id number] QAM Exams 06/20/24 06:00 Completed XR chest 1V portable [id number] QAM Exams 06/21/24 06:00 Completed XR chest 1V portable [id number] Routine Exams 06/18/24 14:30 Completed XR chest 1V portable [id number] Stat Exams 06/16/24 17:59 Completed CV. echo complete* [id number] Routine Ultrasound 06/19/24 15:17 Completed Pending at discharge Category Date Time Status EEG electroencephalogram Routine Exams 06/18/24 10:34 Ordered EEG electroencephalogram Routine Exams 06/20/24 12:33 Ordered Comprehensive Metabolic Panel AM LABS Lab 06/26/24 04:00 Ordered Gastrointestinal Pathogen [place] Routine Lab 06/18/24 16:28 Results Miscellaneous Test Routine Lab 06/20/24 09:39 Received Oligoclonal Bands IGG, CSF Routine Lab 06/20/24 09:39 Received VDRL on CSF Routine Lab 06/20/24 09:39 Received Radiology Impressions Chest/Abdomen X-ray 06/17/24 20:44 IMPRESSION: 1. Endotracheal tube tip in place 3.7 cm above the katerina. 2. Enteric tube tip below diaphragm over the gastric bubble. Head CT 06/18/24 10:34 IMPRESSION: 1. No acute intracranial hemorrhage or edema. 2. Mild cerebral atrophy and small vessel disease. No change since 06/16/2024. Chest/Abdomen/Pelvis CT 06/18/24 10:36 IMPRESSION: 1. Nasogastric tube is been retracted and terminates near the katerina. Nasogastric tube needs to be readjusted before further usage. 2. Endotracheal tube in good position. 3. No pneumonia. 4. Hepatic steatosis. 5. No renal obstruction. 6. No adenopathy or ascites. 7. Diffuse fluid distention through the small bowel and colon without an obstructive pattern. Probably an ileus. 8. Linear foreign body measuring 2.1 cm in length within the stomach has been present since 02/13/2024. Uncertain etiology. 9. Dilated common bile duct status post cholecystectomy, long-term stability. Lumbar Puncture Fluoroscopy 06/20/24 15:17 IMPRESSION: Fluoroscopically guided lumbar puncture. No immediate complications Chest X-Ray 06/21/24 06:00 IMPRESSION: Stable cardiopulmonary exam. Laboratory Results WBC 7.15 10^3/uL (3.29-11.43) 06/23/24 04:38 RBC 3.97 10^6/uL (3.85-5.65) 06/23/24 04:38 Hgb 11.00 g/dL (11.27-16.99) L 06/23/24 04:38 Hct 34.8 % (36-47) L 06/23/24 04:38 MCV 87.7 fl (85-98) 06/23/24 04:38 MCH 27.7 pg (27-33) 06/23/24 04:38 MCHC 31.6 g/dL (30-55) 06/23/24 04:38 RDW 13.6 % (12.1-15.1) 06/23/24 04:38 Plt Count 129 10^3/cmm (157-399) L D 06/23/24 04:38 MPV 10.1 fL (7.4-10.4) 06/23/24 04:38 Neut % (Auto) 62.0 % 06/23/24 04:38 Lymph % (Auto) 21.1 % 06/23/24 04:38 [place] % (Auto) 8.7 % 06/23/24 04:38 Eos % (Auto) 7.1 % 06/23/24 04:38 Baso % (Auto) 0.7 % 06/23/24 04:38 Neut # (Auto) 4.43 10^3/uL (1.8-7.7) 06/23/24 04:38 Lymph # (Auto) 1.5 10^3/uL (0.8-4.8) 06/23/24 04:38 [place] # (Auto) 0.6 10^3/uL (0.2-0.9) 06/23/24 04:38 Eos # (Auto) 0.5 10^3/uL (0.0-0.8) 06/23/24 04:38 Baso # (Auto) 0.1 10^3/uL (0.0-0.1) 06/23/24 04:38 Nucleated RBC % (auto) 0 % 06/23/24 04:38 Nucleated RBCs # 0.0 /100WBC 06/23/24 04:38 PT 14.20 SECONDS (12.1-14.9) 06/16/24 18:06 INR 1.02 (0.8-1.2) 06/16/24 18:06 APTT 35.6 SECONDS (23.9-36.7) 06/16/24 18:06 Specimen Type Arterial 06/21/24 06:05 Sample Site Radial, right 06/21/24 06:05 ABG pH 7.40 (7.35-7.45) 06/21/24 06:05 ABG pCO2 34.0 mmHg (35-45) L 06/21/24 06:05 ABG pO2 94.0 mmHg (80.0-100.0) 06/21/24 06:05 ABG PO2/FiO2 Ratio 313 06/21/24 06:05 ABG HCO3 20.8 mmol/L (22-26) L 06/21/24 06:05 ABG O2 Saturation 97.8 06/21/24 06:05 ABG Base Excess -3.3 mmol/L (-2.0-2.0) L 06/21/24 06:05 [place] Test Pos 06/21/24 06:05 A-a O2 Gradient 10.1 mmHg (5-10) H 06/21/24 06:05 Hematocrit 44.5 % (37-47) 06/21/24 06:05 Hgb O2 Saturation 95.8 % (95-100) 06/21/24 06:05 Carboxyhemoglobin 1.0 %THgb (0.4-20.1) 06/21/24 06:05 Methemoglobin 1.0 % (0.4-1.5) 06/21/24 06:05 Total Hemoglobin 14.5 g/dL (12-16) 06/21/24 06:05 Sodium 141.0 mmol/L (131-143) 06/21/24 06:05 Potassium 3.4 mmol/L (3.5-5.0) L 06/21/24 06:05 Glucose 147.0 mg/dL (70-115) H 06/21/24 06:05 Ionized Calcium 1.3 mmol/L (1.1-1.4) 06/21/24 06:05 O2 Delivery Device Vent 06/21/24 06:05 O2 Liters/Min 0.0 % 06/17/24 03:58 FiO2 30.0 % 06/21/24 06:05 Tidal Volume 0.40 06/20/24 04:48 PEEP 6.0 cmH20 06/21/24 06:05 Sap Portal Architect ID Connor 06/21/24 06:05 Sodium 137 mmol/L (136-145) 06/25/24 04:03 Potassium 4.4 mmol/L (3.5-5.1) 06/25/24 04:03 Chloride 109 mmol/L (98-107) H 06/25/24 04:03 Carbon Dioxide 19 mmol/L (22-29) L 06/25/24 04:03 Anion Gap 13.4 (5-19) 06/25/24 04:03 BUN 10 mg/dL (6-20) 06/25/24 04:03 Creatinine 0.7 mg/dL (0.5-0.9) 06/25/24 04:03 GFR Calculation 89.3 mL/min (90-130) L 06/25/24 04:03 Glucose 160 mg/dL (65-115) H 06/25/24 04:03 POC Glucose 240 mg/dL (70-110) H 06/25/24 10:39 Calculated Osmolality 286 mOsm/kg (285-295) 06/25/24 04:03 Lactic Acid 1.5 mmol/L (0.5-2.2) 06/16/24 18:06 Lactate 2.8 mmol/L (0.5-2.2) H 06/18/24 04:41 Calcium 9.1 mg/dL (8.5-10.5) 06/25/24 04:03 Phosphorus 2.2 mg/dL (2.5-4.5) L 06/17/24 00:36 Magnesium 1.7 mg/dL (1.7-2.3) 06/25/24 04:03 Total Bilirubin 0.6 mg/dL (0.15-1.2) 06/25/24 04:03 AST 69 U/L (0-32) H 06/25/24 04:03 ALT 47 U/L (0-33) H 06/25/24 04:03 Alkaline Phosphatase 142 U/L (35-105) H 06/25/24 04:03 Ammonia 49 umol/L (11-51) 06/18/24 03:55 Creatine Kinase 61 U/L (26-192) 06/19/24 07:52 Troponin T Baseline < 6 ng/L (0-10) 06/16/24 18:06 Troponin T 120 Minute 6.00 ng/L (0-10) 06/16/24 20:21 Delta Troponin T 0.53924 ABS# (0-10) 06/16/24 20:21 Troponin T Hi Sens 6Hr 6.00 ng/L (0-10) 06/17/24 00:36 Troponin T Hi Sens 6Hr Delta 0.99034 ng/L (0-12) 06/17/24 00:36 NT-Pro-B Natriuret Pep 282 pg/mL (0-125) H 06/16/24 18:06 Total Protein 6.2 g/dL (6.6-8.7) L 06/25/24 04:03 Albumin 3.4 g/dL (3.5-5.2) L 06/25/24 04:03 Globulin 2.8 g/dL (1.3-4.6) 06/25/24 04:03 Triglycerides 127 mg/dL (0-150) 06/18/24 03:55 Procalcitonin 0.07 ng/mL (0-0.5) 06/16/24 18:06 TSH 1.75 uIU/mL (0.27-4.20) 06/20/24 04:17 Free T4 1.01 ng/dL (0.82-1.77) 06/20/24 04:17 Free T3 3.8 PG/ML (2.0-4.4) 06/20/24 04:17 Prolactin 25.48 ng/mL (4.8-23.3) H 06/18/24 03:55 Urine Color Yellow (Yellow) 06/18/24 18:12 Urine Appearance Clear (CLEAR) 06/18/24 18:12 Urine pH 5.5 (5-7) 06/18/24 18:12 Ur Specific [place] 1.031 (1.005-1.030) H 06/18/24 18:12 Urine Protein Trace (Negative) A 06/18/24 18:12 Urine Glucose (UA) Negative (Normal) 06/18/24 18:12 Urine Ketones Trace (Negative) 06/18/24 18:12 Urine Blood Negative (Negative) 06/18/24 18:12 Urine Nitrate Negative (Negative) 06/18/24 18:12 Urine Bilirubin Negative (Negative) 06/18/24 18:12 Urine Urobilinogen 1.0 mg/dL (Negative) 06/18/24 18:12 Ur Leukocyte Esterase Negative (Negative) 06/18/24 18:12 Urine RBC 6-10 /hpf (0-2) 06/18/24 18:12 Urine WBC 0-5 /hpf (0-5) 06/18/24 18:12 Ur Eosinophil Smear Not Reportable 06/18/24 18:12 Ur Squamous Epith Cells 0-5 /hpf (0-5) 06/18/24 18:12 Amorphous Sediment Not Reportable 06/18/24 18:12 Urine Bacteria None seen /hpf (NONE) 06/18/24 18:12 Hyaline Casts 21.08 /lpf 06/18/24 18:12 Urine Yeast 1+ /hpf H 06/18/24 18:12 Urine Eosinophils No eosinophils seen 06/18/24 18:12 Ur Random Sodium 60 mmol/L 06/18/24 18:12 Ur Random Potassium 67 mmol/L 06/18/24 18:12 Ur Random Chloride < 10 mmol/L 06/18/24 18:12 Urine Creatinine 133 mg/dL (28-217) 06/18/24 18:12 CSF Appearance Clear (CLEAR) 06/20/24 09:39 CSF Color Colorless (COLORLESS) 06/20/24 09:39 CSF Specific [place] 1.006 06/20/24 09:39 CSF WBC 4 /uL (0-5) 06/20/24 09:39 CSF RBC 0 10^3/uL (0-0) 06/20/24 09:39 CSF Mononuclear # Auto 0.004 10^3/uL (50-90) L 06/20/24 09:39 CSF Mononuclear WBCs % 100 % (50-90) H 06/20/24 09:39 CSF Polynuclear WBCs # 0.000 10^3/uL (0-10) 06/20/24 09:39 CSF Polynuclear WBCs % 0 % (0-10) 06/20/24 09:39 CSF Diff Comment Yes 06/20/24 09:39 CSF Glucose 69 mg/dL (40-70) 06/20/24 09:39 CSF Total Protein 59 mg/dL (15-45) H 06/20/24 09:39 Nasal MRSA (PCR) Not detected (Not Detecte) 06/18/24 14:05 Stool Rotavirus A PCR Not detected (NOT DETECTED) 06/18/24 16:28 Stl Salmonella enterica PCR Not detected (NOT DETECTED) 06/18/24 16:28 Stool Shigella PCR Not detected (NOT DETECTED) 06/18/24 16:28 St Y.enterocolitica PCR Not detected (NOT DETECTED) 06/18/24 16:28 Stl Vibrio cholerae PCR Not detected (NOT DETECTED) 06/18/24 16:28 Stl Norovirus GI/GII PCR Not detected (NOT DETECTED) 06/18/24 16:28 Salicylates < 0.3 mg/dL (3-10) L 06/16/24 18:06 Urine Opiates Screen Negative ng/mL (Negative) 06/16/24 18:30 Acetaminophen < 5.0 ug/mL (10-30) L 06/16/24 18:06 Ur Barbiturates Screen Negative ng/mL (Negative) 06/16/24 18:30 Levetiracetam 39.6 mcg/mL (6.0-46.0) 06/20/24 13:02 Ur Phencyclidine Scrn Negative ng/mL (Negative) 06/16/24 18:30 Ur Amphetamines Screen Negative ng/mL (Negative) 06/16/24 18:30 U Benzodiazepines Scrn Negative ng/mL (Negative) 06/16/24 18:30 Urine Cocaine Screen Negative ng/mL (Negative) 06/16/24 18:30 U Marijuana (THC) Screen Positive ng/mL (Negative) H 06/16/24 18:30 Ethyl Alcohol < 10 mg/dL (0-10) 06/16/24 18:06 Adenovirus (PCR) Not detected (NOT DETECT) 06/20/24 13:15 Campylobacter (PCR) Not detected (NOT DETECTED) 06/18/24 16:28 C. pneumoniae DNA (PCR) Not detected (NOT DETECT) 06/20/24 13:15 C. difficile (PCR) Negative (Negative) 06/18/24 16:28 Coronavirus (PCR) Cancelled 06/18/24 14:05 Coronavirus 229E (PCR) Not detected (NOT DETECT) 06/20/24 13:15 Human Metapneumovir PCR Not detected (NOT DETECT) 06/20/24 13:15 Influenza A (H1) PCR Not detected (NOT DETECT) 06/20/24 13:15 Influenza A (PCR) Cancelled 06/18/24 14:05 Influ A (H1/09) PCR Not detected (NOT DETECT) 06/20/24 13:15 Influenza A (H3) PCR Not detected (NOT DETECT) 06/20/24 13:15 Influenza Type A (PCR) Not detected (NOT DETECT) 06/20/24 13:15 Influenza Type B (PCR) Not detected (NOT DETECT) 06/20/24 13:15 M. pneumoniae (PCR) Not detected (NOT DETECT) 06/20/24 13:15 Parainfluenza 1 (PCR) Not detected (NOT DETECT) 06/20/24 13:15 Parainfluenza 2 (PCR) Not detected (NOT DETECT) 06/20/24 13:15 Parainfluenza 3 (PCR) Not detected (NOT DETECT) 06/20/24 13:15 Parainfluenza 4 (PCR) Not detected (NOT DETECT) 06/20/24 13:15 RSV (PCR) Cancelled 06/18/24 14:05 RSV Type A (PCR) Not detected (NOT DETECT) 06/20/24 13:15 RSV Type B (PCR) Not detected (NOT DETECT) 06/20/24 13:15 Entero/Rhino (PCR) Not detected (NOT DETECT) 06/20/24 13:15 SARS-CoV-2 (PCR) Not detected (NOT DETECT) 06/20/24 13:15 Shiga Toxin 1 Not detected (NOT DETECTED) 06/18/24 16:28 Shiga Toxin 2 Not detected (NOT DETECTED) 06/18/24 16:28 Vitals Last Vital Signs Temp 98.2 F 06/25/24 07:11 Pulse 84 06/25/24 07:11 Resp 16 06/25/24 07:11 BP 167/82 06/25/24 07:11 Pulse Ox 97 06/25/24 07:11 O2 Del Method Room Air 06/25/24 07:11 O2 Flow Rate 2 06/22/24 02:31 FiO2 30 06/21/24 10:00 Discharge Plan Discharge Patient Disposition: Home Condition: Stable Prescriptions: New amlodipine 5 mg Tablet 5 mg PO DAILY Qty: 30 0RF levofloxacin 750 mg Tablet 750 mg PO DAILY@0600 Qty: 6 0RF Xifaxan 200 mg Tablet 600 mg PO BID Qty: 60 0RF gabapentin 100 mg Capsule 100 mg PO TID Qty: 90 0RF Continued albuterol sulfate 90 mcg/actuation HFA aerosol inhaler 2 puff inhalation Q6H PRN (Reason: shortness of breath or wheezing) Qty: 6.7 0RF lactulose 20 gram/30 mL solution 45 ml PO QID Qty: 5400 2RF nadolol 80 mg tablet 80 mg PO DAILY Qty: 30 0RF clindamycin phosphate 1 % solution 1 applic topical DAILY hydroxyzine HCl 25 mg tablet 25 mg PO BID PRN (Reason: itching) Qty: 60 0RF clindamycin phosphate 1 % Gel 1 applic TOPICAL BID omeprazole 20 mg Capsule,Delayed Release(Dr/Ec) 20 mg PO DAILY ergocalciferol (vitamin D2) [Vitamin D2] 1,250 mcg (50,000 unit) Capsule 1,250 mcg PO Q7D azelastine 137 mcg (0.1 %) [place],Non-Aerosol 2 spray INTRANASAL BID Rx Instructions: administer into each nostril loratadine [Claritin] 10 mg Tablet 10 mg PO DAILY budesonide-formoterol [Symbicort] 80-4.5 mcg/actuation Hfa Aerosol Inhaler 2 puff INHALATION BID dapagliflozin propanediol [Farxiga] 5 mg Tablet 5 mg PO DAILY vitamin B complex Tablet 1 tab PO DAILY Excedrin Extra Strength 250-250-65 mg Tablet 1 tab PO Q6H PRN (Reason: unknown) magnesium L-threonate 48 mg magnesium (667 mg) capsule 48 mg PO DAILY Qty: 90 0RF magnesium hydroxide [Milk of Magnesia] 400 mg/5 mL suspension 10 ml PO DAILY PRN (Reason: constipation) Qty: 355 0RF Discharge Orders: Discharge Order (Routine); Ordered 06/25/24 Ordered By: Madi Yepez Referrals: Maia De Oliveira, [employer] [Primary Care Provider] - Discharge Diet: Usual diet Discharge Activity: Increase activity as tolerated Patient Instructions: Gabapentin (By mouth), Amlodipine (By mouth), Levofloxacin (By mouth), Rifaximin (By mouth) (Xifaxan), Leukocytosis (DC), Altered Mental Status (ED), Opioid Safety Activity Restrictions/Additional Instructions: may take tylenol 2 g total per day. This is half of what the instructions on bottle gives. tylenol is metabolized through liver, like most pain medications. May use ibuprofen 400 mg three times a day as needed for pain in arms as described. Discharge Attestations Time Spent in Discharge Care*: greater than 30 min Quality Metrics Clinical Quality Measures [ No reported AMI, CVA or VTE this stay] Coding Level of Care Code Acute Code for Chg Fwd Diagnoses Hepatic encephalopathy K76.82 Respiratory failure J96.90 E coli bacteremia R78.81; B96.20 Airway compromise J98.8 Acute kidney injury N17.9 Transaminitis R74.01 Leukocytosis D72.829 Witnessed seizure-like activity R56.9 Hyperbilirubinemia E80.6 Hypertension I10 Urinary tract infection N39.0 Ileus K56.7 Alcoholic cirrhosis K70.30
[2024-06-25 11:49] VITALS: BP 165/92; PULSE 75; RESP 16; TEMP 36.7; O2SAT 96
[2024-06-26 23:59] LABS: VDRL on CSF NON-REACTIVE
[2024-06-27 00:20] LABS: Oligoclonal Bands IGG, CSF ABSENT (ABSENT)
== END 2024-06-25 13:11 | disposition home or self-care (01) | DRG 207 ==
LOC: ER 19:32 → ICU 20:49 → MEDSURG 06-22 21:15
PROVIDERS: Internal Medicine; Student in an Organized Health Care Education/Training Program; Admitting Provider Internal Medicine; Emergency Provider Emergency Medicine; Visit Provider Internal Medicine
DX: J96.92 Respiratory failure, unspecified with hypercapnia (principal); A41.9 Sepsis, unspecified organism; R65.21 Severe sepsis with septic shock; N17.9 Acute kidney failure, unspecified; N39.0 Urinary tract infection, site not specified; J96.91 Respiratory failure, unspecified with hypoxia; K76.82 Hepatic encephalopathy; B96.20 Unspecified Escherichia coli [E. coli] as the cause of diseases classified elsewhere; I10 Essential (primary) hypertension; K70.30 Alcoholic cirrhosis of liver without ascites; F10.21 Alcohol dependence, in remission; G25.1 Drug-induced tremor; T40.415A Adverse effect of fentanyl or fentanyl analogs, initial encounter; F17.210 Nicotine dependence, cigarettes, uncomplicated; R00.0 Tachycardia, unspecified; Z88.0 Allergy status to penicillin; Z79.82 Long term (current) use of aspirin; F12.90 Cannabis use, unspecified, uncomplicated; D69.6 Thrombocytopenia, unspecified; K59.00 Constipation, unspecified
CPT/HCPCS: 36415; 36416; 36573; 36592; 36600; 51702; 62328; 70450; 71045; 71250; 74022; 74176; 80048; 80051; 80053; 80177; 80306; 80307; 80503; 81001; 82140; 82330; 82436; 82550; 82570; 82803; 82805; 82945; 82962; 83605; 83735; 83880; 83916; 84100; 84133; 84145; 84146; 84157; 84300; 84315; 84439; 84443; 84478; 84481; 84484; 85025; 85610; 85730; 85999; 86403; 86592; 87040; 87070; 87075; 87077; 87086; 87150; 87186; 87205; 87486; 87493; 87506; 87581; 87633; 87637; 89050; 92523; 92610; 93005; 93306; 94002; 94003; 94640; 94799; 95822; 96365; 96366; 96372; 96375; 96376; 97110; 97116; 97161; 97166; 97530; 97535; 99291; A4570; C1751; C9254; J0360; J0692; J0696; J1644; J1940; J1953; J2060; J2185; J2250; J2270; J2470; J2704; J3010; J3370; J3411; J3475; J3480; J3490; J7042; J7050; J7070; J7799

== ENCOUNTER → 2024-06-26 10:26 | Outpatient (BNVA) | payer MEDICAID, SELFPAY | PROVIDERS: Visit Provider Nurse Practitioner Women's Health | DX: R10.2 Pelvic and perineal pain (principal) | CPT/HCPCS: 76830 ==

== ENCOUNTER 2024-07-11 16:20 | Inpatient (IN) | payer MEDICAID, SELFPAY ==
[2024-07-11] VITALS (9 sets, daily range): BP systolic 139–186; BP diastolic 89–110; PULSE 65–86; RESP 14; TEMP 36.7; O2SAT 90–100; BMI 20.1
--- NOTE | 2024-07-11 16:50 | XRR_ITS ---
PROCEDURE INFORMATION: Exam: XR Chest Exam date and time: 07/11/2024 5:27 PM Age: 48 years old Clinical indication: Other: AMS; Additional info: Weakness TECHNIQUE: Imaging protocol: Radiologic exam of the chest. Views: 1 view. COMPARISON: CR (CHEST, ) 06/21/2024 5:36 AM FINDINGS: Lungs: Unremarkable. No consolidation. Pleural spaces: Unremarkable. No pleural effusion. No pneumothorax. Heart/Mediastinum: Unremarkable. No cardiomegaly. Bones/joints: Unremarkable. XR/XR chest 1V portable [id number] IMPRESSION: No acute findings.
--- NOTE | 2024-07-11 16:50 | CTR_ITS ---
PROCEDURE INFORMATION: Exam: CT Head Without Contrast Exam date and time: 07/11/2024 5:24 PM Age: 48 years old Clinical indication: Altered mental status/memory loss; Confusion or disorientation; Additional info: Encephalopathy, altered mental status TECHNIQUE: Imaging protocol: Computed tomography of the head without contrast. Radiation optimization: All CT scans at this facility use at least one of these dose optimization techniques: automated exposure control; mA and/or kV adjustment per patient size (includes targeted exams where dose is matched to clinical indication); or iterative reconstruction. COMPARISON: CT head wo con* [id number] 06/18/2024 11:23 AM RADIATION DOSE METRICS: Total DLP (mGy-cm): 1166.93 FINDINGS: Brain: Normal. No hemorrhage. Unremarkable white matter. No mass effect. Cerebral ventricles: No ventriculomegaly. Paranasal sinuses: Visualized sinuses are unremarkable. No fluid levels. Mastoid air cells: Visualized mastoid air cells are well aerated. Bones: Unremarkable. No acute fracture. Soft tissues: Unremarkable. CT/CT head wo con* [id number] IMPRESSION: No acute intracranial abnormality.
--- NOTE | 2024-07-11 17:19 | W.ED.AMS ---
HPI - Altered Mental Status General: Chief Complaint: Altered Mental Status Stated Complaint: disoriented Time Seen by Provider: 07/11/24 16:47 History of Present Illness: 48-year-old female with a history of cirrhosis secondary to alcoholism who presents the emergency room with altered mental status. says she has been taking her lactulose as instructed and has had 2 bowel movements yesterday. She is somewhat agitated but nonfocal. No focal motor deficits. She repeatedly tries to get up. has to redirect her. No known fevers. No new cough. Related Data Home Medications Medication Instructions Recorded Confirmed [id number]-[id number] 250 1 tab PO Q6H PRN unknown 04/18/24 07/11/24 mg-250 mg-65 mg tablet (Excedrin Extra Strength) azelastine 137 mcg (0.1 %) nasal 2 spray intranasal BID 04/18/24 07/11/24 spray budesonide-formoterol HFA 80 2 puff inhalation BID 04/18/24 07/11/24 mcg-4.5 mcg/actuation aerosol inhaler (Symbicort) clindamycin phosphate 1 % topical 1 applic topical BID 04/18/24 07/11/24 gel dapagliflozin propanediol 5 mg 5 mg PO DAILY 04/18/24 07/11/24 tablet (Farxiga) ergocalciferol (vitamin D2) 1,250 1,250 mcg PO Q7D 04/18/24 07/11/24 mcg (50,000 unit) capsule (Vitamin D2) loratadine 10 mg tablet (Claritin) 10 mg PO DAILY 04/18/24 07/11/24 omeprazole 20 mg capsule,delayed 20 mg PO DAILY 04/18/24 07/11/24 release vitamin B complex 1 tab PO DAILY 04/18/24 07/11/24 clindamycin phosphate 1 % topical 1 applic topical DAILY 05/15/24 07/11/24 solution Previous Rx's Medication Instructions Recorded magnesium L-threonate 48 mg 48 mg PO DAILY #90 caps 04/21/24 magnesium (667 mg) capsule magnesium hydroxide 400 mg/5 mL 10 ml PO DAILY PRN constipation 05/08/24 oral suspension (Milk of Magnesia) #355 mL hydroxyzine HCl 25 mg tablet 25 mg PO BID PRN itching #60 tabs 05/15/24 albuterol sulfate 90 mcg/actuation 2 puff inhalation Q6H PRN 05/29/24 aerosol inhaler shortness of breath or wheezing #6.7 grams lactulose 20 gram/30 mL oral 45 ml PO QID constipation #5,400 mL 05/29/24 solution nadolol 80 mg tablet 80 mg PO DAILY #30 tabs 05/29/24 amlodipine 5 mg tablet 5 mg PO DAILY #30 tabs 06/25/24 gabapentin 100 mg capsule 100 mg PO TID #90 caps 06/25/24 levofloxacin 750 mg tablet 750 mg PO DAILY@0600 #6 tabs 06/25/24 rifaximin 200 mg tablet (Xifaxan) 600 mg (3 x 200 mg) PO BID #60 tabs 06/25/24 Allergies Allergy/AdvReac Type Severity Reaction Status Date / Time aspirin Allergy ADR-Headach Verified 07/11/24 10:29 e Penicillins Allergy ALGY-Hives Verified 07/11/24 10:29 propofol Allergy Unknown Verified 07/11/24 16:45 Review of Systems General: Reports: ROS unobtainable due to medical condition and ROS unobtainable due to mental status PFS ED PFSH: Medical History Witnessed seizure-like activity Seizures ruled out with spot EEG's done twice on and off sedation. 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 Skin: Warm, dry. Patient has numerous small excoriations it appears to be from scratching/pruritus. Head: Normocephalic, atraumatic. Neck: Supple, trachea midline. Eye: Extraocular movements are intact. Ears, nose, mouth and throat: mucosa moist. Cardiovascular: Regular, Normal peripheral perfusion. Respiratory: Lungs are clear to auscultation, respirations are non-labored, breath sounds are equal, Symmetrical chest wall expansion. Gastrointestinal: Soft, Nontender, Non distended Musculoskeletal: Normal ROM, no deformity. Neurological: Patient is alert but agitated. Answers to her name. Follows commands from her . Psychiatric: Unable to assess Course Vital Signs: Vital signs: Vital Signs Temperature 98.1 F 07/11/24 16:39 Pulse Rate 70 07/11/24 19:40 Respiratory Rate 14 07/11/24 16:39 Blood Pressure 152/89 07/11/24 19:40 Pulse Oximetry 98 07/11/24 19:40 Oxygen Delivery Me thod Room Air 07/11/24 18:47 MDM - Altered Mental Status Medical Decision Making Medical decision making: Differential diagnosis including but not limited to and based on the above HPI, review of systems and physical exam: In this patient with altered mental status: Stroke. Hypoglycemia. Metabolic encephalopathy. Infections such as pneumonia, urinary tract infection, Covid-19, Influenza. Electrolyte abnormalities such as hypernatremia. Renal failure / uremia. Hepatic encephalopathy. Hypoxemia. Hypercapnic respiratory failure. Psychosis. Drug or alcohol intoxication. Medication overdose. Orders placed to evaluate differential diagnosis based on the above differential, HPI and physical exam Chest x-ray: No acute process. No infiltrate. No pneumothorax. This was reviewed and interpreted by myself the emergency room physician. I also reviewed the radiology report. CT head: No acute intracranial process. no intracranial hemorrhage, no evidence of infarct. no evidence of acute fracture.This was reviewed and interpreted by myself the ER physician. Lab Review: Laboratory results were reviewed and interpreted by myself the emergency room physician. Lab work is fairly unremarkable. No leukocytosis. No anemia. Renal function is normal. Also unexpectedly her ammonia is normal as well. I reviewed the patient's medical record. Consultation: I spoke with Dr. Baird who is on-call for the hospitalist service who agrees to observation tonight. The is left. The patient is very encephalopathic. From prior admission it seems that likely this is a Warnicke's encephalopathy or something related to her alcoholism. This is likely not going to get better. Reexamination: Patient remains slightly agitated. Does not follow commands. Continue wants to get up and walk out. So at this point have given her some Ativan. Her left immediately after getting her into a room. Assessment and plan: encephalopathy cirrhosis. -I discussed the patient with the hospitalist on-call who is admitting the patient. - Discussed findings and plan with patient. Answered any questions. - All laboratory values were reviewed and interpreted personally by myself, the ER physician - All imaging was reviewed and interpreted personally by myself, the ER physician. - Evaluation and treatment of this problem were appropriate in the emergency setting Lab Data 07/11/24 17:22 07/11/24 17:22 Radiology Impressions Chest X-Ray 07/11/24 16:50 IMPRESSION: No acute findings. Head CT 07/11/24 16:50 IMPRESSION: No acute intracranial abnormality. Laboratory Results WBC 3.99 10^3/uL (3.29-11.43) 07/11/24 17:22 RBC 3.95 10^6/uL (3.85-5.65) 07/11/24 17:22 Hgb 10.90 g/dL (11.27-16.99) L 07/11/24 17:22 Hct 33.5 % (36-47) L 07/11/24 17:22 MCV 84.8 fl (85-98) L 07/11/24 17:22 MCH 27.6 pg (27-33) 07/11/24 17:22 MCHC 32.5 g/dL (30-55) 07/11/24 17:22 RDW 13.5 % (12.1-15.1) 07/11/24 17:22 Plt Count 136 10^3/cmm (157-399) L 07/11/24 17:22 MPV 9.9 fL (7.4-10.4) 07/11/24 17:22 Neut % (Auto) 65.8 % 07/11/24 17:22 Lymph % (Auto) 23.6 % 07/11/24 17:22 Crane % (Auto) 6.5 % 07/11/24 17:22 Eos % (Auto) 2.8 % 07/11/24 17:22 Baso % (Auto) 1.0 % 07/11/24 17:22 Neut # (Auto) 2.63 10^3/uL (1.8-7.7) 07/11/24 17:22 Lymph # (Auto) 0.9 10^3/uL (0.8-4.8) 07/11/24 17:22 Crane # (Auto) 0.3 10^3/uL (0.2-0.9) 07/11/24 17:22 Eos # (Auto) 0.1 10^3/uL (0.0-0.8) 07/11/24 17:22 Baso # (Auto) 0.0 10^3/uL (0.0-0.1) 07/11/24 17:22 Nucleated RBC % (auto) 0 % 07/11/24 17:22 Nucleated RBCs # 0.0 /100WBC 07/11/24 17:22 Sodium 140 mmol/L (136-145) 07/11/24 17:22 Potassium 4.1 mmol/L (3.5-5.1) 07/11/24 17:22 Chloride 106 mmol/L (98-107) 07/11/24 17:22 Carbon Dioxide 21 mmol/L (22-29) L 07/11/24 17:22 Anion Gap 17.1 (5-19) 07/11/24 17:22 BUN 19 mg/dL (6-20) 07/11/24 17:22 Creatinine 0.8 mg/dL (0.5-0.9) 07/11/24 17:22 GFR Calculation 76.6 mL/min (90-130) L 07/11/24 17:22 Glucose 111 mg/dL (65-115) 07/11/24 17:22 Calculated Osmolality 293 mOsm/kg (285-295) 07/11/24 17:22 Lactic Acid 1.2 mmol/L (0.5-2.2) 07/11/24 17:22 Calcium 10.1 mg/dL (8.5-10.5) 07/11/24 17:22 Total Bilirubin 1.2 mg/dL (0.15-1.2) 07/11/24 17:22 AST 53 U/L (0-32) H 07/11/24 17:22 ALT 32 U/L (0-33) 07/11/24 17:22 Alkaline Phosphatase 150 U/L (35-105) H 07/11/24 17:22 Ammonia 35 umol/L (11-51) 07/11/24 17:22 Total Protein 7.6 g/dL (6.6-8.7) 07/11/24 17:22 Albumin 3.7 g/dL (3.5-5.2) 07/11/24 17:22 Globulin 3.9 g/dL (1.3-4.6) 07/11/24 17:22 Urine Color Yellow (Yellow) 07/11/24 18:00 Urine Appearance Clear (CLEAR) 07/11/24 18:00 Urine pH 6.5 (5-7) 07/11/24 18:00 Ur Specific [place] 1.015 (1.005-1.030) 07/11/24 18:00 Urine Protein 1+ (Negative) A 07/11/24 18:00 Urine Glucose (UA) Negative (Normal) 07/11/24 18:00 Urine Ketones Trace (Negative) 07/11/24 18:00 Urine Blood Negative (Negative) 07/11/24 18:00 Urine Nitrate Negative (Negative) 07/11/24 18:00 Urine Bilirubin Negative (Negative) 07/11/24 18:00 Urine Urobilinogen 1.0 mg/dL (Negative) 07/11/24 18:00 Ur Leukocyte Esterase Negative (Negative) 07/11/24 18:00 Urine RBC 0-2 /hpf (0-2) 07/11/24 18:00 Urine WBC 0-5 /hpf (0-5) 07/11/24 18:00 Ur Squamous Epith Cells 0-5 /hpf (0-5) 07/11/24 18:00 Amorphous Sediment Not Reportable 07/11/24 18:00 Urine Bacteria None seen /hpf (NONE) 07/11/24 18:00 Hyaline Casts 2.05 /lpf 07/11/24 18:00 Ethyl Alcohol < 10 mg/dL (0-10) 07/11/24 17:22 All radiology interpretation(s) finalized by discharge Discharge Plan Discharge Patient Disposition: Placed in Observation Clinical Impression: Delirium due to general medical condition, Cirrhosis Coding Level of Care Code ED [facility] [employer] for [facility]
[2024-07-11 17:36] LABS: Eosinophils # 0.1 10^3/uL (0.0-0.8); Eosinophils % 2.8 %; Hematocrit 33.5 % (36-47); Lymphocytes # 0.9 10^3/uL (0.8-4.8); Lymphocytes % 23.6 %; Mean Corpuscular HGB Conc 32.5 g/dL (30-55); Mean Corpuscular Hemoglobin 27.6 pg (27-33); Mean Corpuscular Volume 84.8 fl (85-98); Mean Platelet Volume 9.9 fL (7.4-10.4); Monocytes # 0.3 10^3/uL (0.2-0.9); Monocytes % 6.5 %; Neutrophils # 2.63 10^3/uL (1.8-7.7); Neutrophils % 65.8 %; Nucleated Red Blood Cells % 0 %; Platelet Count 136 10^3/cmm (157-399); Red Blood Count 3.95 10^6/uL (3.85-5.65); Red Cell Distribution Width 13.5 % (12.1-15.1); White Blood Count 3.99 10^3/uL (3.29-11.43)
[2024-07-11 17:57] LABS: Alanine Aminotransferase 32 U/L (0-33); Albumin Level 3.7 g/dL (3.5-5.2); Alkaline Phosphatase 150 U/L (35-105); Ammonia 35 umol/L (11-51); Anion Gap 17.1 (5-19); Aspartate Amino Transferase 53 U/L (0-32); Blood Urea Nitrogen 19 mg/dL (6-20); Calcium 10.1 mg/dL (8.5-10.5); Carbon Dioxide 21 mmol/L (22-29); Chloride 106 mmol/L (98-107); Creatinine Clr Calc Pharmacy 67.9064; Globulin 3.9 g/dL (1.3-4.6); Glomerular Filtration Rate 76.6 mL/min (90-130); Glucose 111 mg/dL (65-115); Osmolality Calculated 293 mOsm/kg (285-295); Potassium 4.1 mmol/L (3.5-5.1); Sodium 140 mmol/L (136-145); Total Bilirubin 1.2 mg/dL (0.15-1.2); Total Protein 7.6 g/dL (6.6-8.7)
[2024-07-11 17:58] LABS: Lactic Sepsis W/Reflex 1.2 mmol/L (0.5-2.2)
[2024-07-11 17:59] LABS: Alcohol Level < 10 mg/dL (0-10)
[2024-07-11 18:12] LABS: Bilirubin Urine Negative (Negative); Blood Urine Negative (Negative); Glucose Urine UA Negative (Normal); Ketones Urine Trace (Negative); Leukocyte Esterase Urine Negative (Negative); Nitrate Urine Negative (Negative); Protein Urine 1+ (Negative); Specific Gravity, Urine 1.015 (1.005-1.030); Urine Appearance Clear (CLEAR); Urine Color Yellow (Yellow); pH Urine 6.5 (5-7)
[2024-07-11 18:14] LABS: Bacteria Urine None Seen /hpf; Hyaline Casts Urine 2.05 /lpf; RBC Urine 0-2 /hpf (0-2); Squamous Epithelial Cell Urine 0-5 /hpf (0-5); WBC Urine 0-5 /hpf (0-5)
[2024-07-11 18:25] LABS: UA Slide Review UA Slide Review Perf
[2024-07-11] MEDS: LORazepam 2 mg/mL INJ 1 mL 1 MG IVP (18:45)
--- NOTE | 2024-07-11 19:37 | PM.HP ---
Providers/Chief Complaint Primary Care Provider: Maia De Oliveira NP Chief Complaint: disoriented History of Present Illness Aurora Acevedo is a 48 year old female alcohol-related liver cirrhosis, has been sober for the last year and a half, was discharged from the hospital recently after she was intubated for airway protection with altered mental status secondary to hepatic encephalopathy, she was diagnosed with E. coli bacteremia she was discharged on IV meropenem she did not show any sign of anaphylaxis, she was discharged on metoprolol, amlodipine and nadolol along lactulose and rifaximin presenting again with chief complaint of altered mental status. Review of the records revealed that last meropenem dose was supposed to be 06/30. On previous admission CSF studies were obtained which were unremarkable. 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 She is sensitive to use of opioids. Patient was extubated after a week on 06/21 As per the her confusion started 24 hours ago, on Tuesday she was at her baseline, she is mostly compliant with her medications, no recent constipation, fever or diarrhea as per the . She was brought in today because she did not know where she was, she was very agitated, could not sit in a chair but at the same time could not put weight on her feet felt 2 times. That is what prompted her visit to the ER. CBC BMP and UA unremarkable ammonia level is normal. Chest x-ray CT head unremarkable. As per the he noticed 2 bowel movements today. does not think patient took extra dose of any medications at home, she is on Adderall, gabapentin, antihypertensive. UA positive for marijuana is stating that she has been taking medical marijuana from dispensary for quite some time this is not something recent. No seizure related activity noticed at home. Patient received Ativan, not able to provide good history, stating that she was brought in by EMS, she was sick that is why she is in the hospital, then she went back to her sleep Review of Systems General: Reports: ROS unobtainable due to medical condition Medications/Allergies Home Medications Medication Instructions Recorded Confirmed Last Taken Type ewpckmp-zerhnjoxblqbi-sjidkkjx 250 1 tab PO Q6H PRN unknown 04/18/24 07/11/24 Unknown History mg-250 mg-65 mg tablet (Excedrin Extra Strength) azelastine 137 mcg (0.1 %) nasal 2 spray intranasal BID 04/18/24 07/11/24 Unknown History spray budesonide-formoterol HFA 80 2 puff inhalation BID 04/18/24 07/11/24 Unknown History mcg-4.5 mcg/actuation aerosol inhaler (Symbicort) clindamycin phosphate 1 % topical 1 applic topical BID 04/18/24 07/11/24 Unknown History gel dapagliflozin propanediol 5 mg 5 mg PO DAILY 04/18/24 07/11/24 Unknown History tablet (Farxiga) ergocalciferol (vitamin D2) 1,250 1,250 mcg PO Q7D 04/18/24 07/11/24 Unknown History mcg (50,000 unit) capsule (Vitamin D2) loratadine 10 mg tablet (Claritin) 10 mg PO DAILY 04/18/24 07/11/24 Unknown History omeprazole 20 mg capsule,delayed 20 mg PO DAILY 04/18/24 07/11/24 Unknown History release vitamin B complex 1 tab PO DAILY 04/18/24 07/11/24 Unknown History magnesium L-threonate 48 mg 48 mg PO DAILY #90 caps 04/21/24 07/11/24 Unknown Rx magnesium (667 mg) capsule magnesium hydroxide 400 mg/5 mL 10 ml PO DAILY PRN constipation 05/08/24 07/11/24 Unknown Rx oral suspension (Milk of Magnesia) #355 mL clindamycin phosphate 1 % topical 1 applic topical DAILY 05/15/24 07/11/24 Unknown History solution hydroxyzine HCl 25 mg tablet 25 mg PO BID PRN itching #60 tabs 05/15/24 07/11/24 Unknown Rx albuterol sulfate 90 mcg/actuation 2 puff inhalation Q6H PRN 05/29/24 07/11/24 Unknown Rx aerosol inhaler shortness of breath or wheezing #6.7 grams lactulose 20 gram/30 mL oral 45 ml PO QID constipation #5,400 mL 05/29/24 07/11/24 Unknown Rx solution nadolol 80 mg tablet 80 mg PO DAILY #30 tabs 05/29/24 07/11/24 Unknown Rx amlodipine 5 mg tablet 5 mg PO DAILY #30 tabs 06/25/24 07/11/24 Unknown Rx gabapentin 100 mg capsule 100 mg PO TID #90 caps 06/25/24 07/11/24 Unknown Rx levofloxacin 750 mg tablet 750 mg PO DAILY@0600 #6 tabs 06/25/24 07/11/24 Unknown Rx rifaximin 200 mg tablet (Xifaxan) 600 mg (3 x 200 mg) PO BID #60 tabs 06/25/24 07/11/24 Unknown Rx Allergies Allergy/AdvReac Type Severity Reaction Status Date / Time aspirin Allergy ADR-Headach Verified 07/11/24 10:29 e Penicillins Allergy ALGY-Hives Verified 07/11/24 10:29 propofol Allergy Unknown Verified 07/11/24 16:45 PFSH Acute PFSH: Medical History Witnessed seizure-like activity Seizures ruled out with spot EEG's done twice on and off sedation. 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 Transaminitis Hepatic encephalopathy Respiratory failure Ileus Abnormal transaminases Hypertension Hospital discharge follow-up Alcoholic cirrhosis Family History Mother Hypertension Denies family history of Colon cancer Ovarian cancer Diabetes Heart disease Breast cancer Uterine cancer Thyroid disease Stroke Social History Smoking and tobacco/nicotine status: current every day tobacco/nicotine user Vitals/I&O/Wt Last Vital Signs Temp 98.1 F 07/11/24 16:39 Pulse 65 07/11/24 18:47 Resp 14 07/11/24 16:39 BP 166/93 07/11/24 18:47 Pulse Ox 97 07/11/24 18:47 O2 Del Method Room Air 07/11/24 18:47 07/11/24 07/11/24 07/11/24 06:59 14:59 22:59 Intake Total 0 / 0 Balance 0 / 0 Weight last 48 hrs Weight 49.895 kg Physical Exam Narrative: Positive asterixis, I did not appreciate any myoclonus Patient is arousable to verbal stimuli Patient was aware that she is in the hospital and she was brought in because she was sick at home Abdomen soft Mildly distended Sarcopenia Protein calorie management S1, S2 Currently on room air Blood pressure stable I did not appreciate any focal deficit Currently on room air Data 07/11/24 17:22 07/11/24 17:22 Micro: Microbiology 07/11/24 17:43 Blood Culture - Preliminary Blood SPECIMEN COLLECTED 07/11/24 17:22 Blood Culture - Preliminary Blood SPECIMEN COLLECTED A&P Assessment and plan (1) Alcoholic cirrhosis: (2) Delirium due to general medical condition: Plan Hepatic encephalopathy Positive asterixis Clinically looks dehydrated On previous admission EEG was done when posturing was noted during intubation however her urine was green and consideration was given to propofol syndrome as well No witnessed seizure as per the Monitor closely for now Ammonia level is not high Continue rifaximin and lactulose There is no sign of UTI or pneumonia As per the she had 2 bowel movements this morning UDS positive for marijuana, medical marijuana from the dispensary Recently meningitis was ruled out, CT head unremarkable, EEG was unremarkable, she may benefit from head MRI to rule out Warnicke's encephalopathy/Korsakoff: As per the she has been confused, has had couple of falls as well Monitor closely for any signs of seizure during this hospitalization Will request alcohol level, start high-dose thiamine Alcoholic liver cirrhosis: Has been sober for more than a year and a half: Was referred to [facility] floor refinisher for liver transplant Sarcopenia Inadequate p.o. intake, Consistent carb diet along sliding scale DVT prophylaxis Lovenox: Thrombocytopenia likely related to portal hypertension Attestations Medical Necessity Statement*: Monitor in the hospital anticipating discharge within 48 hours Diagnoses Alcoholic cirrhosis K70.30 Delirium due to general medical condition F05
[2024-07-11 19:52] LABS: Amphetamines Screen Urine Negative (Negative); Barbiturates Screen Urine Negative (Negative); Benzodiazepines Screen Urine Negative (Negative); Cocaine Screen Urine Negative (Negative); Opiate Screen Urine Negative (Negative); PCP Screen Urine Negative (Negative); THC Screen Urine Positive (Negative)
[2024-07-11] MEDS: thiamine 100 mg/mL 2mL SDV 500 MG IVP ×2 (20:03→21:14)
[2024-07-11 21:35] LABS: Alcohol Level < 10 mg/dL (0-10)
[2024-07-12] VITALS (11 sets, daily range): BP systolic 125–167; BP diastolic 74–105; PULSE 69–98; RESP 14–18; TEMP 36.4–36.9; O2SAT 96–99; BMI 20.1
[2024-07-12 00:21] LABS: Glucose Point of Care 74 mg/dL (70-110)
[2024-07-12] MEDS: heparin 5,000 unit/mL INJ 1 mL 5000 UNIT SUBCUT ×2 (00:29→12:16)
[2024-07-12] MEDS: lactulose oral liq 20 gm/30 mL UDC 30 GM PO ×4 (00:33→21:40)
[2024-07-12 05:36] LABS: Basophils % 0.8 %; Eosinophils # 0.2 10^3/uL (0.0-0.8); Eosinophils % 4.6 %; Hematocrit 32.3 % (36-47); Lymphocytes # 1.2 10^3/uL (0.8-4.8); Lymphocytes % 31.8 %; Mean Corpuscular HGB Conc 32.2 g/dL (30-55); Mean Corpuscular Hemoglobin 27.7 pg (27-33); Mean Corpuscular Volume 85.9 fl (85-98); Mean Platelet Volume 9.6 fL (7.4-10.4); Monocytes # 0.4 10^3/uL (0.2-0.9); Monocytes % 10.3 %; Neutrophils # 2.04 10^3/uL (1.8-7.7); Neutrophils % 52.2 %; Nucleated Red Blood Cells % 0 %; Platelet Count 116 10^3/cmm (157-399); Red Blood Count 3.76 10^6/uL (3.85-5.65); Red Cell Distribution Width 13.5 % (12.1-15.1)
[2024-07-12 06:02] LABS: Alanine Aminotransferase 28 U/L (0-33); Albumin Level 3.4 g/dL (3.5-5.2); Alkaline Phosphatase 133 U/L (35-105); Anion Gap 15.9 (5-19); Aspartate Amino Transferase 48 U/L (0-32); Blood Urea Nitrogen 20 mg/dL (6-20); Calcium 9.7 mg/dL (8.5-10.5); Carbon Dioxide 21 mmol/L (22-29); Chloride 109 mmol/L (98-107); Globulin 3.2 g/dL (1.3-4.6); Glomerular Filtration Rate 66.8 mL/min (90-130); Glucose 84 mg/dL (65-115); Magnesium 1.5 mg/dL (1.7-2.3); Osmolality Calculated 296 mOsm/kg (285-295); Phosphorus 2.7 mg/dL (2.5-4.5); Potassium 3.9 mmol/L (3.5-5.1); Sodium 142 mmol/L (136-145); Total Protein 6.6 g/dL (6.6-8.7)
[2024-07-12 06:25] LABS: Glucose Point of Care 89 mg/dL (70-110)
--- NOTE | 2024-07-12 06:41 | PC.NURSE ---
patient came to floor early in the AM from the emergency department, patient will wake up but wont speak unless asked questions several times. in the er department she was combative, she has been resting since she came to the floor. no complaints from her at this time
--- NOTE | 2024-07-12 07:37 | PC.PHAR ---
Pt verified her medications-several meds were over due to fill.
[2024-07-12] MEDS: thiamine 100 mg/mL 2mL SDV 500 MG IVP ×2 (08:29→17:54)
[2024-07-12] MEDS: rifaximin 200 mg Tablet 600 MG PO ×2 (08:29→17:54)
[2024-07-12 10:58] LABS: Glucose Point of Care 143 mg/dL (70-110)
[2024-07-12] MEDS: insulin lispro 100 unit/1 mL SUBCUT (12:16)
--- NOTE | 2024-07-12 12:55 | PC.CHAP ---
Pastoral Care Encounter/Spiritual Assessment Type of Contact [] Declined pattern hanger visit [] Patient/Family/Request visit [] Outpatient visit [] Follow-up visit [] Physician referral [] Code/Alert [] Routine visit [] Staff referral [] Actively dying [x] Patient sleeping [] Family support [] [] Out of room [] Palliative care [] [] Receiving care in room [] Pre-surgical visit [] Trauma [] Long length of stay [] ICU visit [] Other: Relational/Emotional Strength [] Patient feels connected with others/family/visitors/staff [] Distress [] Loneliness/isolation [] Abandonment Spirituality of Patient [] Person of Maria E [] Attends [employer]ian of their Maria E [] Believes in Prayer [] Reads Bible or Restoration materials [] There are Spiritual issues to be addressed Scallop Cutter Machine Interventions [] Prayer [] Active listening [] Non-anxious presence [] Spiritual/emotional support [] Crisis/trauma care [] Spiritual counseling [] Bereavement support [] Provided bereavement packet [] Provided Bible/devotional materials [] Provided toy/stuffed animal, coloring book to patient or family member [] Provided Communion [] Anointing/[place] [] Salvation [] Completed spiritual assessment [] Other: Impact on Illness or Injury [] Angry [] Fearful [] Anxious [] Often cries [] Exhaustion [] Unable to work [] Unable to attend uatsdin [] Unable to walk/stand [] Unable to read [] Unable to drive [] Unable to eat/drink [] Unable to sleep [] Unable to be with family [] Patient intubated [] Other: Summary Time spent with patient
--- NOTE | 2024-07-12 16:01 | PM.PN ---
Subjective Subjective: Seen this morning. Patient states she feels somewhat confused however she knows that she is in the hospital. He says it was urine at 2004 however corrected and said it was 2024 later 1. She says she is not sure how she got to the hospital. Unsure if her came with her. She states that she has an upcoming appointment with liver transplant team in [place] however does not know when the appointment is. Vitals/I&O/Wt Last Vital Signs Temp 97.5 F L 07/12/24 15:39 Pulse 78 07/12/24 15:39 Resp 18 07/12/24 15:39 BP 161/90 07/12/24 15:39 Pulse Ox 98 07/12/24 15:39 O2 Del Method Room Air 07/12/24 15:39 07/12/24 07/12/24 07/12/24 06:59 14:59 22:59 Intake Total 60 / 60 480 / 480 Output Total 100 / 100 Balance 60 / 60 380 / 380 Weight last 48 hrs Weight 52.254 kg Weight 52.22 kg Weight 49.895 kg Weight 49.895 kg Physical Exam Narrative: Positive asterixis, Awake alert oriented x 2/3. She knows she is in the hospital however does not remember how she got there. ? Abdomen soft, generally nontender, bowel sounds positive ? Patient saturating well on room air. Lungs clear to auscultation bilaterally no wheezes no rhonchi No gross focal deficits at this time. Data 07/12/24 05:28 07/12/24 05:28 Micro: Microbiology 07/11/24 17:43 Blood Culture - Preliminary Blood SPECIMEN COLLECTED 07/11/24 17:22 Blood Culture - Preliminary Blood SPECIMEN COLLECTED A&P Assessment and plan (1) Alcoholic cirrhosis: (2) Delirium due to general medical condition: Plan Hepatic encephalopathy Positive asterixis Clinically looks dehydrated On previous admission EEG was done when posturing was noted during intubation however her urine was green and consideration was given to propofol syndrome as well No witnessed seizure as per the Monitor closely for now Ammonia level is not high Continue rifaximin and lactulose There is no sign of UTI or pneumonia As per the she had 2 bowel movements this morning UDS positive for marijuana, medical marijuana from the dispensary Recently meningitis was ruled out, CT head unremarkable, EEG was unremarkable, she may benefit from head MRI to rule out Warnicke's encephalopathy/Korsakoff: As per the she has been confused, has had couple of falls as well Monitor closely for any signs of seizure during this hospitalization Will request alcohol level, start high-dose thiamine Alcoholic liver cirrhosis: Has been sober for more than a year and a half: Was referred to [place] ballistics expert for liver transplant Sarcopenia Inadequate p.o. intake, Consistent carb diet along sliding scale DVT prophylaxis Lovenox: Thrombocytopenia likely related to portal hypertension 07/12/2024 Agree management as per assessment and plan. Continue the above for now. ? Patient mental status is improved. ? Continue high-dose timing at this time. ? Patient does have appointment coming up with a ballistics expert in [place]. ? I will check MRI brain Attestations Medical Necessity Statement*: Monitor in the hospital anticipating discharge within 48 hours Coding Level of Care Code Acute Code for Chg Fwd Diagnoses Alcoholic cirrhosis K70.30 Delirium due to general medical condition F05
[2024-07-12 16:38] LABS: Glucose Point of Care 83 mg/dL (70-110)
[2024-07-12] MEDS: acetaminophen 500 mg Tablet PO (18:29)
[2024-07-12 20:51] LABS: Glucose Point of Care 118 mg/dL (70-110)
[2024-07-13] VITALS (11 sets, daily range): BP systolic 132–174; BP diastolic 80–97; PULSE 64–80; RESP 17–18; TEMP 36.6–36.8; O2SAT 97–100
[2024-07-13] MEDS: heparin 5,000 unit/mL INJ 1 mL 5000 UNIT SUBCUT ×2 (01:01→11:23)
[2024-07-13 06:11] LABS: Basophils % 0.8 %; Eosinophils # 0.3 10^3/uL (0.0-0.8); Eosinophils % 7.1 %; Hematocrit 31.8 % (36-47); Lymphocytes # 1.1 10^3/uL (0.8-4.8); Mean Corpuscular Hemoglobin 27.6 pg (27-33); Mean Corpuscular Volume 83.7 fl (85-98); Mean Platelet Volume 9.6 fL (7.4-10.4); Monocytes # 0.4 10^3/uL (0.2-0.9); Monocytes % 9.8 %; Neutrophils # 1.88 10^3/uL (1.8-7.7); Nucleated Red Blood Cells % 0 %; Platelet Count 100 10^3/cmm (157-399); Red Cell Distribution Width 13.4 % (12.1-15.1); White Blood Count 3.68 10^3/uL (3.29-11.43)
[2024-07-13 06:24] LABS: Glucose Point of Care 85 mg/dL (70-110)
[2024-07-13 06:35] LABS: Anion Gap 18.2 (5-19); Blood Urea Nitrogen 12 mg/dL (6-20); Calcium 9.3 mg/dL (8.5-10.5); Carbon Dioxide 18 mmol/L (22-29); Chloride 105 mmol/L (98-107); Creatinine Clr Calc Pharmacy 79.0714; Glomerular Filtration Rate 89.3 mL/min (90-130); Glucose 93 mg/dL (65-115); Magnesium 1.4 mg/dL (1.7-2.3); Osmolality Calculated 285 mOsm/kg (285-295); Potassium 3.2 mmol/L (3.5-5.1); Sodium 138 mmol/L (136-145)
[2024-07-13] MEDS: lactulose oral liq 20 gm/30 mL UDC 30 GM PO ×3 (08:44→21:22)
[2024-07-13] MEDS: rifaximin 200 mg Tablet 600 MG PO ×2 (08:45→18:17)
--- NOTE | 2024-07-13 09:03 | P.PN_ITS ---
Documented by User: Kulwant Mcdaniels 07/13/24 12:13 Subjective 2 Subjective: Patient was seen this morning. She states that she is feeling less confused this morning and is aware of where she is and what year it is. She reports intermittent abdominal pain localized to the RUQ that began yesterday (07/12) around 1400. She states that this morning the pain has been pretty constant, stating that nothing makes it better or worse. She notes diarrhea 2x yesterday. Denies fevers, chills, night sweats, dizziness, chest pain, SOB, N/V. Vitals/I&O/Wt Last Vital Signs Temp 98.3 F 07/13/24 07:31 Pulse 79 07/13/24 07:31 Resp 17 07/13/24 04:00 BP 156/88 07/13/24 07:31 Pulse Ox 99 07/13/24 07:31 O2 Del Method Room Air 07/13/24 04:00 07/12/24 07/13/24 07/13/24 22:59 06:59 14:59 Intake Total 690 / 1170 350 / 1520 240 / 240 Balance 690 / 1070 350 / 1420 240 / 240 Weight last 48 hrs Weight 52.254 kg Weight 52.254 kg Weight 52.22 kg Weight 49.895 kg Weight 49.895 kg Physical Exam 2 GI: COMMON NORMALS: Soft to palpation PALPATION: Yes Soft to palpation and Yes Tenderness to palpation present (GI) Data 07/13/24 06:03 07/13/24 06:03 Micro: Microbiology 07/11/24 17:43 Blood Culture - Preliminary Blood NEGATIVE TO DATE 07/11/24 17:22 Blood Culture - Preliminary Blood NEGATIVE TO DATE A&P Assessment and plan (1) Gastritis: (2) Duodenitis: Plan Hepatic encephalopathy Positive asterixis Clinically looks dehydrated On previous admission EEG was done when posturing was noted during intubation however her urine was green and consideration was given to propofol syndrome as well No witnessed seizure as per the Monitor closely for now Ammonia level is not high Continue rifaximin and lactulose There is no sign of UTI or pneumonia As per the she had 2 bowel movements this morning UDS positive for marijuana, medical marijuana from the dispensary Recently meningitis was ruled out, CT head unremarkable, EEG was unremarkable, she may benefit from head MRI to rule out Warnicke's encephalopathy/Korsakoff: As per the she has been confused, has had couple of falls as well Monitor closely for any signs of seizure during this hospitalization Will request alcohol level, start high-dose thiamine Alcoholic liver 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 intake, Consistent carb diet along sliding scale DVT prophylaxis Lovenox: Thrombocytopenia likely related to portal hypertension 07/12/2024 Agree management as per assessment and plan. Continue the above for now. ? Patient mental status is improved. ? Continue high-dose timing at this time. ? Patient does have appointment coming up with a shipping receiving clerk in [place]. ? I will check MRI brain. 07/13/2024 - Agree management as per assessment and plan. Continue the above for now. - Maintain lactulose dose as she is having appropriate bowel movements with medication. - MRI brain showed no evidence of infarct or edema. Showed signs of chronic hepatic encephalopathy. - Ordered CT Abdomen today to evaluate RUQ tenderness. - CT shows evidence of gastritis and duodenitis. Will start on protonix, antibiotics and GI soft diet Coding Level of Care Code 47792 Diagnoses Gastritis K29.70 Duodenitis K29.80 Documented by User: Vivi Nazario MD 07/13/24 15:31 Physical Exam 2 Narrative: Alert oriented x 3. ? Abdomen soft, generally nontender, bowel sounds positive, mild tenderness to palpation around right upper quadrant area ? Patient saturating well on room air. Lungs clear to auscultation bilaterally no wheezes no rhonchi No gross focal deficits at this time. Data 07/13/24 06:03 07/13/24 06:03 A&P Assessment and plan (1) Gastritis: (2) Duodenitis: Plan Hepatic encephalopathy Positive asterixis Clinically looks dehydrated On previous admission EEG was done when posturing was noted during intubation however her urine was green and consideration was given to propofol syndrome as well No witnessed seizure as per the Monitor closely for now Ammonia level is not high Continue rifaximin and lactulose There is no sign of UTI or pneumonia As per the she had 2 bowel movements this morning UDS positive for marijuana, medical marijuana from the dispensary Recently meningitis was ruled out, CT head unremarkable, EEG was unremarkable, she may benefit from head MRI to rule out Warnicke's encephalopathy/Korsakoff: As per the she has been confused, has had couple of falls as well Monitor closely for any signs of seizure during this hospitalization Will request alcohol level, start high-dose thiamine Alcoholic liver 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 intake, Consistent carb diet along sliding scale DVT prophylaxis Lovenox: Thrombocytopenia likely related to portal hypertension 07/12/2024 Agree management as per assessment and plan. Continue the above for now. ? Patient mental status is improved. ? Continue high-dose timing at this time. ? Patient does have appointment coming up with a shipping receiving clerk in [place]. ? I will check MRI brain. 07/13/2024 - Maintain lactulose dose as she is having appropriate bowel movements with medication. - MRI brain showed no evidence of infarct or edema. Showed signs of chronic hepatic encephalopathy. - Ordered CT Abdomen today to evaluate RUQ tenderness. CT abdomen pelvis ordered for this morning to evaluate for right upper quadrant tenderness. Patient possibly has duodenitis and gastritis. ? Continue Protonix 40 IV twice daily ? I will add ciprofloxacin and Flagyl at this time. Will switch to GI soft diet at this time and monitor the patient. ? Mental status guerrero she has improved. She is appearing better. Continue high- dose thiamine to complete 6 doses total. Will transition to thiamine 250 daily starting tomorrow. Attestations 2 Medical Necessity Statement*: Has evidence of gastritis duodenitis and abdominal pain. Will place on IV antibiotics and GI soft diet and monitor patient. If continues to improve by tomorrow may consider sending home. Diagnoses Gastritis K29.70 Duodenitis K29.80
--- NOTE | 2024-07-13 09:08 | CT_ITS ---
WS: [id number] CT ABDOMEN PELVIS TECHNIQUE: Contrast-enhanced CT of the abdomen and pelvis with coronal and sagittal reformatted image s. CLINICAL INFORMATION: abdominal pain, tender to palpation COMPARISON: None. DLP: 348.[address] scans at [facility] use at least one of these dose optimization techniques: automated e xposure control; mA and/or kV adjustment per patient size (includes targeted exams where dose is matc hed to clinical indication); or iterative reconstruction. FINDINGS: Cholecystectomy. Somewhat nodular contour to the liver suspicious for cirrhosis. Splenomegaly. Eviden ce of portal venous hypertension with small developing collateral vessels and varices in the upper ab domen. Recommend correlation with liver function tests. Evidence of gastritis and duodenitis with rug al fold thickening and gastric wall enhancement extending into the duodenum. Normal pancreatic parenchymal enhancement. Dilated common bile duct likely physiologic postcholecyste ctomy similar to the prior studies. Lung bases are well aerated. Celiac and SMA are patent. Adrenal glands are normal. No nephrosis in ei ther kidney. Normal renal parenchymal enhancement. Normal appendix in the RIGHT lower quadrant. No ev idence of acute appendicitis. Prominent lobulated veins in the pelvis can be seen with pelvic congest ion syndrome in the appropriate clinical setting unchanged with the prior studies. Fluid distended ce cum also similar in appearance to the prior studies no evidence of high-grade obstruction. CT/CT abdomen pelvis w con* [id number] IMPRESSION: 1. Cirrhotic liver with splenomegaly. 2. Prior cholecystectomy with bile duct dilatation likely physiologic unchange d in the prior studies. 3. Fluid distended cecum similar to the prior studies. No evidence of high-gra de obstruction. There may be some component of adynamic ileus similar to multip le prior studies. 4. Prominent periuterine vessels can be seen with pelvic congestion syndrome i n the appropriate clinical setting. 5. Stable previously described foreign body in the stomach of unknown etiology . 6. Evidence of gastritis and duodenitis 7. No other acute findings.
[2024-07-13] MEDS: iohexol 350 mg/mL 500 mL Btl (per mL) IV (10:15)
--- NOTE | 2024-07-13 10:15 | MR_ITS ---
WS: [id number] MRI BRAIN WITHOUT CONTRAST HISTORY: ams, hepatic encephalopathy, alcohol use COMPARISON: CT 07/11/2024 TECHNIQUE: Diffusion imaging, multiplanar T1, T2 and FLAIR imaging obtained. No acute infarct. Tiny foci of hemosiderin in the basal ganglia. Moderate atrophy with very minimal s mall vessel ischemic changes. Mild cerebellar atrophy. Normal hippocampal formations. Symmetric high T1 signal in the globus pallidus. Ventricles and extra-axial spaces are normal. No inferior displacement of cerebellar tonsils. The sella turcica and pituitary gland are unremarkabl e. Dural venous sinuses and upper [place] demonstrate no abnormality on this unenhanced studies. Paranasal sinuses: Mild mucoperiosteal thickening in the sphenoid sinus. No air-fluid levels. Mastoid air cells: Normal. Calvarium and scalp: Intact. MR/MR head wo con* [id number] IMPRESSION: 1. No acute infarct or edema. 2. Symmetric high T1 signal in the globus pallidus is present with chronic hep atic encephalopathy. 3. There are a few tiny foci of hemosiderin in the basal ganglia. 4. Moderate cerebral atrophy with mild small vessel disease.
[2024-07-13] MEDS: thiamine 500 MG in sodium chloride 0.9% (100 ml) 100 ML 210 MG IV ×2 (10:38→16:01)
[2024-07-13 11:06] LABS: Glucose Point of Care 88 mg/dL (70-110)
[2024-07-13] MEDS: magnesium sulfate premix 4 GM/100 ML PREMIX IV (11:22)
[2024-07-13] MEDS: ciprofloxacin 400 MG/200 ML PREMIX 200 MG IV (13:13)
[2024-07-13] MEDS: metroNIDAZOLE IV 500 MG/100 ML PREMIX 100 MG IV ×2 (13:14→21:22)
[2024-07-13] MEDS: pantoprazole 40 mg SDV IVP (13:15)
[2024-07-13 17:08] LABS: Glucose Point of Care 93 mg/dL (70-110)
[2024-07-13] MEDS: morphine 4 mg/mL SDV 1 mL 2 MG IVP ×2 (18:08→22:19)
[2024-07-13 21:04] LABS: Glucose Point of Care 233 mg/dL (70-110)
[2024-07-13] MEDS: insulin lispro 100 unit/1 mL SUBCUT (22:20)
[2024-07-14] VITALS (12 sets, daily range): BP systolic 168–173; BP diastolic 84–102; PULSE 71–90; RESP 14–18; TEMP 36.5–36.8; O2SAT 97–100
[2024-07-14] MEDS: pantoprazole 40 mg SDV IVP ×3 (00:01→23:46)
[2024-07-14] MEDS: ciprofloxacin 400 MG/200 ML PREMIX 200 MG IV ×3 (00:01→23:46)
[2024-07-14] MEDS: heparin 5,000 unit/mL INJ 1 mL 5000 UNIT SUBCUT ×3 (00:01→23:46)
[2024-07-14] MEDS: morphine 4 mg/mL SDV 1 mL 2 MG IVP ×5 (02:48→21:44)
[2024-07-14] MEDS: metroNIDAZOLE IV 500 MG/100 ML PREMIX 100 MG IV ×3 (05:19→20:10)
[2024-07-14 05:30] LABS: Basophils % 0.8 %; Eosinophils # 0.3 10^3/uL (0.0-0.8); Eosinophils % 7.1 %; Hematocrit 33.9 % (36-47); Lymphocytes % 26.2 %; Mean Corpuscular HGB Conc 30.4 g/dL (30-55); Mean Corpuscular Hemoglobin 27.2 pg (27-33); Mean Corpuscular Volume 89.4 fl (85-98); Mean Platelet Volume 10.6 fL (7.4-10.4); Monocytes # 0.4 10^3/uL (0.2-0.9); Monocytes % 10.9 %; Neutrophils # 2.16 10^3/uL (1.8-7.7); Nucleated Red Blood Cells % 0 %; Platelet Count 102 10^3/cmm (157-399); Red Blood Count 3.79 10^6/uL (3.85-5.65); Red Cell Distribution Width 13.7 % (12.1-15.1); White Blood Count 3.93 10^3/uL (3.29-11.43)
[2024-07-14 05:55] LABS: Anion Gap 17.3 (5-19); Blood Urea Nitrogen 9 mg/dL (6-20); Calcium 9.6 mg/dL (8.5-10.5); Carbon Dioxide 17 mmol/L (22-29); Chloride 104 mmol/L (98-107); Creatinine Clr Calc Pharmacy 79.0714; Glomerular Filtration Rate 89.3 mL/min (90-130); Glucose 94 mg/dL (65-115); Magnesium 1.8 mg/dL (1.7-2.3); Osmolality Calculated 278 mOsm/kg (285-295); Potassium 3.3 mmol/L (3.5-5.1); Sodium 135 mmol/L (136-145)
[2024-07-14 06:41] LABS: Glucose Point of Care 102 mg/dL (70-110)
[2024-07-14] MEDS: lactulose oral liq 20 gm/30 mL UDC 30 GM PO ×3 (08:23→20:14)
[2024-07-14] MEDS: potassium chloride ER 20 mEq Tablet 40 MEQ PO ×2 (10:36→17:08)
[2024-07-14] MEDS: rifaximin 200 mg Tablet 600 MG PO ×2 (10:36→17:00)
[2024-07-14 12:05] LABS: Glucose Point of Care 183 mg/dL (70-110)
[2024-07-14] MEDS: insulin lispro 100 unit/1 mL SUBCUT ×2 (12:29→21:44)
[2024-07-14 17:02] LABS: Glucose Point of Care 130 mg/dL (70-110)
[2024-07-14 21:14] LABS: Glucose Point of Care 153 mg/dL (70-110)
[2024-07-15] VITALS (7 sets, daily range): BP systolic 151–167; BP diastolic 75–98; PULSE 76–99; RESP 14–18; TEMP 36.3–36.8; O2SAT 95–98
[2024-07-15] MEDS: metroNIDAZOLE IV 500 MG/100 ML PREMIX 100 MG IV (03:30)
[2024-07-15] MEDS: morphine 4 mg/mL SDV 1 mL 2 MG IVP ×3 (03:30→12:39)
[2024-07-15 04:15] LABS: Basophils % 0.2 %; Lymphocytes # 1.6 10^3/uL (0.8-4.8); Lymphocytes % 18.9 %; Mean Corpuscular HGB Conc 30.5 g/dL (30-55); Mean Corpuscular Hemoglobin 29.8 pg (27-33); Monocytes # 0.4 10^3/uL (0.2-0.9); Monocytes % 4.5 %; Neutrophils # 6.47 10^3/uL (1.8-7.7); Neutrophils % 74.6 %; Nucleated Red Blood Cells % 0 %; Platelet Count 173 10^3/cmm (157-399); Red Blood Count 4.49 10^6/uL (3.85-5.65); Red Cell Distribution Width 14.9 % (12.1-15.1); White Blood Count 8.68 10^3/uL (3.29-11.43)
[2024-07-15 04:50] LABS: Blood Urea Nitrogen 15 mg/dL (6-20); Calcium 9.6 mg/dL (8.5-10.5); Carbon Dioxide 26 mmol/L (22-29); Chloride 101 mmol/L (98-107); Creatinine Clr Calc Pharmacy 70.6407; Glomerular Filtration Rate 76.6 mL/min (90-130); Glucose 294 mg/dL (65-115); Magnesium 2.1 mg/dL (1.7-2.3); Osmolality Calculated 298 mOsm/kg (285-295); Sodium 138 mmol/L (136-145)
[2024-07-15 04:52] LABS: Anion Gap 15.8 (5-19); Potassium 4.8 mmol/L (3.5-5.1)
[2024-07-15 06:30] LABS: Glucose Point of Care 139 mg/dL (70-110)
[2024-07-15] MEDS: lactulose oral liq 20 gm/30 mL UDC 30 GM PO (08:16)
[2024-07-15] MEDS: rifaximin 200 mg Tablet 600 MG PO (08:16)
--- NOTE | 2024-07-15 08:32 | P.DS_ITS ---
Discharge Providers Date of Admission: 07/12/24 16:05 Date of Discharge: July 15, 2024 Attending Provider at Admission: Jeancarlos Baird MD Attending Provider at Discharge: Vivi Nazario MD Primary Care Provider: Maia De Oliveira NP Diagnoses at Discharge Discharge Diagnosis (1) Gastritis: Status: Acute (2) Duodenitis: Status: Acute Reason for Visit Reason for Visit: disoriented Hospital Course Hospital Course Patient was admitted for abdominal pain, hepatic encephalopathy. She was kept on lactulose and rifaximin. Mental status improved pretty quickly. She was also given high-dose thiamine during hospitalization. She continued to complain of abdominal pain. CT abdomen pelvis was obtained. It showed gastritis duodenitis. She was kept on ciprofloxacin and Flagyl and discharged home on the same to follow-up with primary care doctor and her liver specialist. She has an upcoming appointment next week. Patient tolerating oral intake prior to discharge. Of note patient does have a foreign body in stomach which she is aware of. She is to discuss with her liver specialist as there are plans to possibly do an EGD going forward. Surgery also was consulted during hospitalization who agreed with the above plan. Physical Exam Narrative: Alert oriented x 3. ? Abdomen soft, generally nontender, bowel sounds positive, mild tenderness to palpation around right upper quadrant area ? Patient saturating well on room air. Lungs clear to auscultation bilaterally no wheezes no rhonchi No gross focal deficits at this time. GI: COMMON NORMALS: Soft to palpation PALPATION: Yes Soft to palpation and Yes Tenderness to palpation present (GI) Discharge Data Studies Completed and Pending Completed Studies During Hospitalization Category Date Time Status CT abdomen pelvis w con* [id number] Stat Cat Scan 07/13/24 09:[address] head wo con* [id number] Stat Cat Scan 07/11/24 16:50 Completed XR chest 1V portable [id number] Stat Exams 07/11/24 16:50 Completed MR head wo con* [id number] Routine MRI 07/13/24 10:15 Completed Pending at discharge Category Date Time Status Blood Culture Stat Lab 07/11/24 17:43 Results Radiology Impressions Chest X-Ray 07/11/24 16:50 IMPRESSION: No acute findings. Head CT 07/11/24 16:50 IMPRESSION: No acute intracranial abnormality. Abdomen/Pelvis CT 07/13/24 09:08 IMPRESSION: 1. Cirrhotic liver with splenomegaly. 2. Prior cholecystectomy with bile duct dilatation likely physiologic unchanged in the prior studies. 3. Fluid distended cecum similar to the prior studies. No evidence of high- grade obstruction. There may be some component of adynamic ileus similar to multiple prior studies. 4. Prominent periuterine vessels can be seen with pelvic congestion syndrome in the appropriate clinical setting. 5. Stable previously described foreign body in the stomach of unknown etiology. 6. Evidence of gastritis and duodenitis 7. No other acute findings. Head MRI 07/13/24 10:15 IMPRESSION: 1. No acute infarct or edema. 2. Symmetric high T1 signal in the globus pallidus is present with chronic hepatic encephalopathy. 3. There are a few tiny foci of hemosiderin in the basal ganglia. 4. Moderate cerebral atrophy with mild small vessel disease. Laboratory Results WBC 8.68 10^3/uL (3.29-11.43) 07/15/24 03:56 RBC 4.49 10^6/uL (3.85-5.65) 07/15/24 03:56 Hgb 13.40 g/dL (11.27-16.99) D 07/15/24 03:56 Hct 44.0 % (36-47) 07/15/24 03:56 MCV 98.0 fl (85-98) D 07/15/24 03:56 MCH 29.8 pg (27-33) 07/15/24 03:56 MCHC 30.5 g/dL (30-55) 07/15/24 03:56 RDW 14.9 % (12.1-15.1) 07/15/24 03:56 Plt Count 173 10^3/cmm (157-399) D 07/15/24 03:56 MPV 10.0 fL (7.4-10.4) 07/15/24 03:56 Neut % (Auto) 74.6 % 07/15/24 03:56 Lymph % (Auto) 18.9 % 07/15/24 03:56 [place] % (Auto) 4.5 % 07/15/24 03:56 Eos % (Auto) 0.0 % 07/15/24 03:56 Baso % (Auto) 0.2 % 07/15/24 03:56 Neut # (Auto) 6.47 10^3/uL (1.8-7.7) 07/15/24 03:56 Lymph # (Auto) 1.6 10^3/uL (0.8-4.8) 07/15/24 03:56 [place] # (Auto) 0.4 10^3/uL (0.2-0.9) 07/15/24 03:56 Eos # (Auto) 0.0 10^3/uL (0.0-0.8) 07/15/24 03:56 Baso # (Auto) 0.0 10^3/uL (0.0-0.1) 07/15/24 03:56 Nucleated RBC % (auto) 0 % 07/15/24 03:56 Nucleated RBCs # 0.0 /100WBC 07/15/24 03:56 Sodium 138 mmol/L (136-145) 07/15/24 03:56 Potassium 4.8 mmol/L (3.5-5.1) 07/15/24 03:56 Chloride 101 mmol/L (98-107) 07/15/24 03:56 Carbon Dioxide 26 mmol/L (22-29) 07/15/24 03:56 Anion Gap 15.8 (5-19) 07/15/24 03:56 BUN 15 mg/dL (6-20) 07/15/24 03:56 Creatinine 0.8 mg/dL (0.5-0.9) 07/15/24 03:56 GFR Calculation 76.6 mL/min (90-130) L 07/15/24 03:56 Glucose 294 mg/dL (65-115) H 07/15/24 03:56 POC Glucose 139 mg/dL (70-110) H 07/15/24 06:26 Calculated Osmolality 298 mOsm/kg (285-295) H 07/15/24 03:56 Lactic Acid 1.2 mmol/L (0.5-2.2) 07/11/24 17:22 Calcium 9.6 mg/dL (8.5-10.5) 07/15/24 03:56 Phosphorus 2.7 mg/dL (2.5-4.5) 07/12/24 05:28 Magnesium 2.1 mg/dL (1.7-2.3) 07/15/24 03:56 Total Bilirubin 1.0 mg/dL (0.15-1.2) 07/12/24 05:28 AST 48 U/L (0-32) H 07/12/24 05:28 ALT 28 U/L (0-33) 07/12/24 05:28 Alkaline Phosphatase 133 U/L (35-105) H 07/12/24 05:28 Ammonia 35 umol/L (11-51) 07/11/24 17:22 Total Protein 6.6 g/dL (6.6-8.7) 07/12/24 05:28 Albumin 3.4 g/dL (3.5-5.2) L 07/12/24 05:28 Globulin 3.2 g/dL (1.3-4.6) 07/12/24 05:28 Urine Color Yellow (Yellow) 07/11/24 18:00 Urine Appearance Clear (CLEAR) 07/11/24 18:00 Urine pH 6.5 (5-7) 07/11/24 18:00 Ur Specific [place] 1.015 (1.005-1.030) 07/11/24 18:00 Urine Protein 1+ (Negative) A 07/11/24 18:00 Urine Glucose (UA) Negative (Normal) 07/11/24 18:00 Urine Ketones Trace (Negative) 07/11/24 18:00 Urine Blood Negative (Negative) 07/11/24 18:00 Urine Nitrate Negative (Negative) 07/11/24 18:00 Urine Bilirubin Negative (Negative) 07/11/24 18:00 Urine Urobilinogen 1.0 mg/dL (Negative) 07/11/24 18:00 Ur Leukocyte Esterase Negative (Negative) 07/11/24 18:00 Urine RBC 0-2 /hpf (0-2) 07/11/24 18:00 Urine WBC 0-5 /hpf (0-5) 07/11/24 18:00 Ur Squamous Epith Cells 0-5 /hpf (0-5) 07/11/24 18:00 Amorphous Sediment Not Reportable 07/11/24 18:00 Urine Bacteria None seen /hpf (NONE) 07/11/24 18:00 Hyaline Casts 2.05 /lpf 07/11/24 18:00 Urine Opiates Screen Negative ng/mL (Negative) 07/11/24 18:00 Ur Barbiturates Screen Negative ng/mL (Negative) 07/11/24 18:00 Ur Phencyclidine Scrn Negative ng/mL (Negative) 07/11/24 18:00 Ur Amphetamines Screen Negative ng/mL (Negative) 07/11/24 18:00 U Benzodiazepines Scrn Negative ng/mL (Negative) 07/11/24 18:00 Urine Cocaine Screen Negative ng/mL (Negative) 07/11/24 18:00 U Marijuana (THC) Screen Positive ng/mL (Negative) H 07/11/24 18:00 Ethyl Alcohol < 10 mg/dL (0-10) 07/11/24 21:10 Vitals Last Vital Signs Temp 98.0 F 07/15/24 07:57 Pulse 78 07/15/24 07:57 Resp 14 07/15/24 08:18 BP 151/75 07/15/24 07:57 Pulse Ox 97 07/15/24 08:18 O2 Del Method Room Air 07/15/24 07:57 Discharge Plan Discharge Patient Disposition: Home Condition: Stable Prescriptions: New ciprofloxacin HCl 500 mg tablet 500 mg PO BID Qty: 10 0RF pantoprazole [Protonix] 40 mg tablet,delayed release (DR/EC) 40 mg PO BID 14 Days Qty: 28 0RF hydrocodone-acetaminophen 5-325 mg tablet 1 tab PO Q8H PRN (Reason: pain) Qty: 9 0RF Continued albuterol sulfate 90 mcg/actuation HFA aerosol inhaler 2 puff inhalation Q6H PRN (Reason: shortness of breath or wheezing) Qty: 6.7 0RF nadolol 80 mg tablet 80 mg PO DAILY Qty: 30 0RF clindamycin phosphate 1 % solution 1 applic topical DAILY clindamycin phosphate 1 % Gel 1 applic TOPICAL BID omeprazole 20 mg Capsule,Delayed Release(Dr/Ec) 20 mg PO DAILY ergocalciferol (vitamin D2) [Vitamin D2] 1,250 mcg (50,000 unit) Capsule 1,250 mcg PO Q7D loratadine [Claritin] 10 mg Tablet 10 mg PO DAILY budesonide-formoterol [Symbicort] 80-4.5 mcg/actuation Hfa Aerosol Inhaler 2 puff INHALATION BID dapagliflozin propanediol [Farxiga] 5 mg Tablet 5 mg PO DAILY vitamin B complex Tablet 1 tab PO DAILY Excedrin Extra Strength 250-250-65 mg Tablet 1 tab PO Q6H PRN (Reason: unknown) magnesium L-threonate 48 mg magnesium (667 mg) capsule 48 mg PO DAILY Qty: 90 0RF magnesium hydroxide [Milk of Magnesia] 400 mg/5 mL suspension 10 ml PO DAILY PRN (Reason: constipation) Qty: 355 0RF amlodipine 5 mg Tablet 5 mg PO DAILY Qty: 30 0RF gabapentin 100 mg Capsule 100 mg PO TID Qty: 90 0RF Xifaxan 200 mg Tablet 600 mg PO BID Qty: 60 0RF Changed lactulose 20 gram/30 mL solution 30 ml PO QID Qty: 5400 2RF Discontinued azelastine 137 mcg (0.1 %) Bivins,Non-Aerosol 2 spray INTRANASAL BID PRN (Reason: allergies) Rx Instructions: administer into each nostril No Action hydroxyzine HCl 25 mg tablet See Rx Instructions .ROUTE .COMPLEX Qty: 60 0RF Dose Instruction: TAKE 1 TABLET BY MOUTH TWICE DAILY NEEDED FOR ITCHING Rx Instructions: TAKE 1 TABLET BY MOUTH TWICE DAILY NEEDED FOR ITCHING Discharge Orders: Discharge Order (Routine); Ordered 07/15/24 Ordered By: Vivi Nazario Referrals: Maia De Oliveira, MAINTENANCE [employer]IC [employer] [Primary Care Provider] - 4-7 days (We have notified your physician's clinic of the need for a follow-up appointment to be scheduled. If you have not heard from them within the next 2 business days, please call them directly. ) Discharge Diet: GI Soft Discharge Activity: Resume usual activity Patient Instructions: Ciprofloxacin (By mouth), Metronidazole (By mouth), Pantoprazole (By mouth), Hydrocodone (By mouth), Gastritis (GEN), Altered Mental Status (ED), Duodenitis (GEN), GI (Gastrointestinal) Soft Diet (GEN), Opioid Safety Activity Restrictions/Additional Instructions: Please follow up with termite treater helper as previously scheduled Discharge Attestations Time Spent in Discharge Care*: greater than 30 min Quality Metrics Clinical Quality Measures [ No reported AMI, CVA or VTE this stay] Coding Level of Care Code Acute Code for Chg Fwd Diagnoses Gastritis K29.70 Duodenitis K29.80
--- NOTE | 2024-07-15 10:20 | P.CONIM_ITS ---
Providers/Reason For Consult 2 Consulting Physician/Specialty*: General Surgery Reason for Consult*: Gastritis and duodenitis Attending Physician: Vivi Nazario MD Primary Care Provider: Maia De Oliveira NP History of Present Illness History of Present Illness Aurora Acevedo is a 48 year old female with history of liver cirrhosis, she has had cholecystectomy in the past. Has been having chronic abdominal pain in the right upper quadrant that has episodes of worsening from time to time. Recent CAT scan of the abdomen showed changes consistent with cirrhosis, gastritis and duodenitis. I was consulted to provide recommendations. Medications/Allergies Home Medications Medication Instructions Recorded Confirmed Last Taken Type pwaqnze-eeilqboeftzex-kjcmehjw 250 1 tab PO Q6H PRN unknown 04/18/24 07/12/24 Unknown History mg-250 mg-65 mg tablet (Excedrin Extra Strength) azelastine 137 mcg (0.1 %) nasal 2 spray intranasal BID PRN 04/18/24 07/12/24 Unknown History spray allergies budesonide-formoterol HFA 80 2 puff inhalation BID 04/18/24 07/12/24 Unknown History mcg-4.5 mcg/actuation aerosol inhaler (Symbicort) clindamycin phosphate 1 % topical 1 applic topical BID 04/18/24 07/12/24 07/11/24 History gel dapagliflozin propanediol 5 mg 5 mg PO DAILY 04/18/24 07/12/24 07/11/24 History tablet (Farxiga) ergocalciferol (vitamin D2) 1,250 1,250 mcg PO Q7D 04/18/24 07/12/24 07/04/24 History mcg (50,000 unit) capsule (Vitamin D2) loratadine 10 mg tablet (Claritin) 10 mg PO DAILY 04/18/24 07/12/24 07/11/24 History omeprazole 20 mg capsule,delayed 20 mg PO DAILY 04/18/24 07/12/24 07/11/24 History release vitamin B complex 1 tab PO DAILY 04/18/24 07/12/24 07/11/24 History magnesium L-threonate 48 mg 48 mg PO DAILY #90 caps 04/21/24 07/12/24 Unknown Rx magnesium (667 mg) capsule magnesium hydroxide 400 mg/5 mL 10 ml PO DAILY PRN constipation 05/08/24 07/12/24 Unknown Rx oral suspension (Milk of Magnesia) #355 mL clindamycin phosphate 1 % topical 1 applic topical DAILY 05/15/24 07/12/24 07/11/24 History solution hydroxyzine HCl 25 mg tablet 25 mg PO BID PRN itching #60 tabs 05/15/24 07/12/24 Unknown Rx albuterol sulfate 90 mcg/actuation 2 puff inhalation Q6H PRN 05/29/24 07/12/24 Unknown Rx aerosol inhaler shortness of breath or wheezing #6.7 grams lactulose 20 gram/30 mL oral 45 ml PO QID constipation #5,400 mL 05/29/24 07/12/24 07/11/24 Rx solution nadolol 80 mg tablet 80 mg PO DAILY #30 tabs 05/29/24 07/12/24 07/11/24 Rx amlodipine 5 mg tablet 5 mg PO DAILY #30 tabs 06/25/24 07/12/24 07/11/24 Rx gabapentin 100 mg capsule 100 mg PO TID #90 caps 06/25/24 07/12/24 07/11/24 Rx rifaximin 200 mg tablet (Xifaxan) 600 mg (3 x 200 mg) PO BID #60 tabs 06/25/24 07/12/24 07/11/24 Rx Allergies Allergy/AdvReac Type Severity Reaction Status Date / Time aspirin Allergy ADR-Headach Verified 07/11/24 10:29 e Penicillins Allergy ALGY-Hives Verified 07/11/24 10:29 propofol Allergy Unknown Verified 07/11/24 16:45 Current Medications Generic Name Dose Route Start Last Admin Trade Name Bookerq PRN Reason Stop Dose Admin Acetaminophen 500 mg 07/12/24 00:04 07/12/24 18:29 Acetaminophen 500 Mg Tablet PO 500 mg Q4H PRN Administration fever Heparin Sodium (Porcine) 5,000 unit 07/12/24 00:04 07/14/24 23:46 Heparin 5,000 Unit/Ml Inj 1 Ml SUBCUT 5,000 unit Q12H ALPHONSO Administration Ciprofloxacin/Dextrose 400 mg in 200 mls @ 200 mls/hr 07/13/24 12:00 07/15/24 01:16 Cipro IV Infused Q12H ALPHONSO Infusion Protocol Metronidazole 500 mg in 100 mls @ 100 mls/hr 07/13/24 12:00 07/15/24 05:07 Flagyl Iv IV Infused Q8H ALPHONSO Infusion Protocol Insulin Human Lispro 0 unit 07/12/24 00:04 07/15/24 07:56 Insulin Lispro 100 Unit/1 Ml SUBCUT Not Given WM&BEDTIME ALPHONSO Protocol Lactulose 30 gm 07/12/24 00:04 07/15/24 08:16 Lactulose Oral Liq 20 Gm/30 Ml Udc PO 30 gm TID ALPHONSO Administration Morphine Sulfate 2 mg 07/13/24 16:22 07/15/24 08:18 Morphine 4 Mg/Ml Sdv 1 Ml IVP 2 mg Q4H PRN Administration SEVERE PAIN Pantoprazole Sodium 40 mg 07/13/24 12:00 07/14/24 23:46 Pantoprazole 40 Mg Sdv IVP 40 mg Q12H ALPHONSO Administration Rifaximin 600 mg 07/12/24 09:00 07/15/24 08:16 Rifaximin 200 Mg Tablet PO 600 mg BID ALPHONSO Administration PFSH Acute 2 PFSH: Medical History Witnessed seizure-like activity Seizures ruled out with spot EEG's done twice on and off sedation. 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 Transaminitis Hepatic encephalopathy Respiratory failure Ileus Abnormal transaminases Hypertension Hospital discharge follow-up Alcoholic cirrhosis Family History Mother Hypertension Denies family history of Colon cancer Ovarian cancer Diabetes Heart disease Breast cancer Uterine cancer Thyroid disease Stroke Social History Smoking and tobacco/nicotine status: current every day tobacco/nicotine user Vitals/I&O/Wt Last Vital Signs Temp 98.0 F 07/15/24 07:57 Pulse 78 07/15/24 07:57 Resp 14 07/15/24 08:18 BP 151/75 07/15/24 07:57 Pulse Ox 97 07/15/24 08:18 O2 Del Method Room Air 07/15/24 09:06 07/14/24 07/15/24 07/15/24 22:59 06:59 14:59 Intake Total 340 / 1000 300 / 1300 240 / 240 Balance 340 / 1000 300 / 1300 240 / 240 Weight last 48 hrs Weight 122 lb 11.2 oz Weight 121 lb 1.6 oz Physical Exam 2 GI: OTHER: Abdominal examination is benign there is tenderness mostly located in the right upper quadrant. No peritonitis Data 07/15/24 03:56 07/15/24 03:56 A&P Assessment and plan (1) Alcoholic cirrhosis: (2) Gastritis: (3) Duodenitis: Plan After a complete history physical examination revealed a very well clinically the following is my assessment. Patient symptoms at the moment are most likely associated with her alcoholic cirrhosis. She does have a recent CT scan and I do not see any concerning features in the scan that will require immediate intervention. She does have gastritis and some duodenitis for which she will benefit from an upper endoscopy but this can be done as an outpatient, also taking consideration that she is going to have an appointment with GI in 3 days for liver evaluation. At the moment no additional surgical intervention is recommended, we can continue PPI and antibiotic therapy as guided by medical team. No follow-up is needed with general surgery patient can follow-up with gastroenterology as scheduled. Coding Level of Care Code Acute Code for [facility] Diagnoses Alcoholic cirrhosis K70.30 Gastritis K29.70 Duodenitis K29.80
[2024-07-15 11:21] LABS: Glucose Point of Care 200 mg/dL (70-110)
[2024-07-15] MEDS: insulin lispro 100 unit/1 mL SUBCUT (12:48)
[2024-07-15] MEDS: pantoprazole 40 mg SDV IVP (12:48)
[2024-07-15] MEDS: heparin 5,000 unit/mL INJ 1 mL 5000 UNIT SUBCUT (12:49)
--- NOTE | 2024-07-15 14:03 | P.PN_ITS ---
Subjective 2 Subjective: This is a late entry note for 07/14/2024. Patient was seen this morning. She still complains of abdominal pain. Discussed with her regarding staying another day for monitoring. Continue ciprofloxacin and Flagyl. Requesting to go home. at bedside. Patient does have an appointment with liver specialist coming up in next week. Vitals/I&O/Wt Last Vital Signs Temp 97.4 F L 07/15/24 11:27 Pulse 76 07/15/24 11:27 Resp 14 07/15/24 12:39 BP 167/98 07/15/24 11:27 Pulse Ox 95 07/15/24 12:39 O2 Del Method Room Air 07/15/24 11:27 07/14/24 07/15/24 07/15/24 22:59 06:59 14:59 Intake Total 340 / 1000 300 / 1300 240 / 240 Balance 340 / 1000 300 / 1300 240 / 240 Weight last 48 hrs Weight 55.656 kg Weight 54.93 kg Physical Exam 2 Narrative: Alert oriented x 3. ? Abdomen soft, generally nontender, bowel sounds positive, mild tenderness to palpation around right upper quadrant area ? Patient saturating well on room air. Lungs clear to auscultation bilaterally no wheezes no rhonchi No gross focal deficits at this time. GI: COMMON NORMALS: Soft to palpation PALPATION: Yes Soft to palpation and Yes Tenderness to palpation present (GI) Data 07/15/24 03:56 07/15/24 03:56 A&P Assessment and plan (1) Gastritis: (2) Duodenitis: Plan Hepatic encephalopathy Positive asterixis Clinically looks dehydrated On previous admission EEG was done when posturing was noted during intubation however her urine was green and consideration was given to propofol syndrome as well No witnessed seizure as per the Monitor closely for now Ammonia level is not high Continue rifaximin and lactulose There is no sign of UTI or pneumonia As per the she had 2 bowel movements this morning UDS positive for marijuana, medical marijuana from the dispensary Recently meningitis was ruled out, CT head unremarkable, EEG was unremarkable, she may benefit from head MRI to rule out Warnicke's encephalopathy/Korsakoff: As per the she has been confused, has had couple of falls as well Monitor closely for any signs of seizure during this hospitalization Will request alcohol level, start high-dose thiamine Alcoholic liver cirrhosis: 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 intake, Consistent carb diet along sliding scale DVT prophylaxis Lovenox: Thrombocytopenia likely related to portal hypertension 07/12/2024 Agree management as per assessment and plan. Continue the above for now. ? Patient mental status is improved. ? Continue high-dose timing at this time. ? Patient does have appointment coming up with a [employer] recruiter in [place]. ? I will check MRI brain. 07/13/2024 - Maintain lactulose dose as she is having appropriate bowel movements with medication. - MRI brain showed no evidence of infarct or edema. Showed signs of chronic hepatic encephalopathy. - Ordered CT Abdomen today to evaluate RUQ tenderness. CT abdomen pelvis ordered for this morning to evaluate for right upper quadrant tenderness. Patient possibly has duodenitis and gastritis. ? Continue Protonix 40 IV twice daily ? I will add ciprofloxacin and Flagyl at this time. Will switch to GI soft diet at this time and monitor the patient. ? Mental status guerrero she has improved. She is appearing better. Continue high- dose thiamine to complete 6 doses total. Will transition to thiamine 250 daily starting tomorrow. 07/14/2024 Continue lactulose as she is having appropriate bowel movements. MRI reviewed. CT abdomen pelvis evaluated which did show duodenitis and gastritis. Continue on ciprofloxacin and Flagyl., Continue Protonix 40 IV daily. Continue GI soft diet. Patient would like to go home. However she is still having abdominal pain. May be secondary to liver etiology versus duodenitis gastritis. Will continue to monitor at this time. Plan for discharge home next morning. Patient is encouraged to follow-up with her liver specialist at discharge. at bedside. Attestations 2 Medical Necessity Statement*: Has evidence of gastritis duodenitis and abdominal pain. Will place on IV antibiotics and GI soft diet and monitor patient. If continues to improve by tomorrow may consider sending home. Diagnoses Gastritis K29.70 Duodenitis K29.80
--- NOTE | 2024-07-15 14:06 | PC.NURSE ---
Discharge paperwork discussed with patient and spouse. All questions were answered. IV lines were removed. Spouse took all the belongings to the truck. This nurse escorted patient to to exit via wheelchair at 1400.
== END 2024-07-15 14:00 | disposition home or self-care (01) | DRG 442 ==
LOC: ER 19:38 → ER IP 21:14 → MEDSURG 22:56
PROVIDERS: Admitting Provider Internal Medicine; Emergency Provider Emergency Medicine; Visit Provider Internal Medicine
DX: K76.82 Hepatic encephalopathy (principal); E46 Unspecified protein-calorie malnutrition; F05 Delirium due to known physiological condition; K76.6 Portal hypertension; K70.30 Alcoholic cirrhosis of liver without ascites; F10.11 Alcohol abuse, in remission; F12.90 Cannabis use, unspecified, uncomplicated; I10 Essential (primary) hypertension; F17.200 Nicotine dependence, unspecified, uncomplicated; M62.84 Sarcopenia; D69.6 Thrombocytopenia, unspecified; K29.70 Gastritis, unspecified, without bleeding; K29.80 Duodenitis without bleeding; E86.0 Dehydration; Z79.82 Long term (current) use of aspirin; Z68.22 Body mass index [BMI] 22.0-22.9, adult; Z90.49 Acquired absence of other specified parts of digestive tract
CPT/HCPCS: 36415; 36416; 70450; 70551; 71045; 74177; 80048; 80053; 80306; 80307; 81001; 82140; 82962; 83605; 83735; 84100; 85025; 87040; 96372; 96374; 96375; 99285; G0378; J0744; J1644; J1815; J2060; J2270; J2470; J3411; J3475; J3490

== ENCOUNTER 2024-08-22 13:51 | Outpatient (CLI) | payer MEDICAID, SELFPAY ==
--- NOTE | 2024-08-22 14:00 | MM_ITS ---
WS: [id number] BILATERAL 3D TOMOSYNTHESIS DIGITAL SCREENING MAMMOGRAM WITH CAD CLINICAL INFORMATION: Z12.39 - Encounter for other screening for malignant neop... HISTORY: Screening mammogram. No current complaints. COMPARISON: Baseline TECHNIQUE: Bilateral CC and MLO. FINDINGS: The breast are composed of extremely dense tissue, which can limit the detection of small underlying mass lesions. No suspicious focal mass, asymmetry, calcifications, or architectural distortion. No evidence of malignancy. MM/MM [facility] tomosynthesis [id number] IMPRESSION: DENSITY: The breasts are extremely dense, which lowers the sensitivity of mammo graphy. BI-RADS: 1 - Negative FOLLOW UP: 1 Year Follow-up Recommend return to annual screening mammography.
== END 2024-08-22 13:52 | disposition home or self-care (01) ==
LOC: RAD 13:53
PROVIDERS: Visit Provider Nurse Practitioner Women's Health
DX: Z12.39 Encounter for other screening for malignant neoplasm of breast (principal); Z12.31 Encounter for screening mammogram for malignant neoplasm of breast; R92.343 Mammographic extreme density, bilateral breasts
CPT/HCPCS: 77063; 77067

== ENCOUNTER 2024-09-20 09:04 | Outpatient (CLI) | payer MEDICAID, SELFPAY ==
--- NOTE | 2024-09-20 09:10 | US_ITS ---
WS: [id number] RIGHT UPPER QUADRANT ULTRASOUND HISTORY: HEPATIC ENCEPHALOPATHY/OTHER ASCITES COMPARISON: 04/18/2024 Liver: 13.8 cm in length. Small liver with coarse echotexture and nodular surface consistent with cirrhosis. No intrahepatic mass identified. Portal Vein: Normal velocity and flow within the portal vein. Gallbladder: Prior cholecystectomy. CBD: 1.8 cm, common bile duct dilatation is similar to 07/13/2024 CT. Mild progression of common bile duct dilatation may be related to the cholecystectomy but the extent of dilatation is more than expected. Pancreas: Normal size and echogenicity. Right kidney: 7.3 cm in length. Mild atrophy. No obstruction. Aorta and IVC: Unremarkable abdominal aorta and IVC. No ascites. US/US abdomen limited [id number] IMPRESSION: 1. Cirrhotic liver. No hepatic mass. 2. Marked dilatation of the common bile duct at 1.8 cm. Dilatation has been de scribed on recent exams. The extent of CBD dilatation is more than typically no sara for postcholecystectomy state. There is no intrahepatic duct dilatation. Co nsider the possibility of an ampulla of Vater stenosis or distal obstructing ma ss. Further evaluation may include upper endoscopy of the duodenum or MRCP.
== END 2024-09-20 09:05 | disposition home or self-care (01) ==
LOC: RAD 09:05
PROVIDERS: Visit Provider Nurse Practitioner Family
DX: K74.60 Unspecified cirrhosis of liver (principal); K76.82 Hepatic encephalopathy; I85.00 Esophageal varices without bleeding; R18.8 Other ascites; K83.8 Other specified diseases of biliary tract; Z90.49 Acquired absence of other specified parts of digestive tract; N26.1 Atrophy of kidney (terminal)
CPT/HCPCS: 76705

== ENCOUNTER → 2024-11-27 14:23 | Outpatient (BNVA) | payer MEDICAID, SELFPAY | DX: K70.30 Alcoholic cirrhosis of liver without ascites (principal) | CPT/HCPCS: 80053; 83036; 85025 ==

== ENCOUNTER 2024-12-10 14:25 | Outpatient (CLI) | payer MEDICAID, SELFPAY ==
[2024-12-10 15:04] LABS: Alanine Aminotransferase 29 U/L (0-33); Albumin Level 3.9 g/dL (3.5-5.2); Alkaline Phosphatase 144 U/L (35-105); Aspartate Amino Transferase 39 U/L (0-32); Bilirubin Direct 0.37 mg/dL (0.00-0.30); Globulin 3.4 g/dL (1.3-4.6); Total Bilirubin 0.8 mg/dL (0.15-1.2); Total Protein 7.3 g/dL (6.6-8.7)
== END 2024-12-10 14:26 | disposition home or self-care (01) ==
LOC: LAB 14:27
PROVIDERS: Visit Provider Nurse Practitioner Family
DX: R74.8 Abnormal levels of other serum enzymes (principal)
CPT/HCPCS: 80076

== ENCOUNTER → 2025-02-13 10:43 | Outpatient (BNVA) | payer MEDICAID, SELFPAY | PROVIDERS: Visit Provider Nurse Practitioner Women's Health | DX: Z01.419 Encounter for gynecological examination (general) (routine) without abnormal findings (principal) | CPT/HCPCS: 80053; 82306; 82465; 83036; 83718; 83721; 85025 ==

== ENCOUNTER 2025-02-25 09:18 | Outpatient (CLI) | payer MEDICAID, SELFPAY | END 2025-02-25 09:19 | disposition home or self-care (01) | LOC: LAB 09:18 | DX: E11.9 Type 2 diabetes mellitus without complications (principal) | CPT/HCPCS: 80053; 81000; 85025; 87086 ==

== ENCOUNTER 2025-03-06 13:21 | Outpatient (CLI) | payer MEDICAID, SELFPAY ==
--- NOTE | 2025-03-06 14:00 | CT_ITS ---
WS: [id number] CT ABDOMEN PELVIS TECHNIQUE: Contrast-enhanced CT of the abdomen and pelvis with coronal and sagittal reformatted images. CLINICAL INFORMATION: increased sugars, possible infection/melignancy COMPARISON: 07/13/[address] in 2023 and 2012. Prior ultrasound 09/20/2024 DLP: 336.[address] scans at [facility] use at least one of these dose optimization techniques: automated exposure control; mA and/or kV adjustment per patient size (includes targeted exams where dose is matched to clinical indication); or iterative reconstruction. FINDINGS: Cirrhotic liver with splenomegaly similar to previous. Portal vein and splenic vein are patent. Spleen measures 14 cm [id number]. Cholecystectomy. Diffuse gastric rugal thickening compatible with gastritis. Evidence of esophagitis in the distal esophagus with esophageal thickening. Evidence of duodenitis with duodenal wall thickening. Dilatation of the extrahepatic bile duct measuring up to 11 mm stable compared to previous but progressed compared to the earlier studies in 2023. Duodenal polypoid thickening at the ampulla Vater may be due to duodenitis but underlying mass or polyp not excluded. Recommend further evaluation with upper endoscopy. Recommend bile duct evaluation with MRCP or ERCP if not previously performed. Atrophic pancreas with mild pancreatic ductal dilatation. Evidence of portal venous hypertension with portosystemic collaterals and developing varices in the upper abdomen Lung bases are well aerated. Adrenal glands are normal. Normal renal parenchymal enhancement. No hydronephrosis. Normal caliber abdominal aorta. Celiac and SMA are patent. Few sigmoid diverticuli. Transverse colon and LEFT colon constipation. Normal appendix. Physiologic uterine enhancement. Anteverted uterus. Small uterine fibroids. Dominant LEFT ovarian follicle measuring [address]/CT abdomen pelvis w con* [id number] IMPRESSION: 1. Cirrhotic liver with splenomegaly similar to previous. 2. Cholecystectomy with prominent dilatation of the extrahepatic bile ducts wi th polypoid thickening at the ampulla Vater is nonspecific and recommend furthe r evaluation with upper endoscopy to exclude an obstructing mass. 3. In addition, recommend ERCP or MRCP to evaluate the common bile duct dilata tion. This is stable compared to previous but progressed since the earlier stud ies in 2023 4. Evidence of prominent significant gastritis with duodenitis and esophagitis . This can also be further evaluated with endoscopy. 5. Stable previously described radiopaque foreign body in the stomach, unknown etiology. 6. No ascites
[2025-03-06] MEDS: iohexol 350 mg/mL 500 mL Btl (per mL) PO (14:35)
[2025-03-06] MEDS: iohexol 350 mg/mL 500 mL Btl (per mL) IV (14:36)
== END 2025-03-06 13:22 | disposition home or self-care (01) ==
LOC: RAD 13:22
DX: K70.30 Alcoholic cirrhosis of liver without ascites (principal); R16.1 Splenomegaly, not elsewhere classified; Z90.49 Acquired absence of other specified parts of digestive tract; K29.70 Gastritis, unspecified, without bleeding; K20.90 Esophagitis, unspecified without bleeding; K29.80 Duodenitis without bleeding; K86.89 Other specified diseases of pancreas; K59.00 Constipation, unspecified; N85.4 Malposition of uterus; D25.9 Leiomyoma of uterus, unspecified; N83.02 Follicular cyst of left ovary
CPT/HCPCS: 74177